=== PATIENT | male | born 1975 | race Two or more races ===

== ENCOUNTER 2017-06-02 13:10 | Inpatient (IN) | payer SELFPAY ==
[2017-06-02 13:55] LABS: Hematocrit 47 % (42-52); Hemoglobin 16.2 g/dl (14.0-18.0); Mean Corpuscular HGB Conc 35 g/dl (31-36); Mean Corpuscular Hemoglobin 30 pg (27-31); Mean Corpuscular Volume 86 fL (80-94); Mean Platelet Volume 7 um3 (7.4-10.4); Red Blood Count 5.45 10^6/ul (4.0-5.4); Red Cell Distribution Width 14 % (10.5-15)
[2017-06-02 14:10] LABS: ALT 16 U/L (7-52); AST 18 U/L (13-39); Albumin 4.3 g/dL (3.2-5.2); Alkaline Phosphatase 61 U/L (34-104); BUN/Creatinine Ratio 6.9 (8-20); Blood Urea Nitrogen 6 mg/dL (6-24); CO2 Carbon Dioxide 22 mmol/L (22-32); Calcium 9.2 mg/dL (8.6-10.3); Chloride 88 mmol/L (101-111); EGFR African American 125.6 (>60); EGFR Non-African American 97.7 (>60); Globulin 3.2 g/dL (2-4); Glucose 125 mg/dL (70-100); Potassium 3.7 mmol/L (3.5-5.0); Total Protein 7.5 g/dL (6.4-8.9)
[2017-06-02 14:16] LABS: Anion Gap 9 mmol/L (2-11); Sodium 119 mmol/L (133-145)
[2017-06-02 14:28] LABS: Urine Bilirubin Negative (Negative); Urine Glucose Negative (Negative); Urine Nitrite Negative (Negative)
[2017-06-02 14:42] LABS: Acetaminophen < 15 mcg/mL; Alcohol < 10 mg/dL (<10); Salicylate < 2.50 mg/dL (<30)
[2017-06-02 14:49] LABS: TSH (Thyroid Stimulating Horm) 1.73 mcIU/mL (0.34-5.60)
[2017-06-02 14:53] LABS: Benzodiazepine Urine Screen None Detected (None Detect)
[2017-06-02] MEDS ORDERED: Acetaminophen TAB* 325 MG PO PRN (15:59)
[2017-06-02] MEDS ORDERED: Ondansetron INJ* 2 MG/ML VIAL IV PRN (15:59)
[2017-06-02] MEDS ORDERED: NS 0.9% 1000 ML* 1,000 ML IV SCH (16:00)
--- NOTE | 2017-06-02 16:41 | RAD ---
INDICATION: Altered mental status COMPARISON: None TECHNIQUE: Noncontrast axial source images were acquired from the skull base to the vertex. FINDINGS: Ventricles/sulci: The ventricles and cisterns are normal in size and configuration for age. Brain parenchyma: There is no focal parenchymal finding, evidence of intracranial mass, or intracranial mass effect. Intracranial hemorrhage:None. Extra-axial spaces: There are no abnormal extra axial fluid collections or evidence of extra-axial mass. Calvarium: There is no calvarial fracture or other calvarial abnormality. Scalp: There is no evidence of scalp or extracalvarial soft tissue abnormality. Paranasal sinuses/mastoid: The paranasal sinuses and mastoid air cells are clear. Other: None. IMPRESSION: NEGATIVE EXAMINATION
[2017-06-02 18:39] LABS: BUN/Creatinine Ratio 7.8 (8-20); Calcium 8.7 mg/dL (8.6-10.3); EGFR African American 144.6 (>60); EGFR Non-African American 112.5 (>60); Potassium 3.5 mmol/L (3.5-5.0)
--- NOTE | 2017-06-02 20:55 | HP ---
CC: Dr. Tyson * HISTORY AND PHYSICAL: DATE OF ADMISSION: 06/02/17 PRIMARY CARE PROVIDER: None. ATTENDING PHYSICIAN WHILE IN THE HOSPITAL: Siddhartha Denton MD * (report dictated by Miguel Hobbs NP). CONSULTING PSYCHIATRIST: Dr. Tyson. CHIEF COMPLAINT: Hearing voices. HISTORY OF PRESENT ILLNESS: Mr. Suarez is a 41-year-old male patient who was actually here in the past in 2009 with complaints of bipolar disorder and having difficulty with his mood. At that point, he was admitted and treated under the care of one of our psychiatrists in the past. He comes in today. He states over the last several weeks, he has been hearing voices. They have not been telling him to do harmful acts, but they have been speaking to him about various different types of topics such as what he should be eating, what he should be doing. He has been at times responding to them. He recently was put up in an apartment by a previous landlord and they were concerned today because they had been hearing him speak to the voices. They were concerned and they were trying to get him in touch with an outpatient psychiatrist, they could not. They got in touch with the psychiatrist today though and they felt that he may need to be evaluated in the hospital because of the auditory and visual hallucinations that he had been having. He denies feeling suicidal. He does state that he has been washing his hands excessively to the point where they are now having multiple abrasions to the hands. He also states he has been drinking an excessive amount of water, which he has had in the past. He has also had hyponatremia of this in the past as well. He denies having any fevers or chills. There has been no chest pain or any vomiting or diarrhea. He states he is not taking any psychiatric medications, although previous chart does state that he was on Clozaril at one point and he has been diagnosed with bipolar disorder. He came in to the ED, he was evaluated and it was found that he was hyponatremic and we were asked to evaluate for admission. PAST MEDICAL HISTORY: Significant for: 1. Bipolar disorder. He has had psychosis in the past. 2. He has had polydipsia with secondary hyponatremia. PAST SURGICAL HISTORY: He denies. HOME MEDICATIONS: Include none. ALLERGIES TO MEDICATIONS: Include none. FAMILY HISTORY: He states his father had Parkinson's. He states his mother is healthy. SOCIAL HISTORY: He does smoke cigarettes, he does not state how much. He does not drink alcohol. He denies any recreational drug abuse. He is unable to appoint a surrogate decision maker at this point. REVIEW OF SYSTEMS: There is no documented fever. He denied any significant weight change. There was no double vision. No ear discharge. Denied having any rhinorrhea. No sore throat. No thyroid enlargement. Denied having any chest pain. There was no orthopnea. No nocturnal dyspnea. There was no abdominal pain. No nausea. No vomiting. No dysuria. No frequency. There was no loss of consciousness. No pruritus. No skin ulcerations. Review of 14 systems was completed, all others negative. PHYSICAL EXAMINATION GENERAL: At this time, Mr. Suarez is a 41-year-old male patient. He is sitting in the ER stretcher. He does not appear to be in any acute distress. He is awake. He knows he is in the hospital. He knows his name and he knows what year it is. He appears to be well nourished and well developed. VITAL SIGNS: Blood pressure 161/103 with a pulse of 105, respirations 16, O2 sat 99%, and temperature of 97.8. HEENT: Head: Atraumatic. Eyes: EOMs are intact. Sclerae anicteric and not pale. Throat: Oral mucosa appears to be moist. No oropharyngeal erythema. NECK: Supple. LUNGS: Clear to auscultation bilaterally. No wheezes, rales, or rhonchi. HEART: Sounds S1, S2. Regular rate and rhythm. He is slightly tachycardic on my exam. No murmurs, rubs, or gallops. ABDOMEN: Soft, flat, nontender. Bowel sounds are present. EXTREMITIES: Pulses were 2+ throughout. He had no peripheral edema. He is moving all 4 extremities with 5/5 strength. NEUROLOGIC: Again, he is awake, he is alert to himself, time and place. He does state that he is not hearing voices at this point. His clinical veterinarian were equal. Tongue is midline. No facial drooping. SKIN: Intact. LABORATORY DATA: WBC of 12.0, RBC of 5.45, hemoglobin 16.2, hematocrit 47, platelet count of 54,000. Sodium is 119. In the past, when I look up his old chart, his sodium has been as low as 120. His potassium is 3.7, chloride of 88 , bicarb 22, BUN 6, creatinine 0.87, glucose 125. Calcium 9.2. Total bili 0.7 , AST 8, ALT 16, alk phos 61. TSH is normal. Urine was obtained, it was negative. U- tox was negative. Old medical records were reviewed. ASSESSMENT AND PLAN: Mr. Suarez is a 41-year-old male patient coming in to the ED today with complaints of hearing voices. On evaluation, he was found to be hyponatremic. He will be admitted under inpatient status for: 1. Hyponatremia. I suspect this is probably related to the fact that the patient has been having polydipsia secondary to his psychosis. Fluid restriction to a liter a day. I am going to get the urine osmolality, serum osmolality and urine sodium. We are checking a cortisol and we will continue to follow him closely. We will get BMP's every 6 hours and put him on normal saline at 75 cc an hour. 2. History of bipolar and psychosis. I did touch base with our psychiatry team. Some of them will be evaluating him tomorrow. We do not believe he is a danger to himself, so I did not order a one to one. We will have psych evaluate him as he may need psychiatric stabilization after sodium corrects. I am going to get a CT of the brain. 3. DVT prophylaxis. He is low risk. I will place him on SCDs. 4. Fluids, electrolytes and nutrition. He can be on a regular diet. 5. Code status. Full code. TIME SPENT: On admission 60 minutes, greater than half time spent [id number] with the patient obtaining my history and physical, other half of the time was spent going over the plan of care with the patient and implementing plan of care. I did discuss the plan of care with my attending, Dr. Denton; he is in agreement. MIGUEL HOBBS, [place] [id number]/[facility] #: [id number] KAMALJIT
[2017-06-03 00:38] LABS: BUN/Creatinine Ratio 10.3 (8-20); EGFR African American 110.8 (>60); EGFR Non-African American 86.2 (>60); Potassium 3.8 mmol/L (3.5-5.0)
[2017-06-03 06:12] LABS: Hematocrit 46 % (42-52); Hemoglobin 16.1 g/dl (14.0-18.0); Mean Corpuscular HGB Conc 35 g/dl (31-36); Mean Corpuscular Hemoglobin 30 pg (27-31); Mean Corpuscular Volume 85 fL (80-94); Mean Platelet Volume 7 um3 (7.4-10.4); Red Blood Count 5.42 10^6/ul (4.0-5.4); Red Cell Distribution Width 13 % (10.5-15); White Blood Count 10.8 10^3/ul (3.5-10.8)
[2017-06-03 06:21] LABS: BUN/Creatinine Ratio 9.4 (8-20); Calcium 9.4 mg/dL (8.6-10.3); EGFR African American 112.1 (>60); EGFR Non-African American 87.2 (>60); Potassium 3.9 mmol/L (3.5-5.0)
--- NOTE | 2017-06-03 11:04 | PN ---
Subjective Date of Service: 06/03/17 Interval History: Patient seen this morning. Fixated on water, has been ringing nursing bean numerous times this AM asking for more water. Perseverating on "Dr. Markos Briseno" who he reports is his psychiatrist at this facility (although no one by that name works here). Reports he drinks 2-3 gallons of water/day at home. Denies AH at this time and [employer]. Has excoriations on his hand that he states are from washing them. Family History: Unchanged from Admission Social History: Unchanged from Admission Past Medical History: Unchanged from Admission Objective Active Medications: Acetaminophen (Tylenol Tab*) 650 mg PO Q4H PRN PRN Reason: FEVER/PAIN Ondansetron HCl (Zofran Inj*) 4 mg IV Q6H PRN PRN Reason: NAUSEA Vital Signs 06/02/17 06/02/17 06/02/17 18:00 19:57 20:00 Temperature 98.5 F 98.4 F Pulse Rate 74 66 Respiratory 16 20 20 Rate Blood Pressure 153/85 151/81 (mmHg) O2 Sat by Pulse 100 100 Oximetry 06/02/17 06/03/17 06/03/17 23:33 02:41 07:28 Temperature 98.4 F 97.2 F 98.6 F Pulse Rate 68 67 93 Respiratory 16 15 Rate Blood Pressure 138/77 142/79 153/96 (mmHg) O2 Sat by Pulse 100 100 100 Oximetry 06/03/17 08:00 Temperature Pulse Rate Respiratory 15 Rate Blood Pressure (mmHg) O2 Sat by Pulse Oximetry Oxygen Devices in Use Now: None Appearance: Middle-aged, M, sitting in bed in NAD Eyes: No Scleral Icterus Ears/Nose/Mouth/Throat: Mucous Membranes Moist Neck: NL Appearance and Movements; NL JVP Respiratory: Symmetrical Chest Expansion and Respiratory Effort, Clear to Auscultation Cardiovascular: NL Sounds; No Murmurs; No JVD, RRR Abdominal: NL Sounds; No Tenderness; No Distention Lymphatic: No Cervical Adenopathy Extremities: No Edema Skin: No Rash or Ulcers Neurological: - - Alert, oriented, no focal deficits Result Diagrams: 06/03/17 05:58 06/03/17 05:58 Assess/Plan/Problems-Billing Assessment: Hyponatremia likely 2/2 polydipsia in a 41 yo M with past psych hx (bipolar disorder with psychosis) - Patient Problems (1) Hyponatremia Current Visit: Yes Comment: Improved with fluid restriction. Correction slightly faster than 0.5 mEq/hr but I don't think there is much concern for CPM. Continue fluid restriction for now , can liberalize a bit more tomorrow. Had similar presentation in 2009 and was hospitalized on Psych unit at that time. (2) Auditory hallucinations Current Visit: Yes Comment: Reported in H&P, patient denies at this time. Has had hx of psychosis in the past documented during 2009 admission here on Psych unit. Patient currently denies being on any medications and insists his psychiatrist is Dr. Markos Briseno. Psych to evaluate patient today. (3) DVT prophylaxis Current Visit: Yes Comment: SCDs Status and Disposition: Inpatient, ?need for psych admission
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
[2017-06-03] MEDS: Divalproex ER TAB(*) 500 MG PO SCH (22:45)
[2017-06-03] MEDS: CloZAPine TAB* 25 MG TAB PO SCH (22:45)
[2017-06-04 08:27] LABS: BUN/Creatinine Ratio 12.6 (8-20); Calcium 9.9 mg/dL (8.6-10.3); EGFR African American 113.5 (>60); EGFR Non-African American 88.3 (>60); Potassium 4.2 mmol/L (3.5-5.0)
[2017-06-04] MEDS: CloZAPine TAB* 25 MG TAB PO SCH (09:46)
--- NOTE | 2017-06-04 13:41 | PN ---
Subjective Date of Service: 06/04/17 Interval History: Patient seen this afternoon. Denies complaints other than feeling tired which he attributes to medications. Tangential at times. Says he does not recall speaking with the psychiatrist yesterday. Family History: Unchanged from Admission Social History: Unchanged from Admission Past Medical History: Unchanged from Admission Objective Active Medications: Acetaminophen (Tylenol Tab*) 650 mg PO Q4H PRN Clozapine (Clozapine Tab*) 25 mg PO DAILY MARJ Divalproex Sodium (Depakote Er Tab(*)) 1,500 mg PO BEDTIME MARJ Ondansetron HCl (Zofran Inj*) 4 mg IV Q6H PRN Vital Signs 06/03/17 06/03/17 06/04/17 16:15 20:00 04:27 Temperature 98.3 F Pulse Rate 95 81 Respiratory 17 18 16 Rate Blood Pressure 151/98 150/79 (mmHg) O2 Sat by Pulse 98 100 Oximetry 06/04/17 06/04/17 06/04/17 04:31 07:26 08:00 Temperature Pulse Rate 72 Respiratory 18 18 Rate Blood Pressure 141/83 (mmHg) O2 Sat by Pulse 99 99 Oximetry 06/04/17 06/04/17 13:21 13:23 Temperature Pulse Rate 154 145 Respiratory 16 Rate Blood Pressure 124/92 (mmHg) O2 Sat by Pulse 97 Oximetry Oxygen Devices in Use Now: None Appearance: Middle-aged, M, laying in bed in NAD Eyes: No Scleral Icterus Ears/Nose/Mouth/Throat: Mucous Membranes Moist Neck: NL Appearance and Movements; NL JVP Respiratory: Symmetrical Chest Expansion and Respiratory Effort, Clear to Auscultation Cardiovascular: NL Sounds; No Murmurs; No JVD, - - Tachycardia Abdominal: NL Sounds; No Tenderness; No Distention Lymphatic: No Cervical Adenopathy Extremities: No Edema Skin: No Rash or Ulcers Neurological: - - Alert, oriented, no focal deficits Result Diagrams: 06/03/17 05:58 06/04/17 07:53 Microbiology and Other Data: Microbiology 06/02/17 23:33 Urine Culture - Final Urine No Growth (<1,000 CFU/mL) Assess/Plan/Problems-Billing Assessment: Hyponatremia likely 2/2 polydipsia in a 41 yo M with past psych hx (bipolar disorder with psychosis) - Patient Problems (1) Tachycardia Current Visit: Yes Comment: Rapid HR on exam, will get EKG. ?related to Clozapine. Will discuss with Psych. (2) Hyponatremia Current Visit: Yes Comment: Improved with fluid restriction. Will liberalize fluid restriction to 2L. Had similar presentation in 2009 and was hospitalized on Psych unit at that time. (3) Auditory hallucinations Current Visit: Yes Comment: Reported in H&P, patient denies at this time. Has had hx of psychosis in the past documented during 2010 admission here on Psych unit. Appreciate Psych assistance. Started on Clozapine and Depakote (refused). (4) DVT prophylaxis Current Visit: Yes Comment: SCDs Status and Disposition: Inpatient, will need psych admission once medically clear and bed is available
--- NOTE | 2017-06-04 15:26 | CONSULT ---
Identification - Patient Identification Reason for Psychiatric Consultation: Incapacitating Symptoms -: Patient is a 41 year old, M admitted on 06/02/17. - MHU Identification Employment Status: Unemployed Hx Psychiatric Hospitalization: Yes History - Objective HPI: Anderson is seen for follow up. I understand that he refused his Depakote and clozapine last night, but did adhere with 25mg of clozapine this morning. Since then, I gather there has been some concern for tachycardia. On exam the patient is more interactive than yesterday but still isn't making much sense. "The tablet has made my head come together in the middle so that all I need is a few more days in the hospital to make everything just right." I ask if he's spoken with his brother, Harsh, or any other family members, which he denies. "No, no, I'll be fine." He denies SI or HI. Lab Results: Laboratory Tests 06/02/17 06/02/17 06/03/17 18:14 23:33 00:17 WBC RBC Hgb Hct MCV MCH MCHC RDW Plt Count MPV Neut % (Auto) Lymph % (Auto) [place] % (Auto) Eos % (Auto) Baso % (Auto) Absolute Neuts (auto) Absolute Lymphs (auto) Absolute Monos (auto) Absolute Eos (auto) Absolute Basos (auto) Absolute Nucleated RBC Nucleated RBC % Sodium 122 L 127 L Potassium 3.5 3.8 Chloride 93 L 97 L Carbon Dioxide 21 L 22 Anion Gap 8 8 BUN 6 10 Creatinine 0.77 0.97 Est GFR ( Amer) 144.6 110.8 Est GFR (Non-Af Amer) 112.5 86.2 BUN/Creatinine Ratio 7.8 L 10.3 Glucose 137 H 126 H Calcium 8.7 9.0 Ur Random Creatinine 30.84 Ur Random Sodium 27 06/03/17 06/03/17 06/04/17 05:58 05:58 07:53 WBC 10.8 RBC 5.42 H Hgb 16.1 Hct 46 MCV 85 MCH 30 MCHC 35 RDW 13 Plt Count 326 MPV 7 L Neut % (Auto) 72.4 Lymph % (Auto) 16.5 L [place] % (Auto) 9.9 H Eos % (Auto) 0.3 Baso % (Auto) 0.9 Absolute Neuts (auto) 7.8 H Absolute Lymphs (auto) 1.8 Absolute Monos (auto) 1.1 H Absolute Eos (auto) 0 Absolute Basos (auto) 0.1 Absolute Nucleated RBC 0 Nucleated RBC % 0 Sodium 128 L 132 L Potassium 3.9 4.2 Chloride 98 L 102 Carbon Dioxide 22 21 L Anion Gap 8 9 BUN 9 12 Creatinine 0.96 0.95 Est GFR ( Amer) 112.1 113.5 Est GFR (Non-Af Amer) 87.2 88.3 BUN/Creatinine Ratio 9.4 12.6 Glucose 163 H 133 H Calcium 9.4 9.9 Ur Random Creatinine Ur Random Sodium Exam Appearance: Well Developed/Nourished Hygiene: Dirty Grooming: Disheveled Psychomotor Activities: Normal Exhibits Abnormal Movement: No Attitude and Relatedness: Psychotically Related Eye Contact: Fair - Speech Quality: Unpressured Latencies: Normal Quantity: Appropriate Patient's Decription of Mood: "Okay" Observed Affect: Unvariable Affect Consistent with: Euthymia Patient's Thought Process: Disorganized Thought Content: Yes Paranoid Ideation, No Passive Wish, No Suicidal Planning, No Homicidal Ideation Experiencing Hallucinations: Yes Type of Hallucinations: Visual: No, Auditory: Yes, Command: Yes Level of Consciousness: Alert Orientation: Yes Intact, Yes Orientated to Time, Yes Orientated to Place, Yes Orientated to Person Impulse Control: Poor Insight and Judgement: Impaired Impression - Impression Clinical Impression: 41 y.o. single, homeless, male with dual citizenship in the and [place] and a history of schizoaffective DO and OCD brought in by an acquaintance due to several weeks of worsening command AH and inability to take care of himself in the community. Inpatient DSM-IV Dx: Schizoaffective DO, bipolar type Merits Inpatient Hospitalization: Yes Plan - Treatment Plan Treatment Plan: Start clozapine 25mg PO qday and Depakote ER 1500mg PO qhs. Transfer to [facility] pending male bed availability. Place on involuntary legal status, as patient currently declining psychiatric care. Psychiatry will continue to follow. Continued Medication Management: Start Medication Medications: Current Medications Acetaminophen (Tylenol Tab*) 650 mg PO Q4H PRN PRN Reason: FEVER/PAIN Clozapine (Clozapine Tab*) 25 mg PO DAILY MARJ Last Admin: 06/04/17 09:46 Dose: 25 mg Divalproex Sodium (Depakote Er Tab(*)) 1,500 mg PO BEDTIME MARJ Last Admin: 06/03/17 22:45 Dose: Not Given Ondansetron HCl (Zofran Inj*) 4 mg IV Q6H PRN PRN Reason: NAUSEA - Discharge Plan Discharge Plan: Inpatient Hospitalization
[2017-06-04] MEDS: Divalproex ER TAB(*) 500 MG PO SCH ×2 (20:49→20:56)
[2017-06-04] MEDS ORDERED: Haloperidol INJ IV/IM* 5 MG/ML AMP IM ONE (23:34)
[2017-06-04] MEDS ORDERED: Haloperidol INJ IV/IM* 5 MG/ML AMP ONE (23:37)
[2017-06-05 13:06] VITALS: BP 142/104
--- NOTE | 2017-06-05 13:21 | ED ---
Neptali Khanna Thomas, scribed for Angel Guevara MD on 06/02/17 at 1450 . Psychiatric Complaint - HPI Summary HPI Summary: For the last couple of weeks, this 41 y/o man has not been taking his medication for a mental illness of which he does not know the specific name. He reports hearing voices in the last couple days, especially people that live outside his apartment. The patient is also hearing voices in his head that know him well. When I am asked him what these voices say, he does not specific. When I ask him if these voices tell him to kill himself or others, he says no. The patient has a lot of tangential thoughts and word salad. He is disheveled and has tangential speech and word salad. He denies punching the wall although he has erythema on both hands. - History Of Current Complaint Chief Complaint: EDMentalHealth Time Seen by Provider: 06/02/17 13:22 Hx Obtained From: Patient Onset/Duration: Lasting Weeks - 2, Still Present, Worse Since - 2 days Timing: Constant Severity Currently: Severe Aggravating Factor(s): Nothing Alleviating Factor(s): Nothing Associated Signs And Symptoms: Positive: Hallucinating, Paranoid Behavior Related History: Positive For: Prior Psychiatric Issues Has Suicidal: Denies: Thoughts Has Homicidal: Denies: Thoughts - Allergies/Home Medications Allergies/Adverse Reactions: Allergies Allergy/AdvReac Type Severity Reaction Status Date / Time No Known Allergies Allergy Verified 06/02/17 13:20 Home Medications: Home Medications NK [No Home Medications Reported] 06/02/17 [History Confirmed 06/02/17] PMH/Surg Hx/FS Hx/Imm Hx Previously Healthy: No Endocrine/Hematology History: Denies: Hx Diabetes Psychiatric History: Reports: Other Psychiatric Issues/Disorders - Hx of unspecified mental illness - Surgical History Surgery Procedure, Year, and Place: None Infectious Disease History: No Infectious Disease History: Denies: Traveled Outside the [place] in Last 30 Days - Family History Known Family History: Positive: Other - Patient denies relevant FHx - Social History Alcohol Use: None Hx Substance Use: No Substance Use Type: Reports: None Hx Tobacco Use: No Smoking Status (MU): Never Smoked Tobacco Review of Systems Positive: Other - Thirst Positive: Other - Auditory halluicinations; NEGATIVE: SI, HI All Other Systems Reviewed And Are Negative: Yes Physical Exam - Summary Physical Exam Summary: VITAL SIGNS: Reviewed. GENERAL: Patient is a well-developed and nourished male who is lying comfortable in the stretcher. Patient is not in any acute respiratory distress. He is disheveled. His only complaint in the emergency room is that he is thirsty. HEAD AND FACE: No signs of trauma. No ecchymosis, hematomas or skull depressions. No sinus tenderness. EYES: PERRLA, EOMI x 2, No injected conjunctiva, no nystagmus. EARS: Hearing grossly intact. Ear canals and tympanic membranes are within normal limits. MOUTH: Oropharynx within normal limits. NECK: Supple, trachea is midline, no adenopathy, no JVD, no carotid bruit, no c- spine tenderness, neck with full ROM. CHEST: Symmetric, no tenderness at palpation LUNGS: Clear to auscultation bilaterally. No wheezing or crackles. CVS: Regular rate and rhythm, S1 and S2 present, no murmurs or gallops appreciated. ABDOMEN: Soft, non-tender. No signs of distention. No rebound no guarding, and no masses palpated. Bowel sounds are normal. EXTREMITIES: FROM in all major joints, no edema, no cyanosis or clubbing. NEURO: Alert and oriented x 3. No acute neurological deficits. Speech is normal and follows commands. SKIN: Dry and warm. He has erythema on both hands, probably because of punching the conroy. PSYCH: He is dissolved. He has tangential thoughts and word salad. He reports auditory hallucinations and hearing voices. Depressed, quiet, and denies any suicidal thoughts or plan. No homicidal thoughts or plan. Vital Signs On Initial Exam: Initial Vitals Temp Pulse Resp BP Pulse Ox 97.8 F 105 16 161/103 99 06/02/17 13:15 06/02/17 13:15 06/02/17 13:15 06/02/17 13:15 06/02/17 13:15 - Mary Coma Scale Coma Scale Total: 15 Diagnostics - Vital Signs Vital Signs Temp Pulse Resp BP Pulse Ox 06/02/17 13:15 97.8 F 105 16 161/103 99 - Laboratory Lab Results: Lab Results 06/02/17 06/02/17 06/02/17 Range/Units 13:45 13:45 13:59 WBC 12.0 H (3.5-10.8) 10^3/ul RBC 5.45 H (4.0-5.4) 10^6/ul Hgb 16.2 (14.0-18.0) g/dl Hct 47 (42-52) % MCV 86 (80-94) fL MCH 30 (27-31) pg MCHC 35 (31-36) g/dl RDW 14 (10.5-15) % Plt Count 345 (150-450) 10^3/ul MPV 7 L (7.4-10.4) um3 Neut % (Auto) 75.2 (38-83) % Lymph % (Auto) 15.1 L (25-47) % [place] % (Auto) 8.6 (1-9) % Eos % (Auto) 0.2 (0-6) % Baso % (Auto) 0.9 (0-2) % Absolute Neuts (auto) 9.0 H (1.5-7.7) 10^3/ul Absolute Lymphs (auto) 1.8 (1.0-4.8) 10^3/ul Absolute Monos (auto) 1.0 H (0-0.8) 10^3/ul Absolute Eos (auto) 0 (0-0.6) 10^3/ul Absolute Basos (auto) 0.1 (0-0.2) 10^3/ul Absolute Nucleated RBC 0.01 10^3/ul Nucleated RBC % 0.1 Sodium 119 L* (133-145) mmol/L Potassium 3.7 (3.5-5.0) mmol/L Chloride 88 L (101-111) mmol/L Carbon Dioxide 22 (22-32) mmol/L Anion Gap 9 (2-11) mmol/L BUN 6 (6-24) mg/dL Creatinine 0.87 (0.67-1.17) mg/dL Est GFR ( Amer) 125.6 (>60) Est GFR (Non-Af Amer) 97.7 (>60) BUN/Creatinine Ratio 6.9 L (8-20) Glucose 125 H (70-100) mg/dL Calcium 9.2 (8.6-10.3) mg/dL Total Bilirubin 0.70 (0.2-1.0) mg/dL AST 18 (13-39) U/L ALT 16 (7-52) U/L Alkaline Phosphatase 61 (34-104) U/L Total Protein 7.5 (6.4-8.9) g/dL Albumin 4.3 (3.2-5.2) g/dL Globulin 3.2 (2-4) g/dL Albumin/Globulin Ratio 1.3 (1-3) TSH Pending Urine Color Straw Urine Appearance Clear Urine pH 7.0 (5-9) Ur Specific [place] 1.003 L (1.010-1.030) Urine Protein Negative (Negative) Urine Ketones Negative (Negative) Urine Blood Negative (Negative) Urine Nitrate Negative (Negative) Urine Bilirubin Negative (Negative) Urine Urobilinogen Negative (Negative) Ur Leukocyte Esterase Negative (Negative) Urine Glucose Negative (Negative) Salicylates < 2.50 (<30) mg/dL Acetaminophen < 15 mcg/mL Serum Alcohol < 10 (<10) mg/dL Result Diagrams: 06/02/17 13:45 06/02/17 13:45 Lab Statement: Any lab studies that have been ordered have been reviewed, and results considered in the medical decision making process. Course/Dx - Course Assessment/Plan: For the last couple of weeks, this 41 y/o man has not been taking his medication for a mental illness of which he does not know the specific name. He reports hearing voices in the last couple days, especially people that live outside his apartment. The patient is also hearing voices in his head that know him well. When I am asked him what these voices say, he does not specific. When I ask him if these voices tell him to kill himself or others , he says no. The patient has a lot of tangential thoughts and word salad. He is disheveled and has tangential speech and word salad. He denies punching the wall although he has erythema on both hands. Test results show WBC 12, sodium 119. Urinalysis is negative for UTI. Urine toxicology is negative. In the ED course, the patient was given IV fluids; however, we stopped because of hyponatremia. I discussed the case with Dr. Denton, who accepts the patient for admission. - Differential Dx/Clinical Impression Provider Diagnosis: Hyponatremia, Change in mental status - Physician Notifications Discussed Care Of Patient With: Siddhartha Denton Time Discussed With Above Provider: 15:12 Instructed by Provider To: Other - Dr. Denton, hospitalist, will admit the patient. Discharge - Discharge Plan Condition: Stable Disposition: ADMITTED TO [facility] The documentation as recorded by the Neptali hansen Thomas accurately reflects the service I personally performed and the decisions made by me, Angel Guevara MD.
[2017-06-05] MEDS ORDERED: Haloperidol INJ IV/IM* 5 MG/ML AMP IM PRN (13:27)
--- NOTE | 2017-06-06 14:08 | DS ---
CC: Dr. Tyson DISCHARGE SUMMARY: DATE OF ADMISSION: 06/02/17 DATE OF DISCHARGE: 06/05/17 ACCEPTING PSYCHIATRIST: Dr. Tyson. DISCHARGE DIAGNOSIS: Severe hyponatremia secondary to psychogenic polydipsia. SECONDARY DIAGNOSIS: Bipolar disorder. MEDICATIONS AT THE TIME OF TRANSFER: 1. Divalproex ER 1500 mg p.o. at bedtime. 2. Acetaminophen 650 mg p.o. q.4 hours p.r.n. pain or fever. HOSPITAL COURSE: Mr. Suarez is a 41-year-old male with a past medical history as stated above that presented to the emergency room on 06/02/17 with complaints of hearing voices. The patient had previ ously been admitted to Mental Health in 2009 and diagnosed with bipolar disorder. He presented to [facility] emergency room at this time complaining of hearing voices. He acknowledged drinking large amounts of water like he had done in the past and his initial sodium was 119. He was admitted to the medical floor and with fluid restriction his sodium trended up and it was 132 on the day of discharge. His serum osmolality was 250, urine osmolality was 149 with an urinary random sodium of 27. The patient had a CT of the brain without contrast that was negative examination. He was seen in consultation by Psychiatry (Dr. Tyson) and his impression was that this patient was 41 years old male, single, homeless with history of schizoaffective disorder and OCD, brought in by an acquaintance due to several weeks of worsening command auditory hallucinations and inability to take care of himself in the community. His recommendation was to start clozapine 25 mg p.o. daily, but [facility] patient developed tachycardia and this medication was discontinued. He also recommended Depakote ER 1500 mg p.o. at bedtime and to transfer patient to the Behavioral Services Unit when a bed was avail able in an involuntary legal status. The patient developed some agitation when he was informed that he was being transferred to the Mental Health Unit and he required some Haldol. He is medically stable for transfer at this time. DIET: Regular diet with 2 L fluid restriction. ACTIVITIES: As tolerated. DISPOSITION: To the Mental Health Unit. STATUS WHILE IN THE HOSPITAL: Inpatient. Please keep in mind this is a summarized version of this patient's hospital stay. If you need more in formation, please feel free to call me at [phone] or please obtain the full medical records. TIME SPENT: Appropriately 40 minutes was spent to complete the discharge. [id number]/[facility] #: [id number]
== END 2017-06-05 14:50 | DRG 641 ==
LOC: ED 13:10 → MED 16:20
PROVIDERS: ADMIT Internal Medicine; ATTEND Internal Medicine
DX: E87.1 Hypo-osmolality and hyponatremia (principal); F25.0 Schizoaffective disorder, bipolar type; F28 Other psychotic disorder not due to a substance or known physiological condition; R63.1 Polydipsia; F42.9 Obsessive-compulsive disorder, unspecified; F17.210 Nicotine dependence, cigarettes, uncomplicated; R00.0 Tachycardia, unspecified; Z81.8 Family history of other mental and behavioral disorders
CPT/HCPCS: 36415; 70450; 80048; 80053; 80307; 80320; 80329; 81003; 82533; 82570; 83930; 83935; 84300; 84443; 85025; 87086; A9270-GY; G0480; J1630

== ENCOUNTER 2017-06-05 11:51 | Inpatient (IN) | payer MEDICAID ==
[2017-06-05] MEDS ORDERED: Al Hydrox/Mg Hydrox/Simet LIQ* 30 ML UDC PO PRN (12:07)
[2017-06-05] MEDS ORDERED: Acetaminophen TAB* 325 MG PO PRN (12:07)
[2017-06-05] MEDS ORDERED: Nicotine GUM* 2 MG PO PRN (12:07)
[2017-06-05] MEDS ORDERED: Haloperidol TAB* 5 MG PO PRN (12:14)
[2017-06-05] MEDS ORDERED: Benztropine INJ* 1 MG/ML 2 ML AMP ONE (18:55)
[2017-06-05] MEDS ORDERED: diPHENhydraMINE IV* 50 MG/ML 1 ml VIAL (BENADRYL) ONE (18:55)
--- NOTE | 2017-06-05 19:51 | PN ---
Subjective - Subjective Service Type: 30375 Hosp care 35 min high complexity Subjective: called by charge nurse to evaluate this 42 year old man for change in mental status. 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 unable to review medical admission in the computer. I do not have much history about this patient but he as a history of psychosis, mutism, and catatonic symptoms Nursing tells me that in report they were told that patient received a dose of haldol IM for being combative with security screener on the medical floor. nursing tells me that he arrived on floor about 3 pm. He is primarily telugu speaking. he isolated and was mostly mute but did come out to eat dinner. after eating a few bites, patient developed postural rigidity with neck hyperextension and fixed upward gaze They moved patient to hospital bed. vitals 155/98 HR 111 02 sat 100 percent T afebrile PE: diaphoretic opisthotonic posturing of head and neck with arched head and neck and spine, upward gaze, tongue rolled back and contracted. patient mute and unresponsive to verbal stimuli. upper and lower extremites with increased abdomen: soft non tender tone bilaterally symmetric Heart and Lungs: deferred skin: warm to touch,no cyanosis, scratches and excoriations visible on both hands and forearms ext: no clubbing or edema, good capillary refill MSE: mute but awake with eyes wide open labs: none seen in computer current Meds: haldol 5 mg q4 h prn risperdal 1 mg BID depakote ER 1500 mg Impression: Acute dystonic reaction secondary to Haldol in this 41 yo with history of schizoaffective disorder s/p hyponatremia on fluid restriction Plan: patient given benadryl 50 mg IM followed by cogentin 2 mg IM with good response. dystonic posturing remitted completely He is currently sitting in the common area in no distress placed on constant observation overnight q4h vitals x3 then can go to q shift written for ativan 0.5 mg TID scheduled and 0.5 mg Q4h prn agitation Haldol prn discontinued continue risperdal 1 mg BId and depakote ER 1500 mg qhs cbc, cmp, VPA level CPK ordred and pending patient signed out to Dr. Santo who will re evaluate patient in AM Plan - Plan Treatment Plan: Name: MADHAVI YEIMI MONTES DE OCA Birthdate: 1975 [id number]
[2017-06-05] MEDS ORDERED: LORazepam TAB(*) 0.5 MG PO PRN (19:57)
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
[2017-06-05 20:44] LABS: ABS Basophils 0.2 10^3/ul (0-0.2); ABS Eosinophils 0 10^3/ul (0-0.6); ABS Lymphocytes 2.7 10^3/ul (1.0-4.8); ABS Neutrophils 10.2 10^3/ul (1.5-7.7); ABS Nucleated RBC 0.02 10^3/ul; Eosinophil % 0.1 % (0-6); Hematocrit 48 % (42-52); Hemoglobin 16.2 g/dl (14.0-18.0); Lymphocyte % 19.1 % (25-47); Mean Corpuscular HGB Conc 34 g/dl (31-36); Mean Corpuscular Hemoglobin 30 pg (27-31); Mean Corpuscular Volume 87 fL (80-94); Mean Platelet Volume 7 um3 (7.4-10.4); Nucleated Red Blood Cells % 0.1; Platelet Count 383 10^3/ul (150-450); Red Blood Count 5.45 10^6/ul (4.0-5.4); Red Cell Distribution Width 14 % (10.5-15); White Blood Count 14.1 10^3/ul (3.5-10.8)
[2017-06-05 22:06] LABS: EGFR Non-African American 76.9 (>60)
[2017-06-05] MEDS: risperiDONE-M * 1 MG TAB.ORADIS PO SCH ×2 (22:45→22:55)
[2017-06-05] MEDS: Divalproex ER TAB(*) 500 MG PO SCH (22:54)
[2017-06-05] MEDS: Benztropine TAB* 1 MG PO SCH (22:54)
[2017-06-05] MEDS: LORazepam TAB(*) 0.5 MG PO SCH (22:58)
[2017-06-06] MEDS: LORazepam TAB(*) 0.5 MG PO SCH ×4 (00:05→21:35)
[2017-06-06] MEDS: risperiDONE-M * 1 MG TAB.ORADIS PO SCH ×2 (09:32→21:35)
[2017-06-06] MEDS: Benztropine TAB* 1 MG PO SCH ×3 (09:34→21:33)
[2017-06-06] MEDS: Divalproex ER TAB(*) 500 MG PO SCH (21:34)
[2017-06-07] MEDS: Benztropine TAB* 1 MG PO SCH ×4 (08:54→21:53)
[2017-06-07] MEDS: risperiDONE-M * 1 MG TAB.ORADIS PO SCH ×2 (08:54→20:23)
[2017-06-07] MEDS: LORazepam TAB(*) 0.5 MG PO SCH ×3 (08:54→20:23)
--- NOTE | 2017-06-07 19:01 | PN ---
Subjective - Subjective Subjective: Anderson indicates feeling better, denies SI/HI or A/VH, asserts that he has not been drinking excessively. He still appears disorganized in his thinking but denies SE from prescribed meds, reports sleeping ok. He is agreeable to repeat bloodwork in AM. Per staff, he has been adherent to unit's routines. Objective - Appearance Appearance: Healthy Appearing Dysmorphic Features: No Hygiene: Normal Grooming: Well Kept - Behavior Psychomotor Activities: Normal Exhibits Abnormal Movement: No - Attitude and Relatedness Attitude and Relatedness: Cooperative Eye Contact: Good - Speech Quality: Pressured Latencies: Normal Quantity: Copious - Mood Patient's Decription of Mood: "Okay" - Affect Observed Affect: Non-labile Affect Consistent with: Euthymia - Thought Process Patient's Thought Process: Disorganized, Over Inclusive Thought Content: No Passive Wish, No Suicidal Planning, No Homicidal Ideation, No Paranoid Ideation - Sensorium Experiencing Hallucinations: No, Sensorium is Clear - Level of Consciousness Level of Consciousness: Alert Orientation: Yes Intact - Impulse Control Impulse Control: Tenuous - Insight and Judgement Insight and Judgement: Impaired - Group Participation Particating in Group Activities: No - Medication Management Medication Management Adherence: Yes Assessment - Assessment Merits Inpatient Hospitalization: For Ongoing Evaluation, Consolidate Improvements, For Discharge Planning Inpatient DSM-IV Dx: Schizoaffective disorder, bipolar type; obsessive- compulsive disorder. Clinical Impression: Ongoing impairing manic/psychotic symptoms; polydypsia is improving; tolerating prescribed meds. He needs continued admission for stabilization. Repeat labs ordered for AM. Plan - Plan Treatment Plan: Name: ANDERSON MONTES DE OCA Birthdate: 1975 [id number] Medications: Current Medications Acetaminophen (Tylenol Tab*) 650 mg PO Q4H PRN PRN Reason: for pain; or Temp >101 F Al Hydrox/Mg Hydrox/Simethicone (Maalox Plus*) 30 ml PO Q4H PRN PRN Reason: INDIGESTION Benztropine Mesylate (Cogentin Tab*) 1 mg PO TID@0800,1400,2100 [facility] Last Admin: 06/07/17 13:24 Dose: 1 mg Divalproex Sodium (Depakote Er Tab(*)) 1,500 mg PO BEDTIME [facility] Last Admin: 06/06/17 21:34 Dose: 1,500 mg Lorazepam (Ativan Tab(*)) 0.5 mg PO TID [facility] Last Admin: 06/07/17 13:24 Dose: 0.5 mg Lorazepam (Ativan Tab(*)) 0.5 mg PO Q4H PRN PRN Reason: AGITATION Nicotine (Nicotine Inhaler*) 10 mg INH Q2H PRN PRN Reason: CRAVING Nicotine Polacrilex (Nicotine Gum*) 2 mg PO Q2H PRN PRN Reason: CRAVING Risperidone (Risperdal-M Tab *) 1 mg PO BID MARJ PRN Reason: Protocol Last Admin: 06/07/17 08:54 Dose: 1 mg - Discharge Plan Discharge Plan: Outpatient Follow Up Outpatient Program: [facility]
[2017-06-07] MEDS: Divalproex ER TAB(*) 500 MG PO SCH (20:23)
[2017-06-08 08:19] LABS: EGFR Non-African American 76.9 (>60)
[2017-06-08] MEDS: Benztropine TAB* 1 MG PO SCH ×4 (09:52→20:59)
[2017-06-08] MEDS: risperiDONE-M * 1 MG TAB.ORADIS PO SCH ×3 (09:52→21:55)
[2017-06-08] MEDS: LORazepam TAB(*) 0.5 MG PO SCH ×3 (09:52→21:55)
--- NOTE | 2017-06-08 12:10 | PN ---
Subjective - Subjective Service Type: 71280 Hosp care 15 min low complexity Subjective: The patient has displayed no further evidence of EPS despite being adherent with scheduled risperidone. Staff notes that he is not complying with fluid restrictions and is alleged to be drinking out of the toilet in his room. He remains disorganized and unable to tell me where he will stay following discharge. He denies SI or HI. Objective - Appearance Appearance: Obese Dysmorphic Features: No Hygiene: Normal Grooming: Fairly Well Kept - Behavior Psychomotor Activities: Normal Exhibits Abnormal Movement: No - Attitude and Relatedness Attitude and Relatedness: Psychotically Related Eye Contact: Poor - Speech Quality: Unpressured Latencies: Normal Quantity: Appropriate - Mood Patient's Decription of Mood: "Good" - Affect Observed Affect: Unvariable Affect Consistent with: Euthymia - Thought Process Patient's Thought Process: Disorganized Thought Content: Yes Paranoid Ideation, No Passive Wish, No Suicidal Planning, No Homicidal Ideation - Sensorium Experiencing Hallucinations: Yes Type of Hallucinations: Visual: No, Auditory: Yes, Command: No - Level of Consciousness Level of Consciousness: Alert Orientation: Yes Intact, Yes Orientated to Time, Yes Orientated to Place, Yes Orientated to Person - Impulse Control Impulse Control: Poor - Insight and Judgement Insight and Judgement: Impaired - Group Participation Particating in Group Activities: No - Medication Management Medication Management Adherence: Yes Assessment - Assessment Merits Inpatient Hospitalization: For Immediate Safety, For Stabilization Inpatient DSM-IV Dx: Schizoaffective disorder, bipolar type; obsessive- compulsive disorder. Clinical Impression: 41 y.o. single, male with a history of schizoaffective DO transferred from the [facility] medical service following stabilization of hyponatremia in the setting of psychogenic polydipsia, who is now receiving involuntary BSU admission for psychotic thought disorganization and inability to care for himself in the community. Plan - Plan Treatment Plan: Name: MADHAVI MONTES DE OCA Birthdate: 1975 [id number] The patient remains psychotic. Will increase risperidone to 1mg PO TID and increase Depakote ER to 1750mg PO qhs. Patient also on lorazepam 0.5mg PO TID and benztropine 1mg PO TID to prevent EPS. Will attempt to coordinate with his family in the [place] to repatriate him following psychiatric stabilization and discharge. Continue inpatient level services. Continued Medication Management: Start Medication Medications: Current Medications Acetaminophen (Tylenol Tab*) 650 mg PO Q4H PRN PRN Reason: for pain; or Temp >101 F Al Hydrox/Mg Hydrox/Simethicone (Maalox Plus*) 30 ml PO Q4H PRN PRN Reason: INDIGESTION Benztropine Mesylate (Cogentin Tab*) 1 mg PO TID@0800,1400,2100 [facility] Last Admin: 06/08/17 09:52 Dose: 1 mg Divalproex Sodium (Depakote Er Tab(*)) 1,750 mg PO BEDTIME MARJ Lorazepam (Ativan Tab(*)) 0.5 mg PO TID [facility] Last Admin: 06/08/17 09:52 Dose: 0.5 mg Lorazepam (Ativan Tab(*)) 0.5 mg PO Q4H PRN PRN Reason: AGITATION Nicotine (Nicotine Inhaler*) 10 mg INH Q2H PRN PRN Reason: CRAVING Nicotine Polacrilex (Nicotine Gum*) 2 mg PO Q2H PRN PRN Reason: CRAVING Risperidone (Risperdal-M Tab *) 1 mg PO TID MARJ PRN Reason: Protocol - Discharge Plan Discharge Plan: Inpatient Hospitalization Lab Results - Lab Results Lab Results: 06/05/17 06/05/17 06/08/17 20:29 20:29 07:45 WBC 14.1 H RBC 5.45 H Hgb 16.2 Hct 48 MCV 87 MCH 30 MCHC 34 RDW 14 Plt Count 383 MPV 7 L Neut % (Auto) 72.6 Lymph % (Auto) 19.1 L [place] % (Auto) 7.1 Eos % (Auto) 0.1 Baso % (Auto) 1.1 Absolute Neuts (auto) 10.2 H Absolute Lymphs (auto) 2.7 Absolute Monos (auto) 1.0 H Absolute Eos (auto) 0 Absolute Basos (auto) 0.2 Absolute Nucleated RBC 0.02 Nucleated RBC % 0.1 ESR 15 H Sodium 134 134 Potassium 4.3 4.1 Chloride 100 L 98 L Carbon Dioxide 21 L 30 Anion Gap 13 H 6 BUN 15 14 Creatinine 1.07 1.07 Est GFR ( Amer) 98.9 98.9 Est GFR (Non-Af Amer) 76.9 76.9 BUN/Creatinine Ratio 14.0 13.1 Glucose 130 H 91 Calcium 10.2 9.5 Magnesium 2.3 Total Bilirubin 0.50 0.70 AST 26 32 ALT 22 25 Alkaline Phosphatase 71 58 Total Creatine Kinase 499 H 651 H Total Protein 7.2 7.2 Albumin 4.3 4.0 Globulin 2.9 3.2 Albumin/Globulin Ratio 1.5 1.3 Valproic Acid < 13.0 L
[2017-06-08] MEDS ORDERED: Magnesium Hydroxide LIQ* 30 ML UDC PO PRN (13:23)
[2017-06-08] MEDS: Divalproex ER TAB(*) 500 MG PO SCH (20:56)
--- NOTE | 2017-06-09 10:23 | PN ---
Subjective - Subjective Service Type: [id number] Hosp care 15 min low complexity Subjective: The patient appears to be adhering to his fluid restriction order. He is selective with meds, taking them at some points but not others. Only took 1500 out of 1750mg dose of Depakote last night. He tends not to participate in groups and is disorganized on exam with poor grooming. He denies SI or HI. Objective - Appearance Appearance: Well Developed/Nourished Dysmorphic Features: No Hygiene: Normal Grooming: Well Kept - Behavior Psychomotor Activities: Normal Exhibits Abnormal Movement: No - Attitude and Relatedness Attitude and Relatedness: Psychotically Related Eye Contact: Fair - Speech Quality: Unpressured Latencies: Normal Quantity: Appropriate - Mood Patient's Decription of Mood: "Okay" - Affect Observed Affect: Unvariable Affect Consistent with: Euthymia - Thought Process Patient's Thought Process: Disorganized, Impoverished Thought Content: Yes Paranoid Ideation, No Passive Wish, No Suicidal Planning, No Homicidal Ideation - Sensorium Experiencing Hallucinations: Yes Type of Hallucinations: Visual: No, Auditory: Yes, Command: No - Level of Consciousness Level of Consciousness: Alert Orientation: Yes Intact, Yes Orientated to Time, Yes Orientated to Place, Yes Orientated to Person - Impulse Control Impulse Control: Poor - Insight and Judgement Insight and Judgement: Impaired - Group Participation Particating in Group Activities: No - Medication Management Medication Management Adherence: Partial Assessment - Assessment Merits Inpatient Hospitalization: For Immediate Safety, For Stabilization Inpatient DSM-IV Dx: Schizoaffective disorder, bipolar type; obsessive- compulsive disorder. Clinical Impression: 41 y.o. single, male with a history of schizoaffective DO [facility] following stabilization of hyponatremia in the setting of psychogenic polydipsia, who is now receiving involuntary BSU admission for psychotic thought disorganization and inability to care for himself in the community. Plan - Plan Treatment Plan: Name: MADHAVI MONTES DE OCA Birthdate: 1975 [id number] The patient remains psychotic. Meds now include risperidone 1mg PO TID, Depakote ER 1750mg PO qhs, lorazepam 0.5mg PO TID and benztropine 1mg PO TID to prevent EPS. We need to encourage better adherence. Will attempt to coordinate with his family in the [place] to repatriate him following psychiatric stabilization and discharge. Continue to hold on constant obs to reinforce fluid restrictions. Continue inpatient level services. Continued Medication Management: Different Medication Medications: Current Medications Acetaminophen (Tylenol Tab*) 650 mg PO Q4H PRN PRN Reason: for pain; or Temp >101 F Al Hydrox/Mg Hydrox/Simethicone (Maalox Plus*) 30 ml PO Q4H PRN PRN Reason: INDIGESTION Benztropine Mesylate (Cogentin Tab*) 0.5 mg PO TID@0800,1400,2100 [facility] Last Admin: 06/08/17 20:59 Dose: 0.5 mg Divalproex Sodium (Depakote Er Tab(*)) 1,750 mg PO BEDTIME [facility] Last Admin: 06/08/17 20:56 Dose: 1,500 mg Docusate Sodium (Colace Cap*) 100 mg PO DAILY [facility] Lorazepam (Ativan Tab(*)) 0.5 mg PO TID [facility] Last Admin: 06/08/17 21:55 Dose: Not Given Lorazepam (Ativan Tab(*)) 0.5 mg PO Q4H PRN PRN Reason: AGITATION Magnesium Hydroxide (Milk Of Magnesia Liq*) 30 ml PO Q6H PRN PRN Reason: CONSTIPATION Nicotine (Nicotine Inhaler*) 10 mg INH Q2H PRN PRN Reason: CRAVING Nicotine Polacrilex (Nicotine Gum*) 2 mg PO Q2H PRN PRN Reason: CRAVING Risperidone (Risperdal-M Tab *) 1 mg PO TID [facility] PRN Reason: Protocol Last Admin: 06/08/17 21:55 Dose: Not Given - Discharge Plan Discharge Plan: Inpatient Hospitalization
[2017-06-09] MEDS: risperiDONE-M * 1 MG TAB.ORADIS PO SCH ×3 (10:26→21:43)
[2017-06-09] MEDS: LORazepam TAB(*) 0.5 MG PO SCH ×3 (10:26→21:42)
[2017-06-09] MEDS: Benztropine TAB* 1 MG PO SCH ×3 (10:26→21:42)
[2017-06-09] MEDS: Docusate CAP* 100 MG PO SCH (10:26)
[2017-06-09] MEDS ORDERED: chlorproMAZINE TAB* 50 MG PO ONE (17:50)
[2017-06-09] MEDS ORDERED: LORazepam TAB(*) 1 MG PO ONE (17:50)
[2017-06-09] MEDS: Divalproex ER TAB(*) 500 MG PO SCH (21:43)
[2017-06-10] MEDS: risperiDONE-M * 1 MG TAB.ORADIS PO SCH ×3 (09:31→20:06)
[2017-06-10] MEDS: LORazepam TAB(*) 0.5 MG PO SCH ×3 (09:31→20:07)
[2017-06-10] MEDS: Benztropine TAB* 1 MG PO SCH ×3 (09:31→20:09)
[2017-06-10] MEDS: Docusate CAP* 100 MG PO SCH (09:31)
[2017-06-10] MEDS ORDERED: Mouth Piece, Nicotine* 1 EACH CARTRIDGE ONE (11:02)
[2017-06-10] MEDS: Nicotine Inhaler* 10 MG AMP INH PRN ×2 (11:03→14:12)
--- NOTE | 2017-06-10 14:26 | PN ---
Subjective - Subjective Date of Service: 06/10/17 Service Type: [id number] Hosp care 15 min low complexity Subjective: Anderson is disorganized and grandiose, telling me that he invented the [employer] when he was 3 years old. He had an episode of agitation with his close obs aide yesterday and threatened her with violence when she tried to prevent him from drinking water per his fluid restriction protocol. On exam he is dishevelled with his shirt on backwards. Medication adherence has been selective. Objective - Appearance Appearance: Well Developed/Nourished Dysmorphic Features: No Hygiene: Normal Grooming: Well Kept - Behavior Psychomotor Activities: Normal Exhibits Abnormal Movement: No - Attitude and Relatedness Attitude and Relatedness: Psychotically Related Eye Contact: Poor - Speech Quality: Pressured Latencies: Short Quantity: Copious - Mood Patient's Decription of Mood: "Great" - Affect Observed Affect: Unvariable Affect Consistent with: Euphoria - Thought Process Patient's Thought Process: Disorganized Thought Content: Yes Paranoid Ideation, No Passive Wish, No Suicidal Planning, No Homicidal Ideation - Sensorium Experiencing Hallucinations: Yes Type of Hallucinations: Visual: No, Auditory: Yes, Command: No - Level of Consciousness Level of Consciousness: Agitated Orientation: Yes Intact, Yes Orientated to Time, Yes Orientated to Place, Yes Orientated to Person - Impulse Control Impulse Control: Poor - Insight and Judgement Insight and Judgement: Impaired - Group Participation Particating in Group Activities: No - Medication Management Medication Management Adherence: Partial Assessment - Assessment Merits Inpatient Hospitalization: For Immediate Safety, For Stabilization Inpatient DSM-IV Dx: Schizoaffective disorder, bipolar type; obsessive- compulsive disorder. Clinical Impression: 41 y.o. single, male with a history of schizoaffective DO [facility] stabilization of hyponatremia in the setting of psychogenic polydipsia, who is now receiving involuntary BSU admission for psychotic thought disorganization and inability to care for himself in the community. Plan - Plan Treatment Plan: Name: ANDERSON MONTES DE OCA Birthdate: 1975 [id number] The patient remains psychotic. Meds now include risperidone 1mg PO TID, Depakote ER 1750mg PO qhs, lorazepam 0.5mg PO TID and benztropine 1mg PO TID to prevent EPS. We need to encourage better adherence. Will attempt to coordinate with his family in the [place] to repatriate him following psychiatric stabilization and discharge. Continue to hold on constant obs to reinforce fluid restrictions. Continue inpatient level services. Continued Medication Management: Start Medication Medications: Current Medications Acetaminophen (Tylenol Tab*) 650 mg PO Q4H PRN PRN Reason: for pain; or Temp >101 F Al Hydrox/Mg Hydrox/Simethicone (Maalox Plus*) 30 ml PO Q4H PRN PRN Reason: INDIGESTION Benztropine Mesylate (Cogentin Tab*) 0.5 mg PO TID@0800,1400,2100 [facility] Last Admin: 06/10/17 13:35 Dose: 0.5 mg Divalproex Sodium (Depakote Er Tab(*)) 1,750 mg PO BEDTIME [facility] Last Admin: 06/09/17 21:43 Dose: Not Given Docusate Sodium (Colace Cap*) 100 mg PO DAILY [facility] Last Admin: 06/10/17 09:31 Dose: 100 mg Lorazepam (Ativan Tab(*)) 0.5 mg PO TID [facility] Last Admin: 06/10/17 13:35 Dose: 0.5 mg Lorazepam (Ativan Tab(*)) 0.5 mg PO Q4H PRN PRN Reason: AGITATION Magnesium Hydroxide (Milk Of Magnesia Liq*) 30 ml PO Q6H PRN PRN Reason: CONSTIPATION Nicotine (Nicotine Inhaler*) 10 mg INH Q2H PRN PRN Reason: CRAVING Last Admin: 06/10/17 14:12 Dose: 10 mg Nicotine Polacrilex (Nicotine Gum*) 2 mg PO Q2H PRN PRN Reason: CRAVING Risperidone (Risperdal-M Tab *) 1 mg PO TID [facility] PRN Reason: Protocol Last Admin: 06/10/17 13:34 Dose: 1 mg - Discharge Plan Discharge Plan: Inpatient Hospitalization Lab Results - Lab Results Lab Results: 06/08/17 07:45 Sodium 134 Potassium 4.1 Chloride 98 L Carbon Dioxide 30 Anion Gap 6 BUN 14 Creatinine 1.07 Est GFR ( Amer) 98.9 Est GFR (Non-Af Amer) 76.9 BUN/Creatinine Ratio 13.1 Glucose 91 Calcium 9.5 Total Bilirubin 0.70 AST 32 ALT 25 Alkaline Phosphatase 58 Total Creatine Kinase 651 H Total Protein 7.2 Albumin 4.0 Globulin 3.2 Albumin/Globulin Ratio 1.3
[2017-06-10] MEDS: Divalproex ER TAB(*) 500 MG PO SCH (20:06)
[2017-06-11 07:48] LABS: EGFR Non-African American 88.3 (>60)
[2017-06-11] MEDS: Docusate CAP* 100 MG PO SCH (09:12)
[2017-06-11] MEDS: Benztropine TAB* 1 MG PO SCH ×3 (09:12→22:30)
[2017-06-11] MEDS: LORazepam TAB(*) 0.5 MG PO SCH ×3 (09:12→22:30)
[2017-06-11] MEDS: risperiDONE-M * 1 MG TAB.ORADIS PO SCH ×3 (09:12→22:29)
[2017-06-11] MEDS: Nicotine Inhaler* 10 MG AMP INH PRN (09:33)
--- NOTE | 2017-06-11 12:57 | PN ---
Subjective - Subjective Date of Service: 06/11/17 Service Type: [id number] Hosp care 15 min low complexity Subjective: Anderson has been mostly adherent with medications, skipping doses here and there for no known reason. His speech remains fluent but irrelevant. He continues to endorse several delusions to the effect that he has an apartment here in [place], which I understand he does not, and that he will be accepted to attend [employer]. No behavioral problems have been noted in the last 24 hours and he's adhered appropriately with fluid restrictions. Objective - Appearance Appearance: Well Developed/Nourished Dysmorphic Features: No Hygiene: Dirty Grooming: Disheveled - Behavior Psychomotor Activities: Normal Exhibits Abnormal Movement: No - Attitude and Relatedness Attitude and Relatedness: Psychotically Related Eye Contact: Poor - Speech Quality: Unpressured Latencies: Normal Quantity: Appropriate - Mood Patient's Decription of Mood: "Great" - Affect Observed Affect: Unvariable Affect Consistent with: Euthymia - Thought Process Patient's Thought Process: Tangential Thought Content: Yes Paranoid Ideation, No Passive Wish, No Suicidal Planning, No Homicidal Ideation - Sensorium Experiencing Hallucinations: Yes Type of Hallucinations: Visual: No, Auditory: Yes, Command: No - Level of Consciousness Level of Consciousness: Alert Orientation: Yes Intact, Yes Orientated to Time, Yes Orientated to Place, Yes Orientated to Person - Impulse Control Impulse Control: Poor - Insight and Judgement Insight and Judgement: Impaired - Group Participation Particating in Group Activities: No - Medication Management Medication Management Adherence: Partial Assessment - Assessment Merits Inpatient Hospitalization: For Immediate Safety, For Stabilization Inpatient DSM-IV Dx: Schizoaffective disorder, bipolar type; obsessive- compulsive disorder. Clinical Impression: 41 y.o. single, male with a history of schizoaffective DO [facility] stabilization of hyponatremia in the setting of psychogenic polydipsia, who is now receiving involuntary BSU admission for psychotic thought disorganization and inability to care for himself in the community. Plan - Plan Treatment Plan: Name: ANEDRSON MONTES DE OCA Birthdate: 1975 [id number] The patient remains psychotic. Meds now include risperidone 1mg PO TID, Depakote ER 1750mg PO qhs, lorazepam 0.5mg PO TID and benztropine 1mg PO TID to prevent EPS. We need to encourage better adherence. Will attempt to coordinate with his family in the [place] to repatriate him following psychiatric stabilization and discharge. Continue to hold on constant obs to reinforce fluid restrictions. Continue inpatient level services. Continued Medication Management: Start Medication Medications: Current Medications Acetaminophen (Tylenol Tab*) 650 mg PO Q4H PRN PRN Reason: for pain; or Temp >101 F Al Hydrox/Mg Hydrox/Simethicone (Maalox Plus*) 30 ml PO Q4H PRN PRN Reason: INDIGESTION Benztropine Mesylate (Cogentin Tab*) 0.5 mg PO TID@0800,1400,2100 [facility] Last Admin: 06/11/17 09:12 Dose: 0.5 mg Divalproex Sodium (Depakote Er Tab(*)) 1,750 mg PO BEDTIME [facility] Last Admin: 06/10/17 20:06 Dose: 1,750 mg Docusate Sodium (Colace Cap*) 100 mg PO DAILY [facility] Last Admin: 06/11/17 09:12 Dose: 100 mg Lorazepam (Ativan Tab(*)) 0.5 mg PO TID [facility] Last Admin: 06/11/17 09:12 Dose: 0.5 mg Lorazepam (Ativan Tab(*)) 0.5 mg PO Q4H PRN PRN Reason: AGITATION Magnesium Hydroxide (Milk Of Magnesia Liq*) 30 ml PO Q6H PRN PRN Reason: CONSTIPATION Nicotine (Nicotine Inhaler*) 10 mg INH Q2H PRN PRN Reason: CRAVING Last Admin: 06/11/17 09:33 Dose: 10 mg Nicotine Polacrilex (Nicotine Gum*) 2 mg PO Q2H PRN PRN Reason: CRAVING Risperidone (Risperdal-M Tab *) 1 mg PO TID [facility] PRN Reason: Protocol Last Admin: 06/11/17 09:12 Dose: 1 mg - Discharge Plan Discharge Plan: Inpatient Hospitalization Lab Results - Lab Results Lab Results: 06/11/17 06/11/17 07:14 07:14 Sodium 135 Potassium 4.1 Chloride 103 Carbon Dioxide 26 Anion Gap 6 BUN 11 Creatinine 0.95 Est GFR ( Amer) 113.5 Est GFR (Non-Af Amer) 88.3 BUN/Creatinine Ratio 11.6 Glucose 121 H Hemoglobin A1c 5.9 H Calcium 8.9 Total Bilirubin 0.20 AST 15 ALT 16 Alkaline Phosphatase 65 Total Protein 6.2 L Albumin 3.5 Globulin 2.7 Albumin/Globulin Ratio 1.3 Triglycerides 74 Cholesterol 116 LDL Cholesterol 70 HDL Cholesterol 31.0
[2017-06-11] MEDS: Divalproex ER TAB(*) 500 MG PO SCH (22:27)
[2017-06-12] MEDS: risperiDONE-M * 1 MG TAB.ORADIS PO SCH ×3 (09:15→21:23)
[2017-06-12] MEDS: Benztropine TAB* 1 MG PO SCH ×3 (09:15→21:24)
[2017-06-12] MEDS: Docusate CAP* 100 MG PO SCH (09:15)
[2017-06-12] MEDS: LORazepam TAB(*) 0.5 MG PO SCH ×3 (09:16→21:21)
[2017-06-12] MEDS: Nicotine Inhaler* 10 MG AMP INH PRN (10:17)
--- NOTE | 2017-06-12 15:21 | PN ---
Subjective - Subjective Date of Service: 06/12/17 Service Type: [id number] Hosp care 15 min low complexity Subjective: Anderson was upset and agitated today because he was given his afternoon meds at the same time as his cell phone, which he uses to call his family in [place] He was able to be verbally redirected and did take the medications as directed. I was able to speak with Anderson's friend, Markos Bales ([phone]) who brought him to the hospital, for collateral. Markos indicates that they met in 2011 when Markos was his landlord for 3-5 months before Anderson ran out of money and had to return to the [place] Anderson had called him again back in January of 2017 to get a housing referral, briefly lived at one of Markos's apartments and then moved to one of Markos's friend's apartments in February of 2017. He worked several jobs in succession, losing them all and running out of money again. He was evicted on the 27 of May and called Markos, who temporarily gave him food and skilled nursing until bringing him to the hospital several days later. Markos is making it clear at this time that Anderson cannot stay with him and that he would be best served living with his family. Anderson's consumption of water has been appropriate the last 2 days. Objective - Appearance Appearance: Well Developed/Nourished Dysmorphic Features: No Hygiene: Normal Grooming: Disheveled - Behavior Psychomotor Activities: Normal Exhibits Abnormal Movement: No - Attitude and Relatedness Attitude and Relatedness: Psychotically Related Eye Contact: Poor - Speech Quality: Unpressured Latencies: Normal Quantity: Appropriate - Mood Patient's Decription of Mood: "Good" - Affect Observed Affect: Unvariable Affect Consistent with: Euphoria - Thought Process Patient's Thought Process: Disorganized Thought Content: Yes Paranoid Ideation, No Passive Wish, No Suicidal Planning, No Homicidal Ideation - Sensorium Experiencing Hallucinations: Yes Type of Hallucinations: Visual: No, Auditory: Yes, Command: No - Level of Consciousness Level of Consciousness: Alert Orientation: Yes Intact, Yes Orientated to Time, Yes Orientated to Place, Yes Orientated to Person - Impulse Control Impulse Control: Poor - Insight and Judgement Insight and Judgement: Impaired - Group Participation Particating in Group Activities: No - Medication Management Medication Management Adherence: Yes Assessment - Assessment Merits Inpatient Hospitalization: For Immediate Safety, For Stabilization Inpatient DSM-IV Dx: Schizoaffective disorder, bipolar type; obsessive- compulsive disorder. Clinical Impression: 41 y.o. single, male with a history of schizoaffective DO [facility] following stabilization of hyponatremia in the setting of psychogenic polydipsia, who is now receiving involuntary BSU admission for psychotic thought disorganization and inability to care for himself in the community. Plan - Plan Treatment Plan: Name: ANDERSON MONTES DE OCA Birthdate: 1975 [id number] The patient remains psychotic. Meds now include risperidone 1mg PO TID, Depakote ER 1750mg PO qhs, lorazepam 0.5mg PO TID and benztropine 1mg PO TID to prevent EPS. We need to encourage better adherence. Will attempt to coordinate with his family in the [place] to repatriate him following psychiatric stabilization and discharge. Continue to reinforce fluid restrictions. Continue inpatient level services. Continued Medication Management: Start Medication Medications: Current Medications Acetaminophen (Tylenol Tab*) 650 mg PO Q4H PRN PRN Reason: for pain; or Temp >101 F Al Hydrox/Mg Hydrox/Simethicone (Maalox Plus*) 30 ml PO Q4H PRN PRN Reason: INDIGESTION Benztropine Mesylate (Cogentin Tab*) 0.5 mg PO TID@0800,1400,2100 [facility] Last Admin: 06/12/17 14:03 Dose: 0.5 mg Divalproex Sodium (Depakote Er Tab(*)) 1,750 mg PO BEDTIME [facility] Last Admin: 06/11/17 22:27 Dose: 1,750 mg Docusate Sodium (Colace Cap*) 100 mg PO DAILY [facility] Last Admin: 06/12/17 09:15 Dose: 100 mg Lorazepam (Ativan Tab(*)) 0.5 mg PO TID [facility] Last Admin: 06/12/17 14:04 Dose: 0.5 mg Lorazepam (Ativan Tab(*)) 0.5 mg PO Q4H PRN PRN Reason: AGITATION Magnesium Hydroxide (Milk Of Magnesia Liq*) 30 ml PO Q6H PRN PRN Reason: CONSTIPATION Nicotine (Nicotine Inhaler*) 10 mg INH Q2H PRN PRN Reason: CRAVING Last Admin: 06/12/17 10:17 Dose: 10 mg Nicotine Polacrilex (Nicotine Gum*) 2 mg PO Q2H PRN PRN Reason: CRAVING Risperidone (Risperdal-M Tab *) 1 mg PO TID [facility] PRN Reason: Protocol Last Admin: 06/12/17 14:04 Dose: 1 mg - Discharge Plan Discharge Plan: Inpatient Hospitalization Lab Results - Lab Results Lab Results: 06/11/17 06/11/17 07:14 07:14 Sodium 135 Potassium 4.1 Chloride 103 Carbon Dioxide 26 Anion Gap 6 BUN 11 Creatinine 0.95 Est GFR ( Amer) 113.5 Est GFR (Non-Af Amer) 88.3 BUN/Creatinine Ratio 11.6 Glucose 121 H Hemoglobin A1c 5.9 H Calcium 8.9 Total Bilirubin 0.20 AST 15 ALT 16 Alkaline Phosphatase 65 Total Protein 6.2 L Albumin 3.5 Globulin 2.7 Albumin/Globulin Ratio 1.3 Triglycerides 74 Cholesterol 116 LDL Cholesterol 70 HDL Cholesterol 31.0
[2017-06-12] MEDS: Divalproex ER TAB(*) 500 MG PO SCH (21:21)
[2017-06-13] MEDS: LORazepam TAB(*) 0.5 MG PO SCH ×3 (08:56→21:22)
[2017-06-13] MEDS: Docusate CAP* 100 MG PO SCH (08:57)
[2017-06-13] MEDS: risperiDONE-M * 1 MG TAB.ORADIS PO SCH ×3 (08:57→21:21)
[2017-06-13] MEDS: Benztropine TAB* 1 MG PO SCH ×3 (08:58→21:20)
[2017-06-13] MEDS: Divalproex ER TAB(*) 500 MG PO SCH (21:21)
[2017-06-14] MEDS: Benztropine TAB* 1 MG PO SCH ×3 (08:44→20:54)
[2017-06-14] MEDS: Docusate CAP* 100 MG PO SCH (08:44)
[2017-06-14] MEDS: risperiDONE-M * 1 MG TAB.ORADIS PO SCH ×3 (08:44→20:54)
[2017-06-14] MEDS: LORazepam TAB(*) 0.5 MG PO SCH ×3 (08:44→20:56)
[2017-06-14] MEDS: Nicotine Inhaler* 10 MG AMP INH PRN (09:15)
[2017-06-14] MEDS: Divalproex ER TAB(*) 500 MG PO SCH (20:52)
[2017-06-15] MEDS: LORazepam TAB(*) 0.5 MG PO SCH ×2 (08:24→21:54)
[2017-06-15] MEDS: Docusate CAP* 100 MG PO SCH (08:24)
[2017-06-15] MEDS: risperiDONE-M * 1 MG TAB.ORADIS PO SCH ×2 (08:24→21:54)
[2017-06-15] MEDS: Benztropine TAB* 1 MG PO SCH ×2 (08:25→21:54)
--- NOTE | 2017-06-15 15:09 | PN ---
Subjective - Subjective Date of Service: 06/15/17 Service Type: [id number] Hosp care 15 min low complexity Subjective: The patient is better organized and speaking Hebrew more. He has not been over -consuming water as far as staff has documented. He remains delusional about discharge plans, saying that he will stay at his friend, Estuardo. When confronted that this person is on record as not wanting Anderson to stay with him , the patient then states he has an apartment on [address]. I remind him that he was evicted from this housing situation on 05/27, which he denies. He has been in contact with his mother in the [facility] but not his brother in [place]. He denies SI or HI. No further EPS has been noted. Objective - Appearance Appearance: Well Developed/Nourished Dysmorphic Features: No Hygiene: Normal Grooming: Disheveled - Behavior Psychomotor Activities: Normal Exhibits Abnormal Movement: No - Attitude and Relatedness Attitude and Relatedness: Cooperative Eye Contact: Fair - Speech Quality: Unpressured Latencies: Normal Quantity: Appropriate - Mood Patient's Decription of Mood: "Okay" - Affect Observed Affect: Unvariable Affect Consistent with: Euthymia - Thought Process Patient's Thought Process: Disorganized, Impoverished Thought Content: Yes Paranoid Ideation, No Passive Wish, No Suicidal Planning, No Homicidal Ideation - Sensorium Experiencing Hallucinations: Yes Type of Hallucinations: Visual: No, Auditory: Yes, Command: No - Level of Consciousness Level of Consciousness: Alert Orientation: Yes Intact, Yes Orientated to Time, Yes Orientated to Place, Yes Orientated to Person - Impulse Control Impulse Control: Poor - Insight and Judgement Insight and Judgement: Impaired - Group Participation Particating in Group Activities: No - Medication Management Medication Management Adherence: Yes Assessment - Assessment Merits Inpatient Hospitalization: For Immediate Safety, For Stabilization Inpatient DSM-IV Dx: Schizoaffective disorder, bipolar type; obsessive- compulsive disorder. Clinical Impression: 41 y.o. single, male with a history of schizoaffective DO [facility] stabilization of hyponatremia in the setting of psychogenic polydipsia, who is now receiving involuntary BSU admission for psychotic thought disorganization and inability to care for himself in the community. Plan - Plan Treatment Plan: Name: ANDERSON MONTES DE OCA Birthdate: 1975 [id number] The patient's psychosis is improving a little bit. Will change med regimen to risperidone 2mg PO BID, Depakote ER 1750mg PO qhs, lorazepam 0.5mg PO BID and benztropine 0.5mg PO BID. Will attempt to coordinate with his family in the [place] to repatriate him following psychiatric stabilization and discharge. Continue to reinforce fluid restrictions. Continue inpatient level services. Continued Medication Management: Start Medication Medications: Current Medications Acetaminophen (Tylenol Tab*) 650 mg PO Q4H PRN PRN Reason: for pain; or Temp >101 F Al Hydrox/Mg Hydrox/Simethicone (Maalox Plus*) 30 ml PO Q4H PRN PRN Reason: INDIGESTION Benztropine Mesylate (Cogentin Tab*) 0.5 mg PO BID [facility] Divalproex Sodium (Depakote Er Tab(*)) 1,750 mg PO BEDTIME [facility] Last Admin: 06/14/17 20:52 Dose: 1,750 mg Docusate Sodium (Colace Cap*) 100 mg PO DAILY [facility] Last Admin: 06/15/17 08:24 Dose: 100 mg Lorazepam (Ativan Tab(*)) 0.5 mg PO Q4H PRN PRN Reason: AGITATION Lorazepam (Ativan Tab(*)) 0.5 mg PO BID [facility] Magnesium Hydroxide (Milk Of Magnesia Liq*) 30 ml PO Q6H PRN PRN Reason: CONSTIPATION Nicotine (Nicotine Inhaler*) 10 mg INH Q2H PRN PRN Reason: CRAVING Last Admin: 06/14/17 09:15 Dose: 10 mg Nicotine Polacrilex (Nicotine Gum*) 2 mg PO Q2H PRN PRN Reason: CRAVING Risperidone (Risperdal-M Tab *) 2 mg PO BID [facility] PRN Reason: Protocol - Discharge Plan Discharge Plan: Inpatient Hospitalization
[2017-06-15] MEDS: Nicotine Inhaler* 10 MG AMP INH PRN (18:55)
[2017-06-15] MEDS: Divalproex ER TAB(*) 500 MG PO SCH ×2 (23:33→23:45)
[2017-06-16] MEDS: LORazepam TAB(*) 0.5 MG PO SCH ×2 (09:12→19:53)
[2017-06-16] MEDS: Docusate CAP* 100 MG PO SCH (09:13)
[2017-06-16] MEDS: Benztropine TAB* 1 MG PO SCH ×2 (09:13→19:54)
[2017-06-16] MEDS: risperiDONE-M * 1 MG TAB.ORADIS PO SCH ×2 (09:14→19:52)
--- NOTE | 2017-06-16 12:58 | PN ---
Subjective - Subjective Date of Service: 06/16/17 Service Type: [id number] Hosp care 15 min low complexity Subjective: Anderson continues to have moments when he becomes irritable and uncooperative, such as last night when he refused his Depakote. He still isn't participating much in unit activities, although he is adhering more with fluid restrictions. Today his sodium is low again at 129. I advise him to consume more salt, with which he agrees. He still insists that he has an apartment awaiting him in the community, which he does not. We've invited his friend Markos Bales in for a family meeting to persuade him of his housing deficit. Objective - Appearance Appearance: Obese Dysmorphic Features: No Hygiene: Normal Grooming: Well Kept - Behavior Psychomotor Activities: Normal Exhibits Abnormal Movement: No - Attitude and Relatedness Attitude and Relatedness: Child Like Eye Contact: Poor - Speech Quality: Unpressured Latencies: Normal Quantity: Appropriate - Mood Patient's Decription of Mood: "Good" - Affect Observed Affect: Good Affect Consistent with: Euthymia - Thought Process Patient's Thought Process: Impoverished Thought Content: Yes Paranoid Ideation, No Passive Wish, No Suicidal Planning, No Homicidal Ideation - Sensorium Experiencing Hallucinations: Yes Type of Hallucinations: Visual: No, Auditory: Yes, Command: No - Level of Consciousness Level of Consciousness: Alert Orientation: Yes Intact, Yes Orientated to Time, Yes Orientated to Place, Yes Orientated to Person - Impulse Control Impulse Control: Poor - Insight and Judgement Insight and Judgement: Impaired - Group Participation Particating in Group Activities: No - Medication Management Medication Management Adherence: Partial Assessment - Assessment Merits Inpatient Hospitalization: For Immediate Safety, For Stabilization Inpatient DSM-IV Dx: Schizoaffective disorder, bipolar type; obsessive- compulsive disorder. Clinical Impression: 41 y.o. single, male with a history of schizoaffective DO [facility] stabilization of hyponatremia in the setting of psychogenic polydipsia, who is now receiving involuntary BSU admission for psychotic thought disorganization and inability to care for himself in the community. Plan - Plan Treatment Plan: Name: ANDERSON MONTES DE OCA Birthdate: 1975 [id number] The patient's psychosis is improving a little bit on risperidone 2mg PO BID, Depakote ER 1750mg PO qhs, lorazepam 0.5mg PO BID and benztropine 0.5mg PO BID. His VPA level is slightly toxic at 103. Will lower Depakote ER dose to 1500mg nightly. Will attempt to coordinate with his family in the [place] to repatriate him following psychiatric stabilization and discharge. Continue to reinforce fluid restrictions. Continue inpatient level services. Continued Medication Management: Start Medication Medications: Current Medications Acetaminophen (Tylenol Tab*) 650 mg PO Q4H PRN PRN Reason: for pain; or Temp >101 F Al Hydrox/Mg Hydrox/Simethicone (Maalox Plus*) 30 ml PO Q4H PRN PRN Reason: INDIGESTION Benztropine Mesylate (Cogentin Tab*) 0.5 mg PO BID [facility] Last Admin: 06/16/17 09:13 Dose: 0.5 mg Divalproex Sodium (Depakote Er Tab(*)) 1,500 mg PO BEDTIME [facility] Docusate Sodium (Colace Cap*) 100 mg PO DAILY [facility] Last Admin: 06/16/17 09:13 Dose: 100 mg Lorazepam (Ativan Tab(*)) 0.5 mg PO Q4H PRN PRN Reason: AGITATION Lorazepam (Ativan Tab(*)) 0.5 mg PO BID [facility] Last Admin: 06/16/17 09:12 Dose: 0.5 mg Magnesium Hydroxide (Milk Of Magnesia Liq*) 30 ml PO Q6H PRN PRN Reason: CONSTIPATION Nicotine (Nicotine Inhaler*) 10 mg INH Q2H PRN PRN Reason: CRAVING Last Admin: 06/15/17 18:55 Dose: 10 mg Nicotine Polacrilex (Nicotine Gum*) 2 mg PO Q2H PRN PRN Reason: CRAVING Risperidone (Risperdal-M Tab *) 2 mg PO BID [facility] PRN Reason: Protocol Last Admin: 06/16/17 09:14 Dose: 2 mg - Discharge Plan Discharge Plan: Inpatient Hospitalization Lab Results - Lab Results Lab Results: 06/15/17 17:04 Sodium 129 L Potassium 4.2 Chloride 96 L Carbon Dioxide 28 Anion Gap 5 BUN 13 Creatinine 1.12 Est GFR ( Amer) 93.9 Est GFR (Non-Af Amer) 73.0 BUN/Creatinine Ratio 11.6 Glucose 91 Calcium 8.7 Total Creatine Kinase 92 Valproic Acid 103.0 H
[2017-06-16] MEDS: Divalproex ER TAB(*) 500 MG PO SCH (19:52)
[2017-06-17] MEDS: Nicotine Inhaler* 10 MG AMP INH PRN (09:25)
[2017-06-17] MEDS: risperiDONE-M * 1 MG TAB.ORADIS PO SCH ×2 (09:26→20:11)
[2017-06-17] MEDS: LORazepam TAB(*) 0.5 MG PO SCH ×2 (09:26→20:11)
[2017-06-17] MEDS: Benztropine TAB* 1 MG PO SCH ×2 (09:27→20:11)
[2017-06-17] MEDS: Docusate CAP* 100 MG PO SCH (09:27)
--- NOTE | 2017-06-17 15:06 | PN ---
Subjective - Subjective Date of Service: 06/17/17 Service Type: 57742 Family Medical Psyc Subjective: Anderson is seen for a family meeting with his local friend, Markos Bales, and HUMBERTO Judge. Anderson has been adherent with medications, and, as far as we can tell, fluid restrictions. He is now on q15min checks, so we do not track his drinking behaviors on the unit as closely as previously. At any rate, he seems less disorganized and more aware of his overall situation. During the meeting, Markos makes it clear that he cannot continue to support Anderson with a rent-free apartment and that Anderson must work with our team to make other plans for disposition issues such as where he will live and how he will support himself. Anderson continues to assert that he'd like to attend [employer], like his father, but acknowledges that people are "mean" to him in [place] and he might be better off living with his brother in [place]. Anderson denies SI or HI and denies AH. He is mostly fixated on going outside for a cigarette, which he is informed is against hospital and State policy. Objective - Appearance Appearance: Obese Dysmorphic Features: No Hygiene: Normal Grooming: Fairly Well Kept - Behavior Psychomotor Activities: Normal Exhibits Abnormal Movement: No - Attitude and Relatedness Attitude and Relatedness: Cooperative Eye Contact: Fair - Speech Quality: Unpressured Latencies: Normal Quantity: Terse - Mood Patient's Decription of Mood: "Okay" - Affect Observed Affect: Unvariable Affect Consistent with: Euthymia - Thought Process Patient's Thought Process: Impoverished Thought Content: Yes Paranoid Ideation, No Passive Wish, No Suicidal Planning, No Homicidal Ideation - Sensorium Experiencing Hallucinations: No, Sensorium is Clear Type of Hallucinations: Visual: No, Auditory: No, Command: No - Level of Consciousness Level of Consciousness: Alert Orientation: Yes Intact, Yes Orientated to Time, Yes Orientated to Place, Yes Orientated to Person - Impulse Control Impulse Control: Poor - Insight and Judgement Insight and Judgement: Impaired - Group Participation Particating in Group Activities: No - Medication Management Medication Management Adherence: Yes Assessment - Assessment Merits Inpatient Hospitalization: For Immediate Safety, For Stabilization Inpatient DSM-IV Dx: Schizoaffective disorder, bipolar type; obsessive- compulsive disorder. Clinical Impression: 41 y.o. single, male with a history of schizoaffective DO [facility] following stabilization of hyponatremia in the setting of psychogenic polydipsia, who is now receiving involuntary BSU admission for psychotic thought disorganization and inability to care for himself in the community. Plan - Plan Treatment Plan: Name: ANDERSON MONTES DE OCA Birthdate: 1975 [id number] The patient's psychosis is improving a little bit on risperidone 2mg PO BID, Depakote ER 1500mg PO qhs, lorazepam 0.5mg PO BID and benztropine 0.5mg PO BID. Will attempt to coordinate with his family in the [place] to repatriate him following psychiatric stabilization and discharge. Continue to reinforce fluid restrictions. Continue inpatient level services. Continued Medication Management: Start Medication Medications: Current Medications Acetaminophen (Tylenol Tab*) 650 mg PO Q4H PRN PRN Reason: for pain; or Temp >101 F Al Hydrox/Mg Hydrox/Simethicone (Maalox Plus*) 30 ml PO Q4H PRN PRN Reason: INDIGESTION Benztropine Mesylate (Cogentin Tab*) 0.5 mg PO BID [facility] Last Admin: 06/17/17 09:27 Dose: 0.5 mg Divalproex Sodium (Depakote Er Tab(*)) 1,500 mg PO BEDTIME [facility] Last Admin: 06/16/17 19:52 Dose: 1,500 mg Docusate Sodium (Colace Cap*) 100 mg PO DAILY [facility] Last Admin: 06/17/17 09:27 Dose: 100 mg Lorazepam (Ativan Tab(*)) 0.5 mg PO Q4H PRN PRN Reason: AGITATION Lorazepam (Ativan Tab(*)) 0.5 mg PO BID [facility] Last Admin: 06/17/17 09:26 Dose: 0.5 mg Magnesium Hydroxide (Milk Of Magnesia Liq*) 30 ml PO Q6H PRN PRN Reason: CONSTIPATION Nicotine (Nicotine Inhaler*) 10 mg INH Q2H PRN PRN Reason: CRAVING Last Admin: 06/17/17 09:25 Dose: 10 mg Nicotine Polacrilex (Nicotine Gum*) 2 mg PO Q2H PRN PRN Reason: CRAVING Risperidone (Risperdal-M Tab *) 2 mg PO BID [facility] PRN Reason: Protocol Last Admin: 06/17/17 09:26 Dose: 2 mg - Discharge Plan Discharge Plan: Inpatient Hospitalization Lab Results - Lab Results Lab Results: 06/15/17 17:04 Sodium 129 L Potassium 4.2 Chloride 96 L Carbon Dioxide 28 Anion Gap 5 BUN 13 Creatinine 1.12 Est GFR ( Amer) 93.9 Est GFR (Non-Af Amer) 73.0 BUN/Creatinine Ratio 11.6 Glucose 91 Calcium 8.7 Total Creatine Kinase 92 Valproic Acid 103.0 H
[2017-06-17] MEDS: Divalproex ER TAB(*) 500 MG PO SCH (20:11)
[2017-06-18] MEDS: Benztropine TAB* 1 MG PO SCH ×2 (09:15→20:12)
[2017-06-18] MEDS: Docusate CAP* 100 MG PO SCH (09:15)
[2017-06-18] MEDS: risperiDONE-M * 1 MG TAB.ORADIS PO SCH ×2 (09:15→20:13)
[2017-06-18] MEDS: LORazepam TAB(*) 0.5 MG PO SCH ×2 (09:16→20:13)
--- NOTE | 2017-06-18 11:51 | PN ---
Subjective - Subjective Date of Service: 06/18/17 Service Type: [id number] Hosp care 15 min low complexity Subjective: Anderson remains delusional that he will get a job at [employer] [employer] and then be able to get a graduate degree there for free. "I will get a PhD in the food science and make $20,000 a month. I will do this." He is taking meds as prescribed but remains disorganized and unable to safety plan for discharge. Objective - Appearance Appearance: Obese Dysmorphic Features: No Hygiene: Mal-odorous Grooming: Disheveled - Behavior Psychomotor Activities: Normal Exhibits Abnormal Movement: No - Attitude and Relatedness Attitude and Relatedness: Psychotically Related Eye Contact: Poor - Speech Quality: Unpressured Latencies: Normal Quantity: Terse - Mood Patient's Decription of Mood: "Okay" - Affect Observed Affect: Good Affect Consistent with: Euthymia - Thought Process Patient's Thought Process: Impoverished Thought Content: Yes Paranoid Ideation, No Passive Wish, No Suicidal Planning, No Homicidal Ideation - Sensorium Experiencing Hallucinations: Yes Type of Hallucinations: Visual: No, Auditory: Yes, Command: No - Level of Consciousness Level of Consciousness: Alert Orientation: Yes Intact, Yes Orientated to Time, Yes Orientated to Place, Yes Orientated to Person - Impulse Control Impulse Control: Poor - Insight and Judgement Insight and Judgement: Impaired - Group Participation Particating in Group Activities: No - Medication Management Medication Management Adherence: Yes Assessment - Assessment Merits Inpatient Hospitalization: For Immediate Safety, For Stabilization Inpatient DSM-IV Dx: Schizoaffective disorder, bipolar type; obsessive- compulsive disorder. Clinical Impression: 41 y.o. single, male with a history of schizoaffective DO [facility] following stabilization of hyponatremia in the setting of psychogenic polydipsia, who is now receiving involuntary BSU admission for psychotic thought disorganization and inability to care for himself in the community. Plan - Plan Treatment Plan: Name: ANDERSON MONTES DE OCA Birthdate: 1975 [id number] The patient's psychosis has improved a little bit on risperidone 2mg PO BID, Depakote ER 1500mg PO qhs, lorazepam 0.5mg PO BID and benztropine 0.5mg PO BID, however, he remains delusional and unable to plan for discharge. We may have to refer him to the [facility]. Continue to reinforce fluid restrictions. Continue inpatient level services. Continued Medication Management: Start Medication Medications: Current Medications Acetaminophen (Tylenol Tab*) 650 mg PO Q4H PRN PRN Reason: for pain; or Temp >101 F Al Hydrox/Mg Hydrox/Simethicone (Maalox Plus*) 30 ml PO Q4H PRN PRN Reason: INDIGESTION Benztropine Mesylate (Cogentin Tab*) 0.5 mg PO BID [facility] Last Admin: 06/18/17 09:15 Dose: 0.5 mg Divalproex Sodium (Depakote Er Tab(*)) 1,500 mg PO BEDTIME [facility] Last Admin: 06/17/17 20:11 Dose: 1,500 mg Docusate Sodium (Colace Cap*) 100 mg PO DAILY [facility] Last Admin: 06/18/17 09:15 Dose: 100 mg Lorazepam (Ativan Tab(*)) 0.5 mg PO Q4H PRN PRN Reason: AGITATION Lorazepam (Ativan Tab(*)) 0.5 mg PO BID [facility] Last Admin: 06/18/17 09:16 Dose: 0.5 mg Magnesium Hydroxide (Milk Of Magnesia Liq*) 30 ml PO Q6H PRN PRN Reason: CONSTIPATION Nicotine (Nicotine Inhaler*) 10 mg INH Q2H PRN PRN Reason: CRAVING Last Admin: 06/17/17 09:25 Dose: 10 mg Nicotine Polacrilex (Nicotine Gum*) 2 mg PO Q2H PRN PRN Reason: CRAVING Risperidone (Risperdal-M Tab *) 2 mg PO BID [facility] PRN Reason: Protocol Last Admin: 06/18/17 09:15 Dose: 2 mg - Discharge Plan Discharge Plan: Inpatient Hospitalization
[2017-06-18] MEDS: Nicotine Inhaler* 10 MG AMP INH PRN (12:22)
[2017-06-18] MEDS: Divalproex ER TAB(*) 500 MG PO SCH (20:12)
[2017-06-19] MEDS: Benztropine TAB* 1 MG PO SCH ×2 (08:17→20:00)
[2017-06-19] MEDS: Nicotine Inhaler* 10 MG AMP INH PRN (08:17)
[2017-06-19] MEDS: Docusate CAP* 100 MG PO SCH (08:17)
[2017-06-19] MEDS: LORazepam TAB(*) 0.5 MG PO SCH ×2 (08:17→20:00)
[2017-06-19] MEDS: risperiDONE-M * 1 MG TAB.ORADIS PO SCH ×2 (08:18→20:00)
[2017-06-19 08:27] LABS: EGFR Non-African American 89.3 (>60)
--- NOTE | 2017-06-19 13:32 | PN ---
Subjective - Subjective Date of Service: 06/19/17 Service Type: 92252 Hosp care 15 min low complexity Subjective: Anderson continues to endorse his belief that he will get a job at [employer] and a free PhD in Food Science. "I have a hard head like my father. I know this." He is informed, along with HUMBERTO Levyson Nu in the room, that the treatment team has decided to transfer him to a State facility. He is notified of his rights and does not show any objection to this plan. His medication adherence has been fair. Objective - Appearance Appearance: Obese Dysmorphic Features: No Hygiene: Normal Grooming: Fairly Well Kept - Behavior Psychomotor Activities: Normal Exhibits Abnormal Movement: No - Attitude and Relatedness Attitude and Relatedness: Psychotically Related Eye Contact: Poor - Speech Quality: Unpressured Latencies: Normal Quantity: Terse - Mood Patient's Decription of Mood: "Good" - Affect Observed Affect: Unvariable Affect Consistent with: Euthymia - Thought Process Patient's Thought Process: Disorganized, Impoverished Thought Content: Yes Paranoid Ideation, No Passive Wish, No Suicidal Planning, No Homicidal Ideation - Sensorium Experiencing Hallucinations: Yes Type of Hallucinations: Visual: No, Auditory: Yes, Command: No - Level of Consciousness Level of Consciousness: Alert Orientation: Yes Intact, Yes Orientated to Time, Yes Orientated to Place, Yes Orientated to Person - Impulse Control Impulse Control: Poor - Insight and Judgement Insight and Judgement: Impaired - Group Participation Particating in Group Activities: No - Medication Management Medication Management Adherence: Partial Assessment - Assessment Merits Inpatient Hospitalization: For Immediate Safety, For Stabilization Inpatient DSM-IV Dx: Schizoaffective disorder, bipolar type; obsessive- compulsive disorder. Clinical Impression: 41 y.o. single, male with a history of schizoaffective DO [facility] stabilization of hyponatremia in the setting of psychogenic polydipsia, who is now receiving involuntary BSU admission for psychotic thought disorganization and inability to care for himself in the community. Plan - Plan Treatment Plan: Name: ANDERSON MONTES DE OAC Birthdate: 1975 [id number] The patient's psychosis has improved a little bit on risperidone 2mg PO BID, Depakote ER 1500mg PO qhs, lorazepam 0.5mg PO BID and benztropine 0.5mg PO BID, however, he remains delusional and unable to plan for discharge. We may have to refer him to the [facility]. Continue to reinforce fluid restrictions. Continue inpatient level services. Continued Medication Management: Start Medication Medications: Current Medications Acetaminophen (Tylenol Tab*) 650 mg PO Q4H PRN PRN Reason: for pain; or Temp >101 F Al Hydrox/Mg Hydrox/Simethicone (Maalox Plus*) 30 ml PO Q4H PRN PRN Reason: INDIGESTION Benztropine Mesylate (Cogentin Tab*) 0.5 mg PO BID [facility] Last Admin: 06/19/17 08:17 Dose: 0.5 mg Divalproex Sodium (Depakote Er Tab(*)) 1,500 mg PO BEDTIME [facility] Last Admin: 06/18/17 20:12 Dose: 1,500 mg Docusate Sodium (Colace Cap*) 100 mg PO DAILY [facility] Last Admin: 06/19/17 08:17 Dose: 100 mg Lorazepam (Ativan Tab(*)) 0.5 mg PO Q4H PRN PRN Reason: AGITATION Lorazepam (Ativan Tab(*)) 0.5 mg PO BID [facility] Last Admin: 06/19/17 08:17 Dose: 0.5 mg Magnesium Hydroxide (Milk Of Magnesia Liq*) 30 ml PO Q6H PRN PRN Reason: CONSTIPATION Nicotine (Nicotine Inhaler*) 10 mg INH Q2H PRN PRN Reason: CRAVING Last Admin: 06/19/17 08:17 Dose: 10 mg Nicotine Polacrilex (Nicotine Gum*) 2 mg PO Q2H PRN PRN Reason: CRAVING Risperidone (Risperdal-M Tab *) 2 mg PO BID [facility] PRN Reason: Protocol Last Admin: 06/19/17 08:18 Dose: 2 mg - Discharge Plan Discharge Plan: Consider Longer Term Tx Lab Results - Lab Results Lab Results: 06/19/17 07:55 Sodium 131 L Potassium 4.7 Chloride 98 L Carbon Dioxide 27 Anion Gap 6 BUN 10 Creatinine 0.94 Est GFR ( Amer) 114.9 Est GFR (Non-Af Amer) 89.3 BUN/Creatinine Ratio 10.6 Glucose 93 Calcium 9.2 Total Creatine Kinase 74 Valproic Acid 96.0
[2017-06-19] MEDS: Divalproex ER TAB(*) 500 MG PO SCH (19:59)
[2017-06-20] MEDS: LORazepam TAB(*) 0.5 MG PO SCH ×2 (08:34→20:01)
[2017-06-20] MEDS: Docusate CAP* 100 MG PO SCH (08:34)
[2017-06-20] MEDS: Benztropine TAB* 1 MG PO SCH ×2 (08:35→20:02)
[2017-06-20] MEDS: risperiDONE-M * 1 MG TAB.ORADIS PO SCH ×2 (08:35→20:01)
[2017-06-20] MEDS: Divalproex ER TAB(*) 500 MG PO SCH (20:01)
[2017-06-21] MEDS: LORazepam TAB(*) 0.5 MG PO SCH ×2 (09:28→20:15)
[2017-06-21] MEDS: Docusate CAP* 100 MG PO SCH (09:28)
[2017-06-21] MEDS: Benztropine TAB* 1 MG PO SCH ×2 (09:28→20:16)
[2017-06-21] MEDS: risperiDONE-M * 1 MG TAB.ORADIS PO SCH ×2 (09:29→20:15)
[2017-06-21] MEDS: Nicotine Inhaler* 10 MG AMP INH PRN (09:32)
[2017-06-21] MEDS: Divalproex ER TAB(*) 500 MG PO SCH (20:15)
[2017-06-22] MEDS: Docusate CAP* 100 MG PO SCH (08:19)
[2017-06-22] MEDS: risperiDONE-M * 1 MG TAB.ORADIS PO SCH ×2 (08:19→20:29)
[2017-06-22] MEDS: Benztropine TAB* 1 MG PO SCH ×2 (08:19→20:30)
[2017-06-22] MEDS: LORazepam TAB(*) 0.5 MG PO SCH ×2 (08:20→20:29)
--- NOTE | 2017-06-22 12:41 | PN ---
Subjective - Subjective Date of Service: 06/22/17 Service Type: 14642 Hosp care 25 min moderate complexity Subjective: Anderson is seen for his administrative hearing for today. He admits to being still paranoid and continues to make claims that the [employer] came to his apartment to evict him before Thanksgiving. He continues to have delusions about working for [employer] and states that he has a job interview there this afternoon. "If you can give me the hat and the boots, I will make it to the interview." He continues to demonstrate inability to participate in reality- based discharge planning. He denies SI or HI and has no complaints about the medications. Objective - Appearance Appearance: Obese Dysmorphic Features: No Hygiene: Normal Grooming: Fairly Well Kept - Behavior Psychomotor Activities: Abnormal-Decreased Exhibits Abnormal Movement: No - Attitude and Relatedness Attitude and Relatedness: Cooperative Eye Contact: Poor - Speech Quality: Unpressured Latencies: Normal Quantity: Terse - Mood Patient's Decription of Mood: "Okay" - Affect Observed Affect: Unvariable Affect Consistent with: Euthymia - Thought Process Patient's Thought Process: Impoverished Thought Content: Yes Paranoid Ideation, No Passive Wish, No Suicidal Planning, No Homicidal Ideation - Sensorium Experiencing Hallucinations: Yes Type of Hallucinations: Visual: No, Auditory: Yes, Command: No - Level of Consciousness Level of Consciousness: Alert Orientation: Yes Intact, Yes Orientated to Time, Yes Orientated to Place, Yes Orientated to Person - Impulse Control Impulse Control: Poor - Insight and Judgement Insight and Judgement: Impaired - Group Participation Particating in Group Activities: No - Medication Management Medication Management Adherence: Yes Assessment - Assessment Merits Inpatient Hospitalization: For Immediate Safety, For Stabilization Inpatient DSM-IV Dx: Schizoaffective disorder, bipolar type; obsessive- compulsive disorder. Clinical Impression: 41 y.o. single, male with a history of schizoaffective [facility] stabilization of hyponatremia in the setting of psychogenic polydipsia, who is now receiving involuntary BSU admission for psychotic thought disorganization and inability to care for himself in the community. Plan - Plan Treatment Plan: Name: ANDERSON MONTES DE OCA Birthdate: 1975 [id number] The patient's psychosis has improved a little bit on risperidone 2mg PO BID, Depakote ER 1500mg PO qhs, lorazepam 0.5mg PO BID and benztropine 0.5mg PO BID, however, he remains delusional and unable to plan for discharge. We will refer him to the [facility]. Continue to reinforce fluid restrictions. Continue inpatient level services. Continued Medication Management: Start Medication Medications: Current Medications Acetaminophen (Tylenol Tab*) 650 mg PO Q4H PRN PRN Reason: for pain; or Temp >101 F Al Hydrox/Mg Hydrox/Simethicone (Maalox Plus*) 30 ml PO Q4H PRN PRN Reason: INDIGESTION Benztropine Mesylate (Cogentin Tab*) 0.5 mg PO BID [facility] Last Admin: 06/22/17 08:19 Dose: 0.5 mg Divalproex Sodium (Depakote Er Tab(*)) 1,500 mg PO BEDTIME [facility] Last Admin: 06/21/17 20:15 Dose: 1,500 mg Docusate Sodium (Colace Cap*) 100 mg PO DAILY [facility] Last Admin: 06/22/17 08:19 Dose: 100 mg Lorazepam (Ativan Tab(*)) 0.5 mg PO Q4H PRN PRN Reason: AGITATION Lorazepam (Ativan Tab(*)) 0.5 mg PO BID [facility] Last Admin: 06/22/17 08:20 Dose: 0.5 mg Magnesium Hydroxide (Milk Of Magnesia Liq*) 30 ml PO Q6H PRN PRN Reason: CONSTIPATION Nicotine (Nicotine Inhaler*) 10 mg INH Q2H PRN PRN Reason: CRAVING Last Admin: 06/21/17 09:32 Dose: 10 mg Nicotine Polacrilex (Nicotine Gum*) 2 mg PO Q2H PRN PRN Reason: CRAVING Risperidone (Risperdal-M Tab *) 2 mg PO BID [facility] PRN Reason: Protocol Last Admin: 06/22/17 08:19 Dose: 2 mg - Discharge Plan Discharge Plan: Consider Longer Term Tx
[2017-06-22] MEDS: Divalproex ER TAB(*) 500 MG PO SCH (20:29)
[2017-06-23] MEDS: Benztropine TAB* 1 MG PO SCH ×2 (09:10→20:32)
[2017-06-23] MEDS: Docusate CAP* 100 MG PO SCH (09:11)
[2017-06-23] MEDS: risperiDONE-M * 1 MG TAB.ORADIS PO SCH ×2 (09:11→20:32)
[2017-06-23] MEDS: LORazepam TAB(*) 0.5 MG PO SCH ×2 (09:11→20:32)
[2017-06-23] MEDS: Nicotine Inhaler* 10 MG AMP INH PRN ×2 (10:15→20:35)
[2017-06-23] MEDS: Divalproex ER TAB(*) 500 MG PO SCH (20:32)
[2017-06-24] MEDS: risperiDONE-M * 1 MG TAB.ORADIS PO SCH ×2 (09:14→20:09)
[2017-06-24] MEDS: Benztropine TAB* 1 MG PO SCH ×2 (09:15→20:11)
[2017-06-24] MEDS: Docusate CAP* 100 MG PO SCH (09:15)
[2017-06-24] MEDS: LORazepam TAB(*) 0.5 MG PO SCH ×2 (09:16→20:10)
--- NOTE | 2017-06-24 12:11 | PN ---
Subjective - Subjective Date of Service: 06/24/17 Service Type: 77222 Hosp care 15 min low complexity Subjective: Anderson remains psychotic with delusions of both a grandiose and jealous nature. "I am going to go to get my PhD at the [place]. I have been trying this since I am 32 year-old and I am 41 now. People are jealous of my capacity and my ability and they try to stop me." He still cannot state where he would live or how he would support himself. Staff discussions with his family indicate that they are trying to muster the resources to return him to the [facility]. He has been adherent with medications as prescribed. Objective - Appearance Appearance: Obese Dysmorphic Features: No Hygiene: Normal Grooming: Fairly Well Kept - Behavior Psychomotor Activities: Normal Exhibits Abnormal Movement: No - Attitude and Relatedness Attitude and Relatedness: Cooperative Eye Contact: Fair - Speech Quality: Unpressured Latencies: Normal Quantity: Terse - Mood Patient's Decription of Mood: "Okay" - Affect Observed Affect: Unvariable Affect Consistent with: Euthymia - Thought Process Patient's Thought Process: Impoverished Thought Content: Yes Paranoid Ideation, No Passive Wish, No Suicidal Planning, No Homicidal Ideation - Sensorium Experiencing Hallucinations: Yes Type of Hallucinations: Visual: No, Auditory: Yes, Command: No - Level of Consciousness Level of Consciousness: Alert Orientation: Yes Intact, Yes Orientated to Time, Yes Orientated to Place, Yes Orientated to Person - Impulse Control Impulse Control: Poor - Insight and Judgement Insight and Judgement: Impaired - Group Participation Particating in Group Activities: No - Medication Management Medication Management Adherence: Yes Assessment - Assessment Merits Inpatient Hospitalization: For Immediate Safety, For Stabilization Inpatient DSM-IV Dx: Schizoaffective disorder, bipolar type; obsessive- compulsive disorder. Clinical Impression: 41 y.o. single, male with a history of schizoaffective DO transferred from [facility] following stabilization of hyponatremia in the setting of psychogenic polydipsia, who is now receiving involuntary BSU admission for psychotic thought disorganization and inability to care for himself in the community. Plan - Plan Treatment Plan: Name: ANDERSON MONTES DE OCA Birthdate: 1975 [id number] The patient's psychosis has improved a little bit on risperidone 2mg PO BID, Depakote ER 1500mg PO qhs, lorazepam 0.5mg PO BID and benztropine 0.5mg PO BID, however, he remains delusional and unable to plan for discharge. We will refer him to the [facility] system. Continue to reinforce fluid restrictions. Continue inpatient level services. Continued Medication Management: Start Medication Medications: Current Medications Acetaminophen (Tylenol Tab*) 650 mg PO Q4H PRN PRN Reason: for pain; or Temp >101 F Al Hydrox/Mg Hydrox/Simethicone (Maalox Plus*) 30 ml PO Q4H PRN PRN Reason: INDIGESTION Benztropine Mesylate (Cogentin Tab*) 0.5 mg PO BID [facility] Last Admin: 06/24/17 09:15 Dose: 0.5 mg Divalproex Sodium (Depakote Er Tab(*)) 1,500 mg PO BEDTIME [facility] Last Admin: 06/23/17 20:32 Dose: 1,500 mg Docusate Sodium (Colace Cap*) 100 mg PO DAILY [facility] Last Admin: 06/24/17 09:15 Dose: 100 mg Lorazepam (Ativan Tab(*)) 0.5 mg PO Q4H PRN PRN Reason: AGITATION Lorazepam (Ativan Tab(*)) 0.5 mg PO BID [facility] Last Admin: 06/24/17 09:16 Dose: 0.5 mg Magnesium Hydroxide (Milk Of Magnesia Liq*) 30 ml PO Q6H PRN PRN Reason: CONSTIPATION Nicotine (Nicotine Inhaler*) 10 mg INH Q2H PRN PRN Reason: CRAVING Last Admin: 06/23/17 20:35 Dose: 10 mg Nicotine Polacrilex (Nicotine Gum*) 2 mg PO Q2H PRN PRN Reason: CRAVING Risperidone (Risperdal-M Tab *) 2 mg PO BID [facility] PRN Reason: Protocol Last Admin: 06/24/17 09:14 Dose: 2 mg - Discharge Plan Discharge Plan: Consider Longer Term Tx Lab Results - Lab Results Lab Results: 06/24/17 08:53 Sodium 131 L Chloride 99 L
[2017-06-24] MEDS: Divalproex ER TAB(*) 500 MG PO SCH (20:47)
[2017-06-25 08:11] VITALS: BP 111/76
[2017-06-25] MEDS: Docusate CAP* 100 MG PO SCH (08:14)
[2017-06-25] MEDS: LORazepam TAB(*) 0.5 MG PO SCH (08:14)
[2017-06-25] MEDS: risperiDONE-M * 1 MG TAB.ORADIS PO SCH (08:14)
[2017-06-25] MEDS: Benztropine TAB* 1 MG PO SCH (08:14)
[2017-06-25] MEDS ORDERED: LORazepam TAB(*) 1 MG PO ONE (09:20)
[2017-06-25] MEDS ORDERED: LORazepam TAB(*) 1 MG ONE (09:23)
--- NOTE | 2017-06-26 01:15 | DS ---
PSYCHIATRIC DISCHARGE SUMMARY: DATE OF ADMISSION: 06/05/17 DATE OF DISCHARGE: 06/25/17 DISCHARGE DIAGNOSES: Are as follows: Douglas I: Schizoaffective disorder bipolar type, obsessive compulsive disorder. Douglas II: Deferred. Douglas III: Psychogenic polydipsia, recurrent hyperglycemia, hyponatremia. Douglas IV: Severe primary ball pport and housing stressors. Douglas V: At the time of admission was 32 and at the time of discharge i s 47. CONDITION AT THE TIME OF DISCHARGE: Guarded. The patient remains delusional that he will be accepte d into [facility] and get his PhD. there. He is also espousing beliefs to the effect that he has a satellite corporate aircraft mechanic in his head that allows him to both receive and transmit signals to others. He has no housing in this area, but continues to insist that he will simply live with one of his [facility] peers who has recently been discharged. This is not a safe discharge plan as t his person has severe persistent mental illness herself. We have spoken with his family specifically , his brother Harsh Suarez, in [place], [place] who is aware of the situation and agreeable with th e patient receiving longer term treatment. For these reasons, we have decided to transfer him on an involuntary basis to the [facility]. We have had an administrative hearing which has concluded that the patient would benefit from longer term more rehabilitative psychiatric treatment i n a [facility] facility. The patient is tolerating his medications quite well and his medical issues of h yponatremia in the setting of toxic water ingestion have stably increased. MENTAL STATUS EXAM: At the time of discharge, the patient is a middle-aged male with wispy brown hair, who is wearing a red sweater with somewhat limited grooming. He makes fair eye contact, is sitting with fairly good posture. There is some hypokinesis notable. He speaks with broken Englis h, although he clearly understands our communication together. Mood is euthymic with a somewhat blun socrates affect. Thought process is mildly disorganized. Thought content is significant for his desire t o be discharged so that he can live with a past peer on the unit. He denies suicidal or homicidal id eations. He denies auditory or visual hallucinations. There is evidence of delusional thinking give n his thought that he has satellite transmitting devices implanted in his head. Insight and judgment are markedly impaired given his decision to be discharged without a safe place to live. Cognitively, he is awake and alert with what would appear to be an average intellect. LABORATORY DATA: The patient's most recent sodium level was 131, which is mildly low. His most rece nt chloride was 99, which was similarly slightly low. All other elements of the complete metabolic p valente are within normal limits. His hemoglobin A1c was somewhat elevated at 5.9. Cholesterol 116, tr iglyceride 74, LDL cholesterol 70, HDL cholesterol 31.0. Most recent valproic acid level 96.0. DISCHARGE INSTRUCTIONS: To the patient are as follows: A. Medications. 1. The patient takes Risperdal 2 mg p.o. b.i.d. 2. He takes a nicotine inhaler 10 mg inhaled every 2 hours as a p.r.n. for smoking cessation. 3. He takes nicotine gum 2 mg p.o. q.2 hours p.r.n. for smoking cessation. 4. He takes Ativan 0.5 mg p.o. b.i.d. 5. Colace 100 mg daily. 6. Depakote ER 1500 mg p.o. q.h.s. 7. Cogentin 0.5 mg p.o. b.i.d. B. Diet is regular diet. C. Activities: As per [facility] protocol. The patient is a smoker and he has accepted continuation of ni cotine replacement therapies understanding that [facility] is a smoke free sherman. There are no studies pen ding at the time of discharge. D. Followup care: The patient will be a direct transfer to the [facility] where he w ill continue to receive intensive inpatient psychiatric treatment. [facility] will be responsible for all of his outpatient appointments and referrals at his time of discharge from that facility. E. Substance abuse followup is nonapplicable. HOSPITAL COURSE: Part A: Reason for admission: The patient is a 41-year-old single male w ith a history of schizoaffective disorder and OCD who was brought in by a friend of his secondary to auditory hallucinations and difficulty taking care of himself in the community. My understanding is that over several weeks he had been hearing voices and had been increasingly unable to meet his own b asic needs. The voices had not necessarily been telling him to do harmful things, but he did appear to be responding to the voices at times. According to his family, he has a history of enacting destr uctive behaviors towards property in response to command hallucinations. The background history was that the patient had arrived in the [facility] in January of 2017 from [place]. Because the patient was born in [place], [place] when his father was a student dean, he actuall y has dual citizenship. My understanding is that this is the third time that he has spontaneously de cided to come to [place] during his adult life with a delusion that he would be enrolled in [employer] as his father had. All 3 such trips to the [facility] have resulted in psychiatric hospi talization. 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 However, he was not able to keep any of these employment opportunities and eventually, he was evicted from his apartment on 05/27/17 due to failure to pay rent. Thereafter, he arrived at his fri end, Markos's house who used to be his landlord during one of his other visits to [place]. He was extr chelsie disorganized and Markos brought him to the hospital where he presented with psychogenic polydips ia resulting in very severe decreases in his serum sodium level. For this reason, he was hospitalize d medically, where Psychiatry consulted. We tried to start him on clozapine which he has done well o n, but this resulted in tachycardia. While still on the medical unit, he had a period of agitation, for which he received intramuscular Haldol. This resulted in severe dystonic reaction and elevated C PK values, which eventually came back to normal after discontinuing any further Haldol administration s. For this reason, we held Haldol and placed him on a trial of low dose Risperdal along with standi ng orders of lorazepam and Cogentin. Eventually, he was medically cleared and ready to be transferre d to the inpatient psychiatric unit. Most of the history that we gathered was through his brother, Darrel Suarez, who is currently residing in [place], [place]. The family was clear that their expect ation was for Anderson to return to the [place] after psychiatric stabilization. Part B: Psychiatric treatment rendered: The patient was transferred to the adult behavioral health unit where he was placed on q.15-minute checks for his own safety. We continued treatment with Rispe rdal and eventually increased the dose to 2 mg p.o. b.i.d. Lorazepam was continued at the dose of 0. 5 mg twice daily and Cogentin was continued also at 0.5 mg p.o. twice daily. In addition, his Depako te was resumed at the dose of 1750 mg which is what he had done well on during a prior admission here in 2009. Soon thereafter, his Depakote was found to be supratherapeutic at 103 and the dose was the n lowered to 1500 mg daily. The patient improved in that he drank less water. We did continue fluid restrictions, but we were able to take him off constant observations and reduce him eventually down to q.30-minute checks. He was able to earn the privilege of using the comfort room, the computer, an d going out with staff for fresh air breaks. We had numerous phone calls with his brother, Harsh, and the family made it clear that they were trying to cobble together the financial resources to give Anderson a plane ticket home. They were still working on this at the time of discharge. Unfortunatel y, the patient's delusions that he had an apartment continued. We even brought his friend, Markos huitron, in to confirm him about this stating directly to Anderson that he does not have an apartment. Latosha huitron also had continued delusions that he would merely get a job at [employer] and get free tuition in [facility] to get his PhD. These assertions were similarly discouraged by the treatment team given the fact t hat he has no social support in this area and is highly unlikely to be accepted at [facility] . Eventually, the patient got to a point where it was his third week of hospitalization. We sought an administrative hearing to have him transferred to [facility] for further inpatient treatment and it was determined by the hospital that Anderson would benefit from this. Anderson tolerated his medicat ions well. He was never a behavioral problem on the unit although he did not go to groups. He was a lways calm, safe. His Sammarinese improved as he stayed here and he was much better able to communicate his needs. At this time, although he does not agree necessarily with the hospitalization in [place], he does cooperate with the transfer procedures and we are certainly wishing him the best for safe and healthy future. His family has been notified of the transfer and we have given his brother the telep michael number of [facility]. [id number]/[facility] #: [id number]
== END 2017-06-25 10:10 | DRG 750 ==
LOC: BSU 14:50
PROVIDERS: ADMIT Psychiatry & Neurology Psychiatry; ATTEND Psychiatry & Neurology Psychiatry
DX: F25.0 Schizoaffective disorder, bipolar type (principal); E87.1 Hypo-osmolality and hyponatremia; F42.9 Obsessive-compulsive disorder, unspecified; R63.1 Polydipsia; R73.9 Hyperglycemia, unspecified; F17.210 Nicotine dependence, cigarettes, uncomplicated; Z81.8 Family history of other mental and behavioral disorders
CPT/HCPCS: 36415; 80048; 80053; 80061; 80164; 82435; 82550; 83036; 83735; 84300; 85025; 85652; 90847; 93005; 99222; 99231; 99232; 99238; A9270-GY; J0515; J1200

== ENCOUNTER 2017-08-16 10:33 | Observation (INO) | payer SELFPAY ==
--- NOTE | 2017-08-16 11:38 | RAD ---
Indication: Elbow deformity post fall on ice. Comparison: No relevant prior exams available on the [facility] PACS for comparison. Technique: AP and lateral views RIGHT humerus. AP and lateral views RIGHT forearm. REPORT AND IMPRESSION: The proximal humerus is not included in the [id number] on the lateral view. Posterior dislocation of the radius and ulna relative to the humeral trochlea and capitellum. Probable associated avulsion fracture at the coronoid process of the ulna. Large elbow joint effusion without gross fat fluid level. Soft tissue swelling about the elbow.
--- NOTE | 2017-08-16 11:38 | RAD ---
Indication: Elbow deformity post fall on ice. Comparison: No relevant prior exams available on the [facility] PACS for comparison. Technique: AP and lateral views RIGHT humerus. AP and lateral views RIGHT forearm. REPORT AND IMPRESSION: The proximal humerus is not included in the [id number] on the lateral view. Posterior dislocation of the radius and ulna relative to the humeral trochlea and capitellum. Probable associated avulsion fracture at the coronoid process of the ulna. Large elbow joint effusion without gross fat fluid level. Soft tissue swelling about the elbow.
--- NOTE | 2017-08-16 13:24 | RAD ---
INDICATION: RIGHT elbow dislocation and fracture. All. Comparison: August 16, 2017 radiographs. Technique: Noncontrast CT RIGHT elbow. Multiplanar reformation. Report: Elbow dislocation with the humerus displaced posteriorly with the coronoid process locked against the caudal posterior margin of the capitellum. Associated comminuted fracture of the radial aspect of the coronoid process displaced anterior relative to the remainder of the coronoid process. The radial head is displaced posteriorly and approximates the posterior margin of the capitellum. The radial head is subluxed anteriorly relative to the corresponding articular notch in the ulna at the proximal radioulnar articulation. Soft tissue edema about the elbow and elbow joint effusion without gross fat fluid level. IMPRESSION: Elbow fracture dislocation as described.
[2017-08-16] MEDS ORDERED: ceFAZolin 2 GM PREMIX (*) 2 GM/50 ML BAG IVPB ONE ×2 (13:27→13:29)
[2017-08-16] MEDS ORDERED: Bupivacaine 0.25% SDV* 30 ML ONE (13:51)
--- NOTE | 2017-08-16 13:54 | ED ---
Upper Extremity Pain - HPI Summary HPI Summary: Patient presents to the ED after falling on the ice and injuring his right arm. He endorses pain diffusely throughout the upper and lower arm without ecchymosis. He is unable to move at the elbow joint. Denies numbness, tingling in the ipsilateral fingers. Pulses decreased to the right side. Temperature change to the right hand. - History of Current Complaint Chief Complaint: EDExtremityUpper Stated Complaint: FALL/POSSIBLE BROKEN RT ARM Time Seen by Provider: 08/16/17 10:41 Hx Obtained From: Patient Timing: Constant Severity Initially: Moderate Severity Currently: Moderate Pain Location: Arm, Elbow Character: Aching Alleviating Factor(s): Rest, Ice - Risk Factors Non-Orthopedic Risk Factor: Negative DVT Risk Factors: Negative Septic Arthritis Risk Factor: Negative Compartment Syndrome Risk Factors: Pain - Allergies/Home Medications Allergies/Adverse Reactions: Allergies Allergy/AdvReac Type Severity Reaction Status Date / Time clonazepam Allergy Unknown Verified 08/16/17 10:44 Reaction Details PMH/Surg Hx/FS Hx/Imm Hx Previously Healthy: Yes Sensory History: Denies: Hx Contacts or Glasses, Hx Hearing Aid Opthamlomology History: Denies: Hx Contacts or Glasses Psychiatric History: Reports: Hx Inpatient Treatment, Hx Community Mental Health Tx, Other Psychiatric Issues/Disorders - schizoaffective disorder - Immunization History Hx Pertussis Vaccination: No Immunizations Up to Date: Unable to Obtain/Confirm Infectious Disease History: No Infectious Disease History: Denies: Traveled Outside the [place] in Last 30 Days - Social History Occupation: Unemployed Lives: Alone Alcohol Use: None Hx Substance Use: No Substance Use Type: Reports: None Smoking Status (MU): Smoker, Current Status Unknown Type: Cigarettes Review of Systems Constitutional: Negative Negative: Fever, Chills, Fatigue Cardiovascular: Negative Respiratory: Negative Positive: no symptoms reported, see HPI Positive: Arthralgia, Myalgia Skin: Negative Neurological: Negative All Other Systems Reviewed And Are Negative: Yes Physical Exam Triage Information Reviewed: Yes Vital Signs On Initial Exam: Initial Vitals Temp Pulse Resp BP Pulse Ox 97.4 F 79 18 136/84 100 08/16/17 10:37 08/16/17 10:37 08/16/17 10:37 08/16/17 10:37 08/16/17 10:37 Vital Signs Reviewed: Yes Appearance: Positive: Well-Appearing, Well-Nourished Skin: Positive: Other - Erythematous cold hand Head/Face: Positive: Normal Head/Face Inspection Eyes: Positive: EOMI Neck: Positive: Supple, Nontender, No Lymphadenopathy Respiratory/Lung Sounds: Positive: Clear to Auscultation, Breath Sounds Present Cardiovascular: Positive: RRR, Pulses are Symmetrical in both Upper and Lower Extremities Musculoskeletal: Positive: Limited @ - Right elbow, Pain @ Neurological: Positive: Speech Normal Psychiatric: Positive: Normal AVPU Assessment: Alert Diagnostics - Vital Signs Vital Signs Temp Pulse Resp BP Pulse Ox 08/16/17 13:19 98.4 F 70 18 135/86 97 08/16/17 10:37 97.4 F 79 18 136/84 100 - Laboratory Lab Statement: Any lab studies that have been ordered have been reviewed, and results considered in the medical decision making process. Course/Dx - Course Course Of Treatment: During the course of treatment, the patient is evaluated for right elbow pain and temperature change to the right hand. He endorses slight numbness and tingling which is almost resolved on arrival. He slipped and fell on the ice, but denies head injury. REPORT AND IMPRESSION: The proximal humerus is not included in the [id number] on the. lateral view. Posterior dislocation of the radius and ulna relative to the humeral. trochlea and capitellum. Probable associated avulsion fracture at the coronoid process of. the ulna. Large elbow joint effusion without gross fat fluid level. Soft tissue swelling. about the elbow. Dr. Pedro consult at who agrees to take him to the OR for surgical reduction. - Diagnoses Provider Diagnoses: Dislocation Discharge - Discharge Plan Condition: Stable Disposition: ADMITTED TO [facility]
[2017-08-16] MEDS ORDERED: Lidocaine 2% PF * 5 ML VIAL ONE (14:28)
[2017-08-16] MEDS ORDERED: Succinylcholine* 20 MG/ML 10 ML VIAL ONE (14:28)
[2017-08-16] MEDS ORDERED: Famotidine IV* 10 MG/ML 2 ML (20 mg) ONE (14:28)
[2017-08-16] MEDS ORDERED: fentaNYL* 50 MCG/ML 2 ML VIAL (100 MCG VIAL) ONE (14:28)
[2017-08-16] MEDS ORDERED: Propofol* 10 MG/ML 20 ML BTL IV PUSH ONE (14:28)
[2017-08-16] MEDS ORDERED: Buffered Lidocaine 0.9% SYRIN* 5 ML/SYR SYRINGE INTRADERM ONE (14:52)
[2017-08-16] MEDS ORDERED: HYDROcodone/ACETAMIN 5-325 MG* 1 TAB PO PRN (14:52)
[2017-08-16] MEDS ORDERED: Ondansetron INJ* 2 MG/ML VIAL IV PRN ×2 (14:52→19:57)
[2017-08-16] MEDS ORDERED: PROCHLORPERAZINE INJ 5 MG/ML 2 ML VIAL IV PRN (14:52)
[2017-08-16] MEDS ORDERED: Acetaminophen TAB* 325 MG PO PRN ×2 (14:52→19:57)
[2017-08-16] MEDS ORDERED: Naloxone* 0.4 MG/ML 1 ML VIAL IV PRN (14:52)
[2017-08-16] MEDS ORDERED: Ketorolac INJ* 30 MG/ML 1 ML VIAL ONE (14:55)
--- NOTE | 2017-08-16 15:42 | RAD ---
Indication: Closed Reduction elbow fracture or dislocation. Comparison: CT and radiographs of the same date. Technique: Intraoperative fluoroscopy. Report: Spot images document restored articular alignment at the humeral radial and ulnar articulations. No fracture of the coronoid processes not conspicuous on the fluoroscopic spot images.. 9 seconds fluoroscopy. IMPRESSION: Procedural fluoroscopy. CPT II Codes: 6045F
[2017-08-16] MEDS ORDERED: diPHENhydraMINE IV* 50 MG/ML 1 ml VIAL (BENADRYL) IV PRN (19:57)
[2017-08-17 08:08] VITALS: BP 114/69
--- NOTE | 2017-08-17 08:41 | OP ---
OPERATIVE REPORT: DATE OF OPERATION: 08/16/17 SURGEON: Harry Pedro MD. CHILD CARE GROUP LEADER: ANA Cuello. ANESTHESIOLOGIST: Dr. Blandon. ANESTHESIA: General. PRE-OP DIAGNOSIS: Right elbow fracture, dislocation. POST-OP DIAGNOSIS: Right elbow fracture, dislocation. PROCEDURE PERFORMED: Closed reduction and long arm splint application to right elbow fracture, dislo cation. INDICATIONS: Anderson had a mechanical fall on the ice this morning. He is healthy. He does have some psychiatric illness for which he has been admitted a couple of times to the hospital. The elbow had a posterior dislocation of the ulnar humeral joint and radiocapitellar joint. There was some sort o f an avulsion fracture off the coronoid process. Preoperative CT has not clearly shown where that fr acture line was coming off of. I had told Anderson that we need to get the joint reduced. If it was un stable, I would plan to open the joint and repair the ligaments and/or the fracture. If it was stabl e, I would splint it and we may need to get some followup imaging. He understood the risks and benef its; he wanted to proceed. ESTIMATED BLOOD LOSS: 0 mL. COMPLICATIONS: None. FINDINGS: The elbow easily reduced. It was stable through a motion arc. No obvious anteromedial co ronoid piece seen on intraoperative fluoroscopy. DESCRIPTION OF PROCEDURE: Anderson was seen in the preoperative holding area. The correct side, site, and procedure were identified. We came back to the operating room. We had a time-out. I then perfo rmed a closed reduction maneuver and elbow reduced easily. Fluoroscopic imaging confirmed the reducti on. The elbow was taken through a flexion extension motion arc. It did not re-dislocate, so I went ahead and placed him in a long arm splint with a lateral buttress to control rotation. He was then t aken to the recovery room in stable condition. [id number]/[facility] #: [id number]
--- NOTE | 2017-08-17 11:54 | PN ---
Progress Note - Progress Note Date of Service: 08/17/17 SOAP: Subjective: []Patient seen at bedside after a closed reduction of right elbow fracture last night. He was unable to discharge home last night as planned due to lack of transportation. His RUE is nonpainful at this time. Denies dizziness, nausea, CP or SOB. Objective: []General: Well appearing, no acute distress RUE: splint in place, CDI. Sensation intact to light touch throughout digits 1- 5. Flexion, extension, adduction, abduction intact throughout all digits. Brisk capillary refill distally. Vital Signs Temp 98.4 F 08/17/17 07:42 Pulse 72 08/17/17 07:42 Resp 16 08/17/17 08:00 BP 114/69 08/17/17 07:42 Pulse Ox 95 08/17/17 07:42 Intake & Output 08/16/17 08/17/17 08/17/17 18:59 06:59 18:59 Intake Total 700 600 Output Total 450 Balance 700 150 Weight 216 lb Intake: IV Fluids 700 LR 700 Oral 600 Output: Urine 450 Assessment: [] s/p closed reduction right elbow fracture 08/16/17 Plan: [] Pain control with tylenol 650 mg 1-2 tabs every 4-6 hours as needed for pain. Do not exceed 4000 mg tylenol per day from all sources Keep dressing on for 2 weeks. It is to be kept clean, dry and intact for 2 weeks. Nonweightbearing of right upper extremity. Ice as needed Return for follow up appointment with Dr Pedro in 10-14 days
--- NOTE | 2017-08-18 10:28 | DS ---
AMENDED REPORT NOW INCLUDES COSIGNER DESIGNATION - ESIGNED BEFORE ADJUSTMENTS DISCHARGE SUMMARY: DATE OF ADMISSION: 08/16/17 DATE OF DISCHARGE: 08/17/17 PROVIDER: Harry Pedro MD * (DICTATED BY ANA CLEMENTE) PREOPERATIVE DIAGNOSIS: Right elbow fracture, dislocation. HISTORY: The patient had a mechanical fall on the ice the morning of 08/16/17. His right elbow had a posterior dislocation of the ulnar humeral joint and radiocapitellar joint. There was an avulsion fracture of coracoid process. It was agreed that the joint will be reduced in the operating room in a closed fashion and if it was found to be unstable then the joint will be opened for repair. HOSPITAL COURSE: The patient was admitted to [facility] on . On the same day, he underwent a closed reduction and long arm splint application to the right elbow fracture, dislocation, which was well tolerated without complication. The patient was taken to the recovery in stable condition , and it was intended that after a short stay of recovery he be discharged home. Due to lack of transportation, the patient was admitted as an observation overnight. On 08/17/17 prior to discharge vital signs showed temperature 98.4 orally, pulse rate 72, respiratory rate 17, oxygen saturation 95, blood pressure 114/69. The patient was seen at bedside. His right upper extremity was not painful. His splint was in place, clean, dry, and intact. Sensation was intact to light touch throughout the digits 1 through 5. Flexion , extension, adduction, abduction intact through all digits as well. Brisk capillary refills throughout right upper extremity digits. The patient was deemed to be medically and orthopedically stable for discharge home. DISCHARGE MEDICATIONS: 1. Maalox 30 mL p.o. q. 4 hours p.r.n. 2. Cogentin 1 tab, please take 0.5 mg p.o. b.i.d. 3. Depakote ER 1500 mg p.o. at bedtime. 4. Colace 100 mg p.o. daily p.r.n. 5. Ativan 0.5 mg p.o. q. 4 hours p.r.n., max daily dose of 3 in total. 6. Milk of Magnesia 30 mg p.o. q. 6 hours p.r.n. 7. Nicotine gum 2 mg p.o. q. 2 hours p.r.n. 8. Nicotine inhaler 10 mg inhaled q. 2 hours p.r.n. 9. Risperdal 2 mg p.o. b.i.d. 10. Acetaminophen 650 mg p.o. q. 4 hours p.r.n., max daily dose of 4000 mg daily. DISCHARGE INSTRUCTIONS: Pain control with Tylenol 650 mg one to two tabs every 4 to 6 hours as needed for pain, max daily dose of 4000 mg of Tylenol daily from all sources. Keep dressing on for two weeks. Dressing is to be kept clean , dry and intact. No weightbearing of the right upper extremity, May ice as needed. Return for followup appointment with Dr. Pedro in 10 to 14 days. Please contact our office with any concerns prior to this appointment. ANA CLEMENTE [id number]/[facility] #: [id number] KAMALJIT
== END 2017-08-17 10:40 | disposition home or self-care (01) ==
LOC: ED 10:33 → OR 13:19 → SSU 20:24
PROVIDERS: ADMIT Orthopaedic Surgery Hand Surgery; ATTEND Orthopaedic Surgery Hand Surgery
DX: S52.091A Other fracture of upper end of right ulna, initial encounter for closed fracture (principal); Z72.0 Tobacco use; W00.9XXA Unspecified fall due to ice and snow, initial encounter; Y92.89 Other specified places as the place of occurrence of the external cause; F20.9 Schizophrenia, unspecified
CPT/HCPCS: 96374; 99283; A9270-GY; G0378; J0330; J0690; J1885; J2704; J3010

== ENCOUNTER 2017-08-24 12:08 | Emergency (ER) | payer SELFPAY ==
[2017-08-24] MEDS ORDERED: risperiDONE TAB* 2 MG PO ONE (12:37)
[2017-08-24] MEDS ORDERED: LORazepam TAB(*) 1 MG PO ONE (12:37)
[2017-08-24] MEDS ORDERED: Benztropine TAB* 1 MG PO ONE (12:37)
--- NOTE | 2017-08-24 14:10 | ED ---
Psychiatric Complaint - HPI Summary HPI Summary: 42 male presents to ED with volunteer patient representative from [facility] requesting medication refill. Patient was just released from mental health facility and has been living at [facility]/retirement. States he was set up with [facility], seen last week, as not had medication refilled, in process of determining how to get meds. Does have medicaid. Has another appointment with mental health tomorrow. Has been out of medication for 4 days and has since been feeling very anxious. Denies suicidal thoughts/homicidal thought. No attempt at self harm. Emulsification Operator was also used to make sure patient was comprehending thoroughly. No other concerns or complaints at this time however needs his medication as he is feeling anxious and symptomatic without them. PMHx schizophrenia. Patient appears to have slight cognitive impairment. Also spoke with [facility] volunteer patient representative. - History Of Current Complaint Chief Complaint: EDMentalHealth Time Seen by Provider: 08/24/17 12:18 Hx Obtained From: Patient, Family/Nutritionist Public Health - [facility] Onset/Duration: Gradual Onset, Lasting Days, Still Present, Worse Since Severity Initially: Mild Severity Currently: Moderate Character: Anxious Aggravating Factor(s): Recent Stress, Medication Non-compliance Alleviating Factor(s): Medication, Counseling Associated Signs And Symptoms: Positive: Negative Related History: Positive For: Prior Psychiatric Issues Has Suicidal: Denies: Thoughts, With A Plan Has Homicidal: Denies: Thoughts, With A Plan - Allergies/Home Medications Allergies/Adverse Reactions: Allergies Allergy/AdvReac Type Severity Reaction Status Date / Time clonazepam Allergy Unknown Verified 08/16/17 10:44 Reaction Details PMH/Surg Hx/FS Hx/Imm Hx Endocrine/Hematology History: Denies: Hx Anticoagulant Therapy, Hx Diabetes Cardiovascular History: Denies: Hx Hypertension Respiratory History: Denies: Hx Asthma Sensory History: Denies: Hx Contacts or Glasses, Hx Hearing Aid Opthamlomology History: Denies: Hx Contacts or Glasses Psychiatric History: Reports: Hx Inpatient Treatment, Hx Community Mental Health Tx, Hx Schizophrenia, Other Psychiatric Issues/Disorders - schizoaffective disorder - Surgical History Surgery Procedure, Year, and Place: n/a - Immunization History Immunizations Up to Date: Yes Infectious Disease History: No Infectious Disease History: Denies: Traveled Outside the [place] in Last 30 Days - Family History Known Family History: Positive: None - Social History Alcohol Use: Rare Hx Substance Use: No Substance Use Type: Reports: None Smoking Status (MU): Smoker, Current Status Unknown Type: Cigarettes Review of Systems Constitutional: Negative Cardiovascular: Negative Respiratory: Negative Positive: Anxious All Other Systems Reviewed And Are Negative: Yes Physical Exam Triage Information Reviewed: Yes Vital Signs On Initial Exam: Initial Vitals Temp Pulse Resp BP Pulse Ox 99.5 F 120 18 168/81 97 08/24/17 12:11 08/24/17 12:11 08/24/17 12:11 08/24/17 12:11 08/24/17 12:11 vitals improved, HR 97 bpm Vital Signs Reviewed: Yes Appearance: Positive: Well-Appearing - appears anxious, No Pain Distress, Well- Nourished Skin: Positive: Warm, Skin Color Reflects Adequate Perfusion, Dry. Negative: Cold, Numb, Cyanosis @ Head/Face: Positive: Normal Head/Face Inspection Eyes: Positive: Normal, EOMI, ESTHELA, Conjunctiva Clear ENT: Positive: Pharynx normal, TMs normal Neck: Positive: Supple, Nontender Respiratory/Lung Sounds: Positive: Clear to Auscultation, Breath Sounds Present. Negative: Rales, Rhonchi, Wheezes Cardiovascular: Positive: Normal, RRR, Pulses are Symmetrical in both Upper and Lower Extremities, Tachycardia. Negative: Murmur, Rub Musculoskeletal: Positive: Normal, Strength/ROM Intact Neurological: Positive: Normal, Sensory/Motor Intact, Alert, Oriented to Person Place, Time Psychiatric: Positive: Anxious Diagnostics - Vital Signs Vital Signs Temp Pulse Resp BP Pulse Ox 08/24/17 13:06 19 08/24/17 12:11 99.5 F 120 18 168/81 97 - Laboratory Lab Statement: Any lab studies that have been ordered have been reviewed, and results considered in the medical decision making process. Course/Dx - Course Course Of Treatment: given medication while in ED. will refill for weeks supply. Patient no other complaints. spoke with Meño MARTINEZ to also be sure patient is not in need of anything more at this time. vitals improved after medications. follow up with psych tomorrow morning as scheduled. Is aware of worsening signs and symptoms and to return if psych declines. Cleared by Meño MARTINEZ and given all appropriate services to have continuous medications and counceling. Given weeks supply of medication at hospital pharmacy. Social work involved to have medications paid for, although he does have medicaid. No other concerns at this time. Is under care at [facility] with good observation. - Differential Dx/Clinical Impression Differential Diagnosis/HQI/PQRI: Positive: Acute Psychosis, Anxiety, Depression , Schizophrenia, Other - medication refill Provider Diagnosis: Encounter for medication refill, Anxiety Discharge - Discharge Plan Condition: Stable Disposition: HOME Prescriptions: Benztropine Mesylate 0.5 mg PO BID #14 tablet Divalproex ER TAB(*) [Depakote ER TAB(*)] 1,500 mg PO BID #21 tab.er LORazepam TAB(*) [Ativan 0.5 MG TAB (*)] 0.5 mg PO BID PRN #14 tab MDD 2 PRN Reason: Anxiety risperiDONE TAB* [Risperdal*] 2 mg PO BID #14 tab Referrals: [facility] [Z.BUSINESS, APPLICATION, OTHER] - Additional Instructions: Please follow up with psychiatrist tomorrow as already scheduled. Take prescribed medication as directed. Any new or worsening symptoms or you feel your medication is not helping please return to ED.
[2017-08-24 14:16] VITALS: BP 156/112
== END 2017-08-24 14:15 | disposition home or self-care (01) ==
LOC: ED 12:08
DX: F41.9 Anxiety disorder, unspecified (principal)
CPT/HCPCS: 99282; A9270-GY

== ENCOUNTER 2017-11-06 12:23 | Emergency (ER) | payer MEDICAID, OTHER ==
[2017-11-06 14:13] VITALS: BP 140/88
--- NOTE | 2017-11-06 17:25 | ED ---
Sunil Khanna Gabriel, scribed for Junito Arroyo MD on 11/06/17 at 1345 . Throat Pain/Nasal Congestion - HPI Summary HPI Summary: This patient is a 42 year old M presenting to [facility] with a chief complaint of a sore throat that began 12 days ago but has gotten worse the last 5 days ago. The patient rates the pain 2/10 in severity. Patient reports fever and CARDOZA. Patient denies rhinorrhea and facial pain. - History of Current Complaint Chief Complaint: EDThroatPain Time Seen by Provider: 11/06/17 13:38 Hx Obtained From: Patient Onset/Duration: Still Present Associated Signs And Symptoms: Positive: Negative - rhinorrhea and facial pain. - Allergies/Home Medications Allergies/Adverse Reactions: Allergies Allergy/AdvReac Type Severity Reaction Status Date / Time clonazepam Allergy Unknown Verified 11/06/17 12:28 Reaction Details PMH/Surg Hx/FS Hx/Imm Hx Endocrine/Hematology History: Denies: Hx Anticoagulant Therapy, Hx Diabetes Cardiovascular History: Denies: Hx Hypertension Respiratory History: Denies: Hx Asthma Sensory History: Denies: Hx Contacts or Glasses, Hx Hearing Aid Opthamlomology History: Denies: Hx Contacts or Glasses Psychiatric History: Reports: Hx Inpatient Treatment, Hx Community Mental Health Tx, Hx Schizophrenia, Hx Bipolar Disorder, Other Psychiatric Issues/ Disorders - schizoaffective disorder - Surgical History Surgery Procedure, Year, and Place: n/a Infectious Disease History: No Infectious Disease History: Denies: Traveled Outside the [place] in Last 30 Days - Family History Known Family History: Positive: Diabetes - grandfather - Social History Alcohol Use: Rare Hx Substance Use: No Substance Use Type: Reports: None Smoking Status (MU): Smoker, Current Status Unknown Type: Cigarettes Review of Systems Negative: Fever Positive: Sore Throat. Negative: Nasal Discharge Positive: Headache All Other Systems Reviewed And Are Negative: Yes Physical Exam - Summary Physical Exam Summary: Appearance: Well appearing, no pain distress Skin: warm, dry, reflects adequate perfusion Head/face: normal Eyes: EOMI, ESTHELA ENT: mild tonsular exudate, there is no sinus pain with percussion Neck: supple, non-tender Respiratory: CTA, breath sounds present Cardiovascular: RRR, pulses symmetrical Abdomen: non-tender, soft Bowel Sounds: present Musculoskeletal: normal, strength/ROM intact Neuro: normal, sensory motor intact, A&Ox3 Triage Information Reviewed: Yes Vital Signs On Initial Exam: Initial Vitals Temp Pulse Resp BP Pulse Ox 98.2 F 100 18 145/95 99 11/06/17 12:26 11/06/17 12:26 11/06/17 12:26 11/06/17 12:26 11/06/17 12:26 Vital Signs Reviewed: Yes Diagnostics - Vital Signs Vital Signs Temp Pulse Resp BP Pulse Ox 11/06/17 12:26 98.2 F 100 18 145/95 99 - Laboratory Lab Results: Lab Results 11/06/17 11/06/17 Range/Units 13:04 13:25 Monoscreen Negative (Negative) Group A Strep Rapid Negative (Negative) Lab Statement: Any lab studies that have been ordered have been reviewed, and results considered in the medical decision making process. EENT Course/Dx - Course Course Of Treatment: Patient with minor congestion and sore throat. There are exudates present. He tested negative for strep. Negative for mono as well. Treat symptomatically with snacks and Decadron. Follow-up primary care physician. - Differential Diagnoses Differential Diagnoses: Other - Strep tonsillitis, viral tonsillitis, mononucleosis. - Diagnoses Provider Diagnoses: Pharyngitis Discharge - Sign-Out/Discharge Documenting (check all that apply): Discharge/Admit/Transfer - Discharge Plan Condition: Good Disposition: HOME Prescriptions: Dexamethasone TAB* [Decadron TAB*] 8 mg PO DAILY #8 tab Guaifenesin/Pseudo 600/60(NF) [Mucinex D 600/60 (NF)] 1 tab PO BID #10 tab Patient Education Materials: Tonsillitis (ED) Print Language: NORWEGIAN Referrals: Jason De La Cruz MD [Primary Care Provider] - Additional Instructions: Permanezca gabrielle hidratado, regrese con fiebre elinor, mayor dificultad para tragar , empeorar u otras preocupaciones. - Billing Disposition and Condition Condition: GOOD Disposition: HOME The documentation as recorded by the Sunil hansen Gabriel accurately reflects the service I personally performed and the decisions made by , Junito Arroyo MD.
== END 2017-11-06 14:11 | disposition home or self-care (01) ==
LOC: ED 12:23
DX: J02.9 Acute pharyngitis, unspecified (principal); F20.9 Schizophrenia, unspecified
CPT/HCPCS: 36415; 86308; 87651; 99282

== ENCOUNTER 2018-01-07 11:28 | Inpatient (IN) | payer OTHER ==
[2018-01-07 12:03] LABS: Urine Appearance Clear; Urine Blood Negative (Negative); Urine Color Straw; Urine Ketones Trace (Negative); Urine Protein Negative (Negative); Urine Specific Gravity 1.005 (1.010-1.030); Urine Urobilinogen Negative (Negative)
[2018-01-07 12:36] LABS: Hematocrit 40 % (42-52); Hemoglobin 14.2 g/dl (14.0-18.0); Mean Corpuscular HGB Conc 36 g/dl (31-36); Mean Corpuscular Hemoglobin 31 pg (27-31); Mean Corpuscular Volume 87 fL (80-94); Mean Platelet Volume 6.1 um3 (7.4-10.4); Platelet Count 304 10^3/ul (150-450); Red Blood Count 4.55 10^6/ul (4.00-5.40); Red Cell Distribution Width 14 % (10.5-15); White Blood Count 10.3 10^3/ul (3.5-10.8)
[2018-01-07 12:50] LABS: EGFR Non-African American 107.1 (>60)
[2018-01-07 13:37] LABS: ABS Basophils 0.1 10^3/ul (0-0.2); ABS Eosinophils 0 10^3/ul (0-0.6); ABS Lymphocytes 1.3 10^3/ul (1.0-4.8); ABS Monocytes 0.9 10^3/ul (0-0.8); ABS Nucleated RBC 0 10^3/ul; Eosinophil % 0.1 % (0-6); Lymphocyte % 12.8 % (25-47); Nucleated Red Blood Cells % 0
[2018-01-07] MEDS ORDERED: Acetaminophen TAB* 325 MG PO PRN (15:34)
[2018-01-07] MEDS ORDERED: NS 0.9% 1000 ML* 1,000 ML IV SCH (15:45)
[2018-01-07 16:16] LABS: EGFR Non-African American 115.3 (>60)
[2018-01-07] MEDS: Heparin VIAL(*) 5000 UNITS/ML VIAL (FIVE THOUSAND) SUBCUT SCH (21:04)
[2018-01-07] MEDS: Paliperidone ER TAB* 9 MG TAB.ER PO SCH (21:05)
[2018-01-07] MEDS: Divalproex ER TAB(*) 500 MG PO SCH (21:05)
--- NOTE | 2018-01-07 22:00 | HP ---
CC: Dr. De La Cruz* HISTORY AND PHYSICAL: DATE OF ADMISSION: 01/07/18 TIME OF EVALUATION: 3:15 p.m. CHIEF COMPLAINT: "I'm hearing voices." HISTORY OF PRESENT ILLNESS: Mr. 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 As per ED records, the patient was too tired to answer questions and he had labs done in the emergency room that revealed a sodium of 113. The patient is a poor historian and tells me that now he is "fine." As per ED documentation, Aline Murphy at [facility] reports that the patient went to the clinic morning asking for help. They described that the patient has a known history of schizophrenia. He appeared depressed, tired, complaining of hearing voices, telling him that someone wants to harm him. As a result of these voices, he has not been able to sleep because he has been "on guard." He describes being medication compliant. He was described as being dressed inappropriately for the weather wearing jeans and sweatshirt in a 90- degree temperature. The patient was initially taken to the flex unit, but after his lab results returned he was transferred back to the emergency room and the hospitalist service was consulted for admission. The patient tells me that he is still drinking a lot of water, more than 10 cups a day. PAST MEDICAL HISTORY: 1. Bipolar disorder. 2. Prior episode of hyponatremia secondary to psychogenic polydipsia. PAST SURGICAL HISTORY: None. MEDICATION LIST: 1. Benztropine 1 mg p.o. daily. 2. Divalproex ER 1000 mg p.o. at bedtime. 3. Invega ER 9 mg p.o. at bedtime. ALLERGIES: CLONAZEPAM is listed as an allergy, but the reaction is unknown. FAMILY HISTORY: As per records, father has a history of Parkinson's. His mother is healthy. SOCIAL HISTORY: The patient was born in [place], but grew up in the [place]. He has a history of tobacco use. Denies drinking alcohol. Next of kin is his brother, Harsh Suarez, phone number is [phone]. REVIEW OF SYSTEMS: Limited due to the fact that the patient does not really want to talk to the examiner, but all the pertinent negatives and positive findings were able to obtain and are in the HPI. PHYSICAL EXAMINATION GENERAL: The patient is a young male, lying in the ED stretcher, wearing paper scrubs, in no acute distress. VITAL SIGNS: Temperature 98.4, heart rate is 100, respiratory rate is 16, oxygen saturation is 100% on room air, blood pressure is 155/90. HEENT: Pupils are equal. Dry mucous membranes. CHEST: Breath sounds present bilaterally with no added sounds. CVS: Normal S1, S2. Regular rate and rhythm. ABDOMEN: Soft. Bowel sounds are present. EXTREMITIES: No edema. NEURO: He is alert, oriented x3. Able to move all 4 extremities. LABORATORY AND IMAGING DATA: The patient had a CBC that showed WBC of 10.3, hemoglobin of 14.2, hematocrit of 40, platelets of 304 with 78% neutrophils. VBG showed a pH of 7.44, PCO2 of 31, PAO2 of 56, bicarb of 23. Chemistry showed a sodium of 113, potassium of 3.9, chloride of 84, bicarb of 18, BUN of 4 , creatinine of 0.8, glucose of 153, serum osmolality is 246, calcium of 8.6. LFTs are normal. TSH is 1.05. Urinalysis showed 2+ glucose, trace ketones. Toxicology was negative. EKG was not done in the emergency room. ASSESSMENT AND PLAN: Mr. 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 1. Severe hyponatremia. I believe at this time the patient has hypovolemic hyponatremia. He appears to be dehydrated, was described as wearing jeans and sweatshirt in a 90-degree temperature outside. He is going to receive IV hydration and we are going to monitor his sodium closely. He does not appear to be fluid overloaded at this time, so I do not think psychogenic polydipsia is playing a role at this time, but we will monitor him closely in the intensive care unit with serial BMPs checked. He has no neurological symptoms at this time. He will be placed on seizure precautions. 2. Bipolar disorder. We will continue his antipsychotics and the plan is for him to be transferred to the mental health unit when medically stable. 3. DVT prophylaxis: The patient has a score of 2 on the DVT Prophylaxis Risk Assessment Guide and he will be started on subcutaneous heparin. 4. Code status is full. TIME SPENT: Approximately 50 minutes were spent with the patient's interview, medical records review, physical examination to complete this admission, more than half of this time was spent [id number] with the patient and coordination of care. [id number]/[facility] #: [id number] KAMALJIT
--- NOTE | 2018-01-08 00:59 | PN ---
Hospitalist Progress Note Date of Service: 01/08/18 Pt requested for nicotine replacement therapy and mentioned he smokes 1PPD. Will place pt on 21 mg Nicotine patch qday and q2H PRN of Nicotine INH
[2018-01-08] MEDS ORDERED: hydrOXYzine HCL TAB* 50 MG ONE (01:02)
[2018-01-08] MEDS ORDERED: Mouth Piece, Nicotine* 1 EACH CARTRIDGE ONE (01:02)
[2018-01-08] MEDS ORDERED: Nicotine PATCH 21 MG/24 HR* PATCH ONE (01:03)
[2018-01-08] MEDS ORDERED: Nicotine Inhaler* 10 MG AMP ONE (01:03)
[2018-01-08] MEDS: hydrOXYzine HCL TAB* 50 MG PO PRN ×2 (01:06→08:14)
[2018-01-08] MEDS: Nicotine Inhaler* 10 MG AMP INH PRN (01:07)
[2018-01-08] MEDS: Mouth Piece, Nicotine* 1 EACH CARTRIDGE INH PRN (01:07)
[2018-01-08] MEDS: Nicotine PATCH 21 MG/24 HR* PATCH TRANSDERM SCH ×2 (01:08→08:15)
[2018-01-08] MEDS: Heparin VIAL(*) 5000 UNITS/ML VIAL (FIVE THOUSAND) SUBCUT SCH ×3 (06:02→22:00)
[2018-01-08 06:34] LABS: EGFR Non-African American 87.8 (>60)
[2018-01-08] MEDS: Benztropine TAB* 1 MG PO SCH (08:14)
[2018-01-08 11:31] LABS: EGFR Non-African American 93.5 (>60)
[2018-01-08] MEDS ORDERED: NS 0.9% 500 ML* 500 ML IV ONE (12:13)
[2018-01-08] MEDS ORDERED: Haloperidol INJ IV/IM* 5 MG/ML AMP IM ONE (12:57)
--- NOTE | 2018-01-08 14:08 | PN ---
Subjective Date of Service: 01/08/18 Interval History: HOSPITALIST PROGRESS NOTE Patient seen and examined at bedside. Care reviewed and d/w Evelyn Duffy RN. He feels better today. Still he's now seeing people, but they are just telling him jokes, nothing threatening in nature. Drinking a lot of fluids, >1 liter so far today. Family History: Unchanged from Admission Social History: Unchanged from Admission Past Medical History: Unchanged from Admission Objective Active Medications: Acetaminophen (Tylenol Tab*) 650 mg PO Q6H PRN PRN Reason: pain/fever Benztropine Mesylate (Cogentin Tab*) 1 mg PO DAILY [facility] Last Admin: 01/08/18 08:14 Dose: 1 mg Device (Nicotine Mouth Piece*) 1 each INH .USE WITH NICOTROL PRN PRN Reason: CRAVING Last Admin: 01/08/18 01:07 Dose: 1 each Divalproex Sodium (Depakote Er Tab(*)) 1,000 mg PO BEDTIME [facility] Last Admin: 01/07/18 21:05 Dose: 1,000 mg Heparin Sodium (Porcine) (Heparin Vial(*)) 5,000 units SUBCUT Q8HR [facility] Last Admin: 01/08/18 06:02 Dose: Not Given Hydroxyzine HCl (Atarax Tab*) 50 mg PO Q6H PRN PRN Reason: ANXIETY Last Admin: 01/08/18 08:14 Dose: 50 mg Nicotine (Nicotine Inhaler*) 10 mg INH Q2H PRN PRN Reason: CRAVING Last Admin: 01/08/18 01:07 Dose: 10 mg Nicotine (Nicotine Patch 21 Mg/24 Hr*) 1 patch TRANSDERM DAILY [facility] Last Admin: 01/08/18 08:15 Dose: 1 patch Paliperidone (Invega Er Tab*) 9 mg PO BEDTIME [facility] Last Admin: 01/07/18 21:05 Dose: 9 mg Pharmacy Profile Note (Nicotine Patch Removal Note*) 1 note PATCH OFF 2100 [facility] Vital Signs - 8 hr 01/08/18 01/08/18 01/08/18 07:26 08:15 10:22 Temperature 97.3 F Pulse Rate 159 105 Respiratory 20 18 Rate Blood Pressure 147/76 (mmHg) O2 Sat by Pulse 100 Oximetry 01/08/18 11:17 Temperature 98.6 F Pulse Rate 104 Respiratory 26 Rate Blood Pressure 129/74 (mmHg) O2 Sat by Pulse 100 Oximetry Oxygen Devices in Use Now: None Appearance: Young gentleman lying in bed in NAD. Eyes: No Scleral Icterus Ears/Nose/Mouth/Throat: Mucous Membranes Moist Neck: Trachea Midline Respiratory: Symmetrical Chest Expansion and Respiratory Effort, Clear to Auscultation Cardiovascular: RRR - Normal S1 and S2 Abdominal: NL Sounds; No Tenderness; No Distention Extremities: No Edema Neurological: Alert and Oriented x 3, NL Muscle Strength and Tone Result Diagrams: 01/07/18 12:20 01/08/18 11:04 Assess/Plan/Problems-Billing Assessment: Mr. Suarez is a 42yo M with PMH of schizoaffective disorder bipolar type, OCD, prior episode of hyponatremia secondary to psychogenic polydipsia, who presented to ED with c/o hearing threatening voices, found to have severe hyponatremia. - Patient Problems (1) Hyponatremia Comment: - Although he had a prior admission with hyponatremia secondary to psychogenic polydipsia, this time he appeared to be dehydrated and sodium was improving with IVF. He's now refusing IV access - if IVF not possible will encourage PO fluid intake and monitor Na. - As he becomes euvolemic, will likely swing towards polydipsia again - eventually will need fluid restriction. (2) Schizoaffective disorder, bipolar type Comment: - Continue Benztropine, Divalproex, and Invega. - MHU follow up. (3) DVT prophylaxis Comment: - SQ heparin. (4) Full code status Status and Disposition: Inpatient.
[2018-01-08 16:13] LABS: EGFR Non-African American 99.8 (>60)
[2018-01-08 20:33] LABS: EGFR Non-African American 108.6 (>60)
[2018-01-08] MEDS: Divalproex ER TAB(*) 500 MG PO SCH (20:49)
[2018-01-08] MEDS: Paliperidone ER TAB* 9 MG TAB.ER PO SCH (20:50)
[2018-01-08] MEDS: Nicotine Patch Removal NOTE PATCH OFF SCH (20:50)
[2018-01-08] MEDS: NS 0.9% 1000 ML* 1,000 ML IV SCH (21:05)
[2018-01-09] MEDS: Heparin VIAL(*) 5000 UNITS/ML VIAL (FIVE THOUSAND) SUBCUT SCH ×3 (06:05→21:48)
[2018-01-09 07:39] LABS: EGFR Non-African American 94.7 (>60)
[2018-01-09] MEDS: Benztropine TAB* 1 MG PO SCH (08:21)
[2018-01-09] MEDS ORDERED: Mouth Piece, Nicotine* 1 EACH CARTRIDGE ONE (08:39)
[2018-01-09] MEDS: Nicotine Inhaler* 10 MG AMP INH PRN (08:41)
[2018-01-09] MEDS: Mouth Piece, Nicotine* 1 EACH CARTRIDGE INH PRN (08:42)
[2018-01-09] MEDS: Nicotine PATCH 21 MG/24 HR* PATCH TRANSDERM SCH (08:44)
[2018-01-09] MEDS: NS 0.9% 1000 ML* 1,000 ML IV SCH (09:39)
--- NOTE | 2018-01-09 14:50 | CONS ---
CONSULTATION REPORT: DATE OF CONSULT: 01/09/18 ATTENDING PHYSICIAN: Dr. Nazia Yip. CONSULTING PHYSICIAN: Dr. Oscar Tyson. REASON FOR CONSULT: Auditory hallucinations. SUBJECTIVE HISTORY: Psychiatry is asked to see this 42-year-old single male with a history of schizoaffective disorder and OCD, who was sent to the hospital on a 9.45 signed by the [facility] where he had arrived complaining of intrusive thoughts, auditory hallucinations , was crying, and did not feel safe. Apparently, when he was worked up in the emergency room, he had a sodium of only 118 and was therefore admitted to the medical service. In reading the fourth floor staff notes, it appears that he has been agitated at times, uncooperative, taking out his IV, and not allowing staff to approach him. Prior to meeting with the patient, I gathered collateral information from the clinical staff anesthesiologist, Aline Murphy, at [facility]. She indicates that their clinic has been treating him since his discharge from [facility] in August of 2017. She notes that he has been compliant with treatment, working well with their staff, and grateful for his care. He was switched from injectable paliperidone to the oral version because of his fear of injections and needles. She indicates that he was doing quite well in his [address] and they had no concerns until approximately 1 week prior to admission when he started complaining of intrusive thoughts. On the day of his presentation to our emergency room, he told the clinic that he was feeling unsafe, was crying, and this necessitated the trip to the emergency room. When I meet with the patient , he immediately recognizes me and smiles, welcoming me into his room. He denies auditory hallucinations, but he tells me that he has the so called PANDAS syndrome, which is a complaint that he has often made in the past. Anderson denies being dehydrated prior to admission, stating instead that he was drinking too much water, which is an issue that he has presented with previously. At any rate, he denies suicidal or homicidal ideations. Does not appear to be overtly agitated or paranoid. I do ask him if he would like to come down to the behavioral science unit following his medical stabilization to which he responds "yes, I would like to come downstairs." PAST PSYCHIATRIC HISTORY: Significant for both OCD and schizoaffective disorder , bipolar type, started having mental health issues in his 20s when he was a college student in the [place]. He does have history of psychiatric admission at [facility] in 2009 and again in June of 2017. During his last hospitalization, we could not acutely stabilize him and therefore he was sent to [facility] where his discharge was in August of 2017. Apparently, his first hospitalization was in [place] when he was visiting his brother in 2005. The family told me that there was a doctor in [facility], who believes that his OCD was secondary to the so called PANDAS syndrome. He does have at least 1 prior psychiatric hospitalization in the [place] in the spring. Past medications have included risperidone, clozapine, and Depakote. Most recently, he is supposed to be on benztropine, paliperidone oral, and Depakote. SUBSTANCE ABUSE HISTORY: Significant for mild alcohol usage. He smokes approximately 1 pack of cigarettes per day, and denies any history of illicit drugs. PAST MEDICAL HISTORY: Significant for psychogenic polydipsia and recurrent hypoglycemia. MEDICATIONS: Prior to admission include: 1. Benztropine 0.5 mg twice daily. 2. Depakote 1000 mg at night. 3. Invega 9 mg at night. ALLERGIES: He has no known drug allergies. FAMILY HISTORY: The patient has a great grandmother on his father's side that was diagnosed with bipolar disorder. There are no known suicides in the family. SOCIAL HISTORY: The patient was actually born here in [place] while his [place] father was a student at [employer]. His family was intact and his mother apparently was of [place] descent. The family returned after his father finished his studies when the patient was approximately 4 years old and most of his life he has been back in the [place]. Interestingly , the patient has made at least 3 trips to [place] usually against his family's wishes and every time he has stated his intention to get enrolled in [employer]. He does have degrees in agriculture and business administration from the [place]. The patient has never been . He has no children. Because he was born in the [place], he does carry dual citizenship in both the [place] and the [place]. He was raised islam, but is not currently practicing. He has never been in the and has no history of legal problems. Most recently, he has been residing in a [facility] apartment here in [place], [place], and his manager social media are all through [facility]. MENTAL STATUS EXAM: The patient is an overnight, middle-aged , white male with wispy brown hair, who is in blue patient scrubs, with somewhat minimal grooming. He makes fairly good eye contact, is sitting up by the side of his bed and has just finished his lunch. He immediately recognizes me and is calm, cooperative, and polite. His speech is broken Cymro, although it is clear that he understands my questions. Mood appears to be euthymic with a blunted affect. Thought process is simplistic and somewhat circumstantial. Thought content is significant for his desire to be discharged from the hospital and return to his [address], although he is agreeable with a brief stay on the behavioral science unit. He denies suicidal or homicidal ideations. He denies auditory or visual hallucinations. Insight and judgment are fair given the fact that he has been adherent with outpatient treatment. Cognitively, he is awake and alert with what would appear to be an average intellect. LABORATORY DATA: The patient's current sodium level is 129. His valproic acid level was supratherapeutic at 111, but it should be noted that this was not a true trough level being taken at noon instead of in the evening prior to his q.h.s. dose of Depakote. This would seem to suggest that he has been compliant with outpatient medications. DIAGNOSES: Noble I: Schizoaffective disorder, bipolar type; obsessive compulsive disorder. Noble II: Deferred. ASSESSMENT: The patient is a 42-year-old single male, dual citizen of the and [place], who has a history of schizoaffective disorder and obsessive compulsive disorder, who was sent to the hospital on an involuntary 9.45 status by the [facility] where he had presented with complaints of intrusive thoughts, crying, and not feeling safe. According to the primary team, he is likely suffering from severe dehydration which has caused his sodium to be extremely hyponatremic. They are in the middle of correcting this on the medical unit at this time. Although the patient is denying suicidal or homicidal ideations and appears to be cooperative at this point, I did offer him a voluntary bed on the behavioral science unit, which he accepted. PLAN: Continue Depakote, benztropine, and Invega therapy as currently prescribed. Psychiatry will reevaluate the patient on 01/10/18, and see if he still is agreeable with BSU transfer at that time. The patient appears to be quite close to his psychiatric baseline, which unfortunately is not particularly high-functioning. If he disagrees with psychiatric hospitalization , we will discharge him to follow up at [facility]. Thank you for the consultation. [id number]/CPS #: [id number]
--- NOTE | 2018-01-09 14:53 | PN ---
Subjective Date of Service: 01/09/18 Interval History: HOSPITALIST PROGRESS NOTE Patient seen and examined at bedside. Care reviewed and d/w Lance Veronica RN. He is speaking Welsh today. States he's feeling well, denies pain, N/V. Appetite is good, thirst is controlled. States [employer] satellites are monitoring his thoughts and he can feel them in his brain. Still has visual/auditory hallucinations and "the little kid continues to tell me jokes and laughs at me". Family History: Unchanged from Admission Social History: Unchanged from Admission Past Medical History: Unchanged from Admission Objective Active Medications: Acetaminophen (Tylenol Tab*) 650 mg PO Q6H PRN PRN Reason: pain/fever Benztropine Mesylate (Cogentin Tab*) 1 mg PO DAILY [facility] Last Admin: 01/09/18 08:21 Dose: 1 mg Device (Nicotine Mouth Piece*) 1 each INH .USE WITH NICOTROL PRN PRN Reason: CRAVING Last Admin: 01/09/18 08:42 Dose: 1 each Divalproex Sodium (Depakote Er Tab(*)) 1,000 mg PO BEDTIME [facility] Last Admin: 01/08/18 20:49 Dose: 1,000 mg Heparin Sodium (Porcine) (Heparin Vial(*)) 5,000 units SUBCUT Q8HR [facility] Last Admin: 01/09/18 06:05 Dose: 5,000 units Hydroxyzine HCl (Atarax Tab*) 50 mg PO Q6H PRN PRN Reason: ANXIETY Last Admin: 01/08/18 08:14 Dose: 50 mg Nicotine (Nicotine Inhaler*) 10 mg INH Q2H PRN PRN Reason: CRAVING Last Admin: 01/09/18 08:41 Dose: 10 mg Nicotine (Nicotine Patch 21 Mg/24 Hr*) 1 patch TRANSDERM DAILY [facility] Last Admin: 01/09/18 08:44 Dose: Not Given Paliperidone (Invega Er Tab*) 9 mg PO BEDTIME [facility] Last Admin: 01/08/18 20:50 Dose: 9 mg Pharmacy Profile Note (Nicotine Patch Removal Note*) 1 note PATCH OFF 2100 [facility] Last Admin: 01/08/18 20:50 Dose: Not Given Vital Signs - 8 hr 01/09/18 07:44 Temperature 97.9 F Pulse Rate 98 Respiratory 18 Rate Blood Pressure 140/85 (mmHg) O2 Sat by Pulse 100 Oximetry Oxygen Devices in Use Now: None Appearance: Young gentleman lying in bed in NAD. Eyes: No Scleral Icterus Ears/Nose/Mouth/Throat: Mucous Membranes Moist Neck: Trachea Midline Respiratory: Symmetrical Chest Expansion and Respiratory Effort, Clear to Auscultation Cardiovascular: NL Sounds; No Murmurs; No JVD, RRR Neurological: Alert and Oriented x 3, NL Muscle Strength and Tone Result Diagrams: 01/07/18 12:20 01/09/18 06:57 Assess/Plan/Problems-Billing Assessment: Mr. Suarez is a 42yo M with PMH of schizoaffective disorder bipolar type, OCD, prior episode of hyponatremia secondary to psychogenic polydipsia, who presented to ED with c/o hearing threatening voices, found to have severe hyponatremia. - Patient Problems (1) Hyponatremia Comment: - Although he had a prior admission with hyponatremia secondary to psychogenic polydipsia, this time he appeared to be dehydrated and sodium has improved with IVF. Na up to 129 today - will d/c IVF. - As he becomes euvolemic, will likely swing towards polydipsia again - continue fluid restriction 2 liters/day. - Continue safety monitor. (2) Schizoaffective disorder, bipolar type Comment: - Continue Benztropine, Divalproex, and Invega. - MHU consult requested. (3) DVT prophylaxis Comment: - SQ heparin. (4) Full code status Status and Disposition: Inpatient.
[2018-01-09] MEDS: hydrOXYzine HCL TAB* 50 MG PO PRN (21:48)
[2018-01-09] MEDS: Divalproex ER TAB(*) 500 MG PO SCH (21:48)
[2018-01-09] MEDS: Paliperidone ER TAB* 9 MG TAB.ER PO SCH (21:48)
[2018-01-09] MEDS: Nicotine Patch Removal NOTE PATCH OFF SCH (21:48)
[2018-01-10] MEDS: Heparin VIAL(*) 5000 UNITS/ML VIAL (FIVE THOUSAND) SUBCUT SCH (05:39)
[2018-01-10 07:12] LABS: EGFR Non-African American 99.8 (>60)
[2018-01-10] MEDS: Nicotine PATCH 21 MG/24 HR* PATCH TRANSDERM SCH (09:32)
[2018-01-10] MEDS: Nicotine Inhaler* 10 MG AMP INH PRN (09:32)
[2018-01-10] MEDS: Benztropine TAB* 1 MG PO SCH (09:32)
[2018-01-10 12:16] VITALS: BP 136/84
--- NOTE | 2018-01-10 12:55 | CONSULT ---
Identification - Patient Identification Reason for Psychiatric Consultation: Incapacitating Symptoms -: Patient is a 42 year old, M admitted on 01/07/18. - MHU Identification Employment Status: Disabled Hx Psychiatric Hospitalization: Yes History - Objective HPI: Anderson is calm, well-groomed and cooperative. He requests admission to the BSU , stating that he cannot manage living alone in his apartment yet and needs more time in the hospital to relax and get his thoughts under control. He denies AH but staff notes indicate he has been observed talking to himself in his room. He denies SI or HI. Lab Results: Laboratory Tests 01/07/18 01/07/18 01/07/18 11:50 11:50 12:20 WBC 10.3 RBC 4.55 Hgb 14.2 Hct 40 L MCV 87 MCH 31 MCHC 36 RDW 14 Plt Count 304 MPV 6.1 L Neut % (Auto) 78.1 Lymph % (Auto) 12.8 L Garland % (Auto) 8.5 H Eos % (Auto) 0.1 Baso % (Auto) 0.5 Absolute Neuts (auto) 8.0 H Absolute Lymphs (auto) 1.3 Absolute Monos (auto) 0.9 H Absolute Eos (auto) 0 Absolute Basos (auto) 0.1 Absolute Nucleated RBC 0 Nucleated RBC % 0 VBG pH VBG pCO2 VBG pO2 VBG HCO3 VBG O2 Saturation VBG Base Excess Sodium Potassium Chloride Carbon Dioxide Anion Gap BUN Creatinine Est GFR ( Amer) Est GFR (Non-Af Amer) BUN/Creatinine Ratio Glucose Serum Osmolality Calcium Total Bilirubin AST ALT Alkaline Phosphatase Total Protein Albumin Globulin Albumin/Globulin Ratio TSH Urine Color Straw Urine Appearance Clear Urine pH 7.0 Ur Specific [place] 1.005 L Urine Protein Negative Urine Ketones Trace A Urine Blood Negative Urine Nitrate Negative Urine Bilirubin Negative Urine Urobilinogen Negative Ur Leukocyte Esterase Negative Urine Osmolality Ur Random Creatinine Ur Random Sodium Urine Glucose 2+(150 mg/dl) A Salicylates Urine Opiates Screen None detected Acetaminophen Ur Barbiturates Screen None detected Valproic Acid Ur Phencyclidine Scrn None detected Ur Amphetamines Screen None detected U Benzodiazepines Scrn None detected Urine Cocaine Screen None detected U Cannabinoids Screen None detected Serum Alcohol 01/07/18 01/07/18 01/07/18 12:20 12:20 14:33 WBC RBC Hgb Hct MCV MCH MCHC RDW Plt Count MPV Neut % (Auto) Lymph % (Auto) Garland % (Auto) Eos % (Auto) Baso % (Auto) Absolute Neuts (auto) Absolute Lymphs (auto) Absolute Monos (auto) Absolute Eos (auto) Absolute Basos (auto) Absolute Nucleated RBC Nucleated RBC % VBG pH 7.44 H VBG pCO2 31 L VBG pO2 56 H VBG HCO3 23.1 L VBG O2 Saturation 92.9 H VBG Base Excess -2.0 L Sodium 113 L* Potassium 3.9 Chloride 84 L Carbon Dioxide 18 L Anion Gap 11 BUN 4 L Creatinine 0.80 Est GFR ( Amer) 129.5 Est GFR (Non-Af Amer) 107.1 BUN/Creatinine Ratio 5.0 L Glucose 153 H Serum Osmolality 246 L Calcium 8.6 Total Bilirubin 0.80 AST 19 ALT 11 Alkaline Phosphatase 53 Total Protein 7.0 Albumin 4.1 Globulin 2.9 Albumin/Globulin Ratio 1.4 TSH 1.05 Urine Color Urine Appearance Urine pH Ur Specific [place] Urine Protein Urine Ketones Urine Blood Urine Nitrate Urine Bilirubin Urine Urobilinogen Ur Leukocyte Esterase Urine Osmolality Ur Random Creatinine Ur Random Sodium Urine Glucose Salicylates < 2.50 Urine Opiates Screen Acetaminophen < 15 Ur Barbiturates Screen Valproic Acid Ur Phencyclidine Scrn Ur Amphetamines Screen U Benzodiazepines Scrn Urine Cocaine Screen U Cannabinoids Screen Serum Alcohol < 10 01/07/18 01/07/18 01/07/18 15:54 16:25 16:25 WBC RBC Hgb Hct MCV MCH MCHC RDW Plt Count MPV Neut % (Auto) Lymph % (Auto) Garland % (Auto) Eos % (Auto) Baso % (Auto) Absolute Neuts (auto) Absolute Lymphs (auto) Absolute Monos (auto) Absolute Eos (auto) Absolute Basos (auto) Absolute Nucleated RBC Nucleated RBC % VBG pH VBG pCO2 VBG pO2 VBG HCO3 VBG O2 Saturation VBG Base Excess Sodium 118 L* Potassium 4.1 Chloride 86 L Carbon Dioxide 20 L Anion Gap 12 H BUN 4 L Creatinine 0.75 Est GFR ( Amer) 139.6 Est GFR (Non-Af Amer) 115.3 BUN/Creatinine Ratio 5.3 L Glucose 117 H Serum Osmolality Calcium 8.9 Total Bilirubin AST ALT Alkaline Phosphatase Total Protein Albumin Globulin Albumin/Globulin Ratio TSH Urine Color Urine Appearance Urine pH Ur Specific [place] Urine Protein Urine Ketones Urine Blood Urine Nitrate Urine Bilirubin Urine Urobilinogen Ur Leukocyte Esterase Urine Osmolality 104 L Ur Random Creatinine 17.41 Ur Random Sodium 21 Urine Glucose Salicylates Urine Opiates Screen Acetaminophen Ur Barbiturates Screen Valproic Acid Ur Phencyclidine Scrn Ur Amphetamines Screen U Benzodiazepines Scrn Urine Cocaine Screen U Cannabinoids Screen Serum Alcohol 01/07/18 01/08/18 01/08/18 20:00 05:12 11:04 WBC RBC Hgb Hct MCV MCH MCHC RDW Plt Count MPV Neut % (Auto) Lymph % (Auto) Garland % (Auto) Eos % (Auto) Baso % (Auto) Absolute Neuts (auto) Absolute Lymphs (auto) Absolute Monos (auto) Absolute Eos (auto) Absolute Basos (auto) Absolute Nucleated RBC Nucleated RBC % VBG pH VBG pCO2 VBG pO2 VBG HCO3 VBG O2 Saturation VBG Base Excess Sodium 122 L 123 L 122 L Potassium 3.8 3.7 3.9 Chloride 91 L 92 L 90 L Carbon Dioxide 20 L 21 L 24 Anion Gap 11 10 8 BUN 5 L 7 6 Creatinine 0.73 0.95 0.90 Est GFR ( Amer) 144.0 106.2 113.1 Est GFR (Non-Af Amer) 119.0 87.8 93.5 BUN/Creatinine Ratio 6.8 L 7.4 L 6.7 L Glucose 106 H 124 H 160 H Serum Osmolality Calcium 9.0 8.7 8.7 Total Bilirubin AST ALT Alkaline Phosphatase Total Protein Albumin Globulin Albumin/Globulin Ratio TSH Urine Color Urine Appearance Urine pH Ur Specific [place] Urine Protein Urine Ketones Urine Blood Urine Nitrate Urine Bilirubin Urine Urobilinogen Ur Leukocyte Esterase Urine Osmolality Ur Random Creatinine Ur Random Sodium Urine Glucose Salicylates Urine Opiates Screen Acetaminophen Ur Barbiturates Screen Valproic Acid Ur Phencyclidine Scrn Ur Amphetamines Screen U Benzodiazepines Scrn Urine Cocaine Screen U Cannabinoids Screen Serum Alcohol 01/08/18 01/08/18 01/08/18 11:04 15:17 20:09 WBC RBC Hgb Hct MCV MCH MCHC RDW Plt Count MPV Neut % (Auto) Lymph % (Auto) Garland % (Auto) Eos % (Auto) Baso % (Auto) Absolute Neuts (auto) Absolute Lymphs (auto) Absolute Monos (auto) Absolute Eos (auto) Absolute Basos (auto) Absolute Nucleated RBC Nucleated RBC % VBG pH VBG pCO2 VBG pO2 VBG HCO3 VBG O2 Saturation VBG Base Excess Sodium 124 L 126 L Potassium 3.5 3.9 Chloride 92 L 96 L Carbon Dioxide 24 23 Anion Gap 8 7 BUN 5 L 5 L Creatinine 0.85 0.79 Est GFR ( Amer) 120.8 131.4 Est GFR (Non-Af Amer) 99.8 108.6 BUN/Creatinine Ratio 5.9 L 6.3 L Glucose 127 H 126 H Serum Osmolality Calcium 8.5 L 8.8 Total Bilirubin AST ALT Alkaline Phosphatase Total Protein Albumin Globulin Albumin/Globulin Ratio TSH Urine Color Urine Appearance Urine pH Ur Specific [place] Urine Protein Urine Ketones Urine Blood Urine Nitrate Urine Bilirubin Urine Urobilinogen Ur Leukocyte Esterase Urine Osmolality Ur Random Creatinine Ur Random Sodium Urine Glucose Salicylates Urine Opiates Screen Acetaminophen Ur Barbiturates Screen Valproic Acid 111.0 H Ur Phencyclidine Scrn Ur Amphetamines Screen U Benzodiazepines Scrn Urine Cocaine Screen U Cannabinoids Screen Serum Alcohol 01/09/18 01/10/18 06:57 06:36 WBC RBC Hgb Hct MCV MCH MCHC RDW Plt Count MPV Neut % (Auto) Lymph % (Auto) Garland % (Auto) Eos % (Auto) Baso % (Auto) Absolute Neuts (auto) Absolute Lymphs (auto) Absolute Monos (auto) Absolute Eos (auto) Absolute Basos (auto) Absolute Nucleated RBC Nucleated RBC % VBG pH VBG pCO2 VBG pO2 VBG HCO3 VBG O2 Saturation VBG Base Excess Sodium 129 L 130 L Potassium 4.0 4.3 Chloride 95 L 98 L Carbon Dioxide 27 26 Anion Gap 7 6 BUN 5 L 6 Creatinine 0.89 0.85 Est GFR ( Amer) 114.6 120.8 Est GFR (Non-Af Amer) 94.7 99.8 BUN/Creatinine Ratio 5.6 L 7.1 L Glucose 125 H 104 H Serum Osmolality Calcium 9.1 8.7 Total Bilirubin AST ALT Alkaline Phosphatase Total Protein Albumin Globulin Albumin/Globulin Ratio TSH Urine Color Urine Appearance Urine pH Ur Specific [place] Urine Protein Urine Ketones Urine Blood Urine Nitrate Urine Bilirubin Urine Urobilinogen Ur Leukocyte Esterase Urine Osmolality Ur Random Creatinine Ur Random Sodium Urine Glucose Salicylates Urine Opiates Screen Acetaminophen Ur Barbiturates Screen Valproic Acid Ur Phencyclidine Scrn Ur Amphetamines Screen U Benzodiazepines Scrn Urine Cocaine Screen U Cannabinoids Screen Serum Alcohol Exam Appearance: Well Developed/Nourished Hygiene: Normal Grooming: Well Kept Psychomotor Activities: Normal Exhibits Abnormal Movement: No Attitude and Relatedness: Cooperative Eye Contact: Good - Speech Quality: Unpressured Latencies: Normal Quantity: Terse Patient's Decription of Mood: "Okay" Observed Affect: Unvariable Affect Consistent with: Euthymia Patient's Thought Process: Circumstantial Thought Content: Yes Paranoid Ideation, No Passive Wish, No Suicidal Planning, No Homicidal Ideation Experiencing Hallucinations: No, Sensorium is Clear Type of Hallucinations: Visual: No, Auditory: Yes, Command: No Level of Consciousness: Alert Orientation: Yes Intact, Yes Orientated to Time, Yes Orientated to Place, Yes Orientated to Person Impulse Control: Tenuous Insight and Judgement: Fair Impression - Impression Clinical Impression: 42 y.o. single, male with dual citizenship in [facility] and , with a history of schizoaffective disorder, OCD and multiple prior psychiatric hospitalizations, currently admitted to the Medicine service secondary to hyponatremia, requests admission to the BSU due to intrusive thoughts, AH and paranoid ideation. Inpatient DSM-V Dx: F25.0 Merits Inpatient Hospitalization: Yes Problem List - MHU Problems Type of Problem: Attitude and Relatedness Status of Problem: Active Plan - Treatment Plan Treatment Plan: We will transfer the patient on voluntary 13 legal status to our care on the BSU. Continue paliperidone 9mg PO qhs, benztropine 1mg PO qday and Depakote 1000mg PO qhs. Continued Medication Management: Continue Outpt Medication Medications: Current Medications Acetaminophen (Tylenol Tab*) 650 mg PO Q6H PRN PRN Reason: pain/fever Benztropine Mesylate (Cogentin Tab*) 1 mg PO DAILY [facility] Last Admin: 01/10/18 09:32 Dose: 1 mg Device (Nicotine Mouth Piece*) 1 each INH .USE WITH NICOTROL PRN PRN Reason: CRAVING Last Admin: 01/09/18 08:42 Dose: 1 each Divalproex Sodium (Depakote Er Tab(*)) 1,000 mg PO BEDTIME [facility] Last Admin: 01/09/18 21:48 Dose: 1,000 mg Heparin Sodium (Porcine) (Heparin Vial(*)) 5,000 units SUBCUT Q8HR [facility] Last Admin: 01/10/18 05:39 Dose: Not Given Hydroxyzine HCl (Atarax Tab*) 50 mg PO Q6H PRN PRN Reason: ANXIETY Last Admin: 01/09/18 21:48 Dose: 50 mg Nicotine (Nicotine Inhaler*) 10 mg INH Q2H PRN PRN Reason: CRAVING Last Admin: 01/10/18 09:32 Dose: 10 mg Nicotine (Nicotine Patch 21 Mg/24 Hr*) 1 patch TRANSDERM DAILY [facility] Last Admin: 01/10/18 09:32 Dose: 1 patch Paliperidone (Invega Er Tab*) 9 mg PO BEDTIME [facility] Last Admin: 01/09/18 21:48 Dose: 9 mg Pharmacy Profile Note (Nicotine Patch Removal Note*) 1 note PATCH OFF 2100 [facility] Last Admin: 01/09/18 21:48 Dose: Not Given - Discharge Plan Discharge Plan: Inpatient Hospitalization
--- NOTE | 2018-01-10 22:46 | DS ---
CC: Dr. De La Cruz; Dr. Tyson DISCHARGE SUMMARY: DATE OF ADMISSION: 01/07/18 DATE OF DISCHARGE: 01/10/18 PRIMARY CARE PROVIDER: Dr. De La Cruz. ACCEPTING PSYCHIATRIST: Dr. Tyson. DISCHARGE DIAGNOSES: 1. Hyponatremia secondary to dehydration. 2. Schizoaffective disorder and obsessive-compulsive disorder. 3. Tobacco abuse. MEDICATIONS AT THE TIME OF TRANSFER: 1. Invega ER 9 mg p.o. at bedtime. 2. Divalproex ER 1000 mg p.o. at bedtime. 3. Benztropine 1 mg p.o. daily. 4. Hydroxyzine 50 mg p.o. q.6 hours p.r.n. anxiety. 5. Nicotine patch 21 mg topical daily, remove at bedtime. 6. Nicotine inhaler 10 mg inhaled q.2 hours p.r.n. cravings. 7. Acetaminophen 650 mg p.o. q.6 hours p.r.n. pain or fever. HOSPITAL COURSE: Mr. Suarez is a 42-year-old male with a past medical history as stated above that presented to the emergency room with complaints of hearing voices. Initially, the plan was for the ted munoz to be admitted to the mental health unit, but his lab tests revealed severe hyponatremia with a sodium of 113. In the past, the patient had episodes of hyponatremia secondary to psychogenic polyd ipsia, but the impression this time is the patient was dehydrated. He responded well to IV hydration and his sodium is up to 130, but he continues to have visual and auditory hallucinations. He was se en by Dr. Tyson and the patient requested admission to the [facility] due to intrusive thoughts and paranoid ideation. He is being discharged from the medical floor and admitted on a voluntary status to the [facility]. PHYSICAL EXAMINATION: Vital Signs: Temperature 98.9, heart rate is 93, respiratory rate is 17, oxyg en saturation is 97% on room air, blood pressure is 136/84. General: The patient is a pleasant eddie g gentleman, sitting up in the chair, in no acute distress. CVS: Normal S1 and S2. Regular rate an d rhythm. Chest: Breath sounds present bilaterally with no added sounds. Neuro: He is alert and or iented x3, able to move all 4 extremities. DIET: Regular diet with fluid restriction of 2 L. STATUS WHILE IN THE HOSPITAL: Inpatient status to the mental health unit. If you need more information, please feel free to call me at [phone] or please obtain the full m edical records. TIME SPENT: Approximately 45 minutes were spent to complete this discharge. [id number] #: [id number]
--- NOTE | 2018-01-12 06:36 | ED ---
Adalberto Khanna Tariq, scribed for Richy Kong MD on 01/07/18 at 1157 . Psychiatric Complaint - HPI Summary HPI Summary: A 42 y/o male RAPHAEL presents to ED c/o hallucinations. Patient was a terrible historian. According to pt, he feels sick and is tired. He also vomited yesterday. Pt denies SI and HI. As per triage, "945 - Pt sent to hospital for hallucinations. pt says he is too tired to answer questions at this time like if he is suicidal or homicidal". Currently on Divalproex medication. - History Of Current Complaint Chief Complaint: EDMentalHealth Time Seen by Provider: 01/07/18 11:35 Hx Obtained From: Patient Severity Currently: None Aggravating Factor(s): Nothing Alleviating Factor(s): Nothing Associated Signs And Symptoms: Positive: Hallucinating Has Suicidal: Denies: Thoughts Has Homicidal: Denies: Thoughts - Allergies/Home Medications Allergies/Adverse Reactions: Allergies Allergy/AdvReac Type Severity Reaction Status Date / Time clonazepam Allergy Unknown Verified 11/06/17 12:28 Reaction Details Home Medications: Home Medications Benztropine TAB* [Cogentin TAB*] 1 mg PO DAILY 01/07/18 [History Confirmed 01/07] Divalproex ER TAB(*) [Depakote ER TAB(*)] 1,000 mg PO BEDTIME 01/07/18 [History Confirmed 01/07/18] Paliperidone ER TAB* [Invega ER TAB*] 9 mg PO BEDTIME 01/07/18 [History Confirmed 01/07/18] PMH/Surg Hx/FS Hx/Imm Hx Endocrine/Hematology History: Denies: Hx Anticoagulant Therapy, Hx Diabetes Cardiovascular History: Denies: Hx Hypertension Respiratory History: Denies: Hx Asthma Sensory History: Denies: Hx Contacts or Glasses, Hx Hearing Aid Opthamlomology History: Denies: Hx Contacts or Glasses Psychiatric History: Reports: Hx Inpatient Treatment, Hx Community Mental Health Tx, Hx Schizophrenia, Hx Bipolar Disorder, Other Psychiatric Issues/ Disorders - schizoaffective disorder - Surgical History Surgery Procedure, Year, and Place: n/a Infectious Disease History: No Infectious Disease History: Denies: Traveled Outside the [place] in Last 30 Days - Family History Known Family History: Positive: Diabetes - grandfather - Social History Alcohol Use: Rare Hx Substance Use: No Substance Use Type: Reports: None Smoking Status (MU): Smoker, Current Status Unknown Type: Cigarettes Review of Systems Negative: Fever, Chills Negative: Erythema Negative: Sore Throat Negative: Chest Pain Negative: Shortness Of Breath, Cough Positive: Vomiting - Yesturday. Currently none. . Negative: Abdominal Pain, Nausea Negative: dysuria, hematuria Negative: Myalgia, Edema Negative: Rash Neurological: Other - NEGATIVE: DIZZINESS; POSITIVE: HALLUCINATIONS All Other Systems Reviewed And Are Negative: Yes Physical Exam - Summary Physical Exam Summary: Constitutional: Well-developed, Well-nourished, Alert. (-) Distressed Skin: Warm, Dry HENT: Normocephalic; Atraumatic Eyes: Conjunctiva normal Neck: Musculoskeletal ROM normal neck. (-) JVD, (-) Stridor, (-) Tracheal deviation Cardio: Rhythm regular, rate normal, Heart sounds normal; Intact distal pulses; The pedal pulses are 2+ and symmetric. Radial pulses are 2+ and symmetric. (-) Murmur Pulmonary/Chest wall: Effort normal. (-) Respiratory distress, (-) Wheezes, (-) Rales Abd: Soft, (-), epigastric tenderness, (-) Distension, (-) Guarding, (-) Rebound Musculoskeletal: (-) Edema Lymph: (-) Cervical adenopathy Neuro: Alert, Oriented x3 Psych: Mood and affect Normal Triage Information Reviewed: Yes Vital Signs On Initial Exam: Initial Vitals Temp Pulse Resp BP Pulse Ox 99.2 F 114 16 161/100 97 01/07/18 11:37 01/07/18 11:37 01/07/18 11:37 01/07/18 11:37 01/07/18 11:37 Vital Signs Reviewed: Yes Diagnostics - Vital Signs Vital Signs Temp Pulse Resp BP Pulse Ox 01/07/18 11:37 99.2 F 114 16 161/100 97 - Laboratory Result Diagrams: 01/07/18 12:20 01/07/18 15:54 Lab Statement: Any lab studies that have been ordered have been reviewed, and results considered in the medical decision making process. - EKG 1709 Cardiac Rate: Tachycardia - 100 EKG Rhythm: Sinus Tachycardia EKG Interpretation: Negative for STEMI Discharge - Discharge Plan The documentation as recorded by the scribe, Adalberto,Brian accurately reflects the service I personally performed and the decisions made by , Richy Kong MD.
== END 2018-01-10 12:51 | DRG 422 ==
LOC: ED 11:28 → ICU 15:30 → MED 22:56
PROVIDERS: ADMIT Internal Medicine; ATTEND Internal Medicine
DX: E87.1 Hypo-osmolality and hyponatremia (principal); E86.0 Dehydration; F25.0 Schizoaffective disorder, bipolar type; F42.9 Obsessive-compulsive disorder, unspecified; F17.210 Nicotine dependence, cigarettes, uncomplicated; Z79.899 Other long term (current) drug therapy; Z88.8 Allergy status to other drugs, medicaments and biological substances; Z82.0 Family history of epilepsy and other diseases of the nervous system; Z81.8 Family history of other mental and behavioral disorders
CPT/HCPCS: 36415; 80048; 80053; 80164; 80307; 80320; 80329; 81003; 82570; 82803; 83930; 83935; 84300; 84443; 85025; 87641; 93005; 99284; 99406; A9270-GY; G0480; J1630; J1644

== ENCOUNTER 2018-01-10 12:52 | Inpatient (IN) | payer OTHER ==
[2018-01-10] MEDS ORDERED: Acetaminophen TAB* 325 MG PO PRN (13:17)
[2018-01-10] MEDS ORDERED: Al Hydrox/Mg Hydrox/Simet LIQ* 30 ML UDC PO PRN (13:17)
[2018-01-10] MEDS: Nicotine Inhaler* 10 MG AMP INH PRN (19:35)
[2018-01-10] MEDS: Divalproex ER TAB(*) 500 MG PO SCH (20:47)
[2018-01-10] MEDS: Paliperidone ER TAB* 9 MG TAB.ER PO SCH (20:47)
[2018-01-10] MEDS: Nicotine Patch Removal NOTE PATCH OFF SCH (20:52)
[2018-01-11] MEDS: Benztropine TAB* 1 MG PO SCH (08:44)
[2018-01-11] MEDS: Nicotine PATCH 21 MG/24 HR* PATCH TRANSDERM SCH (08:44)
[2018-01-11] MEDS: Nicotine Inhaler* 10 MG AMP INH PRN ×2 (08:45→18:32)
--- NOTE | 2018-01-11 12:46 | PN ---
Subjective - Subjective Date of Service: 01/11/18 Service Type: 42723 Hosp care 15 min low complexity Subjective: Anderson is calm, cooperative. Does not appear paranoid or overtly responsive to internal stimuli. As far as we can tell he is not polydipsic and is eating meals appropriately. The patient says that he wants to stay in the hospital until we can get him a new apartment. "I like my apartment but there are people across the street who are very, very mean to me. I no like them. I call the police but they do nothing." I asked if Anderson has discussed this issue with the [place] [employer] but he denies having done so. He denies SI, HI or AH and is taking his medications without complaint. Objective - Appearance Appearance: Obese Dysmorphic Features: No Hygiene: Normal Grooming: Well Kept - Behavior Psychomotor Activities: Normal Exhibits Abnormal Movement: No - Attitude and Relatedness Attitude and Relatedness: Cooperative Eye Contact: Fair - Speech Quality: Unpressured Latencies: Normal Quantity: Appropriate - Mood Patient's Decription of Mood: "Good" - Affect Observed Affect: Unvariable Affect Consistent with: Euthymia - Thought Process Patient's Thought Process: Goal Directed Thought Content: No Passive Wish, No Suicidal Planning, No Homicidal Ideation, No Paranoid Ideation - Sensorium Experiencing Hallucinations: No, Sensorium is Clear Type of Hallucinations: Visual: No, Auditory: No, Command: No - Level of Consciousness Level of Consciousness: Alert Orientation: Yes Intact, Yes Orientated to Time, Yes Orientated to Place, Yes Orientated to Person - Impulse Control Impulse Control: Tenuous - Insight and Judgement Insight and Judgement: Fair - Group Participation Particating in Group Activities: Yes - Medication Management Medication Management Adherence: Yes Assessment - Assessment Merits Inpatient Hospitalization: Consolidate Improvements, Pending Safe DC Plan Inpatient DSM-V Dx: F25.0 Clinical Impression: 42 y.o. single, male with a history of schizoaffective DO, dual citizenship in the [place], who is transferred from the medical unit following stabilization of severe hyponatremia, due to agitated behavior and AH making it difficult for him to meet his own needs in the community. Plan - Plan Treatment Plan: Name: ANDERSON MONTES DE OCA Birthdate: 1975 [id number] The patient has been continued on his outpatient regimen of paliperidone 9mg PO qday, benztropine 1mg PO qday and Depakote 1000mg PO qhs. He is doing well but has issues with his housing that will necessitate collaboration with the [facility] agency. Will continue to treat as an inpatient. Will recheck sodium level in the AM. Continued Medication Management: Continue Outpt Medication Medications: Current Medications Acetaminophen (Tylenol Tab*) 650 mg PO Q4H PRN PRN Reason: for pain; or Temp >101 F Al Hydrox/Mg Hydrox/Simethicone (Maalox Plus*) 30 ml PO Q4H PRN PRN Reason: INDIGESTION Benztropine Mesylate (Cogentin Tab*) 1 mg PO DAILY [facility] Last Admin: 01/11/18 08:44 Dose: 1 mg Divalproex Sodium (Depakote Er Tab(*)) 1,000 mg PO BEDTIME [facility] Last Admin: 01/10/18 20:47 Dose: 1,000 mg Hydroxyzine HCl (Atarax Tab*) 50 mg PO Q6H PRN PRN Reason: ANXIETY Nicotine (Nicotine Inhaler*) 10 mg INH Q2H PRN PRN Reason: CRAVING Last Admin: 01/11/18 08:45 Dose: 10 mg Nicotine (Nicotine Patch 21 Mg/24 Hr*) 1 patch TRANSDERM DAILY [facility] Last Admin: 01/11/18 08:44 Dose: Not Given Paliperidone (Invega Er Tab*) 9 mg PO BEDTIME [facility] Last Admin: 01/10/18 20:47 Dose: 9 mg Pharmacy Profile Note (Nicotine Patch Removal Note*) 1 note PATCH OFF 2100 [facility] Last Admin: 01/10/18 20:52 Dose: Not Given - Discharge Plan Discharge Plan: Inpatient Hospitalization Lab Results - Lab Results Lab Results: 01/11/18 01/11/18 07:59 07:59 Hemoglobin A1c 6.0 H Triglycerides 104 Cholesterol 106 LDL Cholesterol 49 HDL Cholesterol 36.4
[2018-01-11] MEDS: Divalproex ER TAB(*) 500 MG PO SCH (20:22)
[2018-01-11] MEDS: Paliperidone ER TAB* 9 MG TAB.ER PO SCH (20:22)
[2018-01-11] MEDS: Nicotine Patch Removal NOTE PATCH OFF SCH (20:24)
[2018-01-11] MEDS: hydrOXYzine HCL TAB* 50 MG PO PRN (20:25)
[2018-01-12] MEDS: Benztropine TAB* 1 MG PO SCH (08:40)
[2018-01-12] MEDS: Nicotine PATCH 21 MG/24 HR* PATCH TRANSDERM SCH (08:40)
[2018-01-12 08:51] LABS: EGFR Non-African American 99.8 (>60)
--- NOTE | 2018-01-12 13:07 | PN ---
Subjective - Subjective Date of Service: 01/12/18 Service Type: 84584 Hosp care 15 min low complexity Subjective: Anderson is calm and cooperative with some baseline thought disorganization and flattened affect but no evidence of active delusions or hallucinations. His water consumption appears to be under control. He remains reluctant to return to his apartment, saying only that he likes it here at [facility]. He denies SI or HI. Objective - Appearance Appearance: Obese Dysmorphic Features: No Hygiene: Normal Grooming: Fairly Well Kept - Behavior Psychomotor Activities: Normal Exhibits Abnormal Movement: No - Attitude and Relatedness Attitude and Relatedness: Cooperative Eye Contact: Fair - Speech Quality: Unpressured Latencies: Normal Quantity: Appropriate - Mood Patient's Decription of Mood: "Okay" - Affect Observed Affect: Unvariable Affect Consistent with: Euthymia - Thought Process Patient's Thought Process: Circumstantial Thought Content: No Passive Wish, No Suicidal Planning, No Homicidal Ideation, No Paranoid Ideation - Sensorium Experiencing Hallucinations: No, Sensorium is Clear Type of Hallucinations: Visual: No, Auditory: No, Command: No - Level of Consciousness Level of Consciousness: Alert Orientation: Yes Intact, Yes Orientated to Time, Yes Orientated to Place, Yes Orientated to Person - Impulse Control Impulse Control: Tenuous - Insight and Judgement Insight and Judgement: Fair - Group Participation Particating in Group Activities: Yes - Medication Management Medication Management Adherence: Yes Assessment - Assessment Merits Inpatient Hospitalization: Consolidate Improvements, Pending Safe DC Plan Inpatient DSM-V Dx: F25.0 Clinical Impression: 42 y.o. single, male with a history of schizoaffective DO, dual citizenship in the [place], who is transferred from the medical unit following stabilization of severe hyponatremia, due to agitated behavior and AH making it difficult for him to meet his own needs in the community. Plan - Plan Treatment Plan: Name: ANDERSON MONTES DE OCA Birthdate: 1975 [id number] The patient has been continued on his outpatient regimen of paliperidone 9mg PO qday, benztropine 1mg PO qday and Depakote 1000mg PO qhs. He is doing well but has issues with his housing that will necessitate collaboration with the [facility] housing agency. Will continue to treat as an inpatient. Sodium level remains low at 131. Continued Medication Management: Continue Outpt Medication Medications: Current Medications Acetaminophen (Tylenol Tab*) 650 mg PO Q4H PRN PRN Reason: for pain; or Temp >101 F Al Hydrox/Mg Hydrox/Simethicone (Maalox Plus*) 30 ml PO Q4H PRN PRN Reason: INDIGESTION Benztropine Mesylate (Cogentin Tab*) 1 mg PO DAILY [facility] Last Admin: 01/12/18 08:40 Dose: 1 mg Divalproex Sodium (Depakote Er Tab(*)) 1,000 mg PO BEDTIME [facility] Last Admin: 01/11/18 20:22 Dose: 1,000 mg Hydroxyzine HCl (Atarax Tab*) 50 mg PO Q6H PRN PRN Reason: ANXIETY Last Admin: 01/11/18 20:25 Dose: 50 mg Nicotine (Nicotine Inhaler*) 10 mg INH Q2H PRN PRN Reason: CRAVING Last Admin: 01/11/18 18:32 Dose: 10 mg Nicotine (Nicotine Patch 21 Mg/24 Hr*) 1 patch TRANSDERM DAILY [facility] Last Admin: 01/12/18 08:40 Dose: 1 patch Paliperidone (Invega Er Tab*) 9 mg PO BEDTIME [facility] Last Admin: 01/11/18 20:22 Dose: 9 mg Pharmacy Profile Note (Nicotine Patch Removal Note*) 1 note PATCH OFF 2100 [facility] Last Admin: 01/11/18 20:24 Dose: Not Given - Discharge Plan Discharge Plan: Inpatient Hospitalization Lab Results - Lab Results Lab Results: 01/11/18 01/11/18 01/12/18 07:59 07:59 07:48 Sodium 131 L Potassium 4.5 Chloride 97 L Carbon Dioxide 27 Anion Gap 7 BUN 9 Creatinine 0.85 Est GFR ( Amer) 120.8 Est GFR (Non-Af Amer) 99.8 BUN/Creatinine Ratio 10.6 Glucose 89 Hemoglobin A1c 6.0 H Calcium 9.1 Triglycerides 104 Cholesterol 106 LDL Cholesterol 49 HDL Cholesterol 36.4
[2018-01-12] MEDS: hydrOXYzine HCL TAB* 50 MG PO PRN (18:29)
[2018-01-12] MEDS: Divalproex ER TAB(*) 500 MG PO SCH (20:41)
[2018-01-12] MEDS: Paliperidone ER TAB* 9 MG TAB.ER PO SCH (20:41)
[2018-01-12] MEDS: Nicotine Patch Removal NOTE PATCH OFF SCH (22:38)
[2018-01-13] MEDS: Benztropine TAB* 1 MG PO SCH (08:29)
[2018-01-13] MEDS: Nicotine PATCH 21 MG/24 HR* PATCH TRANSDERM SCH (08:30)
[2018-01-13] MEDS: Nicotine Inhaler* 10 MG AMP INH PRN (08:31)
--- NOTE | 2018-01-13 11:40 | PN ---
Subjective - Subjective Date of Service: 01/13/18 Service Type: 71485 Hosp care 15 min low complexity Subjective: Anderson is informed of his pending discharge this Thursday, back to his apartment through [place]. He immediately becomes tearful and delusional. "The satalites are sent from above to take the nicotine out of my head, right here" [ pointing to his forehead]. "I want to live with my mother and my brother in the [place]. I want to go home. I want you to call my mother now." Anderson is informed that we do not have the resources to return him home and that he must work with his outpatient nurse anesthetist if he wants to make arrangements for returning to the [facility] He is advised to rest and that we will discuss it further tomorrow after I speak with my team. He is thankful and says "Yes, Doctor, thank you very much." Objective - Appearance Appearance: Obese Dysmorphic Features: No Hygiene: Normal Grooming: Fairly Well Kept - Behavior Psychomotor Activities: Normal Exhibits Abnormal Movement: No - Attitude and Relatedness Attitude and Relatedness: Cooperative Eye Contact: Fair - Speech Quality: Unpressured Latencies: Normal Quantity: Appropriate - Mood Patient's Decription of Mood: "Anxious" - Affect Observed Affect: Tearful Affect Consistent with: Dysphoria - Thought Process Patient's Thought Process: Disorganized Thought Content: Yes Paranoid Ideation, No Passive Wish, No Suicidal Planning, No Homicidal Ideation - Sensorium Experiencing Hallucinations: No, Sensorium is Clear Type of Hallucinations: Visual: No, Auditory: No, Command: No - Level of Consciousness Level of Consciousness: Alert Orientation: Yes Intact, Yes Orientated to Time, Yes Orientated to Place, Yes Orientated to Person - Impulse Control Impulse Control: Poor - Insight and Judgement Insight and Judgement: Impaired - Group Participation Particating in Group Activities: No - Medication Management Medication Management Adherence: Yes Assessment - Assessment Merits Inpatient Hospitalization: Consolidate Improvements, Pending Safe DC Plan Inpatient DSM-V Dx: F25.0 Clinical Impression: 42 y.o. single, male with a history of schizoaffective DO, dual citizenship in the and [place], who is transferred from the medical unit following stabilization of severe hyponatremia, due to agitated behavior and AH making it difficult for him to meet his own needs in the community. Plan - Plan Treatment Plan: Name: ANDERSON MONTES DE OCA Birthdate: 1975 [id number] The patient has been continued on his outpatient regimen of paliperidone 9mg PO qday, benztropine 1mg PO qday and Depakote 1000mg PO qhs. He is now requesting assistance returning to the [facility] but is informed that we are ill- equipped to facilitate this. Will continue to treat as an inpatient. Target d/ c January 13. Continued Medication Management: Continue Outpt Medication Medications: Current Medications Acetaminophen (Tylenol Tab*) 650 mg PO Q4H PRN PRN Reason: for pain; or Temp >101 F Al Hydrox/Mg Hydrox/Simethicone (Maalox Plus*) 30 ml PO Q4H PRN PRN Reason: INDIGESTION Benztropine Mesylate (Cogentin Tab*) 1 mg PO DAILY [facility] Last Admin: 01/13/18 08:29 Dose: 1 mg Divalproex Sodium (Depakote Er Tab(*)) 1,000 mg PO BEDTIME [facility] Last Admin: 01/12/18 20:41 Dose: 1,000 mg Hydroxyzine HCl (Atarax Tab*) 50 mg PO Q6H PRN PRN Reason: ANXIETY Last Admin: 01/12/18 18:29 Dose: 50 mg Nicotine (Nicotine Inhaler*) 10 mg INH Q2H PRN PRN Reason: CRAVING Last Admin: 01/13/18 08:31 Dose: 10 mg Nicotine (Nicotine Patch 21 Mg/24 Hr*) 1 patch TRANSDERM DAILY [facility] Last Admin: 01/13/18 08:30 Dose: Not Given Paliperidone (Invega Er Tab*) 9 mg PO BEDTIME [facility] Last Admin: 01/12/18 20:41 Dose: 9 mg Pharmacy Profile Note (Nicotine Patch Removal Note*) 1 note PATCH OFF 2100 [facility] Last Admin: 01/12/18 22:38 Dose: 1 note - Discharge Plan Discharge Plan: Inpatient Hospitalization
[2018-01-13] MEDS: Divalproex ER TAB(*) 500 MG PO SCH (21:04)
[2018-01-13] MEDS: Nicotine Patch Removal NOTE PATCH OFF SCH (21:04)
[2018-01-13] MEDS: Paliperidone ER TAB* 9 MG TAB.ER PO SCH (21:05)
[2018-01-14] MEDS: Nicotine PATCH 21 MG/24 HR* PATCH TRANSDERM SCH (09:08)
[2018-01-14] MEDS: Benztropine TAB* 1 MG PO SCH (09:08)
[2018-01-14] MEDS: hydrOXYzine HCL TAB* 50 MG PO PRN (09:50)
[2018-01-14] MEDS: Nicotine Inhaler* 10 MG AMP INH PRN ×2 (09:50→18:27)
--- NOTE | 2018-01-14 13:21 | PN ---
MHU: Group Therapy Note - Service Type Service Type: [id number] Group Psychotherapy - Cognitive Behavioral Group Therapy ( CBT):Patient presented in CBT programming as disorganized in discussion, but exhibits fair affect and is pleasant in conversation.
--- NOTE | 2018-01-14 16:25 | PN ---
MHU: Group Therapy Note - Service Type Service Type: [id number] Group Psychotherapy - Medication Education Group: Patient presented as disorganized and disruptive in discussion and needed repeated redirection to attend to presented materials. Patient receptive to redirection when monopolizing group.
[2018-01-14] MEDS ORDERED: Mouth Piece, Nicotine* 1 EACH CARTRIDGE ONE (18:27)
[2018-01-14] MEDS: Paliperidone ER TAB* 9 MG TAB.ER PO SCH (20:06)
[2018-01-14] MEDS: Divalproex ER TAB(*) 500 MG PO SCH (20:07)
[2018-01-14] MEDS: Nicotine Patch Removal NOTE PATCH OFF SCH (20:08)
[2018-01-15 08:05] VITALS: BP 132/81
[2018-01-15] MEDS: Benztropine TAB* 1 MG PO SCH (09:19)
[2018-01-15] MEDS: Nicotine PATCH 21 MG/24 HR* PATCH TRANSDERM SCH (09:19)
--- NOTE | 2018-01-15 23:39 | DS ---
DISCHARGE SUMMARY: DATE OF ADMISSION: 01/10/18. DATE OF DISCHARGE: 01/15/18. DISCHARGE DIAGNOSES: Are as follows: [place] I: Schizoaffective disorder, bipolar type. Obsessive-compulsive disorder. [place] II: Deferred. CONDITION AT THE TIME OF DISCHARGE: Improved. The patient is drinking appropriate amounts of fluid and water. He is organized. Knows where his apartment is. He is eating, drinking, and bathing appropriately. He understands that he cannot live at [facility] and is willing to be returned to his [facility] apartment in the community. We have been in close contact with his case management social worker, whose name is Pamela Rinaldi. There is agreement that the patient's funds through the department of social security will be administered through a liability claims representative payee and this will allow him to pay his rent and his other routine bills such as utilities and grocery charges. It is notable that the patient is requesting assistance with moving back to the [facility]. He is counseled that it is not the hospital's role to assist with this and we recommend that he contact his brother, Deepak Suarez in [place] for assistance with this process. We have also notified Ms. Rinaldi of the patient's wishes to [place]. In the meantime, the patient is agreeable with continuing his medications, which he is tolerating well. He is further agreeable with attending intensive outpatient services through the [facility]. He denies suicidal or homicidal ideations and appears motivated to remain well. MENTAL STATUS EXAM: At the time of discharge, the patient is a middle-aged, overweight male with wispy, brown hair and long sideburns, who is dressed somewhat inappropriately for the weather given the fact that he is wearing a jacket. He has fair grooming, makes fairly good eye contact. He is sitting in his bed and is easy to establish a rapport with. Speech is broken Kiswahili, but he appears to understand the conversation well. He is calm, cooperative, and polite. Mood is euthymic with a blunted affect. Thought process is simplistic and somewhat circumstantial. Thought content is significant for his desire to continue living here at [facility], but he is agreeable that this cannot be so. He denies suicidal or homicidal ideations. He denies auditory or visual hallucinations. Insight and judgment appear to be fair given his willingness to follow up with intensive outpatient services. Cognitively, he is awake and alert, with what would appear to be an average intellect. LABS: The patient's metabolic screening was performed on the 01/11/18, at which time his hemoglobin A1c was slightly elevated at 6.0%, triglycerides 104, cholesterol 106, LDL cholesterol 49, HDL cholesterol 36.4. DISCHARGE INSTRUCTIONS TO THE PATIENT: Are as follows: A. Medications: 1. He takes benztropine 1 mg p.o. daily. 2. Depakote 1000 mg p.o. q.h.s. 3. Invega 9 mg p.o. q.h.s. B. Diet is regular. C. Activities: The patient is strongly encouraged to continue to avoid overconsumption of water and other fluids. He is agreeable to this. The patient is a smoker. However, he is declining the offer of continued nicotine replacement therapy and therefore we have referred him to the [facility] Smoker's Quit Line at [phone]. There are no laboratory or diagnostic studies pending at the time of discharge. D. Followup care: The patient will follow up with the [facility], where he has an appointment on 01/18/18. E. Substance abuse followup is nonapplicable. HOSPITAL COURSE: PART A: Reason for admission: The patient is a 42-year-old single male with a history of schizoaffective disorder and OCD, who is sent to the hospital on a 9.45 involuntary Weigl status sign by the [facility] where he had arrived earlier that day complaining of intrusive thoughts, auditory hallucinations, was crying and did not feel safe. Apparently, when he was worked up in the emergency room, he had a sodium of only 118 and was therefore admitted to the medical service. In reading the 4th floor staff notes when the patient was seen by the psychiatric consultation team, it appeared that he was somewhat agitated at times, uncooperative, taking out his IV and not allowing staff to approach him. Prior to meeting with the patient, I gathered collateral information from the clinical esthetician, Aline Alvarez of [facility]. She indicated that their clinic has been treating him since his from [facility] in August 2017. She noted that he had been compliant with treatment, working well with their staff and grateful for his care. He was switched from injectable paliperidone to the oral version because of his fear of injections and needles. She indicated that he was doing quite well in his [place] apartment and that they had no concerns until approximately one week prior to admission when he started complaining of intrusive thoughts. On the day of his presentation to our emergency room, he told the clinic that he was feeling unsafe, he was crying and this necessitated the trip to the emergency room. When I met with him, he immediately recognized me from a previous admission with smiling and welcomed me into his room. Although he denied auditory hallucinations, he was somewhat paranoid, telling me that he has the so-called PANDAS syndrome, which is a complaint that he has made frequently in the past. Anderson denied being dehydrated prior to admission stating instead that he was drinking too much water, which has been an issue with him also in the past. At any rate, he denied suicidal or homicidal ideations. However, when I asked him if voluntary admission to the [facility] would be helpful, he answered that, "yes, it would." Part B: Psychiatric treatment rendered: The patient was admitted to the Adult Behavioral Health Unit where he was placed on q.15-minute checks for his own safety. Due to his good behavior, this was down regulated to every 30-minute observations and he was given access to the comfort room. We kept his medications the same with the Depakote dose of 1000, 1nvega 9 mg nightly, and 1 mg of benztropine. We did not necessarily put him on fluid restrictions, but we did monitor his fluid intake informally and we never did observe him drinking large quantities of water or other fluids. The patient consistently told us that his desire was to move into the hospital and live here. He was instructed numerous times in response that this is not an appropriate placement. Ultimately, we convinced him that returning to his apartment in the community was the best outcome. He did indicate that he is home sick and would like to return to the [facility]. However, we did not feel that this was within purview of inpatient psychiatric treatment to arrange. Therefore, he is strongly encouraged to contact his family both in the [facility] as well as his brother who lives in the [facility] so that they could facilitate [place] home [place]. The patient never had any management issues. He got along well with peers and staff, although he was isolative and did not participate in many groups. He was safe on all checks. We feel that he is appropriate for outpatient management at this time. [id number]/[facility] #: [id number] MTDD
== END 2018-01-15 14:05 | disposition home or self-care (01) | DRG 750 ==
LOC: BSU 13:17
PROVIDERS: ADMIT Psychiatry & Neurology Psychiatry; ATTEND Psychiatry & Neurology Psychiatry
PROC: GZHZZZZ Group Psychotherapy (ICD-10-PCS; principal; 2018-01-14)
DX: F25.0 Schizoaffective disorder, bipolar type (principal); E87.1 Hypo-osmolality and hyponatremia; F42.9 Obsessive-compulsive disorder, unspecified; Z72.89 Other problems related to lifestyle; F17.210 Nicotine dependence, cigarettes, uncomplicated; R63.1 Polydipsia; Z81.8 Family history of other mental and behavioral disorders; E66.9 Obesity, unspecified; Z68.33 Body mass index [BMI] 33.0-33.9, adult
CPT/HCPCS: 36415; 80048; 80061; 83036; 90853; 99222; 99231; 99238; A9270-GY

== ENCOUNTER 2018-01-29 12:11 | Inpatient (IN) | payer OTHER ==
--- NOTE | 2018-01-29 12:22 | ED ---
Psychiatric Complaint - HPI Summary HPI Summary: This is jade Crenshaw documenting for attending Angel Guevara MD. Patient is a 42 y/o M BIBA due to possible manic episode. Patient has Dx of bipolar disorder. He went from his apartment to [facility] clinic today. Staff thought the patient seemed manic, which prompted EMS call. The patient reports he is nervous, anxious, not sleeping, eating less, and feels unsafe. He denies SI or HI. Patient reports he is taking medications daily and reports no other medical complaints. On triage, pain is denied and nothing is noted to aggravate/alleviate Sx. Home medications and allergies are reviewed. - History Of Current Complaint Hx Obtained From: Patient Onset/Duration: Lasting Hours - onset this morning Severity Currently: None - pain is denied Character: Manic Aggravating Factor(s): Nothing Alleviating Factor(s): Nothing Related History: Positive For: Prior Psychiatric Issues - Dx of BPD Has Suicidal: Reports: Thoughts - DENIED Has Homicidal: Reports: Thoughts - DENIED - Allergies/Home Medications Allergies/Adverse Reactions: Allergies Allergy/AdvReac Type Severity Reaction Status Date / Time clonazepam Allergy Unknown Verified 11/06/17 12:28 Reaction Details PMH/Surg Hx/FS Hx/Imm Hx Endocrine/Hematology History: Denies: Hx Anticoagulant Therapy, Hx Diabetes Cardiovascular History: Denies: Hx Hypertension Respiratory History: Denies: Hx Asthma Sensory History: Denies: Hx Contacts or Glasses, Hx Hearing Aid Opthamlomology History: Denies: Hx Contacts or Glasses Psychiatric History: Reports: Hx Inpatient Treatment - [facility], Hx Community Mental Health Tx, Hx Schizophrenia, Hx Bipolar Disorder, Other Psychiatric Issues/ Disorders - OCD Denies: Hx Eating Disorder, Hx of Violent Episodes Against Others - Surgical History Surgery Procedure, Year, and Place: n/a Infectious Disease History: No Infectious Disease History: Denies: Traveled Outside the [place] in Last 30 Days - Family History Known Family History: Positive: Diabetes - grandfather - Social History Alcohol Use: Occasionally Hx Substance Use: No Substance Use Type: Reports: None Smoking Status (MU): Heavy Every Day Tobacco Smoker Type: Cigarettes Amount Used/How Often: 1 ppd Length of Time of Smoking/Using Tobacco: 15+ years Have You Smoked in the Last Year: Yes Review of Systems Negative: Fever - On triage, temperature is 98 F Positive: Other - decreased appetite Positive: Anxious, Other - possible manic episode, feeling unsafe, not sleeping All Other Systems Reviewed And Are Negative: Yes Physical Exam - Summary Physical Exam Summary: VITAL SIGNS: Reviewed. GENERAL: Patient is a well-developed and nourished male who is lying comfortable in the stretcher. Patient is not in any acute respiratory distress. HEAD AND FACE: No signs of trauma. No ecchymosis, hematomas or skull depressions. No sinus tenderness. EYES: PERRLA, EOMI x 2, No injected conjunctiva, no nystagmus. EARS: Hearing grossly intact. Ear canals and tympanic membranes are within normal limits. MOUTH: Oropharynx within normal limits. NECK: Supple, trachea is midline, no adenopathy, no JVD, no carotid bruit, no c- spine tenderness, neck with full ROM. CHEST: Symmetric, no tenderness at palpation LUNGS: Clear to auscultation bilaterally. No wheezing or crackles. CVS: Regular rate and rhythm, S1 and S2 present, no murmurs or gallops appreciated. ABDOMEN: Soft, non-tender. No signs of distention. No rebound no guarding, and no masses palpated. Bowel sounds are normal. EXTREMITIES: FROM in all major joints, no edema, no cyanosis or clubbing. NEURO: Alert and oriented x 3. No acute neurological deficits. Speech is normal and follows commands. SKIN: Dry and warm PSYCH: Patient is a little anxious, denies any suicidal thoughts or plan. No homicidal thoughts or plan. No signs of psychosis or pressure speech. Some tangential and jumbled speech. Triage Information Reviewed: Yes Vital Signs On Initial Exam: Initial Vitals Temp Pulse Resp BP Pulse Ox 98 F 90 16 148/120 99 01/29/18 12:13 01/29/18 12:13 01/29/18 12:13 01/29/18 12:13 01/29/18 12:13 Vital Signs Reviewed: Yes Diagnostics - Vital Signs Vital Signs Temp Pulse Resp BP Pulse Ox 01/29/18 12:13 98 F 90 16 148/120 99 - Laboratory Result Diagrams: 01/29/18 12:30 01/29/18 12:30 Lab Statement: Any lab studies that have been ordered have been reviewed, and results considered in the medical decision making process. Course/Dx - Course Assessment/Plan: Blood tests without any significant abnormality except for what was a count of 11.2, sodium 128, glucose 151. Urinalysis is negative for UTI. urine toxicology negative. In the ED course the patient has remained stable. The patient is medically clear. Patient is awaiting for mental health evaluation. Dr. Cerna from this psychiatric department agrees to admit the patient to his services for further workup and management. - Differential Dx/Clinical Impression Provider Diagnosis: Schizoaffective disorder Discharge - Sign-Out/Discharge Documenting (check all that apply): Patient Departure - admit - Discharge Plan Condition: Good Disposition: ADMITTED TO [facility] Referrals: Jason De La Cruz MD [Primary Care Provider] - - Billing Disposition and Condition Condition: GOOD Disposition: Admitted to [facility]
[2018-01-29 12:40] LABS: ABS Basophils 0.1 10^3/ul (0-0.2); ABS Eosinophils 0 10^3/ul (0-0.6); ABS Lymphocytes 1.7 10^3/ul (1.0-4.8); ABS Monocytes 0.7 10^3/ul (0-0.8); ABS Neutrophils 8.7 10^3/ul (1.5-7.7); ABS Nucleated RBC 0 10^3/ul; Eosinophil % 0.1 % (0-6); Hematocrit 40 % (42-52); Hemoglobin 13.5 g/dl (14.0-18.0); Lymphocyte % 15.4 % (25-47); Mean Corpuscular HGB Conc 34 g/dl (31-36); Mean Corpuscular Hemoglobin 30 pg (27-31); Mean Corpuscular Volume 90 fL (80-94); Mean Platelet Volume 6.1 um3 (7.4-10.4); Nucleated Red Blood Cells % 0.1; Platelet Count 348 10^3/ul (150-450); Red Blood Count 4.43 10^6/ul (4.00-5.40); Red Cell Distribution Width 14 % (10.5-15); White Blood Count 11.2 10^3/ul (3.5-10.8)
[2018-01-29 12:56] LABS: Urine Appearance Clear; Urine Blood Negative (Negative); Urine Color Straw; Urine Ketones Negative (Negative); Urine Protein Negative (Negative); Urine Specific Gravity 1.002 (1.010-1.030); Urine Urobilinogen Negative (Negative)
[2018-01-29 13:07] LABS: EGFR Non-African American 101.2 (>60)
[2018-01-29] MEDS ORDERED: Mouth Piece, Nicotine* 1 EACH CARTRIDGE INH SCH (21:21)
[2018-01-29] MEDS ORDERED: Nicotine GUM* 2 MG PO PRN (21:21)
[2018-01-29] MEDS ORDERED: Al Hydrox/Mg Hydrox/Simet LIQ* 30 ML UDC PO PRN (21:21)
[2018-01-29] MEDS ORDERED: Acetaminophen TAB* 325 MG PO PRN (21:21)
[2018-01-29] MEDS: Divalproex ER TAB(*) 500 MG PO SCH (21:42)
[2018-01-29] MEDS: Paliperidone ER TAB* 9 MG TAB.ER PO SCH (21:43)
[2018-01-29] MEDS: Nicotine Inhaler* 10 MG AMP INH PRN (21:47)
[2018-01-30] MEDS: Benztropine TAB* 1 MG PO SCH (09:32)
[2018-01-30] MEDS: Vitamin THERAPEUTIC TAB PO SCH (09:32)
[2018-01-30] MEDS: hydrOXYzine HCL TAB* 50 MG PO PRN (12:36)
--- NOTE | 2018-01-30 21:00 | HP ---
HISTORY AND PHYSICAL: DATE OF ADMISSION: IDENTIFYING DATA: Anderson is a 42-year-old never , mentally disabled, male with multi ple prior psychiatric hospitalizations from here at [facility] and few others in other hospitals like [facility], psychiatric hospitals in [place], and so on, was brought to the emergency depart ment from his outpatient clinic at [facility], sent because of what they de scribed a manic episode. CHIEF COMPLAINT: "There is big construction going around my apartment and I am fearful of that." HISTORY OF PRESENT ILLNESS: Anderson does not have any psychiatric complaints this morning as he feels so safe here and thinks that he is happy and that is why he was crying last evening when they chaitanya t him to the emergency room. Anderson says he was so happy that he could not stop crying; however, the report from the [facility] was totally different because Anderson presented there in a "manic state" according to the clinic staff. However, there is no indication of any manic state at this time. Anderson reports that there is a big "construction going on in front of his house and there are lot of people coming back and forth crossing the street and making lot of noise. The machines are also loud, so he did not feel safe in his apartment." He came to the clinic and reporte d that to the clinicians who sent him for here for admission. Today, during the evaluation, Anderson d enies any symptoms including mood, thoughts, or perception. He also denies any thoughts of harming h imself. His last hospitalization was almost under a similar circumstances, however at that time his sodium level was very low requiring first hospitalization on the medical floor from where he was hillman sferred to [facility]. PAST PSYCHIATRIC HISTORY: As mentioned in HPI is significant for diagnosis of schizoaffective disord er, bipolar disorder, and OCD. However, Anderson reports that he never heard voices or seeing things t hat are not there and he also denies ever being extremely paranoid. Anderson has history of multiple p sychiatric hospitalizations here at [facility] and [facility]. He was once hospitalized in o ne of the psychiatric hospitals in [place] in 2005. His hospitalizations at [facility] were in 2009, , and 2017. His last hospitalization at [facility] was on 01/09/18. Over the years, he was tried on risp eridone, clozapine, and Depakote. His current medications include Depakote, haloperidol, benztropine . Anderson reports that he is afraid of needles that is why he does not like any long- acting injectabl e antipsychotics. 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 SUBSTANCE ABUSE HISTORY: Insignificant; however, he smokes a pack of cigarettes daily and drinks onc e or twice every month modestly. CURRENT MEDICATIONS: Include: 1. Invega 9 mg p.o. at bedtime. 2. Depakote 1000 mg p.o. at bedtime. 3. Benztropine 0.5 mg twice a day. ALLERGIES: No known drug allergies. FAMILY PSYCHIATRIC HISTORY: Unremarkable. PERSONAL AND SOCIAL HISTORY: Born in [place]. He was raised in [facility] by both parents. He obtained college education and came to [facility] to get enrolled in [employer]; however, he never succeeded. He was never , never been employed and lives in [facility] in an [facility] apartment program. For further information, please refer to previous history and physical and psychosocial history. He is currently unemployed. Relies on his social security benefit and his [employer] support system is either in [facility] or scattered all over the [facility]. PHYSICAL EXAMINATION GENERAL: He is average height, obese, appropriately dressed, poorly groomed, male with poor personal hygiene. He is not in any physical distress. VITAL SIGNS: This morning shows a blood pressure of 129/83, pulse 82, temperature 97.2, respirations 17. His blood pressure in the emergency room last evening was elevated to 148/120 with a pulse rate of 90. HEENT: Head: Atraumatic, normocephalic without any indication of trauma to his facial area. Eyes: PERRLA, EOMI x2. Conjunctivae not injected. Ears: Hearing is grossly intact. Ear canals fairly c lean with intact tympanic membranes bilaterally. Mouth: Poor oral hygiene, but is within normal skinner its otherwise. NECK: Supple with midline trachea. No adenopathy. No JVD. CHEST: Symmetric without any abnormal findings. Lungs clear bilaterally on auscultation. No wheezi ng or crackles heard. CVS: Heart rate is regular with regular rhythm. S1 and S2 only. No murmurs or gallops appreciated. ABDOMEN: Fatty, but soft. No tenderness or rebound tenderness. No organomegaly. Bowel sounds zelda l in all quadrants. EXTREMITIES: Full range of movement. No edema. No cyanosis or clubbing. Pulses normal in all extr emities. NEUROLOGICAL: He is alert and oriented to time, place, and person. Cranial nerves II through XII in tact grossly. LABORATORY DATA: Lab shows a WBC count of 11.2, hemoglobin 13.5, hematocrit 40, platelet count 348. Comprehensive metabolic profile shows serum sodium level of 128, lower than normal; potassium 4; ch loride 96; carbon dioxide 24; BUN 3; creatinine 0.84. Rest of the report is unremarkable. MENTAL STATUS EXAMINATION: Anderson is an obese, average height, male, who is alert and orien socrates to time, place, and person. He is appropriately dressed, poorly groomed with poor personal hygie ne. He makes good eye contact. His speech is [id number] pressured, but is logical and goal directed. Describes his mood as "good." Observed affect appears to be somewhat euphoric and anxious . There is no evidence of thought or perceptual disturbances. His intelligence appears to be average as evidenced by his vocabulary and fund of knowledge. Memory functions are intact in all spheres. Insight and judgment poor. SUMMARY: This 42-year-old male with prior history of multiple psychiatric hospitalizations, mostly due to mood dysregulation and obsessions, came to the emergency room because of disturbances in his neighborhood, which was making him nervous. He also has history of having mood dysregulation and inability to safely live in the community when he is too much stressed out. DIAGNOSTIC IMPRESSION: 1. Adjustment disorder with severe anxiety. 2. History of bipolar disorder. 3. History of obsessive-compulsive disorder. PHYSICAL HEALTH DIAGNOSES: History of psychogenic polydipsia and hyponatremia. TREATMENT RECOMMENDATIONS: Anderson will need to be hospitalized briefly for his safety and relief of his severe anxiety. Supportive milieu, individual, and group therapy will be initiated. While on e unit, his code status will remain full. I will continue him on his outpatient medications and [place] ng by early next week, the treatment team will be able to send him back to his outpatient providers a s he has a desire to stay unnecessarily on an inpatient unit. [id number]/[facility] #: [id number]
[2018-01-30] MEDS: Paliperidone ER TAB* 9 MG TAB.ER PO SCH (21:42)
[2018-01-30] MEDS: Divalproex ER TAB(*) 500 MG PO SCH (21:42)
[2018-01-31] MEDS: Vitamin THERAPEUTIC TAB PO SCH (08:55)
[2018-01-31] MEDS: Benztropine TAB* 1 MG PO SCH (08:55)
[2018-01-31] MEDS: Divalproex ER TAB(*) 500 MG PO SCH (20:22)
[2018-01-31] MEDS: Paliperidone ER TAB* 9 MG TAB.ER PO SCH (20:22)
[2018-01-31] MEDS: Nicotine Inhaler* 10 MG AMP INH PRN (21:24)
[2018-02-01] MEDS: Benztropine TAB* 1 MG PO SCH (09:01)
[2018-02-01] MEDS: Vitamin THERAPEUTIC TAB PO SCH (09:01)
--- NOTE | 2018-02-01 12:58 | PN ---
Subjective - Subjective Date of Service: 02/01/18 Service Type: 10165 Hosp care 15 min low complexity Subjective: I met with Anderson today and he is calm, cooperative and relatively well- organized. He is aware that his outpatient providers have filed an updated SPOA application and are seeking to have him moved to a more supportive residential situation. He is pleased with this. "I want to stay here in the [facility]...for now...for now." He denies drinking too much water or non- adherence with mediations. Staff notes over the weekend indicate that he has been doing well and he continues to deny SI or HI. There is no evidence of responsiveness to internal stimuli. Objective - Appearance Appearance: Obese Dysmorphic Features: No Hygiene: Normal Grooming: Fairly Well Kept - Behavior Psychomotor Activities: Normal Exhibits Abnormal Movement: No - Attitude and Relatedness Attitude and Relatedness: Cooperative Eye Contact: Fair - Speech Quality: Unpressured Latencies: Normal Quantity: Appropriate - Mood Patient's Decription of Mood: "Okay" - Affect Observed Affect: Unvariable Affect Consistent with: Euthymia - Thought Process Patient's Thought Process: Coherent Thought Content: No Passive Wish, No Suicidal Planning, No Homicidal Ideation, No Paranoid Ideation - Sensorium Experiencing Hallucinations: No, Sensorium is Clear Type of Hallucinations: Visual: No, Auditory: No, Command: No - Level of Consciousness Level of Consciousness: Alert Orientation: Yes Intact, Yes Orientated to Time, Yes Orientated to Place, Yes Orientated to Person - Impulse Control Impulse Control: Tenuous - Insight and Judgement Insight and Judgement: Fair - Group Participation Particating in Group Activities: No - Medication Management Medication Management Adherence: Yes Assessment - Assessment Merits Inpatient Hospitalization: Consolidate Improvements, Pending Safe DC Plan Inpatient DSM-V Dx: F25.0 Clinical Impression: 42 y.o. single, male of [place] origin, recently discharged from the [facility], readmitted voluntarily after presenting to the [facility] with reported emotional lability and inability to care for himself. Plan - Plan Treatment Plan: Name: ANDERSON MONTES DE OCA Birthdate: 1975 [id number] The patient is adherent and doing fairly well on his outpatient regimen of paliperidone 9mg PO qhs, benztropine 1mg PO qhs and Depakote 1000mg PO qhs. His baseline is quite low functioning and it's clear he will need a higher level of residential support. I understand the referral to the [facility] has already been initiated and he is pending placement therein. Continue to treat and monitor on the inpatient setting. Continued Medication Management: Continue Outpt Medication Medications: Current Medications Acetaminophen (Tylenol Tab*) 650 mg PO Q4H PRN PRN Reason: PAIN or TEMP > 101 F Al Hydrox/Mg Hydrox/Simethicone (Maalox Plus*) 30 ml PO Q4H PRN PRN Reason: INDIGESTION Benztropine Mesylate (Cogentin Tab*) 1 mg PO DAILY [facility] Last Admin: 02/01/18 09:01 Dose: 1 mg Device (Nicotine Mouth Piece*) 1 each INH .CARTRIDGE MARJ Divalproex Sodium (Depakote Er Tab(*)) 1,000 mg PO BEDTIME MARJ Last Admin: 01/31/18 20:22 Dose: 1,000 mg Hydroxyzine HCl (Atarax Tab*) 50 mg PO Q6H PRN PRN Reason: ANXIETY Last Admin: 01/30/18 12:36 Dose: 50 mg Multivitamins (Theragran Tab*) 1 tab PO DAILY MARJ Last Admin: 02/01/18 09:01 Dose: 1 tab Nicotine (Nicotine Inhaler*) 10 mg INH Q2H PRN PRN Reason: CRAVING Last Admin: 01/31/18 21:24 Dose: 10 mg Nicotine Polacrilex (Nicotine Gum*) 2 mg PO Q2H PRN PRN Reason: CRAVING Last Admin: 01/30/18 18:25 Dose: 2 mg Paliperidone (Invega Er Tab*) 9 mg PO BEDTIME MARJ Last Admin: 01/31/18 20:22 Dose: 9 mg - Discharge Plan Discharge Plan: Inpatient Hospitalization Lab Results - Lab Results Lab Results: 01/29/18 01/29/18 12:30 12:37 Sodium 128 L Potassium 4.0 Chloride 96 L Carbon Dioxide 24 Anion Gap 8 BUN 3 L Creatinine 0.84 Est GFR ( Amer) 122.5 Est GFR (Non-Af Amer) 101.2 BUN/Creatinine Ratio 3.6 L Glucose 151 H Calcium 8.7 Total Bilirubin 0.50 AST 14 ALT 12 Alkaline Phosphatase 50 Total Protein 6.5 Albumin 3.7 Globulin 2.8 Albumin/Globulin Ratio 1.3 TSH 0.69 Salicylates < 2.50 Urine Opiates Screen None detected Acetaminophen < 15 Ur Barbiturates Screen None detected Valproic Acid 42.0 L Ur Phencyclidine Scrn None detected Ur Amphetamines Screen None detected U Benzodiazepines Scrn None detected Urine Cocaine Screen None detected U Cannabinoids Screen None detected Serum Alcohol < 10
[2018-02-01] MEDS: Nicotine Inhaler* 10 MG AMP INH PRN (16:15)
[2018-02-01] MEDS: Divalproex ER TAB(*) 500 MG PO SCH (21:21)
[2018-02-01] MEDS: Paliperidone ER TAB* 9 MG TAB.ER PO SCH (21:21)
[2018-02-02 07:24] LABS: EGFR Non-African American 99.8 (>60)
[2018-02-02] MEDS: Benztropine TAB* 1 MG PO SCH (08:38)
[2018-02-02] MEDS: Vitamin THERAPEUTIC TAB PO SCH (08:38)
[2018-02-02] MEDS: Nicotine Inhaler* 10 MG AMP INH PRN (12:44)
--- NOTE | 2018-02-02 13:31 | PN ---
Subjective - Subjective Date of Service: 02/02/18 Service Type: 94952 Hosp care 15 min low complexity Subjective: Anderson is calm and pleasant. His thought process is simplistic and naive, as evidenced by his assertion, made to several staff, that he intends to live here at the hospital in an ongoing fashion. He is taking his medications as directed and is quiet and slightly withdrawn on the unit. SW informs me that he does not officially have an assigned senior care bed yet at [facility]. Anderson denies SI or HI. Objective - Appearance Appearance: Obese Dysmorphic Features: No Hygiene: Normal Grooming: Fairly Well Kept - Behavior Psychomotor Activities: Normal Exhibits Abnormal Movement: No - Attitude and Relatedness Attitude and Relatedness: Cooperative Eye Contact: Good - Speech Quality: Unpressured Latencies: Normal Quantity: Appropriate - Mood Patient's Decription of Mood: "Good" - Affect Observed Affect: Unvariable Affect Consistent with: Euthymia - Thought Process Patient's Thought Process: Impoverished Thought Content: No Passive Wish, No Suicidal Planning, No Homicidal Ideation, No Paranoid Ideation - Sensorium Experiencing Hallucinations: No, Sensorium is Clear Type of Hallucinations: Visual: No, Auditory: No, Command: No - Level of Consciousness Level of Consciousness: Alert Orientation: Yes Intact, Yes Orientated to Time, Yes Orientated to Place, Yes Orientated to Person - Impulse Control Impulse Control: Tenuous - Insight and Judgement Insight and Judgement: Fair - Group Participation Particating in Group Activities: No - Medication Management Medication Management Adherence: Yes Assessment - Assessment Merits Inpatient Hospitalization: Consolidate Improvements, Pending Safe DC Plan Inpatient DSM-V Dx: F25.0 Clinical Impression: 42 y.o. single, male of [place] origin, recently discharged from the [facility], readmitted voluntarily after presenting to the [facility] with reported emotional lability and inability to care for himself. Plan - Plan Treatment Plan: Name: ANDERSON MONTES DE OCA Birthdate: 1975 [id number] The patient is adherent and doing fairly well on his outpatient regimen of paliperidone 9mg PO qhs, benztropine 1mg PO qhs and Depakote 1000mg PO qhs. His baseline is quite low functioning and it's clear he will need a higher level of residential support. I understand the referral to the [facility] has already been initiated and he is pending placement therein. Continue to treat and monitor on the inpatient setting. Medications: Current Medications Acetaminophen (Tylenol Tab*) 650 mg PO Q4H PRN PRN Reason: PAIN or TEMP > 101 F Al Hydrox/Mg Hydrox/Simethicone (Maalox Plus*) 30 ml PO Q4H PRN PRN Reason: INDIGESTION Benztropine Mesylate (Cogentin Tab*) 1 mg PO DAILY [facility] Last Admin: 02/02/18 08:38 Dose: 1 mg Device (Nicotine Mouth Piece*) 1 each INH .CARTRIDGE [facility] Divalproex Sodium (Depakote Er Tab(*)) 1,000 mg PO BEDTIME [facility] Last Admin: 02/01/18 21:21 Dose: 1,000 mg Hydroxyzine HCl (Atarax Tab*) 50 mg PO Q6H PRN PRN Reason: ANXIETY Last Admin: 01/30/18 12:36 Dose: 50 mg Multivitamins (Theragran Tab*) 1 tab PO DAILY [facility] Last Admin: 02/02/18 08:38 Dose: 1 tab Nicotine (Nicotine Inhaler*) 10 mg INH Q2H PRN PRN Reason: CRAVING Last Admin: 02/02/18 12:44 Dose: 10 mg Nicotine Polacrilex (Nicotine Gum*) 2 mg PO Q2H PRN PRN Reason: CRAVING Last Admin: 01/30/18 18:25 Dose: 2 mg Paliperidone (Invega Er Tab*) 9 mg PO BEDTIME [facility] Last Admin: 02/01/18 21:21 Dose: 9 mg Lab Results - Lab Results Lab Results: 02/02/18 02/02/18 06:37 06:37 Sodium 130 L Potassium 4.5 Chloride 95 L Carbon Dioxide 29 Anion Gap 6 BUN 9 Creatinine 0.85 Est GFR ( Amer) 120.8 Est GFR (Non-Af Amer) 99.8 BUN/Creatinine Ratio 10.6 Glucose 126 H Hemoglobin A1c 5.8 H Calcium 9.2 Triglycerides 116 Cholesterol 125 LDL Cholesterol 63 HDL Cholesterol 38.8
[2018-02-02] MEDS: Divalproex ER TAB(*) 500 MG PO SCH (20:22)
[2018-02-02] MEDS: Paliperidone ER TAB* 9 MG TAB.ER PO SCH (20:22)
[2018-02-03] MEDS: Vitamin THERAPEUTIC TAB PO SCH (09:25)
[2018-02-03] MEDS: Benztropine TAB* 1 MG PO SCH (09:25)
[2018-02-03] MEDS: Nicotine Inhaler* 10 MG AMP INH PRN (09:41)
--- NOTE | 2018-02-03 12:07 | PN ---
Subjective - Subjective Date of Service: 02/03/18 Service Type: 73336 Hosp care 15 min low complexity Subjective: Anderson remains cooperative and good natured, however, he continues to demonstrate disorganized and grandiose thinking, as evidenced by statements he makes to the effect that he is now a permanent resident at the hospital and that he invented the nicotine inhaler. I found out through unit [facility] that his custodial referral actually had not been placed by his outpatient providers prior to admission. This means the process is just starting for him and will likely take some time, perhaps even months. Anderson appears unconcerned by this, saying "No, no Doctor, don't worry. I am not impatient to go nowhere." Objective - Appearance Appearance: Obese Dysmorphic Features: No Hygiene: Normal Grooming: Fairly Well Kept - Behavior Psychomotor Activities: Normal Exhibits Abnormal Movement: No - Attitude and Relatedness Attitude and Relatedness: Cooperative Eye Contact: Fair - Speech Quality: Unpressured Latencies: Normal Quantity: Appropriate - Mood Patient's Decription of Mood: "Good" - Affect Observed Affect: Unvariable Affect Consistent with: Euthymia - Thought Process Patient's Thought Process: Circumstantial Thought Content: Yes Paranoid Ideation, No Passive Wish, No Suicidal Planning, No Homicidal Ideation - Sensorium Experiencing Hallucinations: No, Sensorium is Clear Type of Hallucinations: Visual: No, Auditory: No, Command: No - Level of Consciousness Level of Consciousness: Alert Orientation: Yes Intact, Yes Orientated to Time, Yes Orientated to Place, Yes Orientated to Person - Impulse Control Impulse Control: Tenuous - Insight and Judgement Insight and Judgement: Fair - Group Participation Particating in Group Activities: No - Medication Management Medication Management Adherence: Yes Assessment - Assessment Merits Inpatient Hospitalization: Consolidate Improvements, Pending Safe DC Plan Inpatient DSM-V Dx: F25.0 Clinical Impression: 42 y.o. single, male of [place] origin, recently discharged from the [facility], readmitted voluntarily after presenting to the [facility] with reported emotional lability and inability to care for himself. Plan - Plan Treatment Plan: Name: ANDERSON MONTES DE OCA Birthdate: 1975 [id number] The patient still demonstrates mild grandiosity and disorganization on his outpatient regimen of paliperidone 9mg PO qhs, benztropine 1mg PO qhs and Depakote 1000mg PO qhs. We will increase paliperidone to 12mg PO qhs. Continue to treat on an inpatient basis. We will have to discuss how we can increase his outpatient supports until he can move into a custodial, so that he will be safe after discharge. Continued Medication Management: Different Medication Medications: Current Medications Acetaminophen (Tylenol Tab*) 650 mg PO Q4H PRN PRN Reason: PAIN or TEMP > 101 F Al Hydrox/Mg Hydrox/Simethicone (Maalox Plus*) 30 ml PO Q4H PRN PRN Reason: INDIGESTION Benztropine Mesylate (Cogentin Tab*) 1 mg PO DAILY [facility] Last Admin: 02/03/18 09:25 Dose: 1 mg Device (Nicotine Mouth Piece*) 1 each INH .CARTRIDGE MARJ Divalproex Sodium (Depakote Er Tab(*)) 1,000 mg PO BEDTIME [facility] Last Admin: 02/02/18 20:22 Dose: 1,000 mg Hydroxyzine HCl (Atarax Tab*) 50 mg PO Q6H PRN PRN Reason: ANXIETY Last Admin: 01/30/18 12:36 Dose: 50 mg Multivitamins (Theragran Tab*) 1 tab PO DAILY [facility] Last Admin: 02/03/18 09:25 Dose: 1 tab Nicotine (Nicotine Inhaler*) 10 mg INH Q2H PRN PRN Reason: CRAVING Last Admin: 02/03/18 09:41 Dose: 10 mg Nicotine Polacrilex (Nicotine Gum*) 2 mg PO Q2H PRN PRN Reason: CRAVING Last Admin: 01/30/18 18:25 Dose: 2 mg Paliperidone (Invega Er Tab*) 9 mg PO BEDTIME MARJ Last Admin: 02/02/18 20:22 Dose: 9 mg - Discharge Plan Discharge Plan: Inpatient Hospitalization
[2018-02-03] MEDS: Paliperidone ER TAB* 6 MG TAB.ER PO SCH (20:50)
[2018-02-03] MEDS: Divalproex ER TAB(*) 500 MG PO SCH (20:50)
[2018-02-04] MEDS: Vitamin THERAPEUTIC TAB PO SCH (08:55)
[2018-02-04] MEDS: Benztropine TAB* 1 MG PO SCH (08:55)
[2018-02-04] MEDS: Nicotine Inhaler* 10 MG AMP INH PRN (11:05)
--- NOTE | 2018-02-04 12:36 | PN ---
Subjective - Subjective Date of Service: 02/04/18 Service Type: 40193 Hosp care 15 min low complexity Subjective: Anderson is in good spirits. He tolerated his increased dose of paliperidone well and denies side effects. He continues to refer to his room here on the unit as his apartment and is once again educated that he cannot live here indefinitely. His real housing situation remains uncertain. Objective - Appearance Appearance: Obese Dysmorphic Features: No Hygiene: Normal Grooming: Fairly Well Kept - Behavior Psychomotor Activities: Normal Exhibits Abnormal Movement: No - Attitude and Relatedness Attitude and Relatedness: Child Like Eye Contact: Fair - Speech Quality: Unpressured Latencies: Normal Quantity: Terse - Mood Patient's Decription of Mood: "Good" - Affect Observed Affect: Fair Affect Consistent with: Euthymia - Thought Process Patient's Thought Process: Disorganized Thought Content: Yes Paranoid Ideation, No Passive Wish, No Suicidal Planning, No Homicidal Ideation - Sensorium Experiencing Hallucinations: No, Sensorium is Clear Type of Hallucinations: Visual: No, Auditory: No, Command: No - Level of Consciousness Level of Consciousness: Alert Orientation: Yes Intact, Yes Orientated to Time, Yes Orientated to Place, Yes Orientated to Person - Impulse Control Impulse Control: Tenuous - Insight and Judgement Insight and Judgement: Fair - Group Participation Particating in Group Activities: No - Medication Management Medication Management Adherence: Yes Assessment - Assessment Merits Inpatient Hospitalization: Consolidate Improvements, Pending Safe DC Plan Inpatient DSM-V Dx: F25.0 Clinical Impression: 42 y.o. single, male of [place] origin, recently discharged from the [facility], readmitted voluntarily after presenting to the [facility] with reported emotional lability and inability to care for himself. Plan - Plan Treatment Plan: Name: ANDERSON MONTES DE OCA Birthdate: 1975 [id number] The patient still demonstrates mild grandiosity and disorganization on his outpatient regimen of paliperidone 9mg PO qhs, benztropine 1mg PO qhs and Depakote 1000mg PO qhs. We have increased paliperidone to 12mg PO qhs. Continue to treat on an inpatient basis. Will target early next week for discharge. Continued Medication Management: Continue Outpt Medication Medications: Current Medications Acetaminophen (Tylenol Tab*) 650 mg PO Q4H PRN PRN Reason: PAIN or TEMP > 101 F Al Hydrox/Mg Hydrox/Simethicone (Maalox Plus*) 30 ml PO Q4H PRN PRN Reason: INDIGESTION Benztropine Mesylate (Cogentin Tab*) 1 mg PO DAILY [facility] Last Admin: 02/04/18 08:55 Dose: 1 mg Device (Nicotine Mouth Piece*) 1 each INH .CARTRIDGE [facility] Divalproex Sodium (Depakote Er Tab(*)) 1,000 mg PO BEDTIME [facility] Last Admin: 02/03/18 20:50 Dose: 1,000 mg Hydroxyzine HCl (Atarax Tab*) 50 mg PO Q6H PRN PRN Reason: ANXIETY Last Admin: 01/30/18 12:36 Dose: 50 mg Multivitamins (Theragran Tab*) 1 tab PO DAILY [facility] Last Admin: 02/04/18 08:55 Dose: 1 tab Nicotine (Nicotine Inhaler*) 10 mg INH Q2H PRN PRN Reason: CRAVING Last Admin: 02/04/18 11:05 Dose: 10 mg Nicotine Polacrilex (Nicotine Gum*) 2 mg PO Q2H PRN PRN Reason: CRAVING Last Admin: 01/30/18 18:25 Dose: 2 mg Paliperidone (Invega Er Tab*) 12 mg PO BEDTIME [facility] Last Admin: 02/03/18 20:50 Dose: 12 mg - Discharge Plan Discharge Plan: Inpatient Hospitalization
--- NOTE | 2018-02-04 13:06 | PN ---
MHU: Group Therapy Note - Service Type Service Type: 12025 Group Psychotherapy - Cognitive Behavioral Group Note: Anderson was attentive and participatory in programming. He pleasantly engaged in discussion, but concerns regarding expansive mood and disorganized thinking remain apparent.
--- NOTE | 2018-02-04 15:57 | PN ---
MHU: Group Therapy Note - Service Type Service Type: [id number] Group Psychotherapy - Group Participation Patient Participating in Group: Yes Level of Group Participation: Attentive, Spontaneously Participate Relatedness to Group: Well Related - Anderson was excited to participate in the group. His answers to questions were on topic.
[2018-02-04] MEDS: Paliperidone ER TAB* 6 MG TAB.ER PO SCH (21:18)
[2018-02-04] MEDS: Divalproex ER TAB(*) 500 MG PO SCH (21:18)
[2018-02-05] MEDS: Benztropine TAB* 1 MG PO SCH (09:04)
[2018-02-05] MEDS: Vitamin THERAPEUTIC TAB PO SCH (09:04)
[2018-02-05] MEDS: Nicotine Inhaler* 10 MG AMP INH PRN (12:20)
--- NOTE | 2018-02-05 14:45 | PN ---
Subjective - Subjective Date of Service: 02/05/18 Service Type: 41380 Hosp care 15 min low complexity Subjective: Anderson remains in good spirits. He is tolerating the recent increase in his paliperidone well and is better organized and more on-topic today than usual. He continues to deny SI or HI. He makes no spontaneous delusional or grandiose comments. Objective - Appearance Appearance: Well Developed/Nourished Dysmorphic Features: No Hygiene: Normal Grooming: Fairly Well Kept - Behavior Psychomotor Activities: Normal Exhibits Abnormal Movement: No - Attitude and Relatedness Attitude and Relatedness: Cooperative Eye Contact: Fair - Speech Quality: Unpressured Latencies: Normal Quantity: Terse - Mood Patient's Decription of Mood: "Good" - Affect Observed Affect: Good Affect Consistent with: Euthymia - Thought Process Patient's Thought Process: Impoverished Thought Content: No Passive Wish, No Suicidal Planning, No Homicidal Ideation, No Paranoid Ideation - Sensorium Experiencing Hallucinations: No, Sensorium is Clear Type of Hallucinations: Visual: No, Auditory: No, Command: No - Level of Consciousness Level of Consciousness: Alert Orientation: Yes Intact, Yes Orientated to Time, Yes Orientated to Place, Yes Orientated to Person - Impulse Control Impulse Control: Tenuous - Insight and Judgement Insight and Judgement: Fair - Group Participation Particating in Group Activities: Yes - Medication Management Medication Management Adherence: Yes Assessment - Assessment Merits Inpatient Hospitalization: Consolidate Improvements, Pending Safe DC Plan Inpatient DSM-V Dx: F25.0 Clinical Impression: 42 y.o. single, male of [place] origin, recently discharged from the [facility], readmitted voluntarily after presenting to the [facility] with reported emotional lability and inability to care for himself. Plan - Plan Treatment Plan: Name: ANDERSON MONTES DE OCA Birthdate: 1975 [id number] The is improving on paliperidone 12mg PO qhs, which was increased from the outpatient dose of 9mg, benztropine 1mg PO qhs and Depakote 1000mg PO qhs. Will check BMP and VPA level on Thursday, February 08. Target discharge for that day. Continued Medication Management: Continue Outpt Medication Medications: Current Medications Acetaminophen (Tylenol Tab*) 650 mg PO Q4H PRN PRN Reason: PAIN or TEMP > 101 F Al Hydrox/Mg Hydrox/Simethicone (Maalox Plus*) 30 ml PO Q4H PRN PRN Reason: INDIGESTION Benztropine Mesylate (Cogentin Tab*) 1 mg PO DAILY [facility] Last Admin: 02/05/18 09:04 Dose: 1 mg Device (Nicotine Mouth Piece*) 1 each INH .CARTRIDGE [facility]J Divalproex Sodium (Depakote Er Tab(*)) 1,000 mg PO BEDTIME MARJ Last Admin: 02/04/18 21:18 Dose: 1,000 mg Hydroxyzine HCl (Atarax Tab*) 50 mg PO Q6H PRN PRN Reason: ANXIETY Last Admin: 01/30/18 12:36 Dose: 50 mg Multivitamins (Theragran Tab*) 1 tab PO DAILY [facility] Last Admin: 02/05/18 09:04 Dose: 1 tab Nicotine (Nicotine Inhaler*) 10 mg INH Q2H PRN PRN Reason: CRAVING Last Admin: 02/05/18 12:20 Dose: 10 mg Nicotine Polacrilex (Nicotine Gum*) 2 mg PO Q2H PRN PRN Reason: CRAVING Last Admin: 01/30/18 18:25 Dose: 2 mg Paliperidone (Invega Er Tab*) 12 mg PO BEDTIME [facility] Last Admin: 02/04/18 21:18 Dose: 12 mg - Discharge Plan Discharge Plan: Outpatient Follow Up Outpatient Program: [facility]
[2018-02-05] MEDS: Paliperidone ER TAB* 6 MG TAB.ER PO SCH (20:49)
[2018-02-05] MEDS: Divalproex ER TAB(*) 500 MG PO SCH (20:49)
[2018-02-06] MEDS: Benztropine TAB* 1 MG PO SCH (08:44)
[2018-02-06] MEDS: Vitamin THERAPEUTIC TAB PO SCH (08:44)
[2018-02-06] MEDS: hydrOXYzine HCL TAB* 50 MG PO PRN (09:21)
[2018-02-06] MEDS: Divalproex ER TAB(*) 500 MG PO SCH (20:09)
[2018-02-06] MEDS: Paliperidone ER TAB* 6 MG TAB.ER PO SCH (20:09)
[2018-02-07] MEDS: Vitamin THERAPEUTIC TAB PO SCH (09:30)
[2018-02-07] MEDS: Benztropine TAB* 1 MG PO SCH (09:30)
[2018-02-07] MEDS: hydrOXYzine HCL TAB* 50 MG PO PRN (11:17)
[2018-02-07] MEDS: Nicotine Inhaler* 10 MG AMP INH PRN (14:14)
[2018-02-07] MEDS: Paliperidone ER TAB* 6 MG TAB.ER PO SCH (20:55)
[2018-02-07] MEDS: Divalproex ER TAB(*) 500 MG PO SCH (20:56)
[2018-02-08 07:42] LABS: EGFR Non-African American 104.1 (>60)
[2018-02-08] MEDS: Vitamin THERAPEUTIC TAB PO SCH (09:26)
[2018-02-08] MEDS: Benztropine TAB* 1 MG PO SCH (09:26)
--- NOTE | 2018-02-08 13:13 | PN ---
Subjective - Subjective Date of Service: 02/08/18 Service Type: 68816 Hosp care 15 min low complexity Subjective: Anderson had had a relatively uneventful weekend until yesterday, Thursday, in which he received a new roommate, also a male. Reportedly Anderson was extremely unfriendly and is described as bullying the young man. He was screaming bizarre accusations that the roommate had "stole all the oxygen in the room." Today Anderson has no, or admits to no, recollection of these events. He is smiling broadly, saying "Hello Doctor...[facility] [address] Anderson is informed that we need to postpone this until after tomorrow's SPOA meeting and he does not protest this much. He denies AH, SI or HI. Objective - Appearance Appearance: Obese Dysmorphic Features: No Hygiene: Normal Grooming: Fairly Well Kept - Behavior Psychomotor Activities: Normal Exhibits Abnormal Movement: No - Attitude and Relatedness Attitude and Relatedness: Cooperative Eye Contact: Fair - Speech Quality: Unpressured Latencies: Normal Quantity: Appropriate - Mood Patient's Decription of Mood: "Good" - Affect Observed Affect: Good Affect Consistent with: Euthymia - Thought Process Patient's Thought Process: Circumstantial Thought Content: No Passive Wish, No Suicidal Planning, No Homicidal Ideation, No Paranoid Ideation - Sensorium Experiencing Hallucinations: No, Sensorium is Clear Type of Hallucinations: Visual: No, Auditory: No, Command: No - Level of Consciousness Level of Consciousness: Alert Orientation: Yes Intact, Yes Orientated to Time, Yes Orientated to Place, Yes Orientated to Person - Impulse Control Impulse Control: Tenuous - Insight and Judgement Insight and Judgement: Fair - Group Participation Particating in Group Activities: No - Medication Management Medication Management Adherence: Yes Assessment - Assessment Merits Inpatient Hospitalization: Consolidate Improvements, Pending Safe DC Plan Inpatient DSM-V Dx: F25.0 Clinical Impression: 42 y.o. single, male of [place] origin, recently discharged from the [facility], readmitted voluntarily after presenting to the [facility] with reported emotional lability and inability to care for himself. Plan - Plan Treatment Plan: Name: ANDERSON MONTES DE OCA Birthdate: 1975 [id number] The is improving on paliperidone 12mg PO qhs, which was increased from the outpatient dose of 9mg, benztropine 1mg PO qhs and Depakote 1000mg PO qhs. Target discharge for February 10. Continued Medication Management: Continue Outpt Medication Medications: Current Medications Acetaminophen (Tylenol Tab*) 650 mg PO Q4H PRN PRN Reason: PAIN or TEMP > 101 F Al Hydrox/Mg Hydrox/Simethicone (Maalox Plus*) 30 ml PO Q4H PRN PRN Reason: INDIGESTION Benztropine Mesylate (Cogentin Tab*) 1 mg PO DAILY [facility] Last Admin: 02/08/18 09:26 Dose: 1 mg Device (Nicotine Mouth Piece*) 1 each INH .CARTRIDGE MARJ Divalproex Sodium (Depakote Er Tab(*)) 1,000 mg PO BEDTIME [facility] Last Admin: 02/07/18 20:56 Dose: 1,000 mg Hydroxyzine HCl (Atarax Tab*) 50 mg PO Q6H PRN PRN Reason: ANXIETY Last Admin: 02/07/18 11:17 Dose: 50 mg Multivitamins (Theragran Tab*) 1 tab PO DAILY [facility] Last Admin: 02/08/18 09:26 Dose: 1 tab Nicotine (Nicotine Inhaler*) 10 mg INH Q2H PRN PRN Reason: CRAVING Last Admin: 02/07/18 14:14 Dose: 10 mg Nicotine Polacrilex (Nicotine Gum*) 2 mg PO Q2H PRN PRN Reason: CRAVING Last Admin: 01/30/18 18:25 Dose: 2 mg Paliperidone (Invega Er Tab*) 12 mg PO BEDTIME MARJ Last Admin: 02/07/18 20:55 Dose: 12 mg - Discharge Plan Discharge Plan: Outpatient Follow Up Outpatient Program: [facility] Lab Results - Lab Results Lab Results: 02/08/18 07:02 Sodium 134 L Potassium 4.6 Chloride 97 L Carbon Dioxide 30 Anion Gap 7 BUN 8 Creatinine 0.82 Est GFR ( Amer) 125.9 Est GFR (Non-Af Amer) 104.1 BUN/Creatinine Ratio 9.8 Glucose 121 H Calcium 9.6 Valproic Acid 65.0
[2018-02-08] MEDS: Divalproex ER TAB(*) 500 MG PO SCH (21:28)
[2018-02-08] MEDS: Paliperidone ER TAB* 6 MG TAB.ER PO SCH (21:28)
[2018-02-09] MEDS: Benztropine TAB* 1 MG PO SCH (08:59)
[2018-02-09] MEDS: Vitamin THERAPEUTIC TAB PO SCH (08:59)
[2018-02-09] MEDS: Paliperidone ER TAB* 6 MG TAB.ER PO SCH (20:43)
[2018-02-09] MEDS: hydrOXYzine HCL TAB* 50 MG PO PRN (20:43)
[2018-02-09] MEDS: Divalproex ER TAB(*) 500 MG PO SCH (20:43)
[2018-02-10 08:32] VITALS: BP 123/72
[2018-02-10] MEDS: Nicotine Inhaler* 10 MG AMP INH PRN (09:38)
[2018-02-10] MEDS: Benztropine TAB* 1 MG PO SCH (09:38)
[2018-02-10] MEDS: Vitamin THERAPEUTIC TAB PO SCH (09:38)
--- NOTE | 2018-02-10 23:00 | DS ---
DISCHARGE SUMMARY: DATE OF ADMISSION: 01/29/18 DATE OF DISCHARGE: 02/10/18 DISCHARGE DIAGNOSES: Troy I: Schizoaffective disorder, bipolar type. Troy II: Deferred. CONDITION AT THE TIME OF DISCHARGE: Stable. The patient is calm and cooperative. He has been safe on all checks. He has been adhering to milieu expectations going to groups, socializing with staff and peers. The patient is very much future oriented stating that he would like to return to his apartment in the community and looks forward to being placed into a more structured therapeutic custodial. The patient understands that he will have to temporarily live in his supported apartment until such a change in residency status can be established. The patient is tolerating his medications well including an increase in his paliperidone antipsychotic dose. He is agreeable with intensive outpatient followup through the [facility] program at the [facility]. MENTAL STATUS EXAM AT THE TIME OF DISCHARGE: Anderson is a somewhat overweight male with wispy thinning brown hair and brown eyes who is clean, somewhat well-groomed. He is calm and cooperative, makes good eye contact and an easy to establish a rapport with. Speech is fluent. Urdu with a heavy [place] accent. Mood is euthymic with a full affect. Thought process is linear and goal directed. Thought content is significant for his desire to be discharged from the hospital. He is denying auditory or visual hallucinations. He denies suicidal or homicidal ideations. Insight and judgement are fair given his willingness to follow up with [facility] after discharge. Cognitively, he is awake and alert with would appear to be an average intellect. LABORATORY DATA: Metabolic testing was performed on 02/02/18. His Hemoglobin A1c was elevated at 5.8%. Triglycerides 116, cholesterol 125, LDL cholesterol 63, HDL cholesterol 38.8. DISCHARGE INSTRUCTIONS TO THE PATIENT: A. Medications: He takes: 1. Paliperidone 12 mg p.o. q.h.s. 2. Depakote 1000 mg p.o. q.h.s. 3. Benztropine 1 mg p.o. q.h.s. B. Diet: Regular. C. Activities: The patient is strongly encouraged to reduce water and fluid intake given his low sodium levels. He is a smoker; however, he is declining our offer of continuing the nicotine replacement therapies that he has received here in the hospital. Nonetheless, he is granted the [place] Smoker's quit line at [phone] in the event that he would like to stop smoking. There are no laboratory or diagnostic studies pending at the time of discharge. D. Followup care: The patient will follow up tomorrow, 02/11/18, at the [facility] where he receives intensive treatment through the [facility] program. E. Substance abuse followup: Nonapplicable. HOSPITAL COURSE: Part A: Reason for admission: The patient is a 42-year-old single never- white male originally from the [place] who returns to the hospital having been brought in by the [facility] because of what they described as manic, bizarre and unpredictable behavior. The patient had been discharged earlier in January from the [facility] following a similar episode, now he returns because of his bizarre behavior in the community particularly at the mental health clinic. He continues to endorse paranoid ideations that construction workers across the street from his apartment building had been persecuting him. We have received no corroboration through the [facility] that this is true. There is an acknowledgement amongst community stake holders that Anderson is insufficiently served through the [facility] and that he really needs a higher level of residential supervision instructor. For this reason, a application has already been filed in the outpatient setting and we are awaiting a bed for him in the [facility]. Nonetheless , in the intervening time, the patient has struggled to meet his own needs in the community and presented to our hospital with clear deficits in his ability to care for himself and was therefore admitted. Part B: Psychiatric treatment rendered: The patient was admitted to the adult behavioral health unit where he was placed on q.15-minute checks for his own safety and we resumed his outpatient treatment in Invega, Depakote and benztropine. The patient almost immediately felt very comfortable and very well -behaved on our unit. We did not see initially any of the agitated behavior that had been described in the outpatient setting. Nonetheless, he did seem to be distractible and disorganized. In particular, he made multiple statements to the effect that he thought that the hospital was his true home and that he would be living here indefinitely. We increased his paliperidone from 9 mg to 12 mg nightly and he tolerated this well. He did have one behavioral outburst on 02/07/18, when a new roommate moved into his room. He immediately became agitated complaining that the roommate was "stealing all the oxygen from the room." This resulted in us keep him a few extra days to make sure that he reconsolidated. Thereafter, he was extremely well behaved, alert, active on the unit. His affect is quite bright at this time and he feels ready for discharge and he is denying that construction workers are harming him in any way. We have had contact with [facility] and they remain interested in moving him into [facility]; however, they still did not have a bed available. At this time, he is in good condition and we see no barriers to him receiving treatment effectively in the outpatient setting. [id number]/CPS #: [id number] KAMALJIT
== END 2018-02-10 13:20 | disposition home or self-care (01) | DRG 750 ==
LOC: ED 12:11 → BSU 20:59
PROVIDERS: ADMIT Psychiatry & Neurology Psychiatry; ATTEND Psychiatry & Neurology Psychiatry
PROC: GZHZZZZ Group Psychotherapy (ICD-10-PCS; principal; 2018-02-04)
DX: F25.0 Schizoaffective disorder, bipolar type (principal); E87.1 Hypo-osmolality and hyponatremia; F42.9 Obsessive-compulsive disorder, unspecified; F17.210 Nicotine dependence, cigarettes, uncomplicated; E66.9 Obesity, unspecified; F43.22 Adjustment disorder with anxiety; Z88.8 Allergy status to other drugs, medicaments and biological substances; Z72.89 Other problems related to lifestyle; Z83.3 Family history of diabetes mellitus; Z81.8 Family history of other mental and behavioral disorders; Z68.35 Body mass index [BMI] 35.0-35.9, adult
CPT/HCPCS: 36415; 80048; 80053; 80061; 80164; 80307; 80320; 80329; 81003; 83036; 84443; 85025; 90853; 99222; 99231; 99238; 99285; A9270-GY; G0480

== ENCOUNTER 2018-04-18 07:44 | Inpatient (IN) | payer OTHER ==
--- NOTE | 2018-04-18 08:06 | ED ---
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 The patient rates the pain 0/10 in severity. Symptoms aggravated by running out of medication. Symptoms alleviated by nothing. Patient reports difficulty sleeping and decreased appetite. Patient denies hallucinations, depression, SI, and HI. He reports the devil is stealing from him and has been taking money out of his cards. He reports the devil is stealing all his medications. - History Of Current Complaint Time Seen by Provider: 04/18/18 07:50 Hx Obtained From: Patient Onset/Duration: Sudden Onset Timing: Constant Severity Initially: Mild Severity Currently: Mild Aggravating Factor(s): Other - running out of medication Alleviating Factor(s): Nothing Associated Signs And Symptoms: Positive: Sleep Disturbance, Appetite Change. Negative: Hallucinating Related History: Positive For: Prior Psychiatric Issues Has Suicidal: Denies: Thoughts Has Homicidal: Denies: Thoughts - Allergies/Home Medications Allergies/Adverse Reactions: Allergies Allergy/AdvReac Type Severity Reaction Status Date / Time clonazepam Allergy Unknown Verified 04/18/18 08:03 Reaction Details PMH/Surg Hx/FS Hx/Imm Hx Previously Healthy: No Endocrine/Hematology History: Reports: Other Endocrine/Hematological Disorders - Hx hyponatremia r/t psychogenic polydipsia Denies: Hx Anticoagulant Therapy, Hx Diabetes Cardiovascular History: Denies: Hx Hypertension Respiratory History: Denies: Hx Asthma Sensory History: Denies: Hx Contacts or Glasses, Hx Hearing Aid Opthamlomology History: Denies: Hx Contacts or Glasses Psychiatric History: Reports: Hx [place] [facility] [place] Hx Community Mental Health Tx, Hx Schizophrenia, Hx Bipolar Disorder, Other Psychiatric Issues/ Disorders - OCD Denies: Hx Eating Disorder, Hx of Violent Episodes Against Others - Surgical History Surgery Procedure, Year, and Place: n/a - Family History Known Family History: Positive: Diabetes - grandfather - Social History Occupation: Unemployed Lives: Alone Alcohol Use: Occasionally Hx Substance Use: No Substance Use Type: Reports: None Hx Tobacco Use: Yes Smoking Status (MU): Heavy Every Day Tobacco Smoker Type: Cigarettes Amount Used/How Often: 1 ppd Length of Time of Smoking/Using Tobacco: 15+ years Have You Smoked in the Last Year: Yes Review of Systems Positive: Other - Positive decreased appetite Psychological: Other - Positive difficulty sleeping. Negative hallucinations, SI , and HI Negative: Depressed All Other Systems Reviewed And Are Negative: Yes Physical Exam - Summary Physical Exam Summary: VITAL SIGNS: Reviewed. GENERAL: Patient is a well-developed and nourished male who is lying comfortable in the stretcher. Patient is not in any acute respiratory distress. HEAD AND FACE: No signs of trauma. No ecchymosis, hematomas or skull depressions. No sinus tenderness. EYES: PERRLA, EOMI x 2, No injected conjunctiva, no nystagmus. EARS: Hearing grossly intact. Ear canals and tympanic membranes are within normal limits. MOUTH: Oropharynx within normal limits. NECK: Supple, trachea is midline, no adenopathy, no JVD, no carotid bruit, no c- spine tenderness, neck with full ROM. CHEST: Symmetric, no tenderness at palpation LUNGS: Clear to auscultation bilaterally. No wheezing or crackles. CVS: Regular rate and rhythm, S1 and S2 present, no murmurs or gallops appreciated. ABDOMEN: Soft, non-tender. No signs of distention. No rebound no guarding, and no masses palpated. Bowel sounds are normal. EXTREMITIES: FROM in all major joints, no edema, no cyanosis or clubbing. NEURO: Alert and oriented x 3. No acute neurological deficits. Speech is normal and follows commands. SKIN: Dry and warm PSYCH: Denies any suicidal thoughts or plan. No homicidal thoughts or plan. Psychosis. Tangential speech. Persecutory delusion Triage Information Reviewed: Yes Vital Signs Reviewed: Yes Diagnostics - Laboratory Result Diagrams: 04/18/18 08:14 04/21/18 07:57 Lab Statement: Any lab studies that have been ordered have been reviewed, and results considered in the medical decision making process. 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 The patient rates the pain 0/10 in severity. Symptoms aggravated by running out of medication. Symptoms alleviated by nothing. Patient reports difficulty sleeping and decreased appetite. Patient denies hallucinations, depression, SI, and HI. He reports the devil is stealing from him and has been taking money out of his cards. He reports the devil is stealing all his medications. Blood work without any significant abnormality except for a slight hyponatremia. The patient has history of hyponatremia. I discussed with Dr. Barron on the hospitalist services and she doesnt patient is having the symptoms secondary to the hyponatremia. She recommends IV fluids. At this time the patient is medically clear. He is hemodynamically stable. The patient was awaiting for mental health evaluation. - Differential Dx/Clinical Impression Differential Diagnosis/HQI/PQRI: Positive: Acute Psychosis Provider Diagnosis: Unspecified psychosis - Physician Notifications Instructed by Provider To: Other - Per [facility] patient is diagnosed with unspecified psychosis and will be admitted via 939 Discharge - Sign-Out/Discharge Documenting (check all that apply): Patient Departure - Discharge Plan Condition: Stable Disposition: [facility]IATRIC [place] [place] - Billing Disposition and Condition Condition: STABLE Disposition: Psychiatric Facility [facility] [place] - Attestation Statements Document Initiated by Scribe: Yes Documenting Scribe: Leora Mata Provider For Whom Scribe is Documenting (Include Credential): Angel Guevara MD Scribe Attestation: ILeora, scribed for Angel Guevara MD on 04/23/18 at 2118. Scribe Documentation Reviewed: Yes Provider Attestation: The documentation as recorded by the Leora hansen accurately reflects the service I personally performed and the decisions made by me, Angel Guevara MD
[2018-04-18 08:21] LABS: ABS Basophils 0.1 10^3/ul (0-0.2); ABS Eosinophils 0 10^3/ul (0-0.6); ABS Lymphocytes 1.2 10^3/ul (1.0-4.8); ABS Monocytes 0.8 10^3/ul (0-0.8); ABS Neutrophils 7.4 10^3/ul (1.5-7.7); ABS Nucleated RBC 0 10^3/ul; Eosinophil % 0.3 % (0-6); Hematocrit 44 % (42-52); Hemoglobin 15.4 g/dl (14.0-18.0); Lymphocyte % 12.3 % (25-47); Mean Corpuscular HGB Conc 35 g/dl (31-36); Mean Corpuscular Hemoglobin 30 pg (27-31); Mean Corpuscular Volume 86 fL (80-94); Mean Platelet Volume 6.1 um3 (7.4-10.4); Nucleated Red Blood Cells % 0.1; Platelet Count 376 10^3/ul (150-450); Red Blood Count 5.09 10^6/ul (4.00-5.40); Red Cell Distribution Width 14 % (10.5-15); White Blood Count 9.5 10^3/ul (3.5-10.8)
[2018-04-18 08:38] LABS: EGFR Non-African American 97.2 (>60)
[2018-04-18] MEDS ORDERED: NS 0.9% 1000 ML* 1,000 ML IV ONE (08:55)
[2018-04-18 09:47] LABS: Urine Appearance Clear; Urine Blood Negative (Negative); Urine Color Yellow; Urine Ketones Negative (Negative); Urine Protein Negative (Negative); Urine Specific Gravity 1.005 (1.010-1.030); Urine Urobilinogen Negative (Negative)
[2018-04-18] MEDS ORDERED: Sodium Bicarbonate (ANTACID)* 650 MG TAB PO ONE (15:44)
[2018-04-18] MEDS ORDERED: Mouth Piece, Nicotine* 1 EACH CARTRIDGE INH SCH (20:12)
[2018-04-18] MEDS ORDERED: Acetaminophen TAB* 325 MG PO PRN (20:12)
[2018-04-18] MEDS ORDERED: Nicotine GUM* 2 MG PO PRN (20:12)
[2018-04-18] MEDS ORDERED: Al Hydrox/Mg Hydrox/Simet LIQ* 30 ML UDC PO PRN (20:12)
[2018-04-18] MEDS: Paliperidone ER TAB* 6 MG TAB.ER PO SCH (21:30)
[2018-04-18] MEDS: Divalproex ER TAB(*) 500 MG PO SCH (21:30)
[2018-04-18] MEDS: Benztropine TAB* 1 MG PO SCH (21:30)
[2018-04-18] MEDS: Nicotine Inhaler* 10 MG AMP INH PRN (21:30)
[2018-04-19] MEDS: Vitamin THERAPEUTIC TAB PO SCH (14:53)
--- NOTE | 2018-04-19 15:06 | HP ---
PSYCHIATRIC HISTORY AND PHYSICAL: DATE OF ADMISSION: 04/18/18 JUSTIFICATION FOR ADMISSION: The patient is in need 24-hour supervision and care secondary to psycho tic behavior and inability to care for himself in an outpatient environment. CHIEF COMPLAINT: "The devil is outside of my house and watching me. He is watching inside me, but I am a good person, I believe in God. The devil wants to destroy all people that are good." HISTORY OF PRESENT ILLNESS: The patient is a 42-year-old single male with a history of schi zoaffective disorder and OCD, who arrived at the hospital on a voluntary basis seeking resumption of his psychiatric medications, which he stated he had recently run out of. While he was being evaluate d by the emergency room physician, he was noted to have auditory hallucinations and to be responding to internal stimuli. At times, he was tearful and upset and voiced significant psychotic thoughts of people watching him. It was also noted that he had a recurrence of psychogenic polydipsia with sodi um levels significantly low at 126. The patient's hands were chapped revealing extensive handwashing secondary to poorly controlled OCD symptoms. It was felt that he was unlikely to be able to care for himself in the less restrictive setting and therefore he was admitted on a 9.39 status. When I meet with him, he is disheveled with cracked, bleeding and chapped skin on his hands. He is clearly resp onding to internal stimuli. I spoke with our unit vp digital marketing social media and crm, who has been following his case at the local SPOA meeting. It appears that Mr. Suarez has been awaiting more supported housing in [facility] setting; however, he has remained in his single occupancy apartment and not doing well in th is highly independent setting. He denies suicidal or homicidal ideations at this time. PAST PSYCHIATRIC HISTORY: Significant for both OCD and schizophrenia, having started to experience m ental health issues in his 22 when he was a college student in the [place]. He has a hist ory of several admissions at [facility] including in January 2010, June 2017, and two adm issions recently in January of 2018. He also had a psychiatric hospitalization in August of 2017 at [facility] as well as another hospitalization in [place] when he was visiting h is brother in 2005. 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 He has had at least one psychiatric hospital ization in the [place], which was apparently in the spring. Previous psychiatric medications have included risperidone, clozapine, and Depakote. Most recently, he is supposed to be on a regimen of Depakote, benztropine, and paliperidone. The patient received outpatient psychiatric services at the [facility]. SUBSTANCE ABUSE HISTORY: Significant for mild alcohol usage, he does smoke approximately 1 pack of c igarettes per day, and denies any history of illicit drugs. PAST SURGICAL HISTORY: Significant for psychogenic polydipsia and recurrent hypoglycemia. MEDICATIONS: Include: 1. Benztropine 1 mg daily. 2. Depakote ER 1000 mg at nighttime. 3. Invega 12 mg p.o. q.h.s. ALLERGIES: He states that he is allergic to CLONAZEPAM. FAMILY HISTORY: The patient has a great grandmother on his father's side that was diagnosed with bip olar disorder. There are no known suicides in the family. SOCIAL HISTORY: The patient was born here in [place] while his [place] father was a student at [employer]. His family was intact and his mother apparently was of [place] descent. The family returned to [facility] after his father finished his studies and the patient was approximatel y 4 years old at that time. Most of his life in fact was spent in the [place]. Interestin gly, the patient has made at least 3 prior trips to [place] usually against his family's wishes and ev kamala time he has stated his intention to get enrolled in [employer]. He [place] in [place] The patient has never been . He h as no children. Because he was born in the [place], he [place]. He was raised Oriental Orthodox but is not currently practicing. He has never been in the an d has no history of legal problems. Most recently, he has been residing in a [facility] and his social and human services assistant and mental health treatment through [facility]. REVIEW OF SYSTEMS: The patient is complaining of fatigue and chapped painful hands. Other than this , he denies headache, double vision, sore throat, cough, chest pain, difficulty breathing. He denies abdominal pain, nausea, vomiting, diarrhea, or constipation. He denies difficulty ambulating, colunga es in weight, fever, rashes, or enlarged lymph nodes. PHYSICAL EXAMINATION VITAL SIGNS: Blood pressure 136/99, heart rate elevated at 119, temperature is 97.8 degrees Fahrenhe it, respiratory rate 16, oxygen saturations are 100% on room air. MENTAL STATUS EXAM: The patient is an overweight, middle-aged, male with wispy brown hair who is dressed in orange [place] [employer] shirt with somewhat limited grooming. He is lying flat on his bed, but makes fairly good eye contact. He immediately recognizes me and is calm, cooperative, and polite. His speech is broken Syrian, although it is clear that he understands my questions. Juice gray appears to be anxious with somewhat blunted affect. Thought process is simplistic and somewhat c ircumstantial. Thought content is significant for his desire to be admitted to the hospital and [place] [facility] [place]. He denies suicidal or homicidal ideations. Although he denies auditory or visual hallucinations, he does appear to be responding to internal stimuli. Insight and judgment are fair given his willingness to come to the hospital for treatment. Cognitively, he is awake and aler t with what would appear to be an average intellect. LABORATORY DATA: Complete blood count is within normal limits. Complete metabolic panel shows that his sodium is abnormally low at 126, chloride also abnormally low at 95, glucose is elevated at 141. TSH normal at 1.32. Urinalysis is within normal limits with the exception of a specific gravity of 1.005, which is quite low. Urine drug screen is negative for all substances tested including alcohol . DIAGNOSES: [place] I: Schizophrenia, obsessive compulsive disorder. [place] II: Deferred. ASSESSMENT: The patient is a 42-year-old single male, dual citizen of the [place], who has a history of both schizophrenia and obsessive compulsive disorder, who a rrived at the hospital seeking resumption of his medications stating that he had not been eating or t aking medications while being hold up in his local apartment due to severe paranoia that people are w atching him and that the devil is persecuting him. My understanding is that he has had a hard time g etting re-housed from his independent apartment to a more supportive group setting, which would certa inly be indicated given his low level of functioning. We certainly are going to need to address this during hospitalization. PLAN: The patient is admitted to the adult behavioral health unit and placed on q.15-minute checks f or his own safety. I have already asked the staff to monitor his water consumption as well as his taylor nd washing to reduce both in frequency and intensity. We have resumed his medications including esther tropine, Depakote, and paliperidone and will be ordering an updated valproic acid level to try to get a sense of how adherent he has been with medications leading up to admission. We will try and get i n touch with [facility] to see if they have any further collateral informat ion and most importantly, we need to reach out to [facility] to see if he can be housed in a more suppo rtive supervised environment. [id number]/CPS #: [id number]
[2018-04-19] MEDS: Benztropine TAB* 1 MG PO SCH (22:07)
[2018-04-19] MEDS: Divalproex ER TAB(*) 500 MG PO SCH (22:07)
[2018-04-19] MEDS: Nicotine Inhaler* 10 MG AMP INH PRN (22:07)
[2018-04-19] MEDS: Paliperidone ER TAB* 6 MG TAB.ER PO SCH (22:07)
[2018-04-20] MEDS: Vitamin THERAPEUTIC TAB PO SCH (10:51)
--- NOTE | 2018-04-20 11:49 | PN ---
Subjective - Subjective Date of Service: 04/20/18 Service Type: 44654 Hosp care 15 min low complexity Subjective: Anderson is in good spirits, going to groups, visible in the milieu with fair grooming. He remains delusional and somewhat grandiose, believing that he is a leader here on the unit and giving people new names such as calling one of the nurses "Lee Ann." He is adherent with medications and his therapeutic valproate level yesterday afternoon indicates that he was so on an outpatient basis leading up to this hospitalization. He denies SI or HI. Objective - Appearance Appearance: Well Developed/Nourished Dysmorphic Features: No Hygiene: Normal Grooming: Fairly Well Kept - Behavior Psychomotor Activities: Normal Exhibits Abnormal Movement: No - Attitude and Relatedness Attitude and Relatedness: Cooperative Eye Contact: Fair - Speech Quality: Unpressured Latencies: Normal Quantity: Terse - Mood Patient's Decription of Mood: "Great" - Affect Observed Affect: Fair Affect Consistent with: Euthymia - Thought Process Patient's Thought Process: Disorganized, Circumstantial Thought Content: Yes Paranoid Ideation, No Passive Wish, No Suicidal Planning, No Homicidal Ideation - Sensorium Experiencing Hallucinations: Yes Type of Hallucinations: Visual: No, Auditory: Yes, Command: No - Level of Consciousness Level of Consciousness: Alert Orientation: Yes Intact, Yes Orientated to Time, Yes Orientated to Place, Yes Orientated to Person - Impulse Control Impulse Control: Poor - Insight and Judgement Insight and Judgement: Impaired - Group Participation Particating in Group Activities: Yes - Medication Management Medication Management Adherence: Yes Assessment - Assessment Merits Inpatient Hospitalization: For Immediate Safety, For Stabilization Inpatient DSM-V Dx: F20.9 Clinical Impression: 42 y.o. single, male dual citizen of the [place] who arrived on a voluntary basis seeking resumption of his outpatient medications after claiming to run out of them, presenting with thought disorganization, grandiose and persecutory delusions, auditory hallucinations and inability to care for himself in the outpatient setting. Plan - Plan Treatment Plan: Name: ANDERSON MONTES DE OCA Birthdate: 1975 [id number] We have resumed Depakote 1000mg PO qhs, benztropine 1mg PO qhs and paliperidone 12mg PO qhs. VPA level therapeutic at 98. Will reorder BMP to check electrolytes status. Consider discharge after the weekend if he improves sufficiently. Continued Medication Management: Continue Outpt Medication Medications: Current Medications Acetaminophen (Tylenol Tab*) 650 mg PO Q4H PRN PRN Reason: PAIN or TEMP > 101 F Al Hydrox/Mg Hydrox/Simethicone (Maalox Plus*) 30 ml PO Q4H PRN PRN Reason: INDIGESTION Benztropine Mesylate (Cogentin Tab*) 1 mg PO BEDTIME MARJ Last Admin: 04/19/18 22:07 Dose: 1 mg Device (Nicotine Mouth Piece*) 1 each INH .CARTRIDGE MARJ Last Admin: 04/18/18 21:34 Dose: 1 each Divalproex Sodium (Depakote Er Tab(*)) 1,000 mg PO BEDTIME MARJ Last Admin: 04/19/18 22:07 Dose: 1,000 mg Multivitamins (Theragran Tab*) 1 tab PO DAILY [facility] Last Admin: 04/20/18 10:51 Dose: Not Given Nicotine (Nicotine Inhaler*) 10 mg INH Q2H PRN PRN Reason: CRAVING Last Admin: 04/19/18 22:07 Dose: 10 mg Nicotine Polacrilex (Nicotine Gum*) 2 mg PO Q2H PRN PRN Reason: CRAVING Paliperidone (Invega Er Tab*) 12 mg PO BEDTIME [facility] Last Admin: 04/19/18 22:07 Dose: 12 mg - Discharge Plan Discharge Plan: Inpatient Hospitalization Lab Results - Lab Results Lab Results: 04/18/18 04/18/18 04/18/18 08:14 08:14 09:39 WBC 9.5 RBC 5.09 Hgb 15.4 Hct 44 MCV 86 MCH 30 MCHC 35 RDW 14 Plt Count 376 MPV 6.1 L Neut % (Auto) 77.9 Lymph % (Auto) 12.3 L Gates % (Auto) 8.8 H Eos % (Auto) 0.3 Baso % (Auto) 0.7 Absolute Neuts (auto) 7.4 Absolute Lymphs (auto) 1.2 Absolute Monos (auto) 0.8 Absolute Eos (auto) 0 Absolute Basos (auto) 0.1 Absolute Nucleated RBC 0 Nucleated RBC % 0.1 Sodium 126 L Potassium 3.8 Chloride 95 L Carbon Dioxide 23 Anion Gap 8 BUN 6 Creatinine 0.87 Est GFR ( Amer) 117.6 Est GFR (Non-Af Amer) 97.2 BUN/Creatinine Ratio 6.9 L Glucose 141 H Calcium 9.1 Total Bilirubin 0.50 AST 19 ALT 23 Alkaline Phosphatase 63 Total Protein 6.8 Albumin 4.1 Globulin 2.7 Albumin/Globulin Ratio 1.5 TSH 1.32 Urine Color Yellow Urine Appearance Clear Urine pH 7.0 Ur Specific [place] 1.005 L Urine Protein Negative Urine Ketones Negative Urine Blood Negative Urine Nitrate Negative Urine Bilirubin Negative Urine Urobilinogen Negative Ur Leukocyte Esterase Negative Urine Glucose Negative Salicylates < 2.50 Urine Opiates Screen Acetaminophen < 15 Ur Barbiturates Screen Valproic Acid Ur Phencyclidine Scrn Ur Amphetamines Screen U Benzodiazepines Scrn Urine Cocaine Screen U Cannabinoids Screen Serum Alcohol < 10 04/18/18 04/19/18 09:39 12:45 WBC RBC Hgb Hct MCV MCH MCHC RDW Plt Count MPV Neut % (Auto) Lymph % (Auto) Gates % (Auto) Eos % (Auto) Baso % (Auto) Absolute Neuts (auto) Absolute Lymphs (auto) Absolute Monos (auto) Absolute Eos (auto) Absolute Basos (auto) Absolute Nucleated RBC Nucleated RBC % Sodium Potassium Chloride Carbon Dioxide Anion Gap BUN Creatinine Est GFR ( Amer) Est GFR (Non-Af Amer) BUN/Creatinine Ratio Glucose Calcium Total Bilirubin AST ALT Alkaline Phosphatase Total Protein Albumin Globulin Albumin/Globulin Ratio TSH Urine Color Urine Appearance Urine pH Ur Specific [place] Urine Protein Urine Ketones Urine Blood Urine Nitrate Urine Bilirubin Urine Urobilinogen Ur Leukocyte Esterase Urine Glucose Salicylates Urine Opiates Screen None detected Acetaminophen Ur Barbiturates Screen None detected Valproic Acid 98.0 Ur Phencyclidine Scrn None detected Ur Amphetamines Screen None detected U Benzodiazepines Scrn None detected Urine Cocaine Screen None detected U Cannabinoids Screen None detected Serum Alcohol
[2018-04-20] MEDS: Nicotine Inhaler* 10 MG AMP INH PRN (14:07)
[2018-04-20] MEDS: Divalproex ER TAB(*) 500 MG PO SCH (21:53)
[2018-04-20] MEDS: Paliperidone ER TAB* 6 MG TAB.ER PO SCH (21:54)
[2018-04-20] MEDS: Benztropine TAB* 1 MG PO SCH (21:54)
[2018-04-21 08:36] LABS: EGFR Non-African American 111.9 (>60)
--- NOTE | 2018-04-21 10:14 | PN ---
Subjective - Subjective Date of Service: 04/21/18 Service Type: 24608 Hosp care 15 min low complexity Subjective: Anderson is doing well. Water drinking has been under control as evidenced by staff reports and results of serum sodium, which was normal at 135 this AM. The patient is quiet and looking forward to getting a place in a longterm after discharge. He's tolerating meds well and denies psychotic symptoms. Objective - Appearance Appearance: Well Developed/Nourished Dysmorphic Features: No Hygiene: Normal Grooming: Fairly Well Kept - Behavior Psychomotor Activities: Normal Exhibits Abnormal Movement: No - Attitude and Relatedness Attitude and Relatedness: Cooperative Eye Contact: Fair - Speech Quality: Unpressured Latencies: Normal Quantity: Terse - Mood Patient's Decription of Mood: "Okay" - Affect Observed Affect: Unvariable Affect Consistent with: Euthymia - Thought Process Patient's Thought Process: Circumstantial Thought Content: Yes Paranoid Ideation, No Passive Wish, No Suicidal Planning, No Homicidal Ideation - Sensorium Experiencing Hallucinations: No, Sensorium is Clear Type of Hallucinations: Visual: No, Auditory: No, Command: No - Level of Consciousness Level of Consciousness: Alert Orientation: Yes Intact, Yes Orientated to Time, Yes Orientated to Place, Yes Orientated to Person - Impulse Control Impulse Control: Tenuous - Insight and Judgement Insight and Judgement: Fair - Group Participation Particating in Group Activities: No - Medication Management Medication Management Adherence: Yes Assessment - Assessment Merits Inpatient Hospitalization: Consolidate Improvements, Pending Safe DC Plan Inpatient DSM-V Dx: F20.9 Clinical Impression: 42 y.o. single, male dual citizen of the [place] who arrived on a voluntary basis seeking resumption of his outpatient medications after claiming to run out of them, presenting with thought disorganization, grandiose and persecutory delusions, auditory hallucinations and inability to care for himself in the outpatient setting. Plan - Plan Treatment Plan: Name: ANDERSON MONTES DE OCA Birthdate: 1975 [id number] We have resumed Depakote 1000mg PO qhs, benztropine 1mg PO qhs and paliperidone 12mg PO qhs. VPA level therapeutic at 98. Sodium improved. Consider discharge after the weekend if he improves sufficiently and housing concerns are addressed. Continued Medication Management: Continue Outpt Medication Medications: Current Medications Acetaminophen (Tylenol Tab*) 650 mg PO Q4H PRN PRN Reason: PAIN or TEMP > 101 F Al Hydrox/Mg Hydrox/Simethicone (Maalox Plus*) 30 ml PO Q4H PRN PRN Reason: INDIGESTION Benztropine Mesylate (Cogentin Tab*) 1 mg PO BEDTIME MARJ Last Admin: 04/20/18 21:54 Dose: 1 mg Device (Nicotine Mouth Piece*) 1 each INH .CARTRIDGE MARJ Last Admin: 04/18/18 21:34 Dose: 1 each Divalproex Sodium (Depakote Er Tab(*)) 1,000 mg PO BEDTIME MARJ Last Admin: 04/20/18 21:53 Dose: 1,000 mg Multivitamins (Theragran Tab*) 1 tab PO DAILY [facility] Last Admin: 04/20/18 10:51 Dose: Not Given Nicotine (Nicotine Inhaler*) 10 mg INH Q2H PRN PRN Reason: CRAVING Last Admin: 04/20/18 14:07 Dose: 10 mg Nicotine Polacrilex (Nicotine Gum*) 2 mg PO Q2H PRN PRN Reason: CRAVING Paliperidone (Invega Er Tab*) 12 mg PO BEDTIME [facility] Last Admin: 04/20/18 21:54 Dose: 12 mg - Discharge Plan Discharge Plan: Inpatient Hospitalization Lab Results - Lab Results Lab Results: 04/19/18 04/21/18 12:45 07:57 Sodium 135 D Potassium 3.9 Chloride 102 Carbon Dioxide 26 Anion Gap 7 BUN 4 L Creatinine 0.77 Est GFR ( Amer) 135.4 Est GFR (Non-Af Amer) 111.9 BUN/Creatinine Ratio 5.2 L Glucose 116 H Calcium 8.7 Triglycerides 82 Cholesterol 110 LDL Cholesterol 56 HDL Cholesterol 37.6 Valproic Acid 98.0
[2018-04-21] MEDS: Vitamin THERAPEUTIC TAB PO SCH (12:57)
[2018-04-21] MEDS: Benztropine TAB* 1 MG PO SCH (21:05)
[2018-04-21] MEDS: Divalproex ER TAB(*) 500 MG PO SCH (21:06)
[2018-04-21] MEDS: Paliperidone ER TAB* 6 MG TAB.ER PO SCH (21:06)
[2018-04-22] MEDS: Vitamin THERAPEUTIC TAB PO SCH ×2 (08:29→08:47)
--- NOTE | 2018-04-22 12:36 | PN ---
Subjective - Subjective Date of Service: 04/22/18 Service Type: 74894 Hosp care 15 min low complexity Subjective: Anderson has no new complaints and appears to be doing well. He is aware of his appointment to go to [place] tomorrow for an intake screening for their SRO program. He is cooperative with care. Objective - Appearance Appearance: Obese Dysmorphic Features: No Hygiene: Normal Grooming: Fairly Well Kept - Behavior Psychomotor Activities: Normal Exhibits Abnormal Movement: No - Attitude and Relatedness Attitude and Relatedness: Cooperative Eye Contact: Good - Speech Quality: Unpressured Latencies: Normal Quantity: Appropriate - Mood Patient's Decription of Mood: "Good" - Affect Observed Affect: Good Affect Consistent with: Euthymia - Thought Process Patient's Thought Process: Circumstantial Thought Content: Yes Paranoid Ideation, No Passive Wish, No Suicidal Planning, No Homicidal Ideation - Sensorium Experiencing Hallucinations: No, Sensorium is Clear Type of Hallucinations: Visual: No, Auditory: No, Command: No - Level of Consciousness Level of Consciousness: Alert Orientation: Yes Intact, Yes Orientated to Time, Yes Orientated to Place, Yes Orientated to Person - Impulse Control Impulse Control: Tenuous - Insight and Judgement Insight and Judgement: Fair - Group Participation Particating in Group Activities: Yes - Medication Management Medication Management Adherence: Yes Assessment - Assessment Merits Inpatient Hospitalization: Consolidate Improvements, Pending Safe DC Plan Inpatient DSM-V Dx: F20.9 Clinical Impression: 42 y.o. single, male dual citizen of the [place] who arrived on a voluntary basis seeking resumption of his outpatient medications after claiming to run out of them, presenting with thought disorganization, grandiose and persecutory delusions, auditory hallucinations and inability to care for himself in the outpatient setting. Plan - Plan Treatment Plan: Name: ANDERSON MONTES DE OCA Birthdate: 1975 [id number] We have resumed Depakote 1000mg PO qhs, benztropine 1mg PO qhs and paliperidone 12mg PO qhs. VPA level therapeutic at 98. Sodium improved. Consider discharge after the weekend if he improves sufficiently and housing concerns are addressed. Continued Medication Management: Continue Outpt Medication Medications: Current Medications Acetaminophen (Tylenol Tab*) 650 mg PO Q4H PRN PRN Reason: PAIN or TEMP > 101 F Al Hydrox/Mg Hydrox/Simethicone (Maalox Plus*) 30 ml PO Q4H PRN PRN Reason: INDIGESTION Benztropine Mesylate (Cogentin Tab*) 1 mg PO BEDTIME [facility] Last Admin: 04/21/18 21:05 Dose: 1 mg Device (Nicotine Mouth Piece*) 1 each INH .CARTRIDGE [facility] Last Admin: 04/18/18 21:34 Dose: 1 each Divalproex Sodium (Depakote Er Tab(*)) 1,000 mg PO BEDTIME [facility] Last Admin: 04/21/18 21:06 Dose: 1,000 mg Multivitamins (Theragran Tab*) 1 tab PO DAILY [facility] Last Admin: 04/22/18 08:47 Dose: 1 tab Nicotine (Nicotine Inhaler*) 10 mg INH Q2H PRN PRN Reason: CRAVING Last Admin: 04/20/18 14:07 Dose: 10 mg Nicotine Polacrilex (Nicotine Gum*) 2 mg PO Q2H PRN PRN Reason: CRAVING Paliperidone (Invega Er Tab*) 12 mg PO BEDTIME [facility] Last Admin: 04/21/18 21:06 Dose: 12 mg - Discharge Plan Discharge Plan: Inpatient Hospitalization Lab Results - Lab Results Lab Results: 04/19/18 04/21/18 04/21/18 12:45 07:57 07:57 Sodium 135 D Potassium 3.9 Chloride 102 Carbon Dioxide 26 Anion Gap 7 BUN 4 L Creatinine 0.77 Est GFR ( Amer) 135.4 Est GFR (Non-Af Amer) 111.9 BUN/Creatinine Ratio 5.2 L Glucose 116 H Hemoglobin A1c 6.2 H Calcium 8.7 Triglycerides 82 Cholesterol 110 LDL Cholesterol 56 HDL Cholesterol 37.6 Valproic Acid 98.0
[2018-04-22] MEDS: Divalproex ER TAB(*) 500 MG PO SCH (20:47)
[2018-04-22] MEDS: Paliperidone ER TAB* 6 MG TAB.ER PO SCH (20:47)
[2018-04-22] MEDS: Benztropine TAB* 1 MG PO SCH (20:47)
[2018-04-22] MEDS: Nicotine Inhaler* 10 MG AMP INH PRN (20:48)
[2018-04-23] MEDS: Vitamin THERAPEUTIC TAB PO SCH (09:56)
--- NOTE | 2018-04-23 12:47 | PN ---
Subjective - Subjective Date of Service: 04/23/18 Service Type: 62892 Hosp care 15 min low complexity Subjective: Anderson continues to do well. He is leaving the unit this afternoon on a therapeutic discharge planning visit to [place], where he will be screened for an intake to one of their detention residences. He is in good spirits, taking medications as directed and visible on the unit. Objective - Appearance Appearance: Obese Dysmorphic Features: Yes Hygiene: Normal Grooming: Fairly Well Kept - Behavior Psychomotor Activities: Normal Exhibits Abnormal Movement: No - Attitude and Relatedness Attitude and Relatedness: Cooperative Eye Contact: Good - Speech Quality: Unpressured Latencies: Normal Quantity: Terse - Mood Patient's Decription of Mood: "Good" - Affect Observed Affect: Good Affect Consistent with: Euthymia - Thought Process Patient's Thought Process: Circumstantial Thought Content: No Passive Wish, No Suicidal Planning, No Homicidal Ideation, No Paranoid Ideation - Sensorium Experiencing Hallucinations: No, Sensorium is Clear Type of Hallucinations: Visual: No, Auditory: No, Command: No - Level of Consciousness Level of Consciousness: Alert Orientation: Yes Intact, Yes Orientated to Time, Yes Orientated to Place, Yes Orientated to Person - Impulse Control Impulse Control: Tenuous - Insight and Judgement Insight and Judgement: Fair - Group Participation Particating in Group Activities: Yes - Medication Management Medication Management Adherence: Yes Assessment - Assessment Merits Inpatient Hospitalization: Consolidate Improvements, Pending Safe DC Plan Inpatient DSM-V Dx: F20.9 Clinical Impression: 42 y.o. single, male dual citizen of the and [place] who arrived on a voluntary basis seeking resumption of his outpatient medications after claiming to run out of them, presenting with thought disorganization, grandiose and persecutory delusions, auditory hallucinations and inability to care for himself in the outpatient setting. Plan - Plan Treatment Plan: Name: ANDERSON MONTES DE OCA Birthdate: 1975 [id number] We have resumed Depakote 1000mg PO qhs, benztropine 1mg PO qhs and paliperidone 12mg PO qhs. VPA level therapeutic at 98. Sodium improved. Consider discharge after the weekend if he improves sufficiently and housing concerns are addressed. Continued Medication Management: Continue Outpt Medication Medications: Current Medications Acetaminophen (Tylenol Tab*) 650 mg PO Q4H PRN PRN Reason: PAIN or TEMP > 101 F Al Hydrox/Mg Hydrox/Simethicone (Maalox Plus*) 30 ml PO Q4H PRN PRN Reason: INDIGESTION Benztropine Mesylate (Cogentin Tab*) 1 mg PO BEDTIME [facility] Last Admin: 04/22/18 20:47 Dose: 1 mg Device (Nicotine Mouth Piece*) 1 each INH .[facility]TR[facility] Last Admin: 04/18/18 21:34 Dose: 1 each Divalproex Sodium (Depakote Er Tab(*)) 1,000 mg PO BEDTIME [facility] Last Admin: 04/22/18 20:47 Dose: 1,000 mg Multivitamins (Theragran Tab*) 1 tab PO DAILY [facility] Last Admin: 04/23/18 09:56 Dose: 1 tab Nicotine (Nicotine Inhaler*) 10 mg INH Q2H PRN PRN Reason: CRAVING Last Admin: 04/22/18 20:48 Dose: 10 mg Nicotine Polacrilex (Nicotine Gum*) 2 mg PO Q2H PRN PRN Reason: CRAVING Paliperidone (Invega Er Tab*) 12 mg PO BEDTIME [facility] Last Admin: 04/22/18 20:47 Dose: 12 mg - Discharge Plan Discharge Plan: Outpatient Follow Up Outpatient Program: [facility]
[2018-04-23] MEDS: Benztropine TAB* 1 MG PO SCH (20:17)
[2018-04-23] MEDS: Divalproex ER TAB(*) 500 MG PO SCH (20:18)
[2018-04-23] MEDS: Paliperidone ER TAB* 6 MG TAB.ER PO SCH (20:19)
[2018-04-24] MEDS: Vitamin THERAPEUTIC TAB PO SCH (10:18)
[2018-04-24] MEDS: Divalproex ER TAB(*) 500 MG PO SCH (20:24)
[2018-04-24] MEDS: Benztropine TAB* 1 MG PO SCH (20:25)
[2018-04-24] MEDS: Paliperidone ER TAB* 6 MG TAB.ER PO SCH (20:25)
[2018-04-25] MEDS: Vitamin THERAPEUTIC TAB PO SCH (08:30)
[2018-04-25] MEDS: Paliperidone ER TAB* 6 MG TAB.ER PO SCH (21:02)
[2018-04-25] MEDS: Benztropine TAB* 1 MG PO SCH (21:02)
[2018-04-25] MEDS: Divalproex ER TAB(*) 500 MG PO SCH (21:02)
[2018-04-26] MEDS: Nicotine Inhaler* 10 MG AMP INH PRN ×2 (08:40→14:46)
[2018-04-26] MEDS: Vitamin THERAPEUTIC TAB PO SCH (08:40)
--- NOTE | 2018-04-26 13:45 | PN ---
MHU: Group Therapy Note - Service Type Service Type: [id number] Group Psychotherapy - Cognitive Behavioral Group Therapy ( CBT):Patient attended CBT programming this morning and presented with flat affect that did not vary with discussion. Although responsive to direct prompts to respond to questions, patient did not engage in spontaneous conversation.
--- NOTE | 2018-04-26 13:52 | PN ---
Subjective - Subjective Date of Service: 04/26/18 Service Type: [id number] Hosp care 15 min low complexity Subjective: Anderson reports doing well. He repeats each question and then answers it. He seems happy about going to [employer] at this time and described the exterior colors of the houses he visited in detail. Objective - Appearance Appearance: Well Developed/Nourished Dysmorphic Features: No Hygiene: Normal Grooming: Disheveled - Behavior Psychomotor Activities: Normal Exhibits Abnormal Movement: No - Attitude and Relatedness Attitude and Relatedness: Cooperative Eye Contact: Good - Speech Quality: Unpressured Latencies: Normal Quantity: Appropriate - Mood Patient's Decription of Mood: "Good" - Affect Observed Affect: Good Affect Consistent with: Euthymia - Thought Process Patient's Thought Process: Coherent Thought Content: No Passive Wish, No Suicidal Planning, No Homicidal Ideation, No Paranoid Ideation - Sensorium Experiencing Hallucinations: No, Sensorium is Clear Type of Hallucinations: Visual: No, Auditory: No, Command: No - Level of Consciousness Level of Consciousness: Alert Orientation: Yes Intact, Yes Orientated to Time, Yes Orientated to Place, Yes Orientated to Person - Impulse Control Impulse Control: Tenuous - Insight and Judgement Insight and Judgement: Fair - Group Participation Particating in Group Activities: Yes - Medication Management Medication Management Adherence: Yes - Additional Observations Comments: Anderson is dressed and ready for groups today. He is free from hallucinations and delusions at the time of interview. Assessment - Assessment Merits Inpatient Hospitalization: For Immediate Safety, For Discharge Planning Inpatient DSM-V Dx: F20.9 Clinical Impression: 42 y.o. single, male dual citizen of the and [place] who arrived on a voluntary basis seeking resumption of his outpatient medications after claiming to run out of them, presenting with thought disorganization, grandiose and persecutory delusions, auditory hallucinations and inability to care for himself in the outpatient setting. At this time his symptoms are reduced. Plan - Plan Treatment Plan: Name: ANDERSON MONTES DE OCA Birthdate: 1975 [id number] Medications: Current Medications Acetaminophen (Tylenol Tab*) 650 mg PO Q4H PRN PRN Reason: PAIN or TEMP > 101 F Al Hydrox/Mg Hydrox/Simethicone (Maalox Plus*) 30 ml PO Q4H PRN PRN Reason: INDIGESTION Benztropine Mesylate (Cogentin Tab*) 1 mg PO BEDTIME [facility] Last Admin: 04/25/18 21:02 Dose: 1 mg Device (Nicotine Mouth Piece*) 1 each INH .CARTRIDGE [facility] Last Admin: 04/18/18 21:34 Dose: 1 each Divalproex Sodium (Depakote Er Tab(*)) 1,000 mg PO BEDTIME [facility] Last Admin: 04/25/18 21:02 Dose: 1,000 mg Multivitamins (Theragran Tab*) 1 tab PO DAILY [facility] Last Admin: 04/26/18 08:40 Dose: 1 tab Nicotine (Nicotine Inhaler*) 10 mg INH Q2H PRN PRN Reason: CRAVING Last Admin: 04/26/18 08:40 Dose: 10 mg Nicotine Polacrilex (Nicotine Gum*) 2 mg PO Q2H PRN PRN Reason: CRAVING Paliperidone (Invega Er Tab*) 12 mg PO BEDTIME [facility] Last Admin: 04/25/18 21:02 Dose: 12 mg - Discharge Plan Outpatient Program: [facility] Additional Comments: Anderson is close to being discharged. He will continue to work with his marriage and family social worker to create an appropriate discharge plan.
[2018-04-26] MEDS: Paliperidone ER TAB* 6 MG TAB.ER PO SCH (20:50)
[2018-04-26] MEDS: Divalproex ER TAB(*) 500 MG PO SCH (20:50)
[2018-04-26] MEDS: Benztropine TAB* 1 MG PO SCH (20:50)
[2018-04-27] MEDS: Nicotine Inhaler* 10 MG AMP INH PRN (10:14)
[2018-04-27] MEDS: Vitamin THERAPEUTIC TAB PO SCH (10:14)
[2018-04-27] MEDS: Paliperidone ER TAB* 6 MG TAB.ER PO SCH (20:17)
[2018-04-27] MEDS: Benztropine TAB* 1 MG PO SCH (20:17)
[2018-04-27] MEDS: Divalproex ER TAB(*) 500 MG PO SCH (20:17)
[2018-04-28] MEDS: Vitamin THERAPEUTIC TAB PO SCH (08:14)
--- NOTE | 2018-04-28 14:29 | PN ---
Subjective - Subjective Date of Service: 04/28/18 Service Type: 12036 Hosp care 15 min low complexity Subjective: Anderson is in excellent spirits and in behavioral control. I understand that he has been accepted into the [facility], a highly structured, therapeutic, group residence run by the [facility]. Their staff is indicating to our team that Anderson's bed will not be available until May 04. Anderson is agreeable with this. Objective - Appearance Appearance: Well Developed/Nourished Dysmorphic Features: No Hygiene: Normal Grooming: Fairly Well Kept - Behavior Psychomotor Activities: Normal Exhibits Abnormal Movement: No - Attitude and Relatedness Attitude and Relatedness: Cooperative Eye Contact: Good - Speech Quality: Unpressured Latencies: Normal Quantity: Terse - Mood Patient's Decription of Mood: "Good" - Affect Observed Affect: Good Affect Consistent with: Euthymia - Thought Process Patient's Thought Process: Coherent Thought Content: No Passive Wish, No Suicidal Planning, No Homicidal Ideation, No Paranoid Ideation - Sensorium Experiencing Hallucinations: No, Sensorium is Clear Type of Hallucinations: Visual: No, Auditory: No, Command: No - Level of Consciousness Level of Consciousness: Alert Orientation: Yes Intact, Yes Orientated to Time, Yes Orientated to Place, Yes Orientated to Person - Impulse Control Impulse Control: Tenuous - Insight and Judgement Insight and Judgement: Fair - Group Participation Particating in Group Activities: Yes - Medication Management Medication Management Adherence: Yes Assessment - Assessment Merits Inpatient Hospitalization: Consolidate Improvements, Pending Safe DC Plan Inpatient DSM-V Dx: F20.9 Clinical Impression: 42 y.o. single, male dual citizen of the and [place] who arrived on a voluntary basis seeking resumption of his outpatient medications after claiming to run out of them, presenting with thought disorganization, grandiosity, persecutory delusions, auditory hallucinations and inability to care for himself in the outpatient setting. At this time his symptoms are reduced. Plan - Plan Treatment Plan: Name: ANDERSON MONTES DE OCA Birthdate: 1975 [id number] We have resumed Depakote 1000mg PO qhs, benztropine 1mg PO qhs and paliperidone 12mg PO qhs. VPA level therapeutic at 98. Sodium improved. Consider discharge to [facility] on May 04. Sooner d/c to his apartment would be unsafe, given his frequent decompensations in that unsupportive setting. Continued Medication Management: Continue Outpt Medication Medications: Current Medications Acetaminophen (Tylenol Tab*) 650 mg PO Q4H PRN PRN Reason: PAIN or TEMP > 101 F Al Hydrox/Mg Hydrox/Simethicone (Maalox Plus*) 30 ml PO Q4H PRN PRN Reason: INDIGESTION Benztropine Mesylate (Cogentin Tab*) 1 mg PO BEDTIME [facility] Last Admin: 04/27/18 20:17 Dose: 1 mg Device (Nicotine Mouth Piece*) 1 each INH .CARTRIDGE [facility] Last Admin: 04/18/18 21:34 Dose: 1 each Divalproex Sodium (Depakote Er Tab(*)) 1,000 mg PO BEDTIME [facility] Last Admin: 04/27/18 20:17 Dose: 1,000 mg Multivitamins (Theragran Tab*) 1 tab PO DAILY [facility] Last Admin: 04/28/18 08:14 Dose: 1 tab Nicotine (Nicotine Inhaler*) 10 mg INH Q2H PRN PRN Reason: CRAVING Last Admin: 04/27/18 10:14 Dose: 10 mg Nicotine Polacrilex (Nicotine Gum*) 2 mg PO Q2H PRN PRN Reason: CRAVING Paliperidone (Invega Er Tab*) 12 mg PO BEDTIME [facility] Last Admin: 04/27/18 20:17 Dose: 12 mg - Discharge Plan Discharge Plan: Outpatient Follow Up Outpatient Program: [facility]
[2018-04-28] MEDS: Paliperidone ER TAB* 6 MG TAB.ER PO SCH (20:10)
[2018-04-28] MEDS: Benztropine TAB* 1 MG PO SCH (20:10)
[2018-04-28] MEDS: Divalproex ER TAB(*) 500 MG PO SCH (20:10)
[2018-04-29] MEDS: Vitamin THERAPEUTIC TAB PO SCH (08:30)
[2018-04-29] MEDS: Divalproex ER TAB(*) 500 MG PO SCH (21:03)
[2018-04-29] MEDS: Benztropine TAB* 1 MG PO SCH (21:03)
[2018-04-29] MEDS: Paliperidone ER TAB* 6 MG TAB.ER PO SCH (21:04)
[2018-04-30] MEDS: Vitamin THERAPEUTIC TAB PO SCH (09:45)
--- NOTE | 2018-04-30 12:29 | PN ---
Subjective - Subjective Date of Service: 04/30/18 Service Type: [id number] Hosp care 15 min low complexity Subjective: Anderson is in great spirits. He is aware that the plan is to wait for his bed at [facility] to become available on Thursday of next week and be discharge there on that date. "I am very happy...good doctors, good medicine, good social workers." He denies SI or HI. Objective - Appearance Appearance: Well Developed/Nourished Dysmorphic Features: No Hygiene: Normal Grooming: Fairly Well Kept - Behavior Psychomotor Activities: Normal Exhibits Abnormal Movement: No - Attitude and Relatedness Attitude and Relatedness: Cooperative Eye Contact: Fair - Speech Quality: Unpressured Latencies: Normal Quantity: Terse - Mood Patient's Decription of Mood: "Good" - Affect Observed Affect: Good Affect Consistent with: Euthymia - Thought Process Patient's Thought Process: Coherent Thought Content: No Passive Wish, No Suicidal Planning, No Homicidal Ideation, No Paranoid Ideation - Sensorium Experiencing Hallucinations: No, Sensorium is Clear Type of Hallucinations: Visual: No, Auditory: No, Command: No - Level of Consciousness Level of Consciousness: Alert Orientation: Yes Intact, Yes Orientated to Time, Yes Orientated to Place, Yes Orientated to Person - Impulse Control Impulse Control: Tenuous - Insight and Judgement Insight and Judgement: Fair - Group Participation Particating in Group Activities: Yes - Medication Management Medication Management Adherence: Yes Assessment - Assessment Merits Inpatient Hospitalization: Consolidate Improvements, Pending Safe DC Plan Inpatient DSM-V Dx: F20.9 Clinical Impression: 42 y.o. single, male dual citizen of the and [place] who arrived on a voluntary basis seeking resumption of his outpatient medications after claiming to run out of them, presenting with thought disorganization, grandiosity, persecutory delusions, auditory hallucinations and inability to care for himself in the outpatient setting. At this time his symptoms are reduced. Plan - Plan Treatment Plan: Name: ANDERSON MONTES DE OCA Birthdate: 1975 [id number] We have resumed Depakote 1000mg PO qhs, benztropine 1mg PO qhs and paliperidone 12mg PO qhs. VPA level therapeutic at 98. Sodium improved. Consider discharge to [facility] on May 04. Sooner d/c to his apartment would be unsafe, given his frequent decompensations in that unsupportive setting. Continued Medication Management: Continue Outpt Medication Medications: Current Medications Acetaminophen (Tylenol Tab*) 650 mg PO Q4H PRN PRN Reason: PAIN or TEMP > 101 F Al Hydrox/Mg Hydrox/Simethicone (Maalox Plus*) 30 ml PO Q4H PRN PRN Reason: INDIGESTION Benztropine Mesylate (Cogentin Tab*) 1 mg PO BEDTIME [facility] Last Admin: 04/29/18 21:03 Dose: 1 mg Device (Nicotine Mouth Piece*) 1 each INH .[facility] Last Admin: 04/18/18 21:34 Dose: 1 each Divalproex Sodium (Depakote Er Tab(*)) 1,000 mg PO BEDTIME [facility] Last Admin: 04/29/18 21:03 Dose: 1,000 mg Multivitamins (Theragran Tab*) 1 tab PO DAILY [facility] Last Admin: 04/30/18 09:45 Dose: 1 tab Nicotine (Nicotine Inhaler*) 10 mg INH Q2H PRN PRN Reason: CRAVING Last Admin: 04/27/18 10:14 Dose: 10 mg Nicotine Polacrilex (Nicotine Gum*) 2 mg PO Q2H PRN PRN Reason: CRAVING Paliperidone (Invega Er Tab*) 12 mg PO BEDTIME [facility] Last Admin: 04/29/18 21:04 Dose: 12 mg - Discharge Plan Discharge Plan: Outpatient Follow Up Outpatient Program: [facility]
[2018-04-30] MEDS: Paliperidone ER TAB* 6 MG TAB.ER PO SCH (20:39)
[2018-04-30] MEDS: Divalproex ER TAB(*) 500 MG PO SCH (20:39)
[2018-04-30] MEDS: Benztropine TAB* 1 MG PO SCH (20:39)
[2018-05-01] MEDS: Vitamin THERAPEUTIC TAB PO SCH (09:29)
[2018-05-01] MEDS: Nicotine Inhaler* 10 MG AMP INH PRN (09:29)
[2018-05-01] MEDS: Benztropine TAB* 1 MG PO SCH (20:44)
[2018-05-01] MEDS: Paliperidone ER TAB* 6 MG TAB.ER PO SCH (20:44)
[2018-05-01] MEDS: Divalproex ER TAB(*) 500 MG PO SCH (20:44)
[2018-05-02] MEDS: Vitamin THERAPEUTIC TAB PO SCH (10:13)
[2018-05-02] MEDS: Nicotine Inhaler* 10 MG AMP INH PRN (10:13)
[2018-05-02] MEDS: Benztropine TAB* 1 MG PO SCH (20:31)
[2018-05-02] MEDS: Divalproex ER TAB(*) 500 MG PO SCH (20:31)
[2018-05-02] MEDS: Paliperidone ER TAB* 6 MG TAB.ER PO SCH (20:32)
[2018-05-03] MEDS: Vitamin THERAPEUTIC TAB PO SCH (09:01)
--- NOTE | 2018-05-03 15:12 | PN ---
Subjective - Subjective Date of Service: 05/03/18 Service Type: [id number] Hosp care 15 min low complexity Subjective: Anderson continues to do well. He is aware of discharge tomorrow to his new home at [facility] and is looking forward to this. He has no complaints. Objective - Appearance Appearance: Well Developed/Nourished Dysmorphic Features: No Hygiene: Normal Grooming: Well Kept - Behavior Psychomotor Activities: Normal Exhibits Abnormal Movement: No - Attitude and Relatedness Attitude and Relatedness: Cooperative Eye Contact: Good - Speech Quality: Unpressured Latencies: Normal Quantity: Appropriate - Mood Patient's Decription of Mood: "Good" - Affect Observed Affect: Good Affect Consistent with: Euthymia - Thought Process Patient's Thought Process: Coherent Thought Content: No Passive Wish, No Suicidal Planning, No Homicidal Ideation, No Paranoid Ideation - Sensorium Experiencing Hallucinations: No, Sensorium is Clear Type of Hallucinations: Visual: No, Auditory: No, Command: No - Level of Consciousness Level of Consciousness: Alert Orientation: Yes Intact, Yes Orientated to Time, Yes Orientated to Place, Yes Orientated to Person - Impulse Control Impulse Control: Tenuous - Insight and Judgement Insight and Judgement: Fair - Group Participation Particating in Group Activities: Yes - Medication Management Medication Management Adherence: Yes Assessment - Assessment Merits Inpatient Hospitalization: Consolidate Improvements, Pending Safe DC Plan Inpatient DSM-V Dx: F20.9 Clinical Impression: 42 y.o. single, male dual citizen of the and [place] who arrived on a voluntary basis seeking resumption of his outpatient medications after claiming to run out of them, presenting with thought disorganization, grandiosity, persecutory delusions, auditory hallucinations and inability to care for himself in the outpatient setting. At this time his symptoms are reduced. MHU: Problem List - Patient Problems (1) Schizoaffective disorder, bipolar type Current Visit: No Status: Chronic Code(s): F25.0 - SCHIZOAFFECTIVE DISORDER , BIPOLAR TYPE SNOMED Code(s): 72242013 Comment: - Continue Benztropine, Divalproex, and Invega. - MHU consult requested. Plan - Plan Treatment Plan: Name: ANDERSON MONTES DE OCA Birthdate: 1975 [id number] We have resumed Depakote 1000mg PO qhs, benztropine 1mg PO qhs and paliperidone 12mg PO qhs. VPA level therapeutic at 98. Sodium improved. Will discharge to [facility] tomorrow, May 04. Continued Medication Management: Continue Outpt Medication Medications: Current Medications Acetaminophen (Tylenol Tab*) 650 mg PO Q4H PRN PRN Reason: PAIN or TEMP > 101 F Al Hydrox/Mg Hydrox/Simethicone (Maalox Plus*) 30 ml PO Q4H PRN PRN Reason: INDIGESTION Benztropine Mesylate (Cogentin Tab*) 1 mg PO BEDTIME [facility] Last Admin: 05/02/18 20:31 Dose: 1 mg Device (Nicotine Mouth Piece*) 1 each INH .CARTRIDGE [facility] Last Admin: 04/18/18 21:34 Dose: 1 each Divalproex Sodium (Depakote Er Tab(*)) 1,000 mg PO BEDTIME [facility] Last Admin: 05/02/18 20:31 Dose: 1,000 mg Multivitamins (Theragran Tab*) 1 tab PO DAILY [facility] Last Admin: 05/03/18 09:01 Dose: 1 tab Nicotine (Nicotine Inhaler*) 10 mg INH Q2H PRN PRN Reason: CRAVING Last Admin: 05/02/18 10:13 Dose: 10 mg Nicotine Polacrilex (Nicotine Gum*) 2 mg PO Q2H PRN PRN Reason: CRAVING Paliperidone (Invega Er Tab*) 12 mg PO BEDTIME [facility] Last Admin: 05/02/18 20:32 Dose: 12 mg - Discharge Plan Discharge Plan: Outpatient Follow Up Outpatient Program: [facility]
[2018-05-03] MEDS: Benztropine TAB* 1 MG PO SCH (21:16)
[2018-05-03] MEDS: Divalproex ER TAB(*) 500 MG PO SCH (21:17)
[2018-05-03] MEDS: Paliperidone ER TAB* 6 MG TAB.ER PO SCH (21:18)
[2018-05-04] MEDS: Vitamin THERAPEUTIC TAB PO SCH ×2 (08:43→08:58)
[2018-05-04] MEDS: Nicotine Inhaler* 10 MG AMP INH PRN (08:58)
[2018-05-04 08:59] VITALS: BP 119/71
--- NOTE | 2018-05-04 22:31 | DS ---
DISCHARGE SUMMARY: DATE OF ADMISSION: 04/18/18 DATE OF DISCHARGE: 05/04/18 DISCHARGE DIAGNOSES: Quincy I: 1. Schizoaffective disorder, bipolar type. 2. Obsessive compulsive disorder. Quincy II: Deferred. CONDITION AT THE TIME OF DISCHARGE: Improved. The patient is at his psychiatric baseline. He is adherent with medications. He is tolerating his antipsychotic and mood stabilizer therapies quite well with minimal to no side effects. He is agreeable with outpatient followup treatment in the community and has followups in place with [facility]. Most importantly due to the housing nature of his issues leading to admission, we have successfully gotten him replaced out of his individual and unsupported apartment and into a alf called the [facility] through the [facility] agency. Anderson has a case filler named Pamela Rinaldi, who is assisting him with this move and he is discharged this morning to go straight to [facility] to finalize the arrangements for his move. Anderson is agreeable with this and quite excited to be living in a more supported environment. He has been safe on all checks and we see no opts to goals to him receiving definitive care in the community. MENTAL STATUS EXAM: Anderson is an overweight middle-aged male with wispy brown hair, who is dressed in a beige sweater. He is fairly well groomed standing up in the hallway. He makes good eye contact. He is calm, cooperative and polite. His speech features broken Salvadorean, although it is clear that he understands our communication. Mood appears to be euthymic with a full affect. Thought process is simplistic and somewhat circumstantial. However, his thought content is significant for his excitement over going to his new apartment. He denies suicidal or homicidal ideations. He denies auditory or visual hallucinations. He does not appear to be responding to internal stimuli. Insight and judgment are fair given his willingness to receive treatment in the outpatient setting. Cognitively, he is awake and alert with what would appear to be an average intellect. LABS: Metabolic screening was performed on 04/21/18. At that time, his hemoglobin A1c was slightly elevated at 6.2%, triglycerides 82, cholesterol 110 , LDL cholesterol 56, HDL cholesterol 37.6. DISCHARGE INSTRUCTIONS TO THE PATIENT: Are as follows: Part A: Medications: 1. He takes Depakote extended release 1000 mg p.o. q.h.s. 2. Paliperidone ER 12 mg p.o. q.h.s. 3. Benztropine 1 mg p.o. q.h.s. Part B: Diet is regular. Part C: Activities as tolerated. The patient is a nonsmoker. However, he is declining continuation of nicotine replacement therapies indicating his preference to continue smoking cigarettes for the time being. In the event that he changes his mind, he is given access to the [facility] Smoker's Quit Line at . There are no laboratory or diagnostic studies pending at the time of discharge. Part D: Followup care: The patient will follow up at the [facility], where he will see Dr. Ken Gauthier on , 05/06/18 , at 2:30 p.m. He also has an appointment with his therapist, Isaias Draper, on , 05/06/18, at 3:00 p.m. Part E: Substance abuse followup: Nonapplicable. HOSPITAL COURSE: Part A: Reason for admission: The patient is a 42-year-old single male with a history of schizoaffective disorder and OCD, who arrived at the hospital on a voluntary basis seeking resumption of his psychiatric medications, which he stated he had recently ran out of. While he was being evaluated by the emergency room physician, he was noted to have auditory hallucinations and to be responding to internal stimuli. At times, he was cheerful when upset and voiced significant psychotic thoughts of people watching him. It was also noted that he had a recurrence of psychogenic polydipsia with sodium levels significantly low at 126. The patient's hands were chapped revealing extensive handwashing secondary to poorly controlled OCD symptoms. It was felt that he was unlikely to be able to care for himself in a less restrictive setting and therefore he was admitted on a 9.39 status. When I met with him, he was disheveled with cracked bleeding and chapped skin on his hands. He was clearly responding to internal stimuli. I spoke with our unit medical social worker, who has been following his case at the local [employer] meetings. It appears that Mr. Suarez has been awaiting more supported housing in the alf setting. However, he has remained in his single occupancy apartment and not doing well in this independent setting. He denied suicidal or homicidal ideations at this time. Part B: Psychiatric treatment rendered: The patient was admitted to the adult behavioral health unit where he was placed on q.15-minute checks for his own safety. We immediately resumed his outpatient medications such as paliperidone , benztropine, and Depakote ER. A Depakote level was drawn the next day, which was therapeutic at 98 reported and supported the fact that he has been adherent with medications on the outpatient side. Nevertheless, he was somewhat psychotic and internally preoccupied during the first several days of his admission with unit structure and with the supportive milieu, he became progressively better organized. It was clear to us at this point that his housing situation was untenable and that he would require more supportive housing in the outpatient arena. For this reason, we referred him to the [facility] agency and actually drove him to a screening on their property here in [place] on 04/23/18. At that time, he was found to be appropriate for their alf. However, a bed was not available until 05/04/18. For this reason, we continued to hold him in the inpatient setting where he was calm , cooperative and responsive to treatment. He frequently went to groups and socialized with peers. He has no behavioral or management problem at any point during his stay. At this time, I feel confident that Anderson can do well in the outpatient setting. He continues to deny suicidal or homicidal ideations. He is well related and he is excited about his future in his new apartment. We did communicate with his brother, who resides in [place], who was supportive of the discharge plan. [id number]/[facility] #: [id number] KAMALJIT
== END 2018-05-04 09:52 | disposition home or self-care (01) | DRG 750 ==
LOC: ED 07:44 → BSU 18:57
PROVIDERS: ADMIT Psychiatry & Neurology Psychiatry; ATTEND Psychiatry & Neurology Psychiatry
DX: F25.0 Schizoaffective disorder, bipolar type (principal); F42.9 Obsessive-compulsive disorder, unspecified; F17.210 Nicotine dependence, cigarettes, uncomplicated; Z79.899 Other long term (current) drug therapy; Z88.8 Allergy status to other drugs, medicaments and biological substances; Z81.8 Family history of other mental and behavioral disorders
CPT/HCPCS: 36415; 80048; 80053; 80061; 80164; 80307; 80320; 80329; 81003; 83036; 84443; 85025; 90853; 99222; 99231; 99238; 99285; A9270-GY; G0480

== ENCOUNTER 2018-11-10 17:23 | Observation (INO) | payer OTHER ==
[2018-11-10 18:33] LABS: ABS Basophils 0.1 10^3/ul (0-0.2); ABS Lymphocytes 1.6 10^3/ul (1.0-4.8); ABS Monocytes 1.5 10^3/ul (0-0.8); ABS Neutrophils 12.8 10^3/ul (1.5-7.7); Hematocrit 42 % (42-52); Hemoglobin 14.1 g/dL (14.0-18.0); Lymphocyte % 9.9 %; Mean Corpuscular HGB Conc 34 g/dL (31-36); Mean Corpuscular Hemoglobin 30 pg (27-31); Mean Corpuscular Volume 88 fL (80-94); Mean Platelet Volume 6.5 fL (7.4-10.4); Platelet Count 408 10^3/uL (150-450); Red Blood Count 4.76 10^6 /uL (4.18-5.48); Red Cell Distribution Width 14 % (10.5-15)
[2018-11-10 18:55] LABS: ALT 23 U/L (7-52); AST 25 U/L (13-39); Albumin 4.6 g/dL (3.2-5.2); Albumin/Globulin Ratio 1.5 (1-3); Alcohol < 10 mg/dL (<10); Alkaline Phosphatase 54 U/L (34-104); BUN/Creatinine Ratio 7.3 (8-20); Blood Urea Nitrogen 6 mg/dL (6-24); CO2 Carbon Dioxide 22 mmol/L (22-32); Calcium 9.5 mg/dL (8.6-10.3); Chloride 86 mmol/L (101-111); EGFR African American 125.3 (>60); EGFR Non-African American 103.5 (>60); Globulin 3.1 g/dL (2-4); Glucose 158 mg/dL (70-100); Potassium 4.2 mmol/L (3.5-5.0); Salicylate < 2.50 mg/dL (<30); Total Protein 7.7 g/dL (6.4-8.9)
[2018-11-10 18:56] LABS: Anion Gap 10 mmol/L (2-11); Sodium 118 mmol/L (135-145)
[2018-11-10 18:57] LABS: Acetaminophen < 3 mcg/mL
[2018-11-10 19:09] LABS: TSH (Thyroid Stimulating Horm) 1.19 mcIU/mL (0.34-5.60)
--- NOTE | 2018-11-10 19:59 | ED ---
Altered Mental Status - HPI Summary HPI Summary: Patient is a 43-year-old male presenting to the ED from [facility]. Counselor states he has not been taking his benztropine medication as he needs to take this with food and he only gets dinner every once in a while. He denies any physical symptoms, other than worsening agitation and irritation due to not being able to take his medications. He is also on Abilify and divalproex for his bipolar/schizoaffective disorder. He states he has been taking this medication 10 days. Denies any CP, SOB, abdominal pain, urinary symptoms, nausea, vomiting, headache, confusion, neuro deficits. [facility] support in [place] state he has not been taking his benztropine and not been taking care of himself recently. He has been eating Doritos and not eating a healthy diet or drinking water recently. Denies any SI/HI. - History Of Current Complaint Chief Complaint: EDPsychosocial Stated Complaint: "945 PER EMS" Time Seen by Provider: 11/10/18 17:39 Hx Obtained From: Patient Hx From Patient Unobtainable Due To: Altered Mental Status - acting irrationally per staff at [facility] Timing: Constant Severity Initially: Mild Severity Currently: Mild Character: Agitation Aggravating Factor(s): Medication Change - Patient not taking his medications Alleviating Factor(s): Nothing - Risk Factors Cardiac Risk Factors: Negative CVA Risk Factor: Negative - Allergies/Home Medications Allergies/Adverse Reactions: Allergies Allergy/AdvReac Type Severity Reaction Status Date / Time clonazepam Allergy Unknown Verified 10/08/18 15:08 Reaction Details PMH/Surg Hx/FS Hx/Imm Hx Previously Healthy: Yes Endocrine/Hematology History: Reports: Other Endocrine/Hematological Disorders - Hx hyponatremia r/t psychogenic polydipsia Denies: Hx Anticoagulant Therapy, Hx Diabetes Cardiovascular History: Denies: Hx Hypertension Respiratory History: Denies: Hx Asthma Sensory History: Denies: Hx Contacts or Glasses, Hx Hearing Aid Opthamlomology History: Denies: Hx Contacts or Glasses Psychiatric History: Reports: Hx Anxiety, Hx Inpatient Treatment - [facility], Hx Community Mental Health Tx, Hx Schizophrenia, Hx Bipolar Disorder, Other Psychiatric Issues/Disorders - OCD Denies: Hx Eating Disorder, Hx of Violent Episodes Against Others - Surgical History Surgery Procedure, Year, and Place: n/a - Immunization History Hx Pertussis Vaccination: No Immunizations Up to Date: Yes Infectious Disease History: No Infectious Disease History: Denies: Traveled Outside the [place] in Last 30 Days - Family History Known Family History: Positive: Diabetes - grandfather - Social History Occupation: Unemployed, Disabled Lives: Senior Living Alcohol Use: Occasionally Hx Substance Use: No Substance Use Type: Reports: None Hx Tobacco Use: Yes Smoking Status (MU): Current Every Day Smoker Type: Cigarettes Amount Used/How Often: 1 ppd Length of Time of Smoking/Using Tobacco: 15+ years Have You Smoked in the Last Year: Yes Review of Systems Constitutional: Negative Negative: Fever, Chills, Fatigue, Skin Diaphoresis Negative: Palpitations, Chest Pain Negative: Abdominal Pain, Vomiting, Diarrhea, Nausea Positive: no symptoms reported Positive: Anxious All Other Systems Reviewed And Are Negative: Yes Physical Exam Triage Information Reviewed: Yes Vital Signs On Initial Exam: Initial Vitals Temp Pulse Resp BP Pulse Ox 98.7 F 102 14 183/100 100 11/10/18 17:29 11/10/18 17:29 11/10/18 17:29 11/10/18 17:29 11/10/18 17:29 Vital Signs Reviewed: Yes Appearance: Positive: Well-Nourished, Ill-Appearing Skin: Positive: Diaphoretic Head/Face: Positive: Normal Head/Face Inspection Eyes: Positive: Conjunctiva Clear Neck: Positive: Supple, No Lymphadenopathy Respiratory/Lung Sounds: Positive: Clear to Auscultation, Breath Sounds Present Cardiovascular: Positive: RRR, Pulses are Symmetrical in both Upper and Lower Extremities Musculoskeletal: Positive: Strength/ROM Intact Neurological: Positive: Speech Normal Psychiatric: Positive: Anxious AVPU Assessment: Alert Diagnostics - Vital Signs Vital Signs Temp Pulse Resp BP Pulse Ox 11/10/18 17:29 98.7 F 102 14 183/100 100 - Laboratory Lab Results: Lab Results 11/10/18 11/10/18 Range/Units 18:11 18:11 WBC 16.0 H (3.5-10.8) 10^3/uL RBC 4.76 (4.18-5.48) 10^6 /uL Hgb 14.1 (14.0-18.0) g/dL Hct 42 (42-52) % MCV 88 (80-94) fL MCH 30 (27-31) pg MCHC 34 (31-36) g/dL RDW 14 (10.5-15) % Plt Count 408 (150-450) 10^3/uL MPV 6.5 L (7.4-10.4) fL Neut % (Auto) 80.5 % Lymph % (Auto) 9.9 % Lipscomb % (Auto) 9.2 % Eos % (Auto) 0.0 % Baso % (Auto) 0.4 % Absolute Neuts (auto) 12.8 H (1.5-7.7) 10^3/ul Absolute Lymphs (auto) 1.6 (1.0-4.8) 10^3/ul Absolute Monos (auto) 1.5 H (0-0.8) 10^3/ul Absolute Eos (auto) 0.0 (0-0.6) 10^3/ul Absolute Basos (auto) 0.1 (0-0.2) 10^3/ul Absolute Nucleated RBC 0.0 10^3/ul Nucleated RBC % 0.0 Sodium 118 L* (135-145) mmol/L Potassium 4.2 (3.5-5.0) mmol/L Chloride 86 L (101-111) mmol/L Carbon Dioxide 22 (22-32) mmol/L Anion Gap 10 (2-11) mmol/L BUN 6 (6-24) mg/dL Creatinine 0.82 (0.67-1.17) mg/dL Est GFR ( Amer) 125.3 (>60) Est GFR (Non-Af Amer) 103.5 (>60) BUN/Creatinine Ratio 7.3 L (8-20) Glucose 158 H (70-100) mg/dL Calcium 9.5 (8.6-10.3) mg/dL Total Bilirubin 0.70 (0.2-1.0) mg/dL AST 25 (13-39) U/L ALT 23 (7-52) U/L Alkaline Phosphatase 54 (34-104) U/L Total Protein 7.7 (6.4-8.9) g/dL Albumin 4.6 (3.2-5.2) g/dL Globulin 3.1 (2-4) g/dL Albumin/Globulin Ratio 1.5 (1-3) TSH 1.19 (0.34-5.60) mcIU/mL Salicylates < 2.50 (<30) mg/dL Acetaminophen < 3 mcg/mL Serum Alcohol < 10 (<10) mg/dL Result Diagrams: 11/10/18 18:11 11/10/18 18:11 Lab Statement: Any lab studies that have been ordered have been reviewed, and results considered in the medical decision making process. Altered Mental Statu Course/Dx - Course Course Of Treatment: On arrival into the ED, patient is placed in a gown and into the hallway and went to [facility] eval was completed. Labs obtained which show a hyponatremic value of 118. He does have a history of psychosis polydipsia. Discussed this with patient and he becomes tearful. He is cleared by [facility] at 7 PM[address] Discuss[address] case with Dr. Joshua and Dr. Jonas who will admit the patient for evaluation. - Diagnoses Differential Diagnosis/HQI/PQRI: Medication Reaction, Metabolic Disorder Provider Diagnoses: Hyponatremia, Schizoaffective disorder, bipolar type - Provider Notifications Discussed Care Of Patient With: Lyssa Jonas Instructed by Provider To: Admit As Inpatient Discharge - Sign-Out/Discharge Documenting (check all that apply): Patient Departure Patient Received Moderate/Deep Sedation with Procedure: No - Discharge Plan Condition: Good Disposition: ADMITTED TO [facility] Referrals: No Primary Care Phys,NOPCP [Primary Care Provider] - - Billing Disposition and Condition Condition: GOOD Disposition: Admitted to [facility]
[2018-11-10] MEDS ORDERED: Al Hydrox/Mg Hydrox/Simet LIQ* 30 ML UDC PO PRN (20:09)
[2018-11-10] MEDS ORDERED: Ondansetron INJ* 2 MG/ML VIAL IV PRN (20:09)
[2018-11-10] MEDS ORDERED: Acetaminophen TAB* 325 MG PO PRN (20:09)
[2018-11-10] MEDS ORDERED: hydrOXYzine HCL TAB* 50 MG PO PRN (20:13)
[2018-11-10 20:57] LABS: Urine Appearance Clear; Urine Bilirubin Negative (Negative); Urine Blood Negative (Negative); Urine Color Yellow; Urine Glucose 1+(50 mg/dL) (Negative); Urine Ketones 1+ (Negative); Urine Nitrite Negative (Negative); Urine Protein Negative (Negative); Urine Specific Gravity 1.013 (1.010-1.030); Urine Urobilinogen Negative (Negative)
[2018-11-10] MEDS ORDERED: Nicotine Patch Removal NOTE PATCH OFF SCH (21:00)
[2018-11-10] MEDS ORDERED: Nicotine Patch Removal NOTE FOLLOW UP SCH (21:00)
[2018-11-10 21:17] LABS: Urine Benzodiazepine Screen None Detected (None Detect); Urine Opiates Screen None Detected (None Detect)
--- NOTE | 2018-11-10 22:04 | HP ---
CC: Dr. Tyson* HISTORY AND PHYSICAL: DATE OF ADMISSION: 11/10/18 TIME OF EVALUATION: 1999 PRIMARY CARE PHYSICIAN: None. PSYCHIATRIST: Dr. Tyson. CHIEF COMPLAINT: Sent in by psychiatrist HISTORY OF PRESENT ILLNESS: This is a 43-year-old male with past medical history of schizoaffective bipolar disorder and history of hyponatremia who presented to the emergency room after a therapist sent him in because he was told he was not taking his medications. The patient was seen by mental health evaluation and they cleared him for discharge. They did blood work and they noted the sodium was 118. According to the ER notes, the counselor from the [facility] states he has not been taking his benztropine medication and he had noticed worsening agitation and irritation and they were concerned that he has not been taking care of himself. The patient states to me that he has been taking his Abilify and Depakote. He is crying and emotionally labile and crying for his mother who lives in the [place]. He states sometimes he forgets to eat and he states he is trying to lose weight. He states he had 8 glasses of water today. Normally, he drinks 15 glasses. He denies any suicidal or homicidal ideation. He denies any vomiting or diarrhea. No chest pain, no shortness of breath, no abdominal pain, no weakness. Just tearful on encounter. As mentioned, the patient had labs drawn and was referred to the hospitalist service after further evaluation for a finding of sodium of 118. PAST MEDICAL HISTORY: 1. Schizoaffective bipolar disorder. 2. Admission in January 2018 for hyponatremia secondary to dehydration. 3. History of psychogenic polydipsia. 4. OCD. 5. History of multiple psych admissions followed by Dr. Tyson. 6. Anxiety. MEDICATIONS: Per patient, he takes Abilify and Depakote. He was on a different regimen on his discharge last month. ALLERGIES: CLONAZEPAM. FAMILY HISTORY: Reviewed, noncontributory. SOCIAL HISTORY: The patient lives in [place] in the [facility] with friends. His career transition specialist and his boss he states is Pamela Rinaldi. He is originally from [place]. His brother Deepak Suarez is his healthcare proxy, [phone]. The patient admits to smoking 22 cigarettes a day. He has not drank in the last month. No illicit drug use. Code status is full code. REVIEW OF SYSTEMS: A 14-point review of systems as mentioned in the HPI, otherwise negative. PHYSICAL EXAMINATION GENERAL: The patient is emotionally labile, but eventually calmed down to have a reasonable conversation with me. VITAL SIGNS: Temp 98.7, pulse rate 102, respiratory rate 14, oxygen saturation 100% on room air, blood pressure 183/100. HEENT: Head: Normocephalic. Pupils equal and reactive. Anicteric. Oropharynx: Mucous membranes moist. NECK: Supple. No lymphadenopathy. RESPIRATORY: Diminished breath sounds. No wheezes, rhonchi, or rales. CARDIAC: Tachycardia. Soft systolic murmur heard throughout. ABDOMEN: Morbidly obese. Soft, nontender, nondistended. EXTREMITIES: No clubbing, cyanosis or edema. The patient's bilateral hands noted to be red, was dry and skin cracking. NEUROLOGIC: Alert and oriented x3. No gross focal neurologic deficits. Emotionally labile. LABORATORY DATA: White count 16, hemoglobin 14.1, hematocrit 42, platelets 408 ,000. Sodium 118, potassium 4.2, chloride 86, bicarb 22, BUN 6, creatinine 0.82 , glucose 158. Toxicology negative for alcohol, salicylate and Tylenol. ASSESSMENT: This is a 43-year-old male with a past medical history of schizoaffective disorder, bipolar, hyponatremia secondary to psychogenic polydipsia, who presents to the emergency room after being noncompliant on his medications, found to be hyponatremic. 1. Hyponatremic. Assessment: I suspect this is most likely related to psychogenic polydipsia, but I do not have confirmatory labs, but based on his history and his telling me he drinks 8 to 15 glasses of water today, is most likely the source. He does not appear dry. Plan: We will check serum and urine osmolality and a urine sodium and also check a TSH. We will hold off on giving him any fluids at this time and continue him on fluid restricted diet of less than 1200. We will repeat a BMP tonight and repeat one in the morning. I am holding his Depakote as one of the side effects, adverse reactions to Depakote is hyponatremia. He probably should not be on this with his history of psychogenic polydipsia. We will follow up on the osmolality study. 2. Chronic medical problems, history of schizoaffective bipolar disorder. As mentioned, I am going to hold his psychogenic agents this evening and put him on hydroxyzine as needed. I put him for a psych consult to follow up to make recommendations on medication management for him. 3. Tobacco use. We will place him on a nicotine patch. 4. FEN: Regular diet with fluid restriction and monitor I's and O's. 5. DVT prophylaxis: The patient's score is moderate risk. We will encourage ambulation. 6. Code status: Full code. PATIENT TIME: Greater than 35 minutes was spent doing the history of and physical, more than half the time spent in direct patient contact. [id number]/[facility] #: [id number] KAMALJIT
[2018-11-10 23:19] LABS: BUN/Creatinine Ratio 7.6 (8-20); Calcium 8.9 mg/dL (8.6-10.3); EGFR African American 130.8 (>60); EGFR Non-African American 108.1 (>60); Potassium 4.1 mmol/L (3.5-5.0)
[2018-11-11 06:11] LABS: ABS Lymphocytes 1.7 10^3/ul (1.0-4.8); ABS Monocytes 1.5 10^3/ul (0-0.8); ABS Neutrophils 6.7 10^3/ul (1.5-7.7); Eosinophil % 0.3 %; Hematocrit 39 % (42-52); Hemoglobin 13.6 g/dL (14.0-18.0); Lymphocyte % 16.7 %; Mean Corpuscular HGB Conc 35 g/dL (31-36); Mean Corpuscular Hemoglobin 31 pg (27-31); Mean Corpuscular Volume 88 fL (80-94); Mean Platelet Volume 6.7 fL (7.4-10.4); Platelet Count 388 10^3/uL (150-450); Red Blood Count 4.45 10^6 /uL (4.18-5.48); Red Cell Distribution Width 14 % (10.5-15)
[2018-11-11 06:37] LABS: BUN/Creatinine Ratio 8.1 (8-20); Calcium 8.8 mg/dL (8.6-10.3); EGFR Non-African American 116.6 (>60); Potassium 4.4 mmol/L (3.5-5.0)
[2018-11-11] MEDS ORDERED: Nicotine PATCH 21 MG/24 HR* PATCH TRANSDERM SCH (08:00)
[2018-11-11 11:44] VITALS: BP 145/68
--- NOTE | 2018-11-11 22:34 | DS ---
CC: Dr. Jewel Zepeda; Dr. Oscar Tyson* DISCHARGE/AMA SUMMARY: DATE OF ADMISSION: 11/10/18 DATE OF DISCHARGE: 11/11/18 PRIMARY CARE PROVIDERS: Dr. Jewel Zepeda, Dr. Oscar Tyson FINAL DISCHARGE DIAGNOSES: 1. Psychogenic polydipsia with sequelae of hyponatremia. 2. Hyponatremia secondary to psychogenic polydipsia. 3. Schizoaffective disorder. HOSPITAL COURSE: The patient presented to [facility] on 11/10/18 after he was referred by his outpatient psychiatry counselor for unsteady gait and dizziness. They thought it was due to noncompliance with his medication. The patient presented to the ER. He was seen and evaluated by Psych. He was cleared from the mental point of view for discharge. On further workup in the ER, his chemistry did reveal a sodium of 118. The patient did volunteer with the excessive intake of free water up to 15 glasses a day, as it helps him subside his anxiety level. He was admitted to the medical service. He was placed on water restriction, and the following morning, his sodium was corrected appropriately with the sodium level of 123. It was repeated in the morning and was up to 125. The patient was seen and evaluated by me. He feels much more stable, steady on his feet. He was ambulating with the nurse with no deficit. I did consult with Psychiatry regarding medication changes and I spoke with Dr. Tyson, who reported that the patient can remain off the Depakote , maintain the remaining of his other medications and will follow up with the psychiatrist and an appointment was given today at 3:[address] Ken Gauthier in [address] [place] [address]. Therefore, the patient deemed stable for discharge from medical point of view as well today. DISCHARGE REFERRAL: Follow up with Dr. Ken Gauthier at 3:30 regarding his psychotropic drugs. PHYSICAL EXAM ON DISCHARGE: Vital Signs: 98.4, pulse 74, respiratory rate 18, blood pressure is 145/68, satting 100%. General: He is awake. He has slight stuttering and very slow monotonic speech. Head and Neck: Normocephalic, atraumatic. Lungs: Clear to auscultation bilaterally. Cardiovascular: S1, S2 , regular rate and rhythm. Abdomen: Positive bowel sounds. Soft, nontender, and nondistended. Extremities: No edema. DISCHARGE MEDICATIONS: The patient was told to discontinue his Depakote. 1. Continue his Cogentin 0.5 daily. 2. Abilify daily. 3. Invega 20 mg daily. DISCHARGE CONDITION: Stable. DISCHARGE INSTRUCTIONS: Adhere to 1500 cc of free water per 24 hour. [id number]/[facility] #: [id number] MTDD
--- NOTE | 2018-11-14 08:50 | DS ---
DISCHARGE SUMMARY: ADDENDUM: "I was asked to comment on the patient's discharge disposition." DISCHARGE DISPOSITION: The patient discharged home. [id number]/[facility] #: [id number] KAMALJIT
== END 2018-11-11 13:20 | disposition home or self-care (01) ==
LOC: ED 17:23 → MEDTELE 20:09
PROVIDERS: ADMIT Pediatrics; ATTEND Internal Medicine
DX: R63.1 Polydipsia (principal); E87.1 Hypo-osmolality and hyponatremia; F25.9 Schizoaffective disorder, unspecified; E86.0 Dehydration; F42.9 Obsessive-compulsive disorder, unspecified; F41.9 Anxiety disorder, unspecified; F17.210 Nicotine dependence, cigarettes, uncomplicated
CPT/HCPCS: 36415; 80048; 80053; 80307; 80320; 80329; 81003; 83930; 83935; 84300; 84443; 85025; 99283; A9270-GY; G0378; G0480

== ENCOUNTER 2018-11-17 13:37 | Inpatient (IN) | payer OTHER ==
[2018-11-17] MEDS ORDERED: Divalproex ER TAB(*) 500 MG PO ONE (13:59)
[2018-11-17] MEDS ORDERED: Paliperidone ER TAB* 6 MG TAB.ER PO ONE (14:00)
--- NOTE | 2018-11-17 14:00 | ED ---
Psychiatric Complaint - HPI Summary HPI Summary: A 43 y/o male brought in by police and [facility] ambulance presents to [facility] with a chief complaint of not taking his medication. The patient claims that he made kaka but denies diarrhea. He is requesting his medication upon arrival. When asked if he had any SI or HI he avoided the question by claiming that he wanted some orange juice. The patient has hands that are dried and cracked because he is using strong soap. He reports that he takes Divalproex and Abilify. - History Of Current Complaint Time Seen by Provider: 11/17/18 13:40 Hx Obtained From: Patient, EMS, Other: - police Onset/Duration: Sudden Onset, Lasting Hours, Still Present Timing: Constant Severity Initially: Mild Severity Currently: Mild Aggravating Factor(s): Nothing Alleviating Factor(s): Nothing Associated Signs And Symptoms: Positive: Negative Related History: Positive For: Prior Psychiatric Issues - Allergies/Home Medications Allergies/Adverse Reactions: Allergies Allergy/AdvReac Type Severity Reaction Status Date / Time clonazepam Allergy Unknown Verified 11/17/18 14:10 Reaction Details Home Medications: Home Medications Benztropine TAB* [Cogentin TAB*] 0.5 mg PO BEDTIME 11/17/18 [History Confirmed 11/17/18] Divalproex ER TAB(*) [Depakote ER TAB(*)] 1,000 mg PO BEDTIME 11/17/18 [History Confirmed 11/17/18] PMH/Surg Hx/FS Hx/Imm Hx Endocrine/Hematology History: Reports: Other Endocrine/Hematological Disorders - Hx hyponatremia r/t psychogenic polydipsia Denies: Hx Anticoagulant Therapy, Hx Diabetes Cardiovascular History: Denies: Hx Hypertension Respiratory History: Denies: Hx Asthma Sensory History: Denies: Hx Contacts or Glasses, Hx Hearing Aid Opthamlomology History: Denies: Hx Contacts or Glasses Psychiatric History: Reports: Hx Anxiety, Hx Inpatient Treatment - [facility] [place], Hx Community Mental Health Tx, Hx Schizophrenia, Hx Bipolar Disorder, Other Psychiatric Issues/Disorders - OCD Denies: Hx Eating Disorder, Hx of Violent Episodes Against Others - Surgical History Surgery Procedure, Year, and Place: n/a - Family History Known Family History: Positive: Diabetes - grandfather - Social History Alcohol Use: Occasionally Hx Substance Use: No Substance Use Type: Reports: None Hx Tobacco Use: Yes Smoking Status (MU): Current Every Day Smoker Type: Cigarettes Amount Used/How Often: 1 ppd Length of Time of Smoking/Using Tobacco: 15+ years Have You Smoked in the Last Year: Yes Review of Systems Negative: Fever Negative: Diarrhea Positive: Other - positive: dry and cracking skin on hands Positive: Other - positive: not taking psychiatric medication, avoided question about SI/HI. All Other Systems Reviewed And Are Negative: Yes Physical Exam - Summary Physical Exam Summary: Appearance: Well-appearing, Well-nourished, lying in bed comfortably Skin: dry skin and cracking of skin on dorsal hands Eyes: sclera anicteric, no conjunctival pallor ENT: mucous membranes moist, pharynx appears normal Neck: Supple, nontender Respiratory: Clear to auscultation, no signs of respiratory distress Cardiovascular: Normal S1, S2. No murmurs. Normal distal pulses in tibial and radial bilaterally. Abdomen: Soft, nontender, normal active bowel sounds present Musculoskeletal: Normal, Strength/ROM Intact Neurological: A&Ox3, awake and alert, mentation is normal, speech is fluent and appropriate Psychiatric: very flat affect with monotone voice, when asked about SI or HI he did not respond. He did not express any overt self or other harm. Triage Information Reviewed: Yes Vital Signs Reviewed: Yes Diagnostics - Laboratory Result Diagrams: 11/17/18 14:28 Lab Statement: Any lab studies that have been ordered have been reviewed, and results considered in the medical decision making process. Course/Dx - Course Course Of Treatment: A 43 y/o male brought in by police and [facility] ambulance presents to [facility] with a chief complaint of not taking his medication. The physical exam revealed dry skin and cracking of skin on dorsal hands. very flat affect with monotone voice, when asked about SI or HI he did not respond. He did not express any overt self or other harm. Chemistries and urines obtained. Serum sodium is 119, which is not far from his baseline. Note is made that he was admitted overnight for a similar sodium a week ago and the sodium began to correct with water restriction. He has psychogenic polydipsia, and of course psychogenic medications can cause hyponatremia, so low sodium levels will continue to be an issue for him if this behavior continues. At this point no specific treatment or monitoring other than a recheck of the sodium tomorrow and water restriction to 500 ml/day. He does not appear to be symptomatic from his hyponatremia, as his body is already accustomed to this. Per mental health financial reporting analyst, Dr. Tyson has decided that the patient will be admitted. Dx: schizoaffective - Differential Dx/Clinical Impression Provider Diagnosis: Schizo affective schizophrenia, Hyponatremia, Psychogenic polydipsia - Physician Notifications Discussed Care Of Patient With: Oscar Tyson Time Discussed With Above Provider: 16:00 Instructed by Provider To: Other - Per mental health financial reporting analyst, Dr. Tyson has decided that the patient will be admitted. Dx: schizoaffective Discharge - Sign-Out/Discharge Documenting (check all that apply): Patient Departure - admit Patient Received Moderate/Deep Sedation with Procedure: No - Discharge Plan Condition: Fair Disposition: PSYCHIATRIC FACILITY[place] [place] - Billing Disposition and Condition Condition: FAIR Disposition: Psychiatric Facility [facility] [place] - Attestation Statements Document Initiated by Riveraibe: Yes Documenting Scribe: Rodney Chowdhury Provider For Whom Albino is Documenting (Include Credential): Issa Denny MD Scribe Attestation: Rodney Khanna, scribed for Issa Denny MD on 11/19/18 at 0941. Scribe Documentation Reviewed: Yes Provider Attestation: The documentation as recorded by the Rodney hansen accurately reflects the service I personally performed and the decisions made by Issa love MD Status of Scribe Document: Viewed
[2018-11-17 15:01] LABS: Urine Appearance Clear; Urine Bilirubin Negative (Negative); Urine Blood Negative (Negative); Urine Color Colorless; Urine Glucose Negative (Negative); Urine Ketones 1+ (Negative); Urine Nitrite Negative (Negative); Urine Protein Negative (Negative); Urine Specific Gravity 1.001 (1.010-1.030); Urine Urobilinogen Negative (Negative)
[2018-11-17 15:05] LABS: BUN/Creatinine Ratio 4.4 (8-20); EGFR African American 155.5 (>60); EGFR Non-African American 128.5 (>60); Potassium 3.2 mmol/L (3.5-5.0)
[2018-11-17] MEDS ORDERED: Al Hydrox/Mg Hydrox/Simet LIQ* 30 ML UDC PO PRN (18:00)
[2018-11-17] MEDS ORDERED: Nicotine* 2MG (FRUIT FLAVOR) GUM PO PRN (18:00)
[2018-11-17] MEDS ORDERED: Acetaminophen TAB* 325 MG PO PRN (18:00)
[2018-11-17] MEDS ORDERED: ARIPiprazole TAB* 5 MG PO SCH (21:00)
[2018-11-17] MEDS: Divalproex ER TAB(*) 500 MG PO SCH (21:38)
[2018-11-17] MEDS: Benztropine TAB* 1 MG PO SCH (21:39)
[2018-11-18] MEDS: Vitamin THERAPEUTIC TAB PO SCH (09:34)
--- NOTE | 2018-11-18 13:34 | HP ---
HISTORY AND PHYSICAL: DATE OF ADMISSION: 11/17/18 JUSTIFICATION FOR ADMISSION: The patient is in need of 24-hour supervision and care secondary to psychotic illness and inability to care for himself in a less restrictive setting. CHIEF COMPLAINT: "They sent me over because I was stomping down the hallways." HISTORY OF PRESENT ILLNESS: The patient is a 43-year-old single male who is a dual citizen of the [place] and [place] with a history of schizoaffective disorder, who was sent to the hospital on a 9.45 status as initiated by the [facility] due to concerns over increasing psychotic symptoms, nonadherence with antipsychotic medication and decreased ability to meet his own needs in the community. For collateral information, we heard from his director of healthcare systems at the [facility] where he resides. This clinician's name was Greyson, who reported that the patient is only partly compliant with his medications. He has been taking Depakote, but not Invega. The patient has been drinking toxic amounts of water leading to a brief medical hospitalization less than 1 week ago. He is at times observed to be in a catatonic state, engaging in ritualistic behaviors such as excessive hand washing which has resulted in chapped open sores on skin of his hands. They claimed that he is a fire risk because he has been smoking in his bedroom. He has also had issues with toileting, recently having defecated in one of the wastepaper baskets in the fpc. On evaluation in the ED, the patient was cooperative, but did appear to be responding to internal stimuli. When I meet with Anderson, he insists that he is taking all of his medications as prescribed. He tells me that the [facility] staff was simply concerned because he is walking too loudly in the hallways. I did bring up an additional concern that he is only eating Doritos, chocolate, and Coca-Cola. He acknowledges this, saying that all of these foods are high in sodium which he needs because of his hyponatremia. Anderson does acknowledge polydipsia, stating that he is drinking close to 17 glasses of water per day, although he could not specify what the volume of these glasses was. I spoke with him at length trying to encourage him to consider the long-acting injectable version of Invega, but he is dismissive of this, saying "no, no, no doctor I drink the pills." I asked him if he was hearing voices or feeling that people were persecuting him and he denied these. PAST PSYCHIATRIC HISTORY: Significant for both OCD and schizoaffective disorder , having started to experience mental health issues in his 20s when he was a college student in the [place]. He has a history of several admissions at [facility] including 1 in 2009, 1 in 2016, 3 admissions in 2017, and his most recent [facility] admission on the [facility] in October of 2018. He also had a long-term state hospitalization in [place] in August of 2017 along with another psychiatric hospitalization in [place] when he was visiting his brother in 2005. His family has told me that in the past he did have at least 1 psychiatric hospitalization in the [facility], which was some time in the spring. Previous psychiatric medications have included risperidone, clozapine, Depakote, and paliperidone as well as aripiprazole. Most recently, he is supposed to be on a regimen of Depakote, benztropine, and aripiprazole. The patient receives outpatient psychiatric services at the [facility]. SUBSTANCE ABUSE HISTORY: Significant for mild alcohol usage. He does smoke approximately 1 pack of cigarettes per day and denies illicit drugs. PAST MEDICAL HISTORY: Significant for psychogenic polydipsia and recurrent hyponatremia. MEDICATIONS: 1. Benztropine 0.5 mg twice daily. 2. Depakote extended release 1000 mg p.o. q.h.s. 3. Abilify 10 mg p.o. q.h.s. ALLERGIES: He is allergic to CLONAZEPAM. FAMILY HISTORY: The patient has a great grandmother on his father's side who was diagnosed with bipolar disorder. There are no known suicides in the family. SOCIAL HISTORY: The patient was born here in [place] while his [place] father was a student at [employer]. His family was intact and his mother apparently was of [place] descent. The family returned to the [place] after his father finished his studies and the patient was approximately 4 years old at that time. Most of his life was spent in the [place]. The patient has made several trips of [place] in the past against his family's wishes and each time stated his intention to get enrolled in [facility]. 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 The patient has never been . He has no children. Because he was born in the [place], he does carry dual citizenship. He was raised Gnosticism, but does not currently practice. He has never been in the and has no significant history of legal problems. Most recently, he has been living in the [facility], which is a therapeutic fpc run by the [facility]. He also receives case management services through [facility]. REVIEW OF SYSTEMS: The patient complains of some fatigue and chapped dryness in his hands. Other than this, he denies headache, double vision, sore throat, cough, chest pain, difficulty breathing. He denies abdominal pain, nausea, vomiting, diarrhea, or constipation. He denies difficulty ambulating, changes in weight, fever, rashes, or enlarged lymph nodes. PHYSICAL EXAMINATION VITAL SIGNS: Blood pressure is 138/64, heart rate is tachycardic at 120, respiratory rate 17, temperature 97.4 degrees Fahrenheit, oxygen saturations are 100% on room air. HEENT: Head is normocephalic, atraumatic. NECK: Supple. CHEST: Clear to auscultation bilaterally. CARDIAC: Exam reveals a tachycardic rate, but otherwise heart sounds are normal. ABDOMEN: Soft, obese, nontender. MUSCULOSKELETAL: Exam reveals no sign of edema. NEUROLOGICAL: He is grossly intact with no focal deficits. SKIN: Reveals significant chapping and dryness with open sores to his bilateral hands. LABORATORY DATA: Complete blood count is within normal limits. Complete metabolic panel reveals grossly low sodium at 119, low potassium at 3.2, low chloride at 88, glucose is slightly elevated at 133. Urinalysis has a low specific gravity with 1+ ketones. Valproic acid level is therapeutic at 72.0. MENTAL STATUS EXAMINATION: The patient is a middle-aged, heavyset, male with thinning dark hair. He is mildly overweight, lying in bed under the covers, but looks up and makes fairly good eye contact. He immediately recognizes me and is calm, cooperative, and polite. His speech is broken Yoruba, although it is clear that he understands my questions. Mood appears to be anxious with a somewhat blunted affect. Thought process is simplistic and somewhat circumstantial. Thought content is significant for his desire to be discharged from the hospital. He denies suicidal or homicidal ideations. He denies auditory or visual hallucinations. He does appear to be responding to internal stimuli at this time. Insight and judgment are limited given his nonadherence with antipsychotic medication and overuse of water and junk food. Cognitively, he is awake and alert with what would appear to be an average intellect. DIAGNOSES: Valentine I: Schizoaffective disorder, bipolar type; obsessive- compulsive disorder. Valentine II: Deferred. ASSESSMENT: The patient is a 43-year-old single male, dual citizen of the [facility] and [place], who has a history of both schizoaffective disorder and obsessive-compulsive disorder, who arrives at the hospital via a 9.45 involuntary status because of psychotic behavior, poor adherence with outpatient medications, increasing polydipsia, and failure to care for himself in a less restrictive setting. The patient is agreeable to resuming oral antipsychotic, but he is resistant to the idea of injectable long- acting antipsychotic therapy. PLAN: The patient is admitted to the adult behavioral health unit and placed on q.15-minute checks for his own safety. We have resumed medications including benztropine, Depakote, and paliperidone 12 mg p.o. q.h.s. While he is here, we will certainly continue to bring up the subject of a long-acting injectable in the hopes that he will change his mind. At his time of discharge , his followup will likely be back at [facility] and he is welcome to return to the [facility] as soon as he is stable. While he is here, he is certainly encouraged to avail himself of all milieu and group activities. We will make sure that he has appointments in place with [facility] prior to his discharge. In addition, his fluid intake will be restricted and we will be following his sodium levels as needed. [id number]/[facility] #: [id number] KAMALJIT
[2018-11-18] MEDS: Benztropine TAB* 1 MG PO SCH (21:05)
[2018-11-18] MEDS: Divalproex ER TAB(*) 500 MG PO SCH (21:06)
[2018-11-18] MEDS: Paliperidone ER TAB* 6 MG TAB.ER PO SCH (21:07)
[2018-11-19] MEDS: Vitamin THERAPEUTIC TAB PO SCH (10:03)
--- NOTE | 2018-11-19 12:50 | PN ---
Subjective - Subjective Date of Service: 11/19/18 Service Type: 44622 Hosp care 15 min low complexity Subjective: Anderson is in good spirits. He is taking his medications, including paliperidone , as directed and avoiding excessive water consumption. Staff notes that he sometimes appears to be responding to internal stimuli but this observer does not currently note that. He denies SI or HI. He has not been going to groups though and has been isolating. He is still dishevelled and malodorous. Objective - General Observations Appearance: Disheveled, Malodorous, Unkempt Appears Stated Age: Yes Stature: Overweight Posture: WNL Eye Contact: Intense Behavior/Activity: Stereotyped - Interaction Observations Attitude Towards Examiner: Cooperative Stated Mood: Euthymic Affect: Blunted Speech Pattern/Tone: Perseverating Thought Process: Disorganized, Impoverished Thought Content: Paranoid Thought Process: Lethality: Paranoid Ideation Hallucination Type: Denies Delusion Type: Persecution - Cognitive Function Orientation: A&O x 4 Level of Consciousness: Awake Cognition: WNL Estimated Intelligence: Normal Insight: WNL Judgment Within Normal Limits: No Ability to Make Reasonable Decisions: Serverely Impaired - Medication Compliance Cooperative with Inpatient Medication Regimen: Yes - Group Participation Participates in Group Activities: No Assessment - Assessment Merits Inpatient Hospitalization: For Immediate Safety, For Stabilization Inpatient DSM-V Dx: F25.0 Clinical Impression: 43 y.o. single, male, dual citizen of the and [place], resident at [facility], arrives via 9.45 initiated by [facility] due to concerns that he has been refusing antipsychotic therapy and has been demonstrating polydipsia, thought disorganization and inability to care for himself. The patient's sodium level was low at 119 upon admission and he is on fluid restrictions because of this. BSU: Problem List - Patient Problems (1) Schizoaffective disorder, bipolar type Current Visit: No Status: Chronic Priority: High Code(s): F25.0 - SCHIZOAFFECTIVE DISORDER, BIPOLAR TYPE SNOMED Code(s): 05034672 Comment: - Continue Benztropine, Divalproex, and Invega. - MHU consult requested. Plan - Plan Treatment Plan: Name: ANDERSON MONTES DE OCA Birthdate: 1975 [id number] We have continued his outpatient regimen of Depakote ER 1000mg PO qhs, benztropine 0.5mg PO qday and paliperidone 12mg PO qhs. He is refusing CELAYA antipsychotic therapy. Will check sodium level over the weekend and expect some improvement. Continue to treat on the inpatient service. Continued Medication Management: Continue Outpt Medication Medications: Current Medications Acetaminophen (Tylenol Tab*) 650 mg PO Q4H PRN PRN Reason: PAIN or TEMP > 101 F Al Hydrox/Mg Hydrox/Simethicone (Maalox Plus*) 30 ml PO Q4H PRN PRN Reason: INDIGESTION Benztropine Mesylate (Cogentin Tab*) 0.5 mg PO BEDTIME [facility] Last Admin: 11/18/18 21:05 Dose: 0.5 mg Divalproex Sodium (Depakote Er Tab(*)) 1,000 mg PO BEDTIME [facility] Last Admin: 11/18/18 21:06 Dose: 1,000 mg Multivitamins (Theragran Tab*) 1 tab PO DAILY [facility] Last Admin: 11/19/18 10:03 Dose: 1 tab Nicotine Polacrilex (Nicotine Gum*) 2 mg PO Q2H PRN PRN Reason: CRAVINGS Paliperidone (Invega Er Tab*) 12 mg PO BEDTIME [facility] Last Admin: 11/18/18 21:07 Dose: 12 mg - Discharge Plan Discharge Plan: Inpatient Hospitalization Lab Results - Lab Results Lab Results: 11/17/18 11/17/18 11/17/18 14:28 14:28 14:47 Sodium 119 L* Potassium 3.2 L Chloride 88 L Carbon Dioxide 22 Anion Gap 9 BUN 3 L Creatinine 0.68 Est GFR ( Amer) 155.5 Est GFR (Non-Af Amer) 128.5 BUN/Creatinine Ratio 4.4 L Glucose 133 H Calcium 9.0 Urine Color Colorless Urine Appearance Clear Urine pH 7.0 Ur Specific [place] 1.001 L Urine Protein Negative Urine Ketones 1+ A Urine Blood Negative Urine Nitrate Negative Urine Bilirubin Negative Urine Urobilinogen Negative Ur Leukocyte Esterase Negative Urine Glucose Negative Valproic Acid 72.0
[2018-11-19] MEDS: Benztropine TAB* 1 MG PO SCH (21:08)
[2018-11-19] MEDS: Paliperidone ER TAB* 6 MG TAB.ER PO SCH (21:09)
[2018-11-19] MEDS: Divalproex ER TAB(*) 500 MG PO SCH (21:09)
[2018-11-20 08:08] LABS: BUN/Creatinine Ratio 8.8 (8-20); EGFR African American 128.9 (>60); EGFR Non-African American 106.5 (>60); Potassium 4.4 mmol/L (3.5-5.0)
[2018-11-20] MEDS: Vitamin THERAPEUTIC TAB PO SCH (10:15)
[2018-11-20] MEDS: Benztropine TAB* 1 MG PO SCH (20:49)
[2018-11-20] MEDS: Paliperidone ER TAB* 6 MG TAB.ER PO SCH (20:49)
[2018-11-20] MEDS: Divalproex ER TAB(*) 500 MG PO SCH (20:49)
[2018-11-21] MEDS: Vitamin THERAPEUTIC TAB PO SCH (09:29)
--- NOTE | 2018-11-21 15:38 | PN ---
Subjective - Subjective Date of Service: 11/21/18 Service Type: 45436 Hosp care 15 min low complexity Subjective: Anderson was found sitting on his bed. He rarely leaves his room. He was pleasant, but engagement was superficial, with blunted affect and evidently impaired cognition, perhaps chronic. He declines any intervention of any sort, reports he is doing well, sleeping and eating well, and has no intent to harm himself or others. He is not attending groups. He denies AH/VH/PI/HI. Objective - General Observations Appearance: Malodorous, Unkempt Appears Stated Age: Yes Stature: Overweight Eye Contact: Average Behavior/Activity: Peculiar - Interaction Observations Attitude Towards Examiner: Cooperative Stated Mood: Euthymic Affect: Blunted Speech Pattern/Tone: Clear, Normal Volume Thought Process: Disorganized Perception: WNL Hallucination Type: None - Cognitive Function Orientation: A&O x 4 Level of Consciousness: Awake Cognition: Impaired Ability to Abstract Estimated Intelligence: Borderline Range Judgment Within Normal Limits: No Ability to Make Reasonable Decisions: Serverely Impaired - Medication Compliance Cooperative with Inpatient Medication Regimen: Yes - Group Participation Participates in Group Activities: No Assessment - Assessment Merits Inpatient Hospitalization: For Immediate Safety, For Stabilization Inpatient DSM-V Dx: F25.0 Clinical Impression: 43 y.o. single, male, dual citizen of the and [place], resident at [facility], arrives via 45 initiated by [facility] due to concerns that he has been refusing antipsychotic therapy and has been demonstrating polydipsia, thought disorganization and inability to care for himself. The patient's sodium level was low at 119 upon admission and he is on fluid restrictions because of this. Weekend update: Na+ recheck found 135. Plan - Plan Treatment Plan: Name: ANDERSON MONTES DE OCA Birthdate: 1975 [id number] We have continued his outpatient regimen of Depakote ER 1000mg PO qhs, benztropine 0.5mg PO qday and paliperidone 12mg PO qhs. He is refusing CELAYA antipsychotic therapy. Sodium level back in normal range at 135 with Thursday AM labs. Continue to treat on the inpatient service. Medications: Current Medications Acetaminophen (Tylenol Tab*) 650 mg PO Q4H PRN PRN Reason: PAIN or TEMP > 101 F Al Hydrox/Mg Hydrox/Simethicone (Maalox Plus*) 30 ml PO Q4H PRN PRN Reason: INDIGESTION Benztropine Mesylate (Cogentin Tab*) 0.5 mg PO BEDTIME [facility] Last Admin: 11/20/18 20:49 Dose: 0.5 mg Divalproex Sodium (Depakote Er Tab(*)) 1,000 mg PO BEDTIME [facility] Last Admin: 11/20/18 20:49 Dose: 1,000 mg Multivitamins (Theragran Tab*) 1 tab PO DAILY [facility] Last Admin: 11/21/18 09:29 Dose: 1 tab Nicotine Polacrilex (Nicotine Gum*) 2 mg PO Q2H PRN PRN Reason: CRAVINGS Paliperidone (Invega Er Tab*) 12 mg PO BEDTIME [facility] Last Admin: 11/20/18 20:49 Dose: 12 mg - Discharge Plan Discharge Plan: Outpatient Follow Up Outpatient Program: Rupinder Butcher [facility]
[2018-11-21] MEDS: Paliperidone ER TAB* 6 MG TAB.ER PO SCH (20:21)
[2018-11-21] MEDS: Divalproex ER TAB(*) 500 MG PO SCH (20:22)
[2018-11-21] MEDS: Benztropine TAB* 1 MG PO SCH (20:23)
[2018-11-22 08:52] VITALS: BP 147/87
[2018-11-22] MEDS: Vitamin THERAPEUTIC TAB PO SCH (09:20)
--- NOTE | 2018-11-22 14:59 | PN ---
Subjective - Subjective Date of Service: 11/22/18 Service Type: [id number] Hosp care 15 min low complexity Subjective: Anderson is found sitting alone in his room. He is cheerful enough and quite agreeable. He states he's been eating meals and is aware that his sodium was low. The water remains off in his room. He specifically and precisely declines an CELAYA. Objective - General Observations Appearance: Disheveled Appears Stated Age: Yes Stature: Overweight Posture: Slumped Eye Contact: Average Behavior/Activity: WNL - Interaction Observations Attitude Towards Examiner: Cooperative Stated Mood: Euthymic Affect: Bright Speech Pattern/Tone: Clear, Normal Volume Thought Process: Coherent, Disorganized Perception: WNL Thought Content: Preoccupation/Ruminations Hallucination Type: None Delusion Type: None - Cognitive Function Orientation: A&O x 4 Level of Consciousness: Awake, Alert, Appropriate Cognition: WNL Estimated Intelligence: Normal Insight: Difficulty Acknowledging Presence of Psyciatric Problems Judgment Within Normal Limits: No Ability to Make Reasonable Decisions: Moderately Impaired - Medication Compliance Cooperative with Inpatient Medication Regimen: Yes - Group Participation Participates in Group Activities: No Assessment - Assessment Merits Inpatient Hospitalization: For Immediate Safety Inpatient DSM-V Dx: F25.0 Clinical Impression: 43 y.o. single, male, dual citizen of the [place], resident at [facility], arrives via .45 initiated by [facility] due to concerns that he has been refusing antipsychotic therapy and has been demonstrating polydipsia, thought disorganization and inability to care for himself. The patient's sodium level was low at 119 upon admission and he is on fluid restrictions because of this. Weekend update: Na+ recheck found 135. Plan - Plan Treatment Plan: Name: ANDERSON MONTES DE OCA Birthdate: 1975 [id number] We have continued his outpatient regimen of Depakote ER 1000mg PO qhs, benztropine 0.5mg PO qday and paliperidone 12mg PO qhs. He is refusing CELAYA antipsychotic therapy. Sodium level back in normal range at 135 with Thursday AM labs. Continue to treat on the inpatient service. Medications: Current Medications Acetaminophen (Tylenol Tab*) 650 mg PO Q4H PRN PRN Reason: PAIN or TEMP > 101 F Al Hydrox/Mg Hydrox/Simethicone (Maalox Plus*) 30 ml PO Q4H PRN PRN Reason: INDIGESTION Benztropine Mesylate (Cogentin Tab*) 0.5 mg PO BEDTIME MARJ Last Admin: 11/21/18 20:23 Dose: 0.5 mg Divalproex Sodium (Depakote Er Tab(*)) 1,000 mg PO BEDTIME MARJ Last Admin: 11/21/18 20:22 Dose: 1,000 mg Multivitamins (Theragran Tab*) 1 tab PO DAILY [facility] Last Admin: 11/22/18 09:20 Dose: 1 tab Nicotine Polacrilex (Nicotine Gum*) 2 mg PO Q2H PRN PRN Reason: CRAVINGS Paliperidone (Invega Er Tab*) 12 mg PO BEDTIME [facility] Last Admin: 11/21/18 20:21 Dose: 12 mg - Discharge Plan Discharge Plan: Outpatient Follow Up
[2018-11-22] MEDS: Benztropine TAB* 1 MG PO SCH (20:15)
[2018-11-22] MEDS: Paliperidone ER TAB* 6 MG TAB.ER PO SCH (20:16)
[2018-11-22] MEDS: Divalproex ER TAB(*) 500 MG PO SCH (20:16)
[2018-11-23] MEDS: Vitamin THERAPEUTIC TAB PO SCH (08:33)
--- NOTE | 2018-11-23 13:23 | PN ---
Subjective - Subjective Date of Service: 11/23/18 Service Type: [id number] Hosp care 15 min low complexity Subjective: Patient reports he is drinking the appropriate amount of water "7 to 8 glasses per day." He reports he drinks copious amounts of water to quell anxiety. He declines offer of prn medication for anxiety and states "abilify is for bipolar disorder and anxiety." He requests staff pass. Objective - General Observations Appearance: Well Groomed Stature: Overweight Posture: WNL Eye Contact: Average Behavior/Activity: WNL - Interaction Observations Attitude Towards Examiner: Cooperative Stated Mood: Euthymic Affect: Bright Speech Pattern/Tone: Clear, Pressured, Loud Volume Perception: Illusions Thought Content: Obsessional, Grandiose Thought Process: Lethality: Paranoid Ideation Hallucination Type: Denies Delusion Type: Persecution, Somatic - Cognitive Function Orientation: A&O x 4 Level of Consciousness: Alert Cognition: WNL Estimated Intelligence: Normal Insight: Difficulty Acknowledging Presence of Psyciatric Problems Ability to Make Reasonable Decisions: Serverely Impaired - Medication Compliance Cooperative with Inpatient Medication Regimen: Partial - Group Participation Participates in Group Activities: Partial Assessment - Assessment Merits Inpatient Hospitalization: For Immediate Safety, For Stabilization, For Ongoing Evaluation, Consolidate Improvements Inpatient DSM-V Dx: F25.0 Clinical Impression: 43 y.o. single, male, dual citizen of the and [place], resident at [facility], arrives via 9.45 initiated by [facility] due to concerns that he has been refusing antipsychotic therapy and has been demonstrating polydipsia, thought disorganization and inability to care for himself. The patient's sodium level was low at 119 upon admission and he is on fluid restrictions because of this. Weekend update: Na+ recheck found 135. Plan - Plan Treatment Plan: Name: MADHAVI MONTES DE OCA Birthdate: 1975 [id number] We have continued his outpatient regimen of Depakote ER 1000mg PO qhs, benztropine 0.5mg PO qday and paliperidone 12mg PO qhs. He is refusing CELAYA antipsychotic therapy. Sodium level back in normal range at 135 with Thursday AM labs. Continue to treat on the inpatient service. Medications: Current Medications Acetaminophen (Tylenol Tab*) 650 mg PO Q4H PRN PRN Reason: PAIN or TEMP > 101 F Al Hydrox/Mg Hydrox/Simethicone (Maalox Plus*) 30 ml PO Q4H PRN PRN Reason: INDIGESTION Benztropine Mesylate (Cogentin Tab*) 0.5 mg PO BEDTIME [facility] Last Admin: 11/22/18 20:15 Dose: 0.5 mg Divalproex Sodium (Depakote Er Tab(*)) 1,000 mg PO BEDTIME MARJ Last Admin: 11/22/18 20:16 Dose: 1,000 mg Multivitamins (Theragran Tab*) 1 tab PO DAILY [facility] Last Admin: 11/23/18 08:33 Dose: 1 tab Nicotine Polacrilex (Nicotine Gum*) 2 mg PO Q2H PRN PRN Reason: CRAVINGS Paliperidone (Invega Er Tab*) 12 mg PO BEDTIME [facility] Last Admin: 11/22/18 20:16 Dose: 12 mg - Discharge Plan Discharge Plan: Inpatient Hospitalization
[2018-11-23] MEDS: Benztropine TAB* 1 MG PO SCH (20:41)
[2018-11-23] MEDS: Divalproex ER TAB(*) 500 MG PO SCH (20:41)
[2018-11-23] MEDS: Paliperidone ER TAB* 6 MG TAB.ER PO SCH (20:42)
[2018-11-24] MEDS: Vitamin THERAPEUTIC TAB PO SCH (08:34)
[2018-11-24] MEDS: Benztropine TAB* 1 MG PO SCH (21:57)
[2018-11-24] MEDS: Paliperidone ER TAB* 6 MG TAB.ER PO SCH (21:57)
[2018-11-24] MEDS: Divalproex ER TAB(*) 500 MG PO SCH (21:57)
[2018-11-25] MEDS: Vitamin THERAPEUTIC TAB PO SCH (09:05)
--- NOTE | 2018-11-25 14:26 | DS ---
DISCHARGE SUMMARY: DATE OF ADMISSION: 11/17/18 DATE OF DISCHARGE: 11/25/18 DISCHARGE DIAGNOSES: As follows: [place] I: Schizoaffective disorder, bipolar type; obsessive compulsive disorder. [place] II: Deferred. CONDITION AT THE TIME OF DISCHARGE: Improved. The patient is clean, calm, well groomed. He has discontinued the compulsive habits of washing his hand and drinking excessive amounts of water. He has been taking medications as directed and he is agreeable to initiate treatment with the [facility]. The patient has housing through the [facility] and he will be returning to [facility] this afternoon where he is a resident of their longterm. Anderson has not demonstrated any tendencies to harm himself or others. He is eating healthy nutrition and he looks considerably better than at the time of admission with marked improvements in grooming and hygiene. At this time, we see no further rationale for inpatient treatment and we feel like he can do well and receiving care in a less restrictive setting. MENTAL STATUS EXAMINATION: At the time of discharge, the patient is a middle- aged, heavyset, male, with thinning dark hair. Currently, he is walking in his room with a sweat suit on. He is calm, polite, cooperative. His speech is broken Bengali, although it is clear that he understands our communication. Mood appears to be euthymic with full affect. Thought process is simplistic but linear. Thought content is significant for his desire to be discharged from the hospital. He denies suicidal or homicidal ideations. He denies auditory or visual hallucinations. He does not appear to be responding to internal stimuli at this time. Insight and judgment are fair given his willingness to follow up with the ACT team and to take medications on an outpatient basis. Cognitively, he is awake and alert with what would appear to be an average intellect. LABORATORY DATA: Comprehensive metabolic testing was last performed on . At that time, hemoglobin A1c was 6.0%, triglycerides 123, cholesterol 145, LDL cholesterol 87, HDL cholesterol 33.4. DISCHARGE INSTRUCTIONS: To the patient are as follows: Part A: Medications: 1. The patient takes Depakote extended release 1000 mg p.o. q.h.s. 2. He takes benztropine 0.5 mg p.o. q.h.s. 3. He takes Invega 12 mg p.o. q.h.s. Part B: Diet is regular. Part C: Activities: We are strongly encouraging the patient to refrain from excessive hand washing and also to abstain from large amounts of water. The patient is a tobacco smoker, however, he is declining the offer of continued nicotine replacement therapy at this time, instead we have given him the [facility] Smokers' Quitline, which is toll-free at [phone]. There are no laboratory or diagnostic studies pending at the time of discharge. Part D: Followup care: The patient will follow up with the [facility] on 11/30/18 for his intake. In terms of disposition, he will be returning to the [facility], which is a longterm run by the [facility]. Part E: Substance abuse followup is nonapplicable. HOSPITAL COURSE: Part A: Reason for admission: The patient is a 43-year-old, single, male, who is a dual citizen of the [place] with a history of schizoaffective disorder, who was sent to the hospital on a 9.45 status initiated by the [facility] due to concerns over increasing psychotic symptoms, nonadherence with antipsychotic medication and decreased ability to meet his own needs in the community. For collateral information, we heard from his client care representative at the [facility], where he resides, that clinician's name was Greyson, who reported that the patient is only partially compliant with his medications. According to [facility] staff, Anderson has been taking his Depakote as prescribed but not his Invega. The patient has been drinking toxic amounts of water leading to a brief medical hospitalization here at [facility] less than 1 week ago. He is at times observed to be in a catatonic state engaging in ritualistic behaviors such as excessive hand washing, which is resulted in chapped open lesions on the skin of bilateral hands. They claim that he is a fire risk because he is smoking in his bedroom. He has also had issues with toileting, recently having been discovered defecating in one of the waste paper baskets in the longterm. On evaluation in the ED, the patient was cooperative but he did appear to be responding to internal stimuli. When I met with Anderson, he insisted that he was taking all of his medications as prescribed. He tells me that the [facility] staff was simply concerned because he was walking too loudly in the hallways. I did bring up an additional concern that he was only eating Doritos, chocolate candy and Coca-Cola. He acknowledged this saying that all of these foods are high in sodium which he needs because of his hyponatremia. Anderson did acknowledge polydipsia, stating that he was drinking close to 17 glasses of water per day, although he could not specify the volume of these glasses. I spoke with him at length trying to encourage him to consider the long-acting injectable version of Invega but he was dismissive of this saying "no, no, no doctor, I will drink the pills." I asked him if he was hearing voices or feeling the people will prosecuting him and he denied these. Part B: Psychiatric treatment rendered: The patient was admitted to the adult behavioral health unit and placed on q.15 minute checks for his own safety. We immediately resumed his medications as he should be taking on the outpatient basis and these include Invega 12 mg nightly, benztropine 0.5 mg nightly, and Depakote ER 1000 mg nightly. I ordered an immediate Depakote level, which was therapeutic at 72 indicating that he has been taking his Depakote as prescribed. The patient was placed on fluid restrictions and only allowed to drink small amounts of decaffeinated coffee and a couple glasses of water per day. With these interventions, Anderson demonstrated rapid improvement. He stopped excessively washing his hands, was eating healthy food at all meals, was able to participate in milieu expectations, although he does not tend to go to a lot of groups. We contacted the [facility] and they were happy to have him return to his apartment. In order to give him additional support from the community rather than referring him back to [facility], we placed a referral with the local [facility], who scheduled an intake with Anderson at his residence for 11/30/18. At this time , Anderson appears to be much better and we feel that he can safely receive treatment in a less restrictive setting and we wish him the best for safe and healthy future. [id number]/[facility] #: [id number] KAMALJIT
== END 2018-11-25 16:07 | disposition home or self-care (01) | DRG 750 ==
LOC: ED 13:37 → BSU 18:23
PROVIDERS: ADMIT Psychiatry & Neurology Psychiatry; ATTEND Psychiatry & Neurology Psychiatry
DX: F25.0 Schizoaffective disorder, bipolar type (principal); E87.1 Hypo-osmolality and hyponatremia; F42.9 Obsessive-compulsive disorder, unspecified; F41.9 Anxiety disorder, unspecified; E66.3 Overweight; R63.1 Polydipsia; F17.210 Nicotine dependence, cigarettes, uncomplicated; F31.9 Bipolar disorder, unspecified; Z88.8 Allergy status to other drugs, medicaments and biological substances; Z91.14 Patient's other noncompliance with medication regimen; Z83.3 Family history of diabetes mellitus; Z72.89 Other problems related to lifestyle; Z81.8 Family history of other mental and behavioral disorders; Z68.30 Body mass index [BMI] 30.0-30.9, adult
CPT/HCPCS: 36415; 80048; 80164; 81003; 99222; 99231; 99238; 99284; A9270-GY

== ENCOUNTER 2018-12-02 17:21 | Inpatient (IN) | payer OTHER ==
--- NOTE | 2018-12-02 18:02 | ED ---
Psychiatric Complaint - HPI Summary HPI Summary: 43 year old M brought in by ambulance and police [facility] with a chief complaint of acting aggressive per housemates since two hours ago. The patient rates the pain 0/10 in severity. Symptoms aggravated by nothing. Symptoms alleviated by nothing. Patient reports sunburn on both his hands. Patient denies suicidal ideation and homicidal ideation. Patient has psychiatric hx. - History Of Current Complaint Chief Complaint: EDMentalHealth Time Seen by Provider: 12/02/18 17:47 Hx Obtained From: Patient, Other: - housemates Onset/Duration: Lasting Hours - 2, Still Present Timing: Constant Aggravating Factor(s): Nothing Alleviating Factor(s): Nothing Associated Signs And Symptoms: Positive: Negative - SI, HI Related History: Positive For: Prior Psychiatric Issues Has Suicidal: Denies: Thoughts Has Homicidal: Denies: Thoughts - Allergies/Home Medications Allergies/Adverse Reactions: Allergies Allergy/AdvReac Type Severity Reaction Status Date / Time clonazepam Allergy Unknown Verified 11/17/18 14:10 Reaction Details PMH/Surg Hx/FS Hx/Imm Hx Previously Healthy: No Endocrine/Hematology History: Reports: Other Endocrine/Hematological Disorders - Hx hyponatremia r/t psychogenic polydipsia Denies: Hx Anticoagulant Therapy, Hx Diabetes Cardiovascular History: Denies: Hx Hypertension Respiratory History: Denies: Hx Asthma Sensory History: Denies: Hx Contacts or Glasses, Hx Hearing Aid Opthamlomology History: Denies: Hx Contacts or Glasses Psychiatric History: Reports: Hx Anxiety, Hx Inpatient Treatment - [facility], Hx Community Mental Health Tx, Hx Schizophrenia, Hx Bipolar Disorder, Other Psychiatric Issues/Disorders - OCD Denies: Hx Eating Disorder, Hx of Violent Episodes Against Others - Surgical History Surgery Procedure, Year, and Place: n/a Infectious Disease History: No Infectious Disease History: Denies: Traveled Outside the [place] in Last 30 Days - Family History Known Family History: Positive: Diabetes - grandfather - Social History Alcohol Use: Occasionally Hx Substance Use: No Substance Use Type: Reports: None Hx Tobacco Use: Yes Smoking Status (MU): Current Every Day Smoker Type: Cigarettes Amount Used/How Often: 1 ppd Length of Time of Smoking/Using Tobacco: 15+ years Have You Smoked in the Last Year: Yes Review of Systems Positive: Other - sunburn on both his hands Positive: Other - NEGATIVE: HI, SI All Other Systems Reviewed And Are Negative: Yes Physical Exam - Summary Physical Exam Summary: VITAL SIGNS: Reviewed. GENERAL: Patient is a well-developed and nourished (MALE OR FEMALE) who is lying comfortable in the stretcher. Patient is not in any acute respiratory distress. HEAD AND FACE: No signs of trauma. No ecchymosis, hematomas or skull depressions. No sinus tenderness. EYES: PERRLA, EOMI x 2, No injected conjunctiva, no nystagmus. EARS: Hearing grossly intact. Ear canals and tympanic membranes are within normal limits. MOUTH: Oropharynx within normal limits. NECK: Supple, trachea is midline, no adenopathy, no JVD, no carotid bruit, no c- spine tenderness, neck with full ROM. CHEST: Symmetric, no tenderness at palpation LUNGS: Clear to auscultation bilaterally. No wheezing or crackles. CVS: Regular rate and rhythm, S1 and S2 present, no murmurs or gallops appreciated. ABDOMEN: Soft, non-tender. No signs of distention. No rebound no guarding, and no masses palpated. Bowel sounds are normal. EXTREMITIES: FROM in all major joints, no edema, no cyanosis or clubbing. NEURO: Alert and oriented x 3. No acute neurological deficits. Speech is normal and follows commands. SKIN: Patient has eczema and erythema in both hands secondary to sunburn Triage Information Reviewed: Yes Vital Signs On Initial Exam: Initial Vitals Temp Pulse Resp BP Pulse Ox 98.3 F 93 16 142/97 97 12/02/18 17:35 12/02/18 17:35 12/02/18 17:35 12/02/18 17:35 12/02/18 17:35 Vital Signs Reviewed: Yes Diagnostics - Vital Signs Vital Signs Temp Pulse Resp BP Pulse Ox 12/02/18 17:35 98.3 F 93 16 142/97 97 - Laboratory Result Diagrams: 12/02/18 18:39 Lab Statement: Any lab studies that have been ordered have been reviewed, and results considered in the medical decision making process. Course/Dx - Course Assessment/Plan: 43 year old M brought in by ambulance and [facility] with a chief complaint of acting aggressive per housemates since two hours ago. The patient rates the pain 0/10 in severity. Symptoms aggravated by nothing. Symptoms alleviated by nothing. Patient reports sunburn on both his hands. Patient denies suicidal ideation and homicidal ideation. Patient has psychiatric hx. Blood work w/o a significant abnormality. He is medically cleared. He is awaiting for a MHE. Patient is hemodynamically stable and A+O x 3. - Differential Dx/Clinical Impression Differential Diagnosis/HQI/PQRI: Positive: Acute Psychosis Provider Diagnosis: Psychosis Discharge - Sign-Out/Discharge Documenting (check all that apply): Sign-Out Patient Signing out patient TO: Yoseph Montiel - Awaiting MHE, pending disposition Patient Received Moderate/Deep Sedation with Procedure: No - Discharge Plan Condition: Stable Referrals: Oscar Tyson MD [Primary Care Provider] - - Billing Disposition and Condition Condition: STABLE - Attestation Statements Document Initiated by Scribe: Yes Documenting Scribe: Sima Brown Provider For Whom Albino is Documenting (Include Credential): Angel Guevara MD Scribe Attestation: Sima Khanna, scribed for Angel Guevara MD on 12/02/18 at 1857. Scribe Documentation Reviewed: Yes Provider Attestation: The documentation as recorded by the scribeSima accurately reflects the service I personally performed and the decisions made by , Angel Guevara MD Status of Scribe Document: Viewed
[2018-12-02 18:36] LABS: Urine Appearance Clear; Urine Bilirubin Negative (Negative); Urine Blood Negative (Negative); Urine Color Straw; Urine Glucose Negative (Negative); Urine Ketones Trace (Negative); Urine Nitrite Negative (Negative); Urine Protein Negative (Negative); Urine Specific Gravity 1.003 (1.010-1.030); Urine Urobilinogen Negative (Negative)
[2018-12-02 18:53] LABS: ABS Basophils 0.1 10^3/ul (0-0.2); ABS Lymphocytes 1.9 10^3/ul (1.0-4.8); ABS Neutrophils 8.7 10^3/ul (1.5-7.7); Eosinophil % 0.4 %; Hematocrit 38 % (42-52); Hemoglobin 12.9 g/dL (14.0-18.0); Lymphocyte % 15.9 %; Mean Corpuscular HGB Conc 34 g/dL (31-36); Mean Corpuscular Hemoglobin 30 pg (27-31); Mean Corpuscular Volume 89 fL (80-94); Mean Platelet Volume 6.3 fL (7.4-10.4); Platelet Count 354 10^3/uL (150-450); Red Blood Count 4.28 10^6 /uL (4.18-5.48); Red Cell Distribution Width 14 % (10.5-15); White Blood Count 11.7 10^3/uL (3.5-10.8)
[2018-12-02 19:06] LABS: ALT 19 U/L (7-52); AST 19 U/L (13-39); Albumin 3.9 g/dL (3.2-5.2); Albumin/Globulin Ratio 1.4 (1-3); Alkaline Phosphatase 48 U/L (34-104); Anion Gap 7 mmol/L (2-11); Blood Urea Nitrogen 5 mg/dL (6-24); CO2 Carbon Dioxide 25 mmol/L (22-32); Calcium 9.3 mg/dL (8.6-10.3); Chloride 98 mmol/L (101-111); EGFR African American 147.9 (>60); EGFR Non-African American 122.3 (>60); Globulin 2.8 g/dL (2-4); Glucose 125 mg/dL (70-100); Potassium 3.8 mmol/L (3.5-5.0); Sodium 130 mmol/L (135-145); Total Protein 6.7 g/dL (6.4-8.9)
[2018-12-02 19:08] LABS: Urine Benzodiazepine Screen None Detected (None Detect); Urine Opiates Screen None Detected (None Detect)
--- NOTE | 2018-12-02 19:12 | ED ---
Progress - Progress Note Progress Note: The patient is a sign-out from Dr. Angel Guevara MD, to Dr. Yoseph Montiel MD , at change of shift at 1900 pending MHE and disposition. At 0430 I discussed the patients case with Meagan Gallardo, mental health life trainer, who reports that Dr. Tyson, psychiatry, will be admitting the patient with dx of unspecified schizoaffective disorder. Patient is compliant with admission at this time. Course/Dx - Diagnoses Provider Diagnoses: Psychosis, Schizoaffective disorder, unspecified condition - Provider Notifications Discussed Care Of Patient With: Meagan Gallardo - mental health life trainer Time Discussed With Above Provider: 04:30 Instructed by Provider To: Other - Meagan Gallardo reports that Dr. Tyson, psychiatry , is admitting the patient with dx of unspecified schizoaffective disorder. Discharge - Sign-Out/Discharge Documenting (check all that apply): Patient Departure - Patient is accepted for admission by Dr. Tyson., Receiving Sign-Out Receiving patient FROM: Angel Guevara - Patient was a sign-out from Dr. Guevara at shift change pending MHE and disposition. Patient Received Moderate/Deep Sedation with Procedure: No - Discharge Plan Condition: Stable Disposition: [facility]CHIATRIC FAC[facility] - Billing Disposition and Condition Condition: STABLE Disposition: Psychiatric Facility [facility] - Attestation Statements Document Initiated by Riveraibe: Yes Documenting Scribe: Etta Gibson Provider For Whom Albino is Documenting (Include Credential): Dr. Yoseph Montiel MD Scribe Attestation: Etta Khanna scribed for Dr. Yoseph Montiel MD on 12/04/18 at 0512. Scribe Documentation Reviewed: Yes Provider Attestation: The documentation as recorded by the Etta hansen accurately reflects the service I personally performed and the decisions made by me, Dr. Yoseph Montiel MD Status of Scribe Document: Viewed
[2018-12-02 19:46] LABS: Acetaminophen < 15 mcg/mL; Alcohol < 10 mg/dL (<10); Salicylate < 2.50 mg/dL (<30)
[2018-12-02 19:55] LABS: TSH (Thyroid Stimulating Horm) 0.97 mcIU/mL (0.34-5.60)
[2018-12-03] MEDS ORDERED: Al Hydrox/Mg Hydrox/Simet LIQ* 30 ML UDC PO PRN (06:18)
[2018-12-03] MEDS ORDERED: Acetaminophen TAB* 325 MG PO PRN (06:18)
[2018-12-03] MEDS: Vitamin THERAPEUTIC TAB PO SCH (09:11)
[2018-12-03] MEDS: Nicotine PATCH 21 MG/24 HR* PATCH TRANSDERM SCH (09:11)
--- NOTE | 2018-12-03 16:23 | HP ---
PSYCHIATRIC HISTORY AND PHYSICAL: DATE OF ADMISSION: 12/03/18 JUSTIFICATION FOR ADMISSION: The patient is in need of 24-hour supervision and care secondary to thought disorganization, psychosis, and inability to keep himself safe in a less restricted environment. CHIEF COMPLAINT: "I was smoking holographic cigarettes." HISTORY OF PRESENT ILLNESS: The patient is a 43-year-old single male, dual citizen of the [facility] and [place], with a history of schizoaffective disorder, who is just discharged from the [facility] on 11/25/18 and now returns on a 9.45 legal status due to disorganized and catatonic behavior at the [facility]. 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 For collateral information, we reached out to his provider at [place] who indicates that he is not doing well since discharge, although he has been taking his Invega, Depakote, and benztropine as scheduled. He has been oddly related. Continues to smoke cigarettes in his room, which is a fire hazard. They have noticed catatonic behavior in which he seems to freeze in place for 30 to 45 seconds. They are concerned that if this occurs while he is crossing a street that it will put him at danger. Additionally, the patient is still drinking copious amounts of water and not minding his nutritional status. He tends to eat junk food such as Doritos, Coca Cola and chocolate candy from a local convenient store. When I asked Anderson to explain the circumstances of his readmission, he tells me that cigarettes in his room were not real, but rather holographic. Later, he tells me that the cigarettes came from God. He is disheveled with marked excoriations on bilateral hands, which are thought to be secondary to excessive handwashing. He does appear to be significantly off his baseline. Anderson denies homicidal or suicidal thoughts at this time. He denies auditory or visual hallucinations, although he is appearing to respond to internal stimuli. For further history, please refer to the H and P that was dictated by Dr. Tyson on 11/18/18. CURRENT MENTAL STATUS EXAM: The patient is a middle-aged, heavyset male with thinning dark hair, lying in bed under his covers. He gets up and makes intermittent eye contact. He is calm, cooperative, and polite. His speech is broken Macedonian, although it is clear that he understands my questions. Mood is anxious with a somewhat blunted affect. Thought process is simplistic, circumstantial. Thought content is hyperreligious and delusional in nature. He is denying suicidal or homicidal ideations. He denies auditory or visual hallucinations. He does appear to be responding to internal stimuli at this time. Insight and judgment are markedly impaired given his continued overuse of water and junk food, as well as smoking in his room, which is unsafe. Cognitively, he is awake and alert with what would appear to be an average intellect. REVIEW OF SYSTEMS: The patient complains of some fatigue and chap dryness in his hands. Other than this, he denies headache, double vision, sore throat, cough, chest pain, or difficulty breathing. He denies abdominal pain, nausea, vomiting, diarrhea, or constipation. He denies difficulty ambulating, changes in weight, fevers, rashes, or enlarged lymph nodes. PHYSICAL EXAMINATION VITAL SIGNS: Blood pressure 132/86, heart rate 100, temperature 98.2 degrees Fahrenheit, respirations are 20, oxygen saturations 97% on room air. HEENT: Head is normocephalic, atraumatic. NECK: Supple. CHEST: Clear to auscultation bilaterally. CARDIAC: Reveals normal heart sounds. ABDOMEN: Soft and nontender. NEUROLOGIC: He is grossly intact with no focal deficits. SKIN: Reveals erythematous and dry cracking skin on his bilateral hands. DIAGNOSTIC STUDIES/LAB DATA: CBC reveals slight anemia with a hemoglobin of 12.9, hematocrit of 38, sodium is low at 130 as is chloride at 98. Glucose somewhat elevated at 125. Urinalysis shows trace ketones. TSH normal at 0.97. Urinalysis is negative for all substances tested. DIAGNOSES: [place] I: Schizoaffective disorder, bipolar type. OCD. [place] II: Deferred. IMPRESSION: The patient is a 43-year-old single male, dual citizen of the [facility] and [place], who has a history of both schizoaffective disorder and obsessive-compulsive disorder, who arrives at the hospital via 9.45 involuntary status only 1 week following his most recent discharge from the [facility] due to psychotic behavior, increasing polydipsia, and failure to care for himself in a less restricted setting. The patient is agreeable at this time to switching from paliperidone to clozapine as an antipsychotic. He continues to reject the idea of injectable long-acting antipsychotic therapy. PLAN: The patient is admitted to the Adult Behavioral Health Unit and placed on q.15 minute checks for his own safety. We will resume medications including benztropine and Depakote, but decrease his paliperidone from 12 to 9 mg at bedtime. Simultaneously, we will initiate cloze pine at 25 mg p.o. b.i.d. and titrate this to effectiveness. In addition, we will place him on fluid intake restrictions and turn off the water in his room to control his sodium levels. The patient had been referred to the ACT team 1 week ago, but they never managed to conduct his intake. It is uncertain at this time whether he will require longer term treatment in a state psychiatric facility. [id number]/CPS #: [id number]
[2018-12-03] MEDS ORDERED: Paliperidone ER TAB* 6 MG TAB.ER PO SCH (21:00)
[2018-12-03] MEDS: CloZAPine TAB* 25 MG TAB PO SCH (21:24)
[2018-12-03] MEDS: Benztropine TAB* 1 MG PO SCH (21:24)
[2018-12-03] MEDS: Paliperidone ER TAB* 9 MG TAB.ER PO SCH (21:24)
[2018-12-03] MEDS: Divalproex ER TAB(*) 500 MG PO SCH (21:25)
[2018-12-03] MEDS: Nicotine Patch Removal NOTE PATCH OFF SCH (21:26)
[2018-12-04] MEDS: CloZAPine TAB* 25 MG TAB PO SCH ×2 (09:43→20:57)
[2018-12-04] MEDS: Vitamin THERAPEUTIC TAB PO SCH (09:43)
[2018-12-04] MEDS: Nicotine PATCH 21 MG/24 HR* PATCH TRANSDERM SCH (09:45)
[2018-12-04] MEDS: Divalproex ER TAB(*) 500 MG PO SCH (20:57)
[2018-12-04] MEDS: Paliperidone ER TAB* 9 MG TAB.ER PO SCH (20:59)
[2018-12-04] MEDS: Benztropine TAB* 1 MG PO SCH (21:00)
[2018-12-04] MEDS: Nicotine Patch Removal NOTE PATCH OFF SCH (21:02)
[2018-12-05] MEDS: Nicotine PATCH 21 MG/24 HR* PATCH TRANSDERM SCH (08:16)
[2018-12-05] MEDS: CloZAPine TAB* 25 MG TAB PO SCH ×2 (08:40→20:13)
[2018-12-05] MEDS: Vitamin THERAPEUTIC TAB PO SCH (08:40)
[2018-12-05 10:54] LABS: Albumin 3.6 g/dL (3.2-5.2); Calcium 8.8 mg/dL (8.6-10.3); Potassium 4.7 mmol/L (3.5-5.0); Total Bilirubin 0.2 mg/dL (0.2-1.0)
[2018-12-05 11:00] LABS: Albumin/Globulin Ratio 1.3 (1-3); BUN/Creatinine Ratio 9.5 (8-20); EGFR African American 169.8 (>60); EGFR Non-African American 140.3 (>60); Globulin 2.8 g/dL (2-4); Total Protein 6.4 g/dL (6.4-8.9)
--- NOTE | 2018-12-05 16:32 | PN ---
Subjective - Subjective Date of Service: 12/05/18 Service Type: 63542 Hosp care 15 min low complexity Subjective: Anderson says he was fine. Mostly sitting by self in the milieu. Very polite and says thank you a lot. Denies hallucinations, delusions, SI or I. Taking Clozapine and appears to be tolerating well. No nursing concerns reported. Objective - General Observations Appearance: Unkempt Stature: Overweight Posture: WNL Eye Contact: Avoidant Behavior/Activity: WNL - Interaction Observations Attitude Towards Examiner: Cooperative Stated Mood: Euthymic Affect: Blunted, Flat Speech Pattern/Tone: Clear, Appropriate, Normal Volume Thought Process: Coherent Perception: WNL Thought Content: WNL Hallucination Type: None Delusion Type: None - Cognitive Function Orientation: A&O x 4 Level of Consciousness: Awake, Alert Cognition: WNL Estimated Intelligence: Normal Insight: Difficulty Acknowledging Presence of Psyciatric Problems Judgment Within Normal Limits: Yes Ability to Make Reasonable Decisions: Mildly Impaired - Medication Compliance Cooperative with Inpatient Medication Regimen: Yes - Group Participation Participates in Group Activities: Yes Assessment - Assessment Merits Inpatient Hospitalization: For Immediate Safety, For Stabilization, Pending Safe DC Plan Clinical Impression: Tis 43 y/o male with known h/o mental illness and repeated admissions appears to betolerating Clozaril. Plan - Plan Treatment Plan: Name: ANDERSON MONTES DE OCA Birthdate: 1975 [id number] Continued Medication Management: Continue Outpt Medication Medications: Current Medications Acetaminophen (Tylenol Tab*) 650 mg PO Q4H PRN PRN Reason: PAIN or TEMP > 101 F Al Hydrox/Mg Hydrox/Simethicone (Maalox Plus*) 30 ml PO Q4H PRN PRN Reason: INDIGESTION Benztropine Mesylate (Cogentin Tab*) 0.5 mg PO BEDTIME [facility] Last Admin: 12/04/18 21:00 Dose: 0.5 mg Clozapine (Clozapine Tab*) 50 mg PO BEDTIME [facility] Last Admin: 12/04/18 20:57 Dose: 50 mg Clozapine (Clozapine Tab*) 25 mg PO QAM [facility] Last Admin: 12/05/18 08:40 Dose: 25 mg Divalproex Sodium (Depakote Er Tab(*)) 1,000 mg PO BEDTIME [facility] Last Admin: 12/04/18 20:57 Dose: 1,000 mg Multivitamins (Theragran Tab*) 1 tab PO DAILY [facility] Last Admin: 12/05/18 08:40 Dose: 1 tab Nicotine (Nicotine Patch 21 Mg/24 Hr*) 1 patch TRANSDERM DAILY [facility] Last Admin: 12/05/18 08:16 Dose: Not Given Nicotine Polacrilex (Nicotine Gum*) 2 mg PO Q2H PRN PRN Reason: CRAVINGS Paliperidone (Invega Er Tab*) 9 mg PO BEDTIME [facility] Last Admin: 12/04/18 20:59 Dose: 9 mg Pharmacy Profile Note (Nicotine Patch Removal Note*) 1 note PATCH OFF 2100 [facility] Last Admin: 12/04/18 21:02 Dose: Not Given - Discharge Plan Discharge Plan: Inpatient Hospitalization Outpatient Program: [facility]
[2018-12-05] MEDS: Divalproex ER TAB(*) 500 MG PO SCH (20:12)
[2018-12-05] MEDS: Benztropine TAB* 1 MG PO SCH (20:14)
[2018-12-05] MEDS: Nicotine Patch Removal NOTE PATCH OFF SCH (20:15)
[2018-12-05] MEDS: Paliperidone ER TAB* 9 MG TAB.ER PO SCH (20:17)
[2018-12-06] MEDS: CloZAPine TAB* 25 MG TAB PO SCH ×2 (08:26→21:18)
[2018-12-06] MEDS: Vitamin THERAPEUTIC TAB PO SCH (08:26)
[2018-12-06] MEDS: Nicotine PATCH 21 MG/24 HR* PATCH TRANSDERM SCH (08:26)
--- NOTE | 2018-12-06 10:24 | PN ---
Subjective - Subjective Date of Service: 12/06/18 Service Type: 91475 Hosp care 15 min low complexity Subjective: Anderson is under good behavioral control and has been tolerating clozapine well so far. He is cooperative with fluid restrictions and denies SI or HI. Objective - General Observations Appearance: Unkempt Appears Stated Age: Yes Stature: Overweight Posture: WNL Eye Contact: Average Behavior/Activity: Peculiar - Interaction Observations Attitude Towards Examiner: Cooperative Stated Mood: Euthymic Affect: Blunted Speech Pattern/Tone: Clear, Appropriate Thought Process: Disorganized Perception: WNL Thought Content: WNL Thought Process: Lethality: Paranoid Ideation Hallucination Type: None Delusion Type: Sikh - Cognitive Function Orientation: A&O x 4 Level of Consciousness: Awake Cognition: WNL Estimated Intelligence: Normal Insight: WNL Judgment Within Normal Limits: No Ability to Make Reasonable Decisions: Moderately Impaired - Medication Compliance Cooperative with Inpatient Medication Regimen: Yes - Group Participation Participates in Group Activities: No Assessment - Assessment Merits Inpatient Hospitalization: For Immediate Safety, For Stabilization Inpatient DSM-V Dx: F25.0 Clinical Impression: 43 y.o. single, male, dual citizen of the and [place], with a history of schizoaffective DO, just discharged from the [facility] on 11/25/18, who now returns on 9.45 legal status due to disorganized and catatonic behavior at the [facility] residence. 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 BSU: Problem List - Patient Problems (1) Schizoaffective disorder, bipolar type Current Visit: No Status: Chronic Priority: High Code(s): F25.0 - SCHIZOAFFECTIVE DISORDER, BIPOLAR TYPE SNOMED Code(s): 42019539 Comment: - Continue Benztropine, Divalproex, and Invega. - MHU consult requested. Plan - Plan Treatment Plan: Name: ANDERSON MONTES DE OCA Birthdate: 1975 [id number] We have placed him on fluid restrictions and turned off the water in his room. We have reduced oral paliperidone from 12 to 9mg daily and simultaneously initiated a trial of clozapine, now at 25mg PO qam and 50mg PO BID. Will increase this to 50mg PO BID. Patient to be referred to the ACT Team. Continued Medication Management: Different Medication Medications: Current Medications Acetaminophen (Tylenol Tab*) 650 mg PO Q4H PRN PRN Reason: PAIN or TEMP > 101 F Al Hydrox/Mg Hydrox/Simethicone (Maalox Plus*) 30 ml PO Q4H PRN PRN Reason: INDIGESTION Benztropine Mesylate (Cogentin Tab*) 0.5 mg PO BEDTIME [facility] Last Admin: 12/05/18 20:14 Dose: 0.5 mg Clozapine (Clozapine Tab*) 50 mg PO BID [facility] Divalproex Sodium (Depakote Er Tab(*)) 1,000 mg PO BEDTIME [facility] Last Admin: 12/05/18 20:12 Dose: 1,000 mg Multivitamins (Theragran Tab*) 1 tab PO DAILY [facility] Last Admin: 12/06/18 08:26 Dose: 1 tab Nicotine (Nicotine Patch 21 Mg/24 Hr*) 1 patch TRANSDERM DAILY [facility] Last Admin: 12/06/18 08:26 Dose: Not Given Nicotine Polacrilex (Nicotine Gum*) 2 mg PO Q2H PRN PRN Reason: CRAVINGS Paliperidone (Invega Er Tab*) 9 mg PO BEDTIME [facility] Last Admin: 12/05/18 20:17 Dose: 9 mg Pharmacy Profile Note (Nicotine Patch Removal Note*) 1 note PATCH OFF 2100 [facility] Last Admin: 12/05/18 20:15 Dose: Not Given - Discharge Plan Discharge Plan: Inpatient Hospitalization Lab Results - Lab Results Lab Results: 12/03/18 12/05/18 12/05/18 19:51 10:32 10:32 Sodium 133 L Potassium 4.7 Chloride 104 Carbon Dioxide 20 L Anion Gap 9 BUN 6 Creatinine 0.63 L Est GFR ( Amer) 169.8 Est GFR (Non-Af Amer) 140.3 BUN/Creatinine Ratio 9.5 Glucose 102 H Hemoglobin A1c 6.3 H Calcium 8.8 Total Bilirubin 0.20 AST 14 ALT 12 Alkaline Phosphatase 54 Total Protein 6.4 Albumin 3.6 Globulin 2.8 Albumin/Globulin Ratio 1.3 Valproic Acid < 13.0 L
[2018-12-06] MEDS: Benztropine TAB* 1 MG PO SCH (21:17)
[2018-12-06] MEDS: Divalproex ER TAB(*) 500 MG PO SCH (21:18)
[2018-12-06] MEDS: Nicotine Patch Removal NOTE PATCH OFF SCH (21:19)
[2018-12-06] MEDS: Paliperidone ER TAB* 9 MG TAB.ER PO SCH (21:19)
[2018-12-07] MEDS: Vitamin THERAPEUTIC TAB PO SCH (08:31)
[2018-12-07] MEDS: CloZAPine TAB* 25 MG TAB PO SCH ×2 (08:31→21:21)
[2018-12-07] MEDS: Nicotine PATCH 21 MG/24 HR* PATCH TRANSDERM SCH (08:32)
--- NOTE | 2018-12-07 11:40 | PN ---
Subjective - Subjective Date of Service: 12/07/18 Service Type: 22088 Hosp care 15 min low complexity Subjective: Anderson is tolerating clozapine well so far and his symptoms appear to be under control. He met with members of the ACT team yesterday who expressed concerns about his rapid titration onto clozapine and wondered if he would be able to handle the weekly lab draw schedule, given his adherence issues in the past. Anderson is dismissive of this concern, saying "No, no Dr. Tyson. I do what you say!" Objective - General Observations Appearance: Unkempt Stature: Overweight Posture: WNL Eye Contact: Intermittent Behavior/Activity: Peculiar - Interaction Observations Attitude Towards Examiner: Cooperative Stated Mood: Dysphoric Affect: Blunted Speech Pattern/Tone: Appropriate Thought Process: Impoverished Perception: WNL Thought Content: WNL, Paranoid Thought Process: Lethality: Paranoid Ideation Hallucination Type: None Delusion Type: None - Cognitive Function Orientation: A&O x 4 Level of Consciousness: Awake Cognition: WNL Estimated Intelligence: Normal Insight: WNL Judgment Within Normal Limits: No Ability to Make Reasonable Decisions: Serverely Impaired - Medication Compliance Cooperative with Inpatient Medication Regimen: Yes - Group Participation Participates in Group Activities: No Assessment - Assessment Merits Inpatient Hospitalization: For Immediate Safety, For Stabilization Inpatient DSM-V Dx: F25.0 Clinical Impression: 43 y.o. single, male, dual citizen of the and [place], with a history of schizoaffective DO, just discharged from the [facility] on 11/25/18, who now returns on 9.45 legal status due to disorganized and catatonic behavior at the [facility] residence. 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 BSU: Problem List - Patient Problems (1) Schizoaffective disorder, bipolar type Current Visit: No Status: Chronic Priority: High Code(s): F25.0 - SCHIZOAFFECTIVE DISORDER, BIPOLAR TYPE SNOMED Code(s): 31480837 Comment: - Continue Benztropine, Divalproex, and Invega. - MHU consult requested. Plan - Plan Treatment Plan: Name: ANDERSON MONTES DE OCA Birthdate: 1975 [id number] We have placed him on fluid restrictions and turned off the water in his room. We have reduced oral paliperidone from 12 to 9mg daily and simultaneously initiated a trial of clozapine, now at 50mg PO BID. Will increase this to 75mg PO BID. Patient to be referred to the ACT Team. Continued Medication Management: Different Medication Medications: Current Medications Acetaminophen (Tylenol Tab*) 650 mg PO Q4H PRN PRN Reason: PAIN or TEMP > 101 F Al Hydrox/Mg Hydrox/Simethicone (Maalox Plus*) 30 ml PO Q4H PRN PRN Reason: INDIGESTION Benztropine Mesylate (Cogentin Tab*) 0.5 mg PO BEDTIME [facility] Last Admin: 12/06/18 21:17 Dose: 0.5 mg Clozapine (Clozapine Tab*) 75 mg PO BID [facility] Divalproex Sodium (Depakote Er Tab(*)) 1,000 mg PO BEDTIME [facility] Last Admin: 12/06/18 21:18 Dose: 1,000 mg Multivitamins (Theragran Tab*) 1 tab PO DAILY [facility] Last Admin: 12/07/18 08:31 Dose: 1 tab Nicotine (Nicotine Patch 21 Mg/24 Hr*) 1 patch TRANSDERM DAILY [facility] Last Admin: 12/07/18 08:32 Dose: Not Given Nicotine Polacrilex (Nicotine Gum*) 2 mg PO Q2H PRN PRN Reason: CRAVINGS Paliperidone (Invega Er Tab*) 9 mg PO BEDTIME [facility] Last Admin: 12/06/18 21:19 Dose: 9 mg Pharmacy Profile Note (Nicotine Patch Removal Note*) 1 note PATCH OFF 2100 [facility] Last Admin: 12/06/18 21:19 Dose: Not Given - Discharge Plan Discharge Plan: Inpatient Hospitalization Lab Results - Lab Results Lab Results: 12/05/18 12/05/18 12/07/18 10:32 10:32 07:46 Sodium 133 L Potassium 4.7 Chloride 104 Carbon Dioxide 20 L Anion Gap 9 BUN 6 Creatinine 0.63 L Est GFR ( Amer) 169.8 Est GFR (Non-Af Amer) 140.3 BUN/Creatinine Ratio 9.5 Glucose 102 H Hemoglobin A1c 6.3 H Calcium 8.8 Total Bilirubin 0.20 AST 14 ALT 12 Alkaline Phosphatase 54 Total Protein 6.4 Albumin 3.6 Globulin 2.8 Albumin/Globulin Ratio 1.3 Triglycerides 151 Cholesterol 140 LDL Cholesterol 73 HDL Cholesterol 37.0
[2018-12-07] MEDS: Benztropine TAB* 1 MG PO SCH (21:20)
[2018-12-07] MEDS: Divalproex ER TAB(*) 500 MG PO SCH (21:22)
[2018-12-07] MEDS: Paliperidone ER TAB* 9 MG TAB.ER PO SCH (21:23)
[2018-12-08 08:25] LABS: ABS Basophils 0.1 10^3/ul (0-0.2); ABS Eosinophils 0.1 10^3/ul (0-0.6); ABS Lymphocytes 2.3 10^3/ul (1.0-4.8); ABS Neutrophils 5.8 10^3/ul (1.5-7.7); Eosinophil % 1.1 %; Hematocrit 42 % (42-52); Hemoglobin 14.3 g/dL (14.0-18.0); Lymphocyte % 24.8 %; Mean Corpuscular HGB Conc 34 g/dL (31-36); Mean Corpuscular Hemoglobin 30 pg (27-31); Mean Corpuscular Volume 89 fL (80-94); Mean Platelet Volume 6.4 fL (7.4-10.4); Nucleated Red Blood Cells % 0.1; Platelet Count 408 10^3/uL (150-450); Red Blood Count 4.74 10^6 /uL (4.18-5.48); Red Cell Distribution Width 14 % (10.5-15); White Blood Count 9.3 10^3/uL (3.5-10.8)
[2018-12-08] MEDS: Vitamin THERAPEUTIC TAB PO SCH (08:28)
[2018-12-08] MEDS: CloZAPine TAB* 25 MG TAB PO SCH ×2 (08:28→20:18)
--- NOTE | 2018-12-08 10:55 | PN ---
Subjective - Subjective Date of Service: 12/08/18 Service Type: 79315 Hosp care 15 min low complexity Subjective: Anderson is found again laying down in his room. He is polite but thought/speech impoverished and poorly groomed. Staff is concerned that he is not coming out to the milieu as much as he normally would. "Ah, yes. This is because I have a satellite in my head that makes me sleep too much." He denies untoward effects from clozapine administration. Objective - General Observations Appearance: Unkempt Appears Stated Age: Yes Stature: Overweight Posture: WNL Eye Contact: Intermittent Behavior/Activity: Peculiar - Interaction Observations Attitude Towards Examiner: Cooperative Stated Mood: Euthymic Affect: Blunted Speech Pattern/Tone: Appropriate Thought Process: Impoverished Perception: WNL Thought Content: Paranoid Thought Process: Lethality: Paranoid Ideation Hallucination Type: None Delusion Type: Persecution - Cognitive Function Orientation: A&O x 4 Level of Consciousness: Awake Cognition: WNL Estimated Intelligence: Normal Insight: WNL Judgment Within Normal Limits: No Ability to Make Reasonable Decisions: Serverely Impaired - Medication Compliance Cooperative with Inpatient Medication Regimen: Yes - Group Participation Participates in Group Activities: No Assessment - Assessment Merits Inpatient Hospitalization: For Immediate Safety, For Stabilization Inpatient DSM-V Dx: F25.0 Clinical Impression: 43 y.o. single, male, dual citizen of the and [place], with a history of schizoaffective DO, just discharged from the [facility] on 11/25/18, who now returns on 9.45 legal status due to disorganized and catatonic behavior at the [facility] residence. 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 BSU: Problem List - Patient Problems (1) Schizoaffective disorder, bipolar type Current Visit: No Status: Chronic Priority: High Code(s): F25.0 - SCHIZOAFFECTIVE DISORDER, BIPOLAR TYPE SNOMED Code(s): 44331107 Comment: - Continue Benztropine, Divalproex, and Invega. - MHU consult requested. Plan - Plan Treatment Plan: Name: ANDERSON MONTES DE OCA Birthdate: 1975 [id number] We have placed him on fluid restrictions and turned off the water in his room. We have reduced oral paliperidone from 12 to 9mg daily and simultaneously initiated a trial of clozapine, now at 75mg PO BID. CBC looks good this AM and we will get a routine EKG for baseline. Patient to be referred to the ACT Team. Continued Medication Management: Different Medication Medications: Current Medications Acetaminophen (Tylenol Tab*) 650 mg PO Q4H PRN PRN Reason: PAIN or TEMP > 101 F Al Hydrox/Mg Hydrox/Simethicone (Maalox Plus*) 30 ml PO Q4H PRN PRN Reason: INDIGESTION Benztropine Mesylate (Cogentin Tab*) 0.5 mg PO BEDTIME [facility] Last Admin: 12/07/18 21:20 Dose: 0.5 mg Clozapine (Clozapine Tab*) 75 mg PO BID [facility] Last Admin: 12/08/18 08:28 Dose: 75 mg Divalproex Sodium (Depakote Er Tab(*)) 1,000 mg PO BEDTIME [facility] Last Admin: 12/07/18 21:22 Dose: 1,000 mg Multivitamins (Theragran Tab*) 1 tab PO DAILY [facility] Last Admin: 12/08/18 08:28 Dose: 1 tab Nicotine Polacrilex (Nicotine Gum*) 2 mg PO Q2H PRN PRN Reason: CRAVINGS Paliperidone (Invega Er Tab*) 9 mg PO BEDTIME [facility] Last Admin: 12/07/18 21:23 Dose: 9 mg - Discharge Plan Discharge Plan: Inpatient Hospitalization Lab Results - Lab Results Lab Results: 12/05/18 12/05/18 12/07/18 10:32 10:32 07:46 WBC RBC Hgb Hct MCV MCH MCHC RDW Plt Count MPV Neut % (Auto) Lymph % (Auto) Darke % (Auto) Eos % (Auto) Baso % (Auto) Absolute Neuts (auto) Absolute Lymphs (auto) Absolute Monos (auto) Absolute Eos (auto) Absolute Basos (auto) Absolute Nucleated RBC Nucleated RBC % Sodium 133 L Potassium 4.7 Chloride 104 Carbon Dioxide 20 L Anion Gap 9 BUN 6 Creatinine 0.63 L Est GFR ( Amer) 169.8 Est GFR (Non-Af Amer) 140.3 BUN/Creatinine Ratio 9.5 Glucose 102 H Hemoglobin A1c 6.3 H Calcium 8.8 Total Bilirubin 0.20 AST 14 ALT 12 Alkaline Phosphatase 54 Total Protein 6.4 Albumin 3.6 Globulin 2.8 Albumin/Globulin Ratio 1.3 Triglycerides 151 Cholesterol 140 LDL Cholesterol 73 HDL Cholesterol 37.0 12/08/18 07:57 WBC 9.3 RBC 4.74 Hgb 14.3 Hct 42 MCV 89 MCH 30 MCHC 34 RDW 14 Plt Count 408 MPV 6.4 L Neut % (Auto) 62.4 Lymph % (Auto) 24.8 Darke % (Auto) 11.0 Eos % (Auto) 1.1 Baso % (Auto) 0.7 Absolute Neuts (auto) 5.8 Absolute Lymphs (auto) 2.3 Absolute Monos (auto) 1.0 H Absolute Eos (auto) 0.1 Absolute Basos (auto) 0.1 Absolute Nucleated RBC 0.0 Nucleated RBC % 0.1 Sodium Potassium Chloride Carbon Dioxide Anion Gap BUN Creatinine Est GFR ( Amer) Est GFR (Non-Af Amer) BUN/Creatinine Ratio Glucose Hemoglobin A1c Calcium Total Bilirubin AST ALT Alkaline Phosphatase Total Protein Albumin Globulin Albumin/Globulin Ratio Triglycerides Cholesterol LDL Cholesterol HDL Cholesterol
[2018-12-08] MEDS: Benztropine TAB* 1 MG PO SCH (20:18)
[2018-12-08] MEDS: Divalproex ER TAB(*) 500 MG PO SCH (20:19)
[2018-12-08] MEDS: Paliperidone ER TAB* 9 MG TAB.ER PO SCH (20:19)
[2018-12-09] MEDS: Vitamin THERAPEUTIC TAB PO SCH (08:08)
[2018-12-09] MEDS: CloZAPine TAB* 25 MG TAB PO SCH (08:08)
--- NOTE | 2018-12-09 09:54 | PN ---
Subjective - Subjective Date of Service: 12/09/18 Service Type: 90015 Hosp care 15 min low complexity Subjective: Anderson is again in his room. I asked about sedation from the clozapine but he responds "No, no more than normal." Staff is concerned about his continued delusional thinking but he insists that he is fine. He denies SI or HI. Objective - General Observations Appearance: Malodorous, Unkempt Appears Stated Age: No Stature: Overweight Posture: WNL Eye Contact: Average Behavior/Activity: WNL - Interaction Observations Attitude Towards Examiner: Cooperative Stated Mood: Euthymic Affect: Blunted Speech Pattern/Tone: Clear Thought Process: Impoverished Perception: WNL Thought Content: Paranoid Thought Process: Lethality: Paranoid Ideation Hallucination Type: None Delusion Type: Persecution - Cognitive Function Orientation: A&O x 4 Level of Consciousness: Awake Cognition: WNL Estimated Intelligence: Normal Insight: WNL Judgment Within Normal Limits: No Ability to Make Reasonable Decisions: Serverely Impaired - Medication Compliance Cooperative with Inpatient Medication Regimen: Yes - Group Participation Participates in Group Activities: No Assessment - Assessment Merits Inpatient Hospitalization: For Immediate Safety, For Stabilization Inpatient DSM-V Dx: F25.0 Clinical Impression: 43 y.o. single, male, dual citizen of the [place], with a history of schizoaffective DO, just [facility], who now returns on 9.45 legal status due to disorganized and catatonic behavior at the [facility] residence. 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 BSU: Problem List - Patient Problems (1) Schizoaffective disorder, bipolar type Current Visit: No Status: Chronic Priority: High Code(s): F25.0 - SCHIZOAFFECTIVE DISORDER, BIPOLAR TYPE SNOMED Code(s): 69165725 Comment: - Continue Benztropine, Divalproex, and Invega. - MHU consult requested. Plan - Plan Treatment Plan: Name: ANDERSON MONTES DE OCA Birthdate: 1975 [id number] We have placed him on fluid restrictions and turned off the water in his room. We have reduced oral paliperidone from 12 to 9mg daily and simultaneously initiated a trial of clozapine, now at 75mg PO BID. Will lower paliperidone to 6mg and increase clozapine to 100mg PO BID. CBC and EKG are within normal limits. Patient to be referred to the ACT Team but we have not ruled out State Hospitalization. Continued Medication Management: Different Medication Medications: Current Medications Acetaminophen (Tylenol Tab*) 650 mg PO Q4H PRN PRN Reason: PAIN or TEMP > 101 F Al Hydrox/Mg Hydrox/Simethicone (Maalox Plus*) 30 ml PO Q4H PRN PRN Reason: INDIGESTION Benztropine Mesylate (Cogentin Tab*) 0.5 mg PO BEDTIME MARJ Last Admin: 12/08/18 20:18 Dose: 0.5 mg Clozapine (Clozapine Tab*) 75 mg PO BID MARJ Last Admin: 12/09/18 08:08 Dose: 75 mg Divalproex Sodium (Depakote Er Tab(*)) 1,000 mg PO BEDTIME MARJ Last Admin: 12/08/18 20:19 Dose: 1,000 mg Multivitamins (Theragran Tab*) 1 tab PO DAILY MARJ Last Admin: 12/09/18 08:08 Dose: 1 tab Nicotine Polacrilex (Nicotine Gum*) 2 mg PO Q2H PRN PRN Reason: CRAVINGS Paliperidone (Invega Er Tab*) 9 mg PO BEDTIME MARJ Last Admin: 12/08/18 20:19 Dose: 9 mg - Discharge Plan Discharge Plan: Inpatient Hospitalization
[2018-12-09] MEDS: Paliperidone ER TAB* 6 MG TAB.ER PO SCH (20:06)
[2018-12-09] MEDS: Divalproex ER TAB(*) 500 MG PO SCH (20:08)
[2018-12-09] MEDS: CloZAPine TAB* 100 MG TAB PO SCH (20:09)
[2018-12-09] MEDS: Benztropine TAB* 1 MG PO SCH (20:11)
[2018-12-10] MEDS: Vitamin THERAPEUTIC TAB PO SCH (08:10)
[2018-12-10] MEDS: CloZAPine TAB* 100 MG TAB PO SCH ×2 (08:10→20:43)
[2018-12-10] MEDS: Benztropine TAB* 1 MG PO SCH (20:40)
[2018-12-10] MEDS: Divalproex ER TAB(*) 500 MG PO SCH (20:42)
[2018-12-10] MEDS: Paliperidone ER TAB* 6 MG TAB.ER PO SCH (20:42)
[2018-12-11] MEDS: CloZAPine TAB* 100 MG TAB PO SCH ×2 (08:49→20:24)
[2018-12-11] MEDS: Vitamin THERAPEUTIC TAB PO SCH (08:49)
[2018-12-11] MEDS: Paliperidone ER TAB* 6 MG TAB.ER PO SCH (20:24)
[2018-12-11] MEDS: Benztropine TAB* 1 MG PO SCH (20:25)
[2018-12-11] MEDS: Divalproex ER TAB(*) 500 MG PO SCH (20:25)
[2018-12-12] MEDS: Vitamin THERAPEUTIC TAB PO SCH (08:39)
[2018-12-12] MEDS: CloZAPine TAB* 100 MG TAB PO SCH ×2 (08:39→20:43)
[2018-12-12] MEDS: Paliperidone ER TAB* 6 MG TAB.ER PO SCH (20:42)
[2018-12-12] MEDS: Benztropine TAB* 1 MG PO SCH (20:43)
[2018-12-12] MEDS: Divalproex ER TAB(*) 500 MG PO SCH (20:43)
[2018-12-13] MEDS: CloZAPine TAB* 100 MG TAB PO SCH ×2 (08:50→20:09)
[2018-12-13] MEDS: Vitamin THERAPEUTIC TAB PO SCH (08:51)
--- NOTE | 2018-12-13 12:57 | PN ---
Subjective - Subjective Date of Service: 12/13/18 Service Type: 12469 Hosp care 15 min low complexity Subjective: The patient has not been doing well. He is isolating to his room, talking to himself and appears dishevelled and malodorous. We discussed his case this morning in treatment team and the consensus was that he is not improving, even with the introduction of clozapine therapy. We have made the decision to refer him for longer-term inpatient in the [facility] setting. Anderson is upset upon hearing this, bargaining and pleading with me to reconsider. "I have my friends here in this hospital. I am comfortable here. Don't send me to another hospital. Send me to [facility]." Objective - General Observations Appearance: Disheveled, Malodorous Appears Stated Age: Yes Stature: Overweight Posture: WNL Eye Contact: Average Behavior/Activity: WNL - Interaction Observations Attitude Towards Examiner: Cooperative Stated Mood: Euthymic Affect: Blunted Speech Pattern/Tone: Perseverating Thought Process: Disorganized Perception: WNL Thought Content: Paranoid Thought Process: Lethality: Paranoid Ideation Hallucination Type: None Delusion Type: Persecution - Cognitive Function Orientation: A&O x 4 Level of Consciousness: Awake Cognition: WNL Estimated Intelligence: Normal Insight: WNL Judgment Within Normal Limits: No Ability to Make Reasonable Decisions: Serverely Impaired - Medication Compliance Cooperative with Inpatient Medication Regimen: Yes - Group Participation Participates in Group Activities: No Assessment - Assessment Merits Inpatient Hospitalization: For Immediate Safety, For Stabilization Inpatient DSM-V Dx: F25.0 Clinical Impression: 43 y.o. single, male, dual citizen of the [place], with a history of schizoaffective DO, just [facility] the [facility] on 11/25/18, who now returns on 9.45 legal status due to disorganized and catatonic behavior at the [facility] residence. 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 BSU: Problem List - Patient Problems (1) Schizoaffective disorder, bipolar type Current Visit: No Status: Chronic Priority: High Code(s): F25.0 - SCHIZOAFFECTIVE DISORDER, BIPOLAR TYPE SNOMED Code(s): 20803633 Comment: - Continue Benztropine, Divalproex, and Invega. - MHU consult requested. Plan - Plan Treatment Plan: Name: ANDERSON MONTES DE OCA Birthdate: 1975 [id number] We have placed him on fluid restrictions and turned off the water in his room. We have reduced oral paliperidone from 12 to 6mg daily and simultaneously initiated a trial of clozapine, now at 100mg PO BID. Will increase clozapine to 125mg PO BID. CBC and EKG are within normal limits. Patient to be referred for State Hospitalization. Continued Medication Management: Different Medication Medications: Current Medications Acetaminophen (Tylenol Tab*) 650 mg PO Q4H PRN PRN Reason: PAIN or TEMP > 101 F Al Hydrox/Mg Hydrox/Simethicone (Maalox Plus*) 30 ml PO Q4H PRN PRN Reason: INDIGESTION Benztropine Mesylate (Cogentin Tab*) 0.5 mg PO BEDTIME MARJ Last Admin: 12/12/18 20:43 Dose: 0.5 mg Clozapine (Clozapine Tab*) 125 mg PO BID MARJ Divalproex Sodium (Depakote Er Tab(*)) 1,000 mg PO BEDTIME MARJ Last Admin: 12/12/18 20:43 Dose: 1,000 mg Multivitamins (Theragran Tab*) 1 tab PO DAILY MARJ Last Admin: 12/13/18 08:51 Dose: 1 tab Nicotine Polacrilex (Nicotine Gum*) 2 mg PO Q2H PRN PRN Reason: CRAVINGS Paliperidone (Invega Er Tab*) 6 mg PO BEDTIME MARJ Last Admin: 12/12/18 20:42 Dose: 6 mg - Discharge Plan Discharge Plan: Consider Longer Term Tx
[2018-12-13] MEDS: Paliperidone ER TAB* 6 MG TAB.ER PO SCH (20:09)
[2018-12-13] MEDS: Benztropine TAB* 1 MG PO SCH (20:09)
[2018-12-13] MEDS: CloZAPine TAB* 25 MG TAB PO SCH (20:09)
[2018-12-13] MEDS: Divalproex ER TAB(*) 500 MG PO SCH (20:10)
[2018-12-14] MEDS: CloZAPine TAB* 100 MG TAB PO SCH ×2 (08:04→20:49)
[2018-12-14] MEDS: CloZAPine TAB* 25 MG TAB PO SCH ×2 (08:05→20:49)
[2018-12-14] MEDS: Vitamin THERAPEUTIC TAB PO SCH (08:05)
[2018-12-14] MEDS: Benztropine TAB* 1 MG PO SCH (20:47)
[2018-12-14] MEDS: Paliperidone ER TAB* 3 MG TAB.ER PO SCH (20:49)
[2018-12-14] MEDS: Divalproex ER TAB(*) 500 MG PO SCH (20:50)
[2018-12-15 07:50] LABS: ABS Basophils 0.1 10^3/ul (0-0.2); ABS Eosinophils 0.1 10^3/ul (0-0.6); ABS Lymphocytes 3.3 10^3/ul (1.0-4.8); ABS Monocytes 0.9 10^3/ul (0-0.8); ABS Neutrophils 5.3 10^3/ul (1.5-7.7); Eosinophil % 0.8 %; Hematocrit 43 % (42-52); Hemoglobin 14.5 g/dL (14.0-18.0); Lymphocyte % 33.8 %; Mean Corpuscular HGB Conc 34 g/dL (31-36); Mean Corpuscular Hemoglobin 30 pg (27-31); Mean Corpuscular Volume 89 fL (80-94); Mean Platelet Volume 6.6 fL (7.4-10.4); Nucleated Red Blood Cells % 0.1; Platelet Count 354 10^3/uL (150-450); Red Blood Count 4.79 10^6 /uL (4.18-5.48); Red Cell Distribution Width 14 % (10-15); White Blood Count 9.6 10^3/uL (3.5-10.8)
[2018-12-15] MEDS: CloZAPine TAB* 100 MG TAB PO SCH ×2 (08:11→19:29)
[2018-12-15] MEDS: Vitamin THERAPEUTIC TAB PO SCH (08:12)
[2018-12-15] MEDS: CloZAPine TAB* 25 MG TAB PO SCH ×2 (08:12→19:28)
--- NOTE | 2018-12-15 14:45 | PN ---
Subjective - Subjective Date of Service: 12/15/18 Service Type: 19619 Hosp care 15 min low complexity Subjective: Patient seen for administrative meeting, pending referral to [facility] for longer-term inpatient care. Anderson is able to state his objections to going to another facility. "I want to stay here. This is my family. I don't want to go where people may not be nice." He appears to be tolerating clozapine well so far but remains dishevelled and aloof in his room. Objective - General Observations Appearance: Disheveled, Malodorous Appears Stated Age: Yes Stature: Overweight Posture: WNL Eye Contact: Intermittent Behavior/Activity: Peculiar - Interaction Observations Attitude Towards Examiner: Cooperative Stated Mood: Anxious Affect: Blunted Speech Pattern/Tone: Perseverating Thought Process: Impoverished Perception: WNL Thought Content: Paranoid Thought Process: Lethality: Paranoid Ideation Hallucination Type: None Delusion Type: Persecution - Cognitive Function Orientation: A&O x 4 Level of Consciousness: Awake Cognition: WNL Estimated Intelligence: Normal Insight: WNL Judgment Within Normal Limits: No Ability to Make Reasonable Decisions: Serverely Impaired - Medication Compliance Cooperative with Inpatient Medication Regimen: Yes - Group Participation Participates in Group Activities: No Assessment - Assessment Merits Inpatient Hospitalization: For Immediate Safety, For Stabilization Inpatient DSM-V Dx: F25.0 Clinical Impression: 43 y.o. single, male, dual citizen of the and [place], with a history of schizoaffective DO, just [facility] the [facility] on 11/[facility]/18, who now returns on 9.45 legal status due to disorganized and catatonic behavior at the [facility] residence. 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 BSU: Problem List - Patient Problems (1) Schizoaffective disorder, bipolar type Current Visit: No Status: Chronic Priority: High Code(s): F25.0 - SCHIZOAFFECTIVE DISORDER, BIPOLAR TYPE SNOMED Code(s): 35707197 Comment: - Continue Benztropine, Divalproex, and Invega. - MHU consult requested. Plan - Plan Treatment Plan: Name: ANDERSON MONTES DE OCA Birthdate: 1975 [id number] We have placed him on fluid restrictions and turned off the water in his room. We have reduced oral paliperidone stepwise from 12 to 3mg daily and simultaneously initiated a trial of clozapine, now at 125mg PO BID. The patient is also receiving Depakote ER 1000mg PO qhs. CBC and EKG are within normal limits. Patient to be referred for State Hospitalization. Continued Medication Management: Different Medication Medications: Current Medications Acetaminophen (Tylenol Tab*) 650 mg PO Q4H PRN PRN Reason: PAIN or TEMP > 101 F Al Hydrox/Mg Hydrox/Simethicone (Maalox Plus*) 30 ml PO Q4H PRN PRN Reason: INDIGESTION Benztropine Mesylate (Cogentin Tab*) 0.5 mg PO BEDTIME MARJ Last Admin: 12/14/18 20:47 Dose: 0.5 mg Clozapine (Clozapine Tab*) 100 mg PO BID MARJ Last Admin: 12/15/18 08:11 Dose: 100 mg Clozapine (Clozapine Tab*) 25 mg PO BID MARJ Last Admin: 12/15/18 08:12 Dose: 25 mg Divalproex Sodium (Depakote Er Tab(*)) 1,000 mg PO BEDTIME MARJ Last Admin: 12/14/18 20:50 Dose: 1,000 mg Multivitamins (Theragran Tab*) 1 tab PO DAILY MARJ Last Admin: 12/15/18 08:12 Dose: 1 tab Nicotine Polacrilex (Nicotine Gum*) 2 mg PO Q2H PRN PRN Reason: CRAVINGS Paliperidone (Invega Er Tab*) 3 mg PO BEDTIME MARJ Last Admin: 12/14/18 20:49 Dose: 3 mg - Discharge Plan Discharge Plan: Consider Longer Term Tx Lab Results - Lab Results Lab Results: 12/15/18 12/15/18 07:12 07:12 WBC 9.6 RBC 4.79 Hgb 14.5 Hct 43 MCV 89 MCH 30 MCHC 34 RDW 14 Plt Count 354 MPV 6.6 L Neut % (Auto) 55.1 Lymph % (Auto) 33.8 Peach % (Auto) 9.5 Eos % (Auto) 0.8 Baso % (Auto) 0.8 Absolute Neuts (auto) 5.3 Absolute Lymphs (auto) 3.3 Absolute Monos (auto) 0.9 H Absolute Eos (auto) 0.1 Absolute Basos (auto) 0.1 Absolute Nucleated RBC 0.0 Nucleated RBC % 0.1 Valproic Acid 68.0
[2018-12-15] MEDS: Divalproex ER TAB(*) 500 MG PO SCH (19:28)
[2018-12-15] MEDS: Paliperidone ER TAB* 3 MG TAB.ER PO SCH (19:28)
[2018-12-15] MEDS: Benztropine TAB* 1 MG PO SCH (19:29)
[2018-12-16] MEDS: CloZAPine TAB* 25 MG TAB PO SCH ×2 (08:56→20:09)
[2018-12-16] MEDS: Vitamin THERAPEUTIC TAB PO SCH (08:56)
[2018-12-16] MEDS: CloZAPine TAB* 100 MG TAB PO SCH ×2 (08:56→20:08)
[2018-12-16] MEDS: Benztropine TAB* 1 MG PO SCH (20:07)
[2018-12-16] MEDS: Divalproex ER TAB(*) 500 MG PO SCH (20:09)
[2018-12-16] MEDS: Paliperidone ER TAB* 3 MG TAB.ER PO SCH (20:10)
[2018-12-17] MEDS: CloZAPine TAB* 100 MG TAB PO SCH ×2 (08:26→20:12)
[2018-12-17] MEDS: Vitamin THERAPEUTIC TAB PO SCH (08:26)
[2018-12-17] MEDS: CloZAPine TAB* 25 MG TAB PO SCH ×2 (08:26→20:13)
--- NOTE | 2018-12-17 11:26 | PN ---
Subjective - Subjective Date of Service: 12/17/18 Service Type: 39889 Hosp care 15 min low complexity Subjective: Anderson is dishevelled. He is malodorous. He is tolerating clozapine titration well but does not appear to be improving psychiatrically and remains disorganized. Objective - General Observations Appearance: Disheveled, Malodorous Appears Stated Age: Yes Stature: Overweight Posture: WNL Eye Contact: Intermittent Behavior/Activity: Peculiar - Interaction Observations Attitude Towards Examiner: Cooperative Stated Mood: Anxious Affect: Blunted Speech Pattern/Tone: Perseverating Thought Process: Disorganized, Impoverished Perception: WNL Thought Content: Paranoid Thought Process: Lethality: Paranoid Ideation Hallucination Type: None Delusion Type: Persecution - Cognitive Function Orientation: A&O x 4 Level of Consciousness: Awake Cognition: WNL Estimated Intelligence: Normal Insight: WNL Judgment Within Normal Limits: No Ability to Make Reasonable Decisions: Serverely Impaired - Medication Compliance Cooperative with Inpatient Medication Regimen: Yes - Group Participation Participates in Group Activities: No Assessment - Assessment Merits Inpatient Hospitalization: For Immediate Safety, For Stabilization Inpatient DSM-V Dx: F25.0 Clinical Impression: 43 y.o. single, male, dual citizen of the and [place], with a history of schizoaffective DO, just [facility] the [facility] on 11/[facility]/18, who now returns on 9.45 legal status due to disorganized and catatonic behavior at the [facility] residence. 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 BSU: Problem List - Patient Problems (1) Schizoaffective disorder, bipolar type Current Visit: No Status: Chronic Priority: High Code(s): F25.0 - SCHIZOAFFECTIVE DISORDER, BIPOLAR TYPE SNOMED Code(s): 46261045 Comment: - Continue Benztropine, Divalproex, and Invega. - MHU consult requested. Plan - Plan Treatment Plan: Name: ANDERSON MONTES DE OCA Birthdate: 1975 [id number] We have placed him on fluid restrictions and turned off the water in his room. We have reduced oral paliperidone stepwise from 12 to 3mg daily and will now discontinue it. Simultaneously, we have initiated a trial of clozapine, now at 125mg PO BID and this will be increased today to 150mg PO BID. The patient is also receiving Depakote ER 1000mg PO qhs. CBC and EKG are within normal limits. Patient to be referred for State Hospitalization. Continued Medication Management: Different Medication Medications: Current Medications Acetaminophen (Tylenol Tab*) 650 mg PO Q4H PRN PRN Reason: PAIN or TEMP > 101 F Al Hydrox/Mg Hydrox/Simethicone (Maalox Plus*) 30 ml PO Q4H PRN PRN Reason: INDIGESTION Benztropine Mesylate (Cogentin Tab*) 0.5 mg PO BEDTIME MARJ Last Admin: 12/16/18 20:07 Dose: 0.5 mg Clozapine (Clozapine Tab*) 100 mg PO BID MARJ Last Admin: 12/17/18 08:26 Dose: 100 mg Clozapine (Clozapine Tab*) 50 mg PO BID MARJ Divalproex Sodium (Depakote Er Tab(*)) 1,000 mg PO BEDTIME MARJ Last Admin: 12/16/18 20:09 Dose: 1,000 mg Multivitamins (Theragran Tab*) 1 tab PO DAILY MARJ Last Admin: 12/17/18 08:26 Dose: 1 tab Nicotine Polacrilex (Nicotine Gum*) 2 mg PO Q2H PRN PRN Reason: CRAVINGS - Discharge Plan Discharge Plan: Consider Longer Term Tx
--- NOTE | 2018-12-17 12:01 | PN ---
BSU: Group Therapy Note - Service Type Service Type: 19450 Group Psychotherapy - Cognitive Behavioral Group Therapy ( CBT):Patient was attentive and participatory in CBT programming this morning, and remained in good behavioral control. Patient expressed positive insights regarding relevant treatment interventions and goals.
[2018-12-17] MEDS: Benztropine TAB* 1 MG PO SCH (20:08)
[2018-12-17] MEDS: Divalproex ER TAB(*) 500 MG PO SCH (20:12)
[2018-12-18] MEDS: CloZAPine TAB* 100 MG TAB PO SCH ×2 (08:15→21:03)
[2018-12-18] MEDS: Vitamin THERAPEUTIC TAB PO SCH (08:15)
[2018-12-18] MEDS: CloZAPine TAB* 25 MG TAB PO SCH ×2 (08:15→21:00)
[2018-12-18] MEDS: Nicotine* 2MG (FRUIT FLAVOR) GUM PO PRN (11:02)
[2018-12-18] MEDS: Divalproex ER TAB(*) 500 MG PO SCH (21:02)
[2018-12-18] MEDS: Benztropine TAB* 1 MG PO SCH (21:03)
[2018-12-19] MEDS: CloZAPine TAB* 100 MG TAB PO SCH ×2 (08:25→20:11)
[2018-12-19] MEDS: Vitamin THERAPEUTIC TAB PO SCH (08:25)
[2018-12-19] MEDS: CloZAPine TAB* 25 MG TAB PO SCH ×2 (08:25→20:11)
[2018-12-19] MEDS: Nicotine* 2MG (FRUIT FLAVOR) GUM PO PRN (11:55)
[2018-12-19] MEDS: Benztropine TAB* 1 MG PO SCH (20:10)
[2018-12-19] MEDS: Divalproex ER TAB(*) 500 MG PO SCH (20:10)
[2018-12-20] MEDS: CloZAPine TAB* 25 MG TAB PO SCH ×2 (08:23→21:29)
[2018-12-20] MEDS: CloZAPine TAB* 100 MG TAB PO SCH ×2 (08:23→21:28)
[2018-12-20] MEDS: Vitamin THERAPEUTIC TAB PO SCH (08:23)
--- NOTE | 2018-12-20 10:33 | PN ---
Subjective - Subjective Date of Service: 12/20/18 Service Type: 18238 Hosp care 15 min low complexity Subjective: The patient is tolerating clozapine well though he remains dishevelled and malodorous. He talks about various plans for after discharge from [facility], including returning to [facility] to throw a [employer] party for the residents there, going to live with his brother Deepak in [place] and returning to live with his mother in [facility]. He denies SI or HI. Objective - General Observations Appearance: Disheveled, Malodorous Appears Stated Age: Yes Stature: Overweight Posture: WNL Eye Contact: Intermittent Behavior/Activity: Peculiar - Interaction Observations Attitude Towards Examiner: Cooperative Stated Mood: Euthymic Affect: Blunted Speech Pattern/Tone: Perseverating Thought Process: Impoverished Perception: WNL Thought Content: Paranoid Thought Process: Lethality: Paranoid Ideation Hallucination Type: None Delusion Type: Persecution - Cognitive Function Orientation: A&O x 4 Level of Consciousness: Awake Cognition: WNL Estimated Intelligence: Normal Insight: WNL Judgment Within Normal Limits: No Ability to Make Reasonable Decisions: Serverely Impaired - Medication Compliance Cooperative with Inpatient Medication Regimen: Yes - Group Participation Participates in Group Activities: No Assessment - Assessment Merits Inpatient Hospitalization: For Immediate Safety, For Stabilization Inpatient DSM-V Dx: F25.0 Clinical Impression: 43 y.o. single, male, dual citizen of the and [facility], with a history of schizoaffective DO, just [facility] the [facility] on 11[facility], who now returns on 9.45 legal status due to disorganized and catatonic behavior at the [facility] residence. 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 BSU: Problem List - Patient Problems (1) Schizoaffective disorder, bipolar type Current Visit: No Status: Chronic Priority: High Code(s): F25.0 - SCHIZOAFFECTIVE DISORDER, BIPOLAR TYPE SNOMED Code(s): 16478694 Comment: - Continue Benztropine, Divalproex, and Invega. - MHU consult requested. Plan - Plan Treatment Plan: Name: MADHAVI MONTES DE OCA Birthdate: 1975 [id number] We have placed him on fluid restrictions and turned off the water in his room. We have reduced oral paliperidone stepwise and discontinued it. Simultaneously , we have initiated a trial of clozapine and titrated it to 150mg PO BID. The patient is also receiving Depakote ER 1000mg PO qhs. CBC and EKG are within normal limits. Patient to be referred for State Hospitalization. Continued Medication Management: Different Medication Medications: Current Medications Acetaminophen (Tylenol Tab*) 650 mg PO Q4H PRN PRN Reason: PAIN or TEMP > 101 F Al Hydrox/Mg Hydrox/Simethicone (Maalox Plus*) 30 ml PO Q4H PRN PRN Reason: INDIGESTION Benztropine Mesylate (Cogentin Tab*) 0.5 mg PO BEDTIME MARJ Last Admin: 12/19/18 20:10 Dose: 0.5 mg Clozapine (Clozapine Tab*) 100 mg PO BID MARJ Last Admin: 12/20/18 08:23 Dose: 100 mg Clozapine (Clozapine Tab*) 50 mg PO BID MARJ Last Admin: 12/20/18 08:23 Dose: 50 mg Divalproex Sodium (Depakote Er Tab(*)) 1,000 mg PO BEDTIME MARJ Last Admin: 12/19/18 20:10 Dose: 1,000 mg Multivitamins (Theragran Tab*) 1 tab PO DAILY MARJ Last Admin: 12/20/18 08:23 Dose: 1 tab Nicotine Polacrilex (Nicotine Gum*) 2 mg PO Q2H PRN PRN Reason: CRAVINGS Last Admin: 12/19/18 11:55 Dose: 2 mg - Discharge Plan Discharge Plan: Consider Longer Term Tx
[2018-12-20] MEDS: Benztropine TAB* 1 MG PO SCH (21:27)
[2018-12-20] MEDS: Divalproex ER TAB(*) 500 MG PO SCH (21:27)
[2018-12-21] MEDS: CloZAPine TAB* 100 MG TAB PO SCH ×2 (08:28→22:38)
[2018-12-21] MEDS: Vitamin THERAPEUTIC TAB PO SCH (08:28)
[2018-12-21] MEDS: CloZAPine TAB* 25 MG TAB PO SCH ×2 (08:28→22:39)
[2018-12-21] MEDS: Nicotine* 2MG (FRUIT FLAVOR) GUM PO PRN (09:20)
[2018-12-21] MEDS ORDERED: LORazepam TAB(*) 1 MG PO PRN (11:05)
[2018-12-21 15:20] LABS: ABS Basophils 0.1 10^3/ul (0-0.2); ABS Eosinophils 0.1 10^3/ul (0-0.6); ABS Neutrophils 10.3 10^3/ul (1.5-7.7); Eosinophil % 0.4 %; Hematocrit 41 % (42-52); Hemoglobin 14.2 g/dL (14.0-18.0); Lymphocyte % 20.7 %; Mean Corpuscular HGB Conc 34 g/dL (31-36); Mean Corpuscular Hemoglobin 30 pg (27-31); Mean Corpuscular Volume 88 fL (80-94); Mean Platelet Volume 6.7 fL (7.4-10.4); Nucleated Red Blood Cells % 0.2; Platelet Count 375 10^3/uL (150-450); Red Blood Count 4.69 10^6 /uL (4.18-5.48); Red Cell Distribution Width 14 % (10-15); White Blood Count 14.4 10^3/uL (3.5-10.8)
[2018-12-21] MEDS: Divalproex ER TAB(*) 500 MG PO SCH (22:37)
[2018-12-21] MEDS: Benztropine TAB* 1 MG PO SCH (22:43)
[2018-12-22] MEDS: CloZAPine TAB* 100 MG TAB PO SCH (08:20)
[2018-12-22] MEDS: CloZAPine TAB* 25 MG TAB PO SCH (08:20)
[2018-12-22] MEDS: Vitamin THERAPEUTIC TAB PO SCH (08:20)
[2018-12-22 10:51] VITALS: BP 138/92
--- NOTE | 2018-12-22 12:02 | DS ---
PSYCHIATRIC DISCHARGE SUMMARY: DATE OF ADMISSION: 12/03/18 DATE OF DISCHARGE: 12/22/18 DISCHARGE DIAGNOSES: Percy I: Schizoaffective disorder, bipolar type; obsessive-compulsive disorder. Percy II: Deferred. CONDITION AT THE TIME OF DISCHARGE: Guarded. The patient remains disheveled, poorly groomed with li mited insight although he is tolerating the new regimen of clozapine well. He still has not returned to a safe psychiatric baseline. For this reason, he is going to be transferred to the [facility] where he will continue to receive further inpatient treatment. MENTAL STATUS EXAM: At the time of discharge, Anderson is a middle-aged male, somewhat overwe ight with thinning dark hair, dressed in an athletic jump suit, who is pacing the hallways. He makes intermittent eye contact. He is calm, cooperative, and polite. His speech is broken [place] althou gh it is clear that he understands my questions and can respond appropriately. Mood is anxious with a somewhat blunted affect. Thought process is simplistic and circumstantial. Thought content reveale d some hyperreligious and persecutory delusions. He is denying suicidal or homicidal ideations. He denies auditory or visual hallucinations. Insight and judgment are impaired given his tendency to dr ink toxic amounts of water. Cognitively, he is awake and alert with what would appear to be an avera ge intellect. LABORATORY DATA: Comprehensive metabolic testing was performed on 12/05/18 revealing hemoglobin A1c, which was elevated at 6.3%, triglycerides 151, cholesterol 140, LDL 73, HDL 37.0. DISCHARGE INSTRUCTIONS TO THE PATIENT: Are as follows: Part A. Medications: He is takin. Cogentin 0.5 mg p.o. q.h.s. 2. Clozapine 150 mg p.o. b.i.d. 3. Depakote extended release 1000 mg p.o. q.h.s. 4. Ativan 1 mg every 6 hours as needed for anxiety. 5. Nicotine gum 2 mg p.o. q.2 hours as a p.r.n. for nicotine craving. Part B: Diet is regular. Part C: Activities as per [facility] protocol. The patient is a smoker and he is willing to continue bruno alfreda replacement therapy in the form of Nicorette gum. There are no current labs or diagnostic studie s pending. Part D: Followup care: The patient will follow up at the where he will receive comprehensive inpatient psychiatric treatment. His followup treatment in the community w ill be established prior to his discharge from that facility. Part E: Substance abuse followup is nonapplicable. Part F: Disposition: The patient is going to . HOSPITAL COURSE: Part A: Reason for admission: The patient is a 43-year-old single, male, a dual citizen of the [place] and [place] with a history of schizoaffective disorder , who was just discharged from the [facility] on 11/25/18, who now returns on a 9.45 legal status due to dis organized and catatonic behavior at the [facility]. 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 After collateral i nformation, we reached out to his providers at [facility], who indicated that he has not been doing wel l since discharge although he had been taking oral Invega, Depakote and benztropine as scheduled. He had been oddly related. Continues to smoke cigarettes in his room, which is a fire hazard. They taylor ve also noted catatonic behavior in which he seemed to freeze in place for 30 to 45 seconds at a time . They were concerned that this had occurred while he was crossing the street, it would put him in a danger. Additionally, the patient is still drinking copious amounts of water and not minding his nu tritional status. He was tending to eat junk foods, such as Doritos, Coca-Cola and chocolate candy f rom a local convenient store. When I asked Anderson to explain the circumstances of his readmission, vanesa connolly tells me that cigarettes in his room were not real, but rather holographic. Later he tells me that the cigarettes came from God. He was disheveled with marked excoriations on bilateral hands, which were thought to be secondary to excessive hand washing. He did appear to be significantly off his ba seline. Anderson denied homicidal or suicidal ideations at that time. He was denying auditory or visu al hallucinations, but did appear to be responding to internal stimuli. Part B: Psychiatric treatment rendered: The patient was admitted to the [facility] where he was placed on q.15 minute checks for his own safety. [facility], which was paliperidone 12 mg nightly, Cogentin 0.5 mg nightly, and Depakote Extended Relea se 1000 mg nightly. It was clear that he had not been doing well on paliperidone despite being adhere nt with this and it was thought that he wanted a trial of clozapine. Clozapine was started at a low dose of 25 mg daily and gradually titrated up to the effective dose of 150 mg twice daily. Simultane ously, his Invega was stabilized, decreased and ultimately discontinued. Although we did see some be nefit in terms of the patient's socialization and his willingness to come out of his room, we did not see improvements in his hygiene or in his relatedness. For these reasons, it was determined that he would benefit from a longer term hospitalization in the [facility] hospital setting. Anderson initially wa s resistant to this, but we had an administrative hearing in which he changed his mind and agreed to sign paperwork to go to [facility] where he was later accepted. At this time, he is in a somewhat guarded condition. The accepting physician is Dr. Evan Cerna, at . We certainly wish Anderson the best for his healthy and safe future and look forward to seeing him back in our community once his state hospitalization has concluded. [id number]/[facility] #: [id number]
== END 2018-12-22 12:15 | DRG 750 ==
LOC: ED 17:21 → BSU 12-03 04:15
PROVIDERS: ADMIT Psychiatry & Neurology Psychiatry; ATTEND Psychiatry & Neurology Psychiatry
PROC: GZHZZZZ Group Psychotherapy (ICD-10-PCS; principal; 2018-12-17)
DX: F25.0 Schizoaffective disorder, bipolar type (principal); F42.9 Obsessive-compulsive disorder, unspecified; F41.9 Anxiety disorder, unspecified; F17.210 Nicotine dependence, cigarettes, uncomplicated; E66.3 Overweight; F31.9 Bipolar disorder, unspecified; Z83.3 Family history of diabetes mellitus; Z88.8 Allergy status to other drugs, medicaments and biological substances; Z72.89 Other problems related to lifestyle; Z68.31 Body mass index [BMI] 31.0-31.9, adult
CPT/HCPCS: 36415; 80053; 80061; 80164; 80307; 80320; 80329; 81003; 83036; 84443; 85025; 90853; 93005; 99222; 99231; 99238; 99285; A9270-GY; G0480